=== PATIENT | male | born 1960 | race African-American/Black ===

== ENCOUNTER 2018-08-02 09:50 | Inpatient (IN) ==
[2018-08-02] MEDS ORDERED: Sod Chloride 0.9% Inj 1,000 ML IV.SIG ONE (10:30)
[2018-08-02] MEDS ORDERED: Vancomycin Inj 1,000 MG in Sodium Chlor 0.9% Inj 250 ML IV.SIG ONE (10:30)
[2018-08-02] MEDS ORDERED: Piperacil/Tazo 4.5 GM Premix 4.5 GM/100 ML BAG IV.SIG ONE (10:30)
[2018-08-02] MEDS ORDERED: Sod Chloride 0.9% Inj 1,000 ML IV.SIG SCH ×2 (10:30→11:45)
--- NOTE | 2018-08-02 10:49 | ED ---
HPI General Chief complaint: Weakness Stated complaint: Medical Time Seen by Provider: 08/02/18 10:19 Source: EMS Mode of arrival: EMS Limitations: altered mental status History of Present Illness HPI Narrative: The patient is a 57-year-old -[place] male who presents to the emergency department via EMS for altered mental status. The patient apparently has a history of stage IV lung cancer, is a DNR, and is currently being followed by hospice per EMS. EMS states the patient apparently signed out of [facility] detention 1 week ago AGAINST MEDICAL ADVICE and has been living with friends. The friends state the patient was mentating, however, is now confused. Upon arrival the patient does have DNR paperwork that was signed in February of this year, however, he is not alert and oriented, does not follow commands, he will open his eyes and grunt as well as withdrawal of the pain. No further information is obtainable from the patient. Nursing staff did contact [facility], they state the patient was being followed by [facility] hospice, therefore, they were going to place a call to [facility] hospice. MD Complaint: Reports generalized weakness Onset (ago): unknown Duration: progressively worsening Location: Reports generalized Severity: severe Severity scale (1-10): 10 Relieving factors: none Exacerbating factors: none Related Data Home Medications Medication Instructions Recorded Confirmed gabapentin 100 mg PO BID 08/02/18 08/02/18 hydrocodone-acetaminophen [[place]] 1 tab PO Q4H 08/02/18 08/02/18 insulin glargine [Lantus U-100 40 unit SUBCUT HS 08/02/18 08/02/18 Insulin] lisinopril 5 mg PO DAILY 08/02/18 08/02/18 metformin 500 mg PO BID 08/02/18 08/02/18 pioglitazone 15 mg PO DAILY 08/02/18 08/02/18 sitagliptin [Januvia] 100 mg PO DAILY 08/02/18 08/02/18 Allergies Allergy/AdvReac Type Severity Reaction Status Date / Time No Known Allergies Allergy Uncoded 10/29/16 14:56 Review of Systems ROS: all other systems reviewed are negative [facility] Medical History Medical History Diabetes (Acute) Lung cancer (Acute) Social History Social History Substance History: No History of Abuse Second Hand Smoke Exposure: No Smoking Status: Never smoker How Often Do You Have a Drink Containing Alcohol: Never Recent Travel in [facility] within the Last 8 Weeks: No Recent Out of Country Travel within the Last 8 Weeks: No Immunization History Tetanus Immunization: Unsure Exam Narrative Exam Narrative: GENERAL: 57-year-old -[place] male who is confused, withdraws to pain, opens eyes spontaneously, and groans. SKIN: Focused skin assessment warm/dry. HEAD: Atraumatic. Normocephalic. EYES: No injection or drainage. ENT: No nasal bleeding or discharge. Dry mucous membranes. NECK: Trachea midline. No JVD. CARDIOVASCULAR: Regular, bradycardic with a heart rate in the 50s. RESPIRATORY: No accessory muscle use. Clear to auscultation. Breath sounds equal bilaterally. GASTROINTESTINAL: Abdomen soft, non-tender, nondistended. Back: No obvious deformity over the thoracic or lumbar vertebrae. No obvious large sacral decubitus ulcers. MUSCULOSKELETAL: Open wound on the bottom of the left foot with discoloration of the third, fourth, fifth toe, thickened skin with surrounding erythema and foul smell. NEUROLOGICAL: Opens eyes spontaneously, withdraws to pain, and groans, does not follow commands or answer questions. PSYCHIATRIC: Unable to obtain. Course Initial Documented Vital Signs Pulse Rate 50 L 08/02/18 10:01 Respiratory Rate 21 08/02/18 10:01 Blood Pressure 54/37 L 08/02/18 10:01 Last Documented Vital Signs Temperature 79.3 F L 08/02/18 13:03 Pulse Rate 54 L 08/02/18 13:03 Respiratory Rate 12 08/02/18 11:37 Blood Pressure 79/49 L 08/02/18 13:03 Pulse Oximetry 100 08/02/18 11:37 Critical Care Time Critical Care Time: Yes Total Critical Care Time: 50 Attestation: Aggregate critical care time was 50 minutes. Time to perform other separately billable procedures was not included in the critical care time. My time did not include minutes spent treating any other patients simultaneously or on activities that did not directly contribute to the patient's treatment. The services I provided to this patient were to treat and/or prevent clinically significant deterioration that could result in: Sepsis, septic shock, arrhythmia , DKA, dehydration, acute kidney injury, . I provided critical care services requiring my management, as noted below: Chart data review, documentation time, medication orders and management, vital sign assessments/reviewing monitor data, ordering and reviewing lab tests, ordering and interpreting/reviewing x-rays and diagnostic studies, care of the patient and discussion of the patient with the admitting physicians. Medical Decision Making MDM Narrative Medical decision making narrative: IV was established, labs are drawn and sent, and the patient was placed on cardiac telemetry monitoring and continuous pulse oximetry monitoring. CT of the brain was obtained. X-ray of the chest and left foot were obtained. Blood culture and lactic acid were sent to lab. The patient was administered 2 L of normal saline bolus, Zosyn, and vancomycin for possible sepsis of the left foot. The patient's white count was elevated greater than 45,000, nursing staff was unable to get a rectal temperature. EKG did reveal Quinones waves consistent with hypothermia, was also bradycardic. The patient was placed on a Bear hugger. Nursing staff spoke with hospice, The casework supervisor did come to the emergency department, the patient apparently rescinded his DNR 1 month ago and is currently a full code. The patient's x- ray reveals gas gangrene of the left foot, the patient will need vigorous resuscitation in the IMC followed by podiatry evaluation for possible amputation and/or debridement. The hospice personnel from [facility] were able to contact the sister as well as the son. The patient's son told the hospice service via phone that they were going to rescind the hospice and wanted full treatment. The patient has DKA based on elevated anion gap, acidosis, and elevated blood glucose. Therefore, the patient was placed on an insulin drip. The patient is in DKA with severe sepsis and hypothermia and will be admitted to the intensive medical care unit. A call was placed to the on-call hot walker at 12:51 PM. I discussed the patient with Dr. Grubbs who agrees with admission. Medical Screen Exam Complete: Yes Emergency Medical Condition: Yes Differential Diagnosis Differential Diagnosis: Differential diagnosis includes sepsis, end of life care , hyperglycemia, DKA, dehydration, acute kidney injury, diabetic foot infection , osteomyelitis, end-stage cancer, subdural hemorrhage, intracranial hemorrhage. Lab Data Result diagrams: 08/02/18 10:49 08/02/18 10:49 Lab Results 08/02/18 08/02/18 08/02/18 Range/Units 10:49 10:49 10:49 WBC 46.7 H (4.0-11.0) th/mm3 RBC 3.10 L (4.50-5.90) mil/mm3 Hgb 9.4 L (13.0-17.0) gm/dL Hct 31.4 L (39.0-51.0) % MCV 101.2 H (80.0-100.0) fL MCH 30.4 (27.0-34.0) pg MCHC 30.1 L (32.0-36.0) % RDW 17.2 (11.6-17.2) % Plt Count 145 L (150-450) th/mm3 MPV 10.6 (7.0-11.0) fL Prelim Diff (Auto) Manual diff required WBC Differential Manual diff final Seg Neuts % (Manual) 61 (16-70) % Band Neuts % (Manual) 34 H (0-6) % Lymphocytes % (Manual) 1 L (9-44) % Monocytes % (Manual) 3 (0-8) % Metamyelocytes % (Man) 1 (0-1) % Abs Neuts (Manual) 44.8 H (1.8-7.7) th/mm3 Differential Comment . Toxic Granulation 1+ H (None) Toxic Vacuolation Present H (None) Platelet Estimate Low L (Normal) Platelet Morphology Normal (Normal) PT 15.0 H (9.8-11.6) sec INR 1.5 Ratio Puncture Site Patient Temperature O2 Saturation (90-100) % ABG pH (7.380-7.420) ABG pCO2 (38-42) mmHg ABG pO2 (61-120) mmHg ABG HCO3 (22-26) mmol/L ABG O2 Content (12.0-20.0) Vol % ABG Base Excess (-2-2) mmol/L ABG Methemoglobin (0-2) % Jordy Test Hemoglobin (12.0-16.0) G/DL Carboxyhemoglobin (0-4) % O2 Delivery Device Liter Flow L/M Critical Value Sodium 129 L (136-145) meq/L Potassium 5.5 H (3.5-5.1) meq/L Chloride 93 L (98-107) meq/L Carbon Dioxide 8.7 L (21.0-32.0) meq/L Anion Gap 27 H (5-15) meq/L BUN 105 H (7-18) mg/dL Creatinine 3.13 H (0.60-1.30) mg/dL Estimated GFR 25 L (>89) mL/min POC Glucose (68-110) mg/dl Random Glucose 909 H* (74-106) mg/dL Calcium 8.7 (8.5-10.1) mg/dL Magnesium 3.4 H (1.5-2.5) mg/dL Total Bilirubin 0.5 (0.2-1.0) mg/dL AST 348 H (15-37) U/L ALT 124 H (12-78) U/L Alkaline Phosphatase 199 H (45-117) U/L Total Creatine Kinase 3289 H (39-308) U/L CK-MB (CK-2) 53.4 H (0.5-3.6) ng/mL CK-MB (CK-2) % 1.6 (0.0-4.0) % Troponin I Less than 0.02 L (0.02-0.05) ng/mL B-Natriuretic Peptide (0-100) pg/mL Total Protein 6.5 (6.4-8.2) g/dL Albumin 1.6 L (3.4-5.0) g/dL TSH 2.690 (0.358-3.740) uIU/mL Urine Color (Yellw/Straw) Urine Clarity (Clear) Urine pH (5.0-8.5) Ur Specific Lillian (1.002-1.035) Urine Protein (Neg-Trace) mg/dL Urine Glucose (UA) (Negative) mg/dL Urine Ketones (Negative) mg/dL Urine Occult Blood (Negative) Urine Nitrate (Negative) Urine Bilirubin (Negative) Urine Urobilinogen (Less than 2) mg/dL Ur Leukocyte Esterase (Negative) Urine RBC (0-3) /hpf Urine WBC (0-5) /hpf Urine WBC Clumps (None) Amorphous Sediment (None) /hpf Urine Bacteria (None) /hpf Hyaline Casts (0-3) /lpf Urine Mucus (Occasional) /lpf Micro UA Comment Ur Microscopic Review Urine Culture Comments Blood Type Blood Type Recheck Antibody Screen 08/02/18 08/02/18 08/02/18 Range/Units 10:49 10:55 11:16 WBC (4.0-11.0) th/mm3 RBC (4.50-5.90) mil/mm3 Hgb (13.0-17.0) gm/dL Hct (39.0-51.0) % MCV (80.0-100.0) fL MCH (27.0-34.0) pg MCHC (32.0-36.0) % RDW (11.6-17.2) % Plt Count (150-450) th/mm3 MPV (7.0-11.0) fL Prelim Diff (Auto) WBC Differential Seg Neuts % (Manual) (16-70) % Band Neuts % (Manual) (0-6) % Lymphocytes % (Manual) (9-44) % Monocytes % (Manual) (0-8) % Metamyelocytes % (Man) (0-1) % Abs Neuts (Manual) (1.8-7.7) th/mm3 Differential Comment Toxic Granulation (None) Toxic Vacuolation (None) Platelet Estimate (Normal) Platelet Morphology (Normal) PT (9.8-11.6) sec INR Ratio Puncture Site Patient Temperature O2 Saturation (90-100) % ABG pH (7.380-7.420) ABG pCO2 (38-42) mmHg ABG pO2 (61-120) mmHg ABG HCO3 (22-26) mmol/L ABG O2 Content (12.0-20.0) Vol % ABG Base Excess (-2-2) mmol/L ABG Methemoglobin (0-2) % Jordy Test Hemoglobin (12.0-16.0) G/DL Carboxyhemoglobin (0-4) % O2 Delivery Device Liter Flow L/M Critical Value Sodium (136-145) meq/L Potassium (3.5-5.1) meq/L Chloride (98-107) meq/L Carbon Dioxide (21.0-32.0) meq/L Anion Gap (5-15) meq/L BUN (7-18) mg/dL Creatinine (0.60-1.30) mg/dL Estimated GFR (>89) mL/min POC Glucose (68-110) mg/dl Random Glucose (74-106) mg/dL Calcium (8.5-10.1) mg/dL Magnesium (1.5-2.5) mg/dL Total Bilirubin (0.2-1.0) mg/dL AST (15-37) U/L ALT (12-78) U/L Alkaline Phosphatase (45-117) U/L Total Creatine Kinase (39-308) U/L CK-MB (CK-2) (0.5-3.6) ng/mL CK-MB (CK-2) % (0.0-4.0) % Troponin I (0.02-0.05) ng/mL B-Natriuretic Peptide 42 (0-100) pg/mL Total Protein (6.4-8.2) g/dL Albumin (3.4-5.0) g/dL TSH (0.358-3.740) uIU/mL Urine Color Yellow (Yellw/Straw) Urine Clarity Cloudy H (Clear) Urine pH 5.0 (5.0-8.5) Ur Specific Lillian 1.015 (1.002-1.035) Urine Protein Negative (Neg-Trace) mg/dL Urine Glucose (UA) 500 or greater (Negative) mg/dL Urine Ketones 20 (Negative) mg/dL Urine Occult Blood Moderate H (Negative) Urine Nitrate Negative (Negative) Urine Bilirubin Negative (Negative) Urine Urobilinogen Less than 2 (Less than 2) mg/dL Ur Leukocyte Esterase Large H (Negative) Urine RBC 13 H (0-3) /hpf Urine WBC 114 H (0-5) /hpf Urine WBC Clumps Few H (None) Amorphous Sediment Few H (None) /hpf Urine Bacteria Few H (None) /hpf Hyaline Casts 10 (0-3) /lpf Urine Mucus Few H (Occasional) /lpf Micro UA Comment Cath-culture ind Ur Microscopic Review Not Reportable Urine Culture Comments Cath-cult indicated Blood Type O Positive Blood Type Recheck Required Antibody Screen Negative 08/02/18 08/02/18 Range/Units 12:10 12:34 WBC (4.0-11.0) th/mm3 RBC (4.50-5.90) mil/mm3 Hgb (13.0-17.0) gm/dL Hct (39.0-51.0) % MCV (80.0-100.0) fL MCH (27.0-34.0) pg MCHC (32.0-36.0) % RDW (11.6-17.2) % Plt Count (150-450) th/mm3 MPV (7.0-11.0) fL Prelim Diff (Auto) WBC Differential Seg Neuts % (Manual) (16-70) % Band Neuts % (Manual) (0-6) % Lymphocytes % (Manual) (9-44) % Monocytes % (Manual) (0-8) % Metamyelocytes % (Man) (0-1) % Abs Neuts (Manual) (1.8-7.7) th/mm3 Differential Comment Toxic Granulation (None) Toxic Vacuolation (None) Platelet Estimate (Normal) Platelet Morphology (Normal) PT (9.8-11.6) sec INR Ratio Puncture Site Right radial Patient Temperature 98.6 O2 Saturation 96 (90-100) % ABG pH 7.09 L* (7.380-7.420) ABG pCO2 25 L (38-42) mmHg ABG pO2 191 H (61-120) mmHg ABG HCO3 7 L* (22-26) mmol/L ABG O2 Content 12.0 (12.0-20.0) Vol % ABG Base Excess -20.9 L (-2-2) mmol/L ABG Methemoglobin 1.0 (0-2) % Jordy Test Present Hemoglobin 8.6 L (12.0-16.0) G/DL Carboxyhemoglobin 1.5 (0-4) % O2 Delivery Device Nasal cannula Liter Flow 2.00 L/M Critical Value Yes Sodium (136-145) meq/L Potassium (3.5-5.1) meq/L Chloride (98-107) meq/L Carbon Dioxide (21.0-32.0) meq/L Anion Gap (5-15) meq/L BUN (7-18) mg/dL Creatinine (0.60-1.30) mg/dL Estimated GFR (>89) mL/min POC Glucose Greater than 600 H* (68-110) mg/dl Random Glucose (74-106) mg/dL Calcium (8.5-10.1) mg/dL Magnesium (1.5-2.5) mg/dL Total Bilirubin (0.2-1.0) mg/dL AST (15-37) U/L ALT (12-78) U/L Alkaline Phosphatase (45-117) U/L Total Creatine Kinase (39-308) U/L CK-MB (CK-2) (0.5-3.6) ng/mL CK-MB (CK-2) % (0.0-4.0) % Troponin I (0.02-0.05) ng/mL B-Natriuretic Peptide (0-100) pg/mL Total Protein (6.4-8.2) g/dL Albumin (3.4-5.0) g/dL TSH (0.358-3.740) uIU/mL Urine Color (Yellw/Straw) Urine Clarity (Clear) Urine pH (5.0-8.5) Ur Specific Lillian (1.002-1.035) Urine Protein (Neg-Trace) mg/dL Urine Glucose (UA) (Negative) mg/dL Urine Ketones (Negative) mg/dL Urine Occult Blood (Negative) Urine Nitrate (Negative) Urine Bilirubin (Negative) Urine Urobilinogen (Less than 2) mg/dL Ur Leukocyte Esterase (Negative) Urine RBC (0-3) /hpf Urine WBC (0-5) /hpf Urine WBC Clumps (None) Amorphous Sediment (None) /hpf Urine Bacteria (None) /hpf Hyaline Casts (0-3) /lpf Urine Mucus (Occasional) /lpf Micro UA Comment Ur Microscopic Review Urine Culture Comments Blood Type Blood Type Recheck Antibody Screen Imaging Data Radiologist's impression: Chest X-Ray 08/02/18 10:30 CONCLUSION: Negative examination. 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 Negative CT Head non contrast. . ECG Data EKG Prior to Arrival: No Attestation: I personally reviewed and interpreted this ECG as follows: Interpretation: EKG reveals sinus bradycardia with a heart rate of 50. ST elevation noted in lead II, III, aVF, V4, V5, and V6. EKG reveals Quinones waves. Discharge Plan Discharge Disposition Patient Disposition: 30 Still Patient Discharge Condition Condition: Critical Discharge Details Diagnosis: Sepsis, Hypothermia, Diabetic foot infection, Acute renal failure Physicians Team ED Provider: Jhon Pedraza Primary Care Provider: UNKNOWN, Attending Provider: Fabian Grubbs Status ED Status: Admitted Patient
--- NOTE | 2018-08-02 11:10 | XR ---
EXAM DATE: 08/02/2018 11:07 AM EST AGE/SEX: 57 years / Male INDICATIONS: Ulcers on foot. CLINICAL DATA: This is the patient's initial encounter. Patient reports that signs and symptoms have been present for 1 day and indicates a pain score of Nonresponsive. MEDICAL/SURGICAL HISTORY: Diabetes. Non-responsive. COMPARISON: No prior exams available for comparison. FINDINGS: There is extensive air in the soft tissues of the midfoot and forefoot. The bony elements are grossly intact. Extensive vascular calcification is noted. CONCLUSION: Extensive gas gangrene of the left foot Electronically signed by: Aron Villarreal MD 08/02/2018 11:09 AM EST
[2018-08-02 11:13] LABS: Hematocrit 31.4 % (39.0-51.0); Hemoglobin 9.4 gm/dL (13.0-17.0); Mean Corpuscular Hemoglobin 30.4 pg (27.0-34.0); Mean Corpuscular Volume 101.2 fL (80.0-100.0); Mean Platelet Volume 10.6 fL (7.0-11.0); Platelet Count 145 th/mm3 (150-450); Red Cell Distribution Width 17.2 % (11.6-17.2); White Blood Count 46.7 th/mm3 (4.0-11.0)
[2018-08-02 11:19] LABS: Mean Corpuscular HGB Conc 30.1 % (32.0-36.0)
--- NOTE | 2018-08-02 11:19 | XR ---
EXAM DATE: 08/02/2018 11:04 AM EST AGE/SEX: 57 years / Male INDICATIONS: Short of breath, congestion. CLINICAL DATA: This is the patient's initial encounter. Patient reports that signs and symptoms have been present for 1 day and indicates a pain score of Nonresponsive. MEDICAL/SURGICAL HISTORY: Diabetes. None. COMPARISON: [facility] [place], CHEST SINGLE AP, 07/17/2017. . FINDINGS: A single AP view of the chest demonstrates the lungs to be symmetrically aerated without evidence of mass, infiltrate or effusion. The cardiomediastinal contours are unremarkable. Osseous structures a re intact. CONCLUSION: Negative examination. Electronically signed by: Patrick Veliz MD 08/02/2018 11:17 AM EST
[2018-08-02 11:23] LABS: Amorphous Sediment,Urine Few /hpf; Bacteria,Urine Few /hpf; Bilirubin,Urine Negative (Negative); Clarity,Urine Cloudy (Clear); Color,Urine Yellow (Yellw/Straw); Glucose,Urine (UA) 500 or Greater mg/dL (Negative); Hyaline Casts,Urine 10 /lpf (0-3); Leukocyte Esterase,Urine Large (Negative); Mucus,Urine Few /lpf (Occasional); Nitrite,Urine Negative (Negative); Specific Gravity,Urine 1.015 (1.002-1.035)
[2018-08-02 11:23] LABS: INR 1.5 Ratio
[2018-08-02 11:46] LABS: Alanine Aminotransferase 124 U/L (12-78); Albumin 1.6 g/dL (3.4-5.0); Alkaline Phosphatase 199 U/L (45-117); Anion Gap 27 meq/L (5-15); Aspartate Aminotransferase 348 U/L (15-37); Blood Urea Nitrogen 105 mg/dL (7-18); Calcium 8.7 mg/dL (8.5-10.1); Carbon Dioxide 8.7 meq/L (21.0-32.0); Chloride 93 meq/L (98-107); Creatine Kinase 3289 U/L (39-308); Glomerular Filtration Rate 25 mL/min (>89); Magnesium 3.4 mg/dL (1.5-2.5); Potassium 5.5 meq/L (3.5-5.1); Sodium 129 meq/L (136-145); Total Protein 6.5 g/dL (6.4-8.2)
[2018-08-02 11:52] LABS: Glucose,Random 909 mg/dL (74-106); Lymphocytes 1 % (9-44); Metamyelocytes 1 % (0-1); Monocytes 3 % (0-8)
--- NOTE | 2018-08-02 11:52 | CT ---
EXAM DATE: 08/02/2018 11:48 AM EST AGE/SEX: 57 years / Male INDICATIONS: Altered mental status. CLINICAL DATA: This is the patient's initial encounter. Patient reports that signs and symptoms have been present for 1 day and indicates a pain score of Nonresponsive. MEDICAL/SURGICAL HISTORY: Diabetes. Carcinoma, lung. None. RADIATION DOSE: 36.60 CTDI (mGy) COMPARISON: No prior exams available for comparison. TECHNIQUE: CT of the head without contrast. Using automated exposure control and adjustment of the mA and/or kV according to patient size, radiation dose was kept as low as reasonably achievable to ob tain optimal diagnostic quality images. DICOM format image data is available electronically for revi ew and comparison. FINDINGS: Cerebrum: The ventricles are normal for age. No evidence of midline shift, mass lesion, hemorrhage or acute infarction. No extraaxial fluid collections are seen. Posterior Fossa: The cerebellum and brainstem are intact. The 4th ventricle is midline. The cerebe llopontine angle is unremarkable. Extracranial: The visualized portion of the orbits is intact. Skull: The calvaria is intact. No evidence of skull fracture. CONCLUSION: 1. Negative CT Head non contrast. . Electronically signed by: Dariusz Beckman MD 08/02/2018 11:51 AM EST
[2018-08-02 11:53] LABS: Platelet Morphology Normal (Normal); Toxic Granulation 1+; Toxic Vacuolation Present
[2018-08-02 12:08] LABS: CKMB Percent 1.6 % (0.0-4.0); Creatine Kinase MB 53.4 ng/mL (0.5-3.6)
[2018-08-02 12:20] LABS: ABG Base Excess -20.9 mmol/L (-2-2); ABG PCO2 25 mmHg (38-42); ABG PO2 191 mmHg (61-120)
[2018-08-02] MEDS ORDERED: Potassium Chlor 40 mEq Premix 40 MEQ/100 ML PIGGYBACK IV.SIG PRN ×2 (12:25)
[2018-08-02] MEDS ORDERED: Sodium Phosphate Inj 15 MMOL in Sodium Chlor 0.9% Inj 100 ML IV.SIG PRN (12:25)
[2018-08-02] MEDS ORDERED: Potassium Chlor 20 mEq Premix 20 MEQ/100 ML PIGGYBACK IV.SIG PRN ×6 (12:25)
[2018-08-02] MEDS ORDERED: Dextrose 5%/NaCl 0.9% Inj 1,000 ML IV.CONT SCH (12:30)
[2018-08-02] MEDS: Sod Chloride 0.9% Inj 1,000 ML IV.SIG SCH ×2 (12:42→12:43)
[2018-08-02] MEDS: Insulin Regular (For Infusion) 100 UNIT in Sodium Chlor 0.9% Inj 99 ML IV.CONT PRN (13:02)
[2018-08-02] MEDS: Sod Chloride 0.9% Inj 1,000 ML IV.CONT SCH ×2 (13:02→17:55)
[2018-08-02] MEDS ORDERED: Morphine Sulfate Inj 2 MG/ML Vial IV.PUSH PRN (13:39)
[2018-08-02] MEDS ORDERED: Bisacodyl 10 MG Supp RECTAL PRN (13:39)
[2018-08-02] MEDS ORDERED: Vancomycin Consult Pharmacy OTHER PRN (13:43)
[2018-08-02] MEDS ORDERED: Norepinephrine Inj 16 MG in Sodium Chlor 0.9% Inj 234 ML IV.CONT PRN (13:52)
--- NOTE | 2018-08-02 14:18 | P.HPCC ---
History of Present Illness Service: Critical care medicine Primary Care Physician: UNKNOWN Chief Complaint: Severe sepsis/DKA/altered mental status/hypothermia/left foot gangrene History of Present Illness: This is a 49-year-old male. Date of admission 08/02/2008. Past medical history includes diabetes mellitus, hypertension, peripheral neuropathy and narcotic use. Patient was recently DNR under fluoroscopy hospice. Patient left [facility] 07/10/2018 according to records. Patient was found today by friends altered mental status. Patient was transferred according to [facility] for evaluation treatment. Upon arrival, patient was hypothermic with a temperature of 79 F. Workup included sodium 1.8, potassium 5.5 and creatinine 3.17. Blood sugar was 900. Lipid cell count is 47,000 with 34 bands. Hemoglobin is 9.4 and platelets 143. INR is 1.5. Albumin is 1.63 CPK is 3200. Transaminases are elevated. Patient received 5 L normal saline in the ED of warm saline and started on insulin drip per DKA protocol. Anion gap was 27. Lactic and beta hydroxybutyrate currently pending. CT brain revealed no acute intracranial findings. Foot x-ray revealed gas gangrene left foot. Attempted to consult podiatry at the present time. Patient was started on vancomycin and piperacillin/tazobactam. I added clindamycin A central line was placed due to multiple lab draws/kilogram of hypotension - Diagnosis (1) Leukocytosis (2) Hypermagnesemia (3) Hyponatremia (4) Rhabdomyolysis (5) Macrocytic anemia (6) Thrombocytopenia (7) Hypoalbuminemia (8) Hyperkalemia (9) Elevated transaminase level (10) Sepsis (11) Hypothermia (12) Diabetic foot infection (13) Acute renal failure Inpatient Certification: I certify that the inpatient services were ordered in accordance with Medicare regulations governing the order. This includes certification that hospital inpatient services are reasonable and necessary and in the case of services not specified as inpatient-only under 42 CFR 419.22(n), that they are appropriately provided as inpatient services in accordance to with the 2-midnight benchmark under 43 CFR 412.3(e) Estimated Total Length of Stay (Days): 8 Plans for Post Hospital Care: Not yet determined Review of Systems unobtainable due to mental condition PMFSH - History History Provided By: Patient - Medical History Medical History: Medical History (Last Updated 08/02/18 @ 13:36 by Chula Cosme) Diabetes Hypertension Lung cancer - Surgical History Surgical History: Surgical History (Last Updated 08/02/18 @ 14:21 by Fabian Grubbs MD) No pertinent past surgical history - Family History Family History: Family History (Last Updated 08/02/18 @ 14:21 by Fabian Grubbs MD) Other Family history unremarkable - Social History I have reviewed the patient's Social History: Yes - Tobacco History Second Hand Smoke Exposure: No Smoking Status: Smoker, status unknown - Alcohol History How Often Do You Have a Drink Containing Alcohol: Unable to Obtain - Substance Use History Substance History: Past History - Travel History History of Recent Travel: No Recent Travel in the [place] Within the Last 8 Weeks: No Recent Travel Out of the Country Within the Last 8 Weeks: No - Immunization History Tetanus Immunization: Unsure Medications and Allergies Active Medications: Active Medications Al Hydroxide/Mg Hydroxide (Milk Of Magnkailey Liq) 30 ml PO Q12H PRN PRN Reason: Mild Constipation Albuterol (Albuterol Neb (Jackelin)) 2.5 mg NEB Q2HR NEB PRN PRN Reason: SHORTNESS OF BREATH/WHEEZING Albuterol (Duoneb Neb (Prn)) 1 ampul NEB Q4HR NEB JACKELIN Bisacodyl (Dulcolax Supp) 10 mg RECTAL DAILY PRN PRN Reason: SEVERE CONSITIPATION Chlorhexidine Gluconate (Chlorhexidine 2% Cloth) 3 pack TOPICAL DAILY@0400 JACKELIN Stop: 08/08/18 03:59 Chlorhexidine Gluconate (Chlorhexidine 2% Cloth) 3 pack TOPICAL DAILY@0400 PRN PRN Reason: Extra cloth needed Stop: 08/08/18 03:59 Chlorhexidine Gluconate (Chlorhexidine 2% Cloth) 3 pack TOPICAL DAILY@0400 JACKELIN Stop: 08/08/18 03:59 Chlorhexidine Gluconate (Chlorhexidine 2% Cloth) 3 pack TOPICAL DAILY@0400 PRN PRN Reason: Extra cloth needed Stop: 08/08/18 03:59 Heparin Sodium (Porcine) (Heparin Inj) 5,000 units SQ Q12H JACKELIN Dextrose/Sodium Chloride (D5w/Normal Saline Inj) 1,000 mls @ 200 mls/hr IV.CONT .Q5H [facility] Insulin Human Regular 100 unit (/ Sodium Chloride) 100 mls @ 5 mls/hr IV.CONT TITRATE PRN; Protocol PRN Reason: See protocol Last Admin: 08/02/18 13:02 Dose: 5 units/hr, 5 mls/hr Potassium Chloride (Kcl 20 Meq Premix Inj) 20 meq in 100 mls @ 100 mls/hr IV.SIG Q1H PRN PRN Reason: for K+ 4.5 to 5 Potassium Chloride (Kcl 20 Meq Premix Inj) 20 meq in 100 mls @ 100 mls/hr IV.SIG Q1H PRN PRN Reason: for K+ 3.5 to 4.4 Potassium Chloride (Kcl 20 Meq Premix Inj) 20 meq in 100 mls @ 50 mls/hr IV.SIG Q2H PRN PRN Reason: for K+ 3.5 to 4.4 Potassium Chloride (Kcl 20 Meq Premix Inj) 20 meq in 100 mls @ 50 mls/hr IV.SIG Q2H PRN PRN Reason: for Initial K+ ONLY < 3.5 Potassium Chloride (Kcl 40 Meq Premix Inj) 40 meq in 100 mls @ 100 mls/hr IV.SIG Q1H PRN PRN Reason: for Initial K+ ONLY < 3.5 Potassium Chloride (Kcl 20 Meq Premix Inj) 20 meq in 100 mls @ 50 mls/hr IV.SIG Q2H PRN PRN Reason: for Subsequent K+ < 3.5 Potassium Chloride (Kcl 40 Meq Premix Inj) 40 meq in 100 mls @ 50 mls/hr IV.SIG Q2H PRN PRN Reason: for Subsequent K+ < 3.5 Sodium Chloride (Ns Inj) 1,000 mls @ 1,000 mls/hr IV.SIG .Q1H JACKELIN Stop: 08/02/18 14:29 Last Infusion: 08/02/18 13:21 Dose: Infused Sodium Chloride (Ns Inj) 1,000 mls @ 250 mls/hr IV.CONT .Q4H JACKELIN Last Admin: 08/02/18 13:02 Dose: 250 mls/hr Sodium Phosphate 15 mmol/ (Sodium Chloride) 105 mls @ 25 mls/hr IV.SIG UNSCH PRN PRN Reason: for Phosphate Level < 1.0 Potassium Chloride (Kcl 20 Meq Premix Inj) 20 meq in 100 mls @ 50 mls/hr IV.SIG Q2H PRN PRN Reason: for K+ 4.5 to 5 Piperacillin/Tazobactam/Dextrose (Zosyn 2.25 Gm Premix) 50 mls @ 100 mls/hr IV.SIG Q8H JACKELIN Clindamycin/Sodium Chloride (Cleocin 600 Mg/Ns Premix) 600 mg in 50 mls @ 100 mls/hr IV.SIG Q8H JACKELIN Norepinephrine Bitartrate 16 (mg/ Sodium Chloride) 250 mls @ 1.87 mls/hr IV.CONT TITRATE PRN; Protocol PRN Reason: See Protocol Lactulose (Lactulose Liq) 30 ml PO DAILY PRN PRN Reason: SEVERE CONSITIPATION Morphine Sulfate (Morphine Inj) 2 mg IV.PUSH Q2H PRN PRN Reason: PAIN SCALE 6 TO 10 Ondansetron HCl (Zofran Inj) 4 mg IV.PUSH Q6H PRN PRN Reason: NAUSEA OR VOMITING Pantoprazole Sodium (Protonix Inj) 40 mg IV.PUSH DAILY [facility] Pharmacy Profile Note (Vancomycin Consult Pharmacy) 1 each OTHER UNSCH PRN PRN Reason: Pharmacy to dose Senna/Docusate Sodium (Kenia-Colace) 1 tab PO BID [facility] Sennosides (Senokot) 17.2 mg PO Q12H PRN PRN Reason: Moderate Constipation Sodium Bicarbonate (Sodium Bicarbonate 8.4% Inj) 100 meq IV.PUSH UNSCH PRN PRN Reason: for pH less than 6.9 Sodium Bicarbonate (Sodium Bicarbonate 8.4% Inj) 50 meq IV.PUSH UNSCH PRN PRN Reason: for pH 6.9 to 7.0 Sodium Chloride (Ns Flush) 2 ml IV.FLUSH PRN PRN PRN Reason: FLUSH AFTER USING IV ACCESS Sodium Chloride (Ns Flush) 2 ml IV.FLUSH UNSCH PRN PRN Reason: FLUSH AFTER USING IV ACCESS Sodium Chloride (Ns Flush) 2 ml IV.FLUSH BID [facility] Terbutaline Sulfate (Brethine Inj) 1 mg SQ UNSCH PRN PRN Reason: For Extravasation Allergies Allergy/AdvReac Type Severity Reaction Status Date / Time No Known Allergies Allergy Uncoded 10/29/16 14:56 Home Medications Medication Instructions Recorded Confirmed Type gabapentin 100 mg PO BID 08/02/18 08/02/18 History hydrocodone-acetaminophen [[place]] 1 tab PO Q4H 08/02/18 08/02/18 History insulin glargine [Lantus U-100 40 unit SUBCUT HS 08/02/18 08/02/18 History Insulin] lisinopril 5 mg PO DAILY 08/02/18 08/02/18 History metformin 500 mg PO BID 08/02/18 08/02/18 History pioglitazone 15 mg PO DAILY 08/02/18 08/02/18 History sitagliptin [Januvia] 100 mg PO DAILY 08/02/18 08/02/18 History Results - Labs CBC & Chem 7: 08/02/18 10:49 08/02/18 10:49 Labs: Short CBC 08/02/18 Range/Units 10:49 WBC 46.7 H (4.0-11.0) th/mm3 Hgb 9.4 L (13.0-17.0) gm/dL Hct 31.4 L (39.0-51.0) % Plt Count 145 L (150-450) th/mm3 BMP 08/02/18 10:49 Sodium 129 L Potassium 5.5 H Chloride 93 L Carbon Dioxide 8.7 L BUN 105 H Creatinine 3.13 H Calcium 8.7 Cardiac Enzymes 08/02/18 Range/Units 10:49 Total Creatine Kinase 3289 H (39-308) U/L CK-MB (CK-2) 53.4 H (0.5-3.6) ng/mL Troponin I Less than 0.02 L (0.02-0.05) ng/mL Liver Function 08/02/18 Range/Units 10:49 Total Bilirubin 0.5 (0.2-1.0) mg/dL AST 348 H (15-37) U/L ALT 124 H (12-78) U/L Alkaline Phosphatase 199 H (45-117) U/L Albumin 1.6 L (3.4-5.0) g/dL Urine 08/02/18 Range/Units 10:55 Urine Color Yellow (Yellw/Straw) Urine Clarity Cloudy H (Clear) Urine pH 5.0 (5.0-8.5) Ur Specific [place] 1.015 (1.002-1.035) Urine Protein Negative (Neg-Trace) mg/dL Urine Glucose (UA) 500 or greater (Negative) mg/dL - Imaging Impressions Chest X-Ray 08/02/18 10:30 CONCLUSION: Negative examination. 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 Negative CT Head non contrast. . Exam Vital signs: Vital Signs 08/02/18 10:01 08/02/18 11:31 08/02/18 11:37 Temperature Pulse Rate 50 L 56 L Respiratory Rate 21 12 Blood Pressure 54/37 L 60/41 L 74/48 L Pulse Oximetry 100 08/02/18 12:07 08/02/18 13:03 08/02/18 13:26 Temperature 79.3 F L 84.6 F L Pulse Rate 61 54 L Respiratory Rate Blood Pressure 82/49 L 79/49 L 80/52 L Pulse Oximetry 08/02/18 13:36 08/02/18 14:14 Temperature Pulse Rate Respiratory Rate Blood Pressure 70/47 L 96/51 L Pulse Oximetry Intake & Output 08/01/18 08/02/18 08/02/18 18:59 06:59 18:59 Intake Total 5350 / 5350 Balance 5350 / 5350 Weight 48.081 kg Intake: IV 5350 / 5350 Zosyn 4.5 GM Premix 4.5 gm In 100 / 100 100 ml @ 200 mls/hr IV.SIG ONCE ONE Rx#:[id number] NS Inj 1,000 ML @ 1000 mls/hr 5000 / 5000 IV.SIG .Q1H JACKELIN Rx#:[id number] Vancomycin Inj 1,000 MG In NS 250 / 250 Inj 250 ML @ 250 mls/hr IV.SIG ONCE ONE Rx#:[id number] - Constitutional mild distress - Routine HEENT Exam Head: Present: normocephalic, atraumatic Eye: Present: EOMI, PERRL, normal accommodation ENT: Present: mucous membranes dry - Routine Neck Exam Present: supple, full ROM. Absent: JVD, carotid bruit - Routine Chest/Breast/Axilla Exam Chest wall: Absent: tenderness Breast: Absent: tenderness Axillae: Absent: lymphadenopathy - Routine Respiratory Exam Present: CTA bilaterally. Absent: accessory muscle use - Routine Cardiovascular Exam Present: S1, S2, bradycardia. Absent: murmur - Routine Abdominal Exam Present: soft, normoactive bowel sounds - Routine Extremities Exam Present: joint swelling. Absent: cyanosis, clubbing Comments: Left foot with old eschar plantar aspect. Foot x-ray with gas gangrene - Routine Skin Exam Present: dry, scars, cracked, gangrene (Left foot) - Routine Neurological Exam Present: alert, CN II-XII intact. Absent: oriented X3, sensory deficit, motor deficit Septic Shock Reassessment Septic shock perfusion: reassessment completed Caprini VTE Risk Assessment Caprini VTE Risk Assessment: Moderate/High Risk (score >= 2) Caprini Risk Assessment Model: Point Value = 1 Point Value = 2 Point Value = 3 Point Value = 5 Age 41-60 Minor surgery BMI > 25 kg/m2 Swollen legs Varicose veins or History of unexplained or recurrent spontaneous Oral contraceptives or hormone replacement Sepsis (< 1 month) Serious lung disease, including pneumonia (< 1 month) Abnormal pulmonary function Acute myocardial infarction Congestive heart failure (< 1 month) History of inflammatory bowel disease Medical patient at bed rest Age 61-74 Arthroscopic surgery Major open surgery (> 45 min) Laparoscopic surgery (> 45 min) Malignancy Confined to bed (> 72 hours) Immobilizing plaster cast Central venous access Age >= 75 History of VTE Family history of VTE Factor V Leiden Prothrombin [id number] Lupus anticoagulant Anticardiolipin antibodies Elevated serum homocysteine Heparin-induced thrombocytopenia Other congenital or acquired thrombophilia Stroke (< 1 month) Elective arthroplasty Hip, pelvis, or leg fracture Acute spinal cord injury (< 1 month) Prophylaxis Regimen: Total Risk Factor Score Risk Level Prophylaxis Regimen 0-1 Low Early ambulation 2 Moderate Order ONE of the following: *Sequential Compression Device (SCD) *Heparin 5000 units SQ BID 3-4 Higher Order ONE of the following medications: *Heparin 5000 units SQ TID *Enoxaparin/Lovenox 40 mg SQ daily (WT < 150 kg, CrCl > 30 mL/min) *Enoxaparin/Lovenox 30 mg SQ daily (WT < 150 kg, CrCl > 10-29 mL/min) *Enoxaparin/Lovenox 30 mg SQ BID (WT < 150 kg, CrCl > 30 mL/min) AND/OR *Sequential Compression Device (SCD) 5 or more Highest Order ONE of the following medications: *Heparin 5000 units SQ TID (Preferred with Epidurals) *Enoxaparin/Lovenox 40 mg SQ daily (WT < 150 kg, CrCl > 30 mL/min) *Enoxaparin/Lovenox 30 mg SQ daily (WT < 150 kg, CrCl > 10-29 mL/min) *Enoxaparin/Lovenox 30 mg SQ BID (WT < 150 kg, CrCl > 30 mL/min) AND *Sequential Compression Device (SCD) Assessment and Plan - Problem List (1) Leukocytosis Code(s): D72.829 - Elevated white blood cell count, unspecified Status: Acute (2) Hypermagnesemia Code(s): E83.41 - Hypermagnesemia Status: Acute (3) Hyponatremia Code(s): E87.1 - Hypo-osmolality and hyponatremia Status: Acute (4) Rhabdomyolysis Code(s): M62.82 - Rhabdomyolysis Status: Acute (5) Macrocytic anemia Code(s): D53.9 - Nutritional anemia, unspecified Status: Acute (6) Thrombocytopenia Code(s): D69.6 - Thrombocytopenia, unspecified Status: Acute (7) Hypoalbuminemia Code(s): E88.09 - Other disorders of plasma-protein metabolism, not elsewhere classified Status: Acute (8) Hyperkalemia Code(s): E87.5 - Hyperkalemia Status: Acute (9) Elevated transaminase level Code(s): R74.0 - Nonspecific elevation of levels of transaminase and lactic acid dehydrogenase [LDH] Status: Acute (10) Sepsis Code(s): A41.9 - Sepsis, unspecified organism Status: Acute (11) Hypothermia Code(s): T68.XXXA - Hypothermia, initial encounter Status: Acute (12) Diabetic foot infection Code(s): E11.628 - Type 2 diabetes mellitus with other skin complications; L08.9 - Local infection of the skin and subcutaneous tissue, unspecified Status: Acute (13) Acute renal failure Code(s): N17.9 - Acute kidney failure, unspecified Status: Acute - Assessment and Plan Plan: Neuro/Psych: Acute toxic metabolic encephalopathy Peripheral neuropathy History of EtOH and cocaine abuse CT brain revealed no acute intracranial findings Holding gabapentin 100 mg twice daily/home medication for peripheral neuropathy. CV: Severe sepsis History of essential hypertension Status post 5 L crystalloid in ED. Holding lisinopril 5 mg daily/home medication while hypotensive EKG revealed ST elevation/Quinones waves in leads II, III and aVF. Echocardiogram 06/23 revealed EF of 65%. No regional wall motion normality's. Resp: History of tobaccoism Nasal cannula to maintain saturations greater than equal to 92% Dysfunction while awake GI: Elevated transaminases Rhabdomyolysis Hypoalbuminemia : Straight catheterization as needed Endo: History of diabetes mellitus DKA Received 5 units R insulin bolus currently and drip at 5 mg an hour. Currently on normal saline at 250 cc an hour. Transition to D5 normal saline at 20 cc an hour once blood sugar less than 250 per protocol Check blood glucose every hour Holding home medication of insulin glargine 40 units at night, metformin 5 mg twice daily, pioglitazone 15 mg daily and sitagliptin 100 mg daily TSH was 2.69 Renal: Acute kidney injury Based on creatinine 1.0. Monitor urine output Accurate I's and O's Check urine eosinophils, sodium and creatinine Check renal ultrasound Heme: Leukocytosis with bandemia Macrocytic anemia Thrombocytopenia Elevated INR ID: Placed on vancomycin, piperacillin/tazobactam and clindamycin MSK: Left foot gangrene X-ray foot revealed gas gangrene. FEN: Hyponatremia Hyperkalemia Hyper magnesium Access -Left IJ CVL day 1 placed 08/02 Prophylaxis -GI -pantoprazole -DVT -SCD/heparin subcu 35 minutes critical care time (10) Sepsis Qualifiers: Sepsis type: sepsis due to unspecified organism Qualified Code(s): A41.9 - Sepsis, unspecified organism (11) Hypothermia Qualifiers: Encounter type: initial encounter Qualified Code(s): T68.XXXA - Hypothermia, initial encounter (13) Acute renal failure Qualifiers: Acute renal failure type: unspecified Qualified Code(s): N17.9 - Acute kidney failure, unspecified
--- NOTE | 2018-08-02 14:19 | P.PCN ---
Date of procedure: 08/02/18 Pre-op diagnosis: Severe sepsis/hypotension/DKA Post-op diagnosis: same Procedure: DATE: 08/02/2018 CENTRAL LINE PLACEMENT: Left internal jugular vein. Ultrasound-guided INDICATION: Central venous access CONSENT Informed consent for procedure was obtained from son. DESCRIPTION OF THE PROCEDURE The patient was placed in supine position. The skin was cleansed with Chloraprep. Additional barrier precautions included large sterile drape, sterile gloves, sterile gown, face mask, and hat. 1 % lidocaine was used for local anesthesia. Under direct ultrasound guidance and on initial attempt, the vein was accessed with an introducer needle. The guide wire was advanced and the tract was dilated. Using Seldinger technique a 7 [place] 20 cm antimicrobial coated triple-lumen catheter was advanced to a depth of 20 centimeters. The guide wire was removed. All ports had good return of dark venous blood and flushed easily with saline. The central line was secured with 2.0 silk. A sterile dressing with antibiotic disc was applied. StatLock do not adhere to skin ESTIMATED BLOOD LOSS: Minimal COMPLICATIONS: No apparent complications. STAT chest x-ray pending at time of dictation
--- NOTE | 2018-08-02 14:44 | XR ---
EXAM DATE: 08/02/2018 2:41 PM EST AGE/SEX: 57 years / Male INDICATIONS: Central line placement, sepsis, short of breath CLINICAL DATA: This is the patient's initial encounter. Patient reports that signs and symptoms have been present for 1 day and indicates a pain score of Nonresponsive. MEDICAL/SURGICAL HISTORY: Diabetes. Sepsis. gangrene left foot Non-responsive. COMPARISON: [facility], CHEST 1V SINGLE AP, 08/02/2018. . FINDINGS: Left neck central line is present with tip extending to the SVC. There is no evidence of pneumothorax or other complication of placement. Lungs are symmetrically aerated and grossly clear. Cardiac conto urs are satisfactory. CONCLUSION: Satisfactory Central line positioning. Electronically signed by: Aron Villarreal MD 08/02/2018 2:43 PM EST
[2018-08-02 15:23] LABS: Beta Hydroxybutyric Acid 9.86 mmol/L (0.00-0.39)
--- NOTE | 2018-08-02 15:28 | US ---
EXAM DATE: 08/02/2018 3:14 PM EST AGE/SEX: 57 years / Male INDICATIONS: Increased BUN/Creatinine. CLINICAL DATA: This is the patient's initial encounter. Patient reports that signs and symptoms have been present for 1 day and indicates a pain score of 0/10. MEDICAL/SURGICAL HISTORY: Diabetes. Hypertension. Lung Cancer. Sepsis. Left foot gangrene. No ne. COMPARISON: [facility] [place], CT ABDOMEN & PELVIS W CONTRAST, 07/03/2017. . MEASUREMENTS: Right Kidney:__10.5 x 4.7 x 5.6 cm Left Kidney:__12.4 x 5.8 x 4.7 cm FINDINGS: Right Kidney: Normal echotexture and cortical thickness. No mass or hydronephrosis. Left Kidney: Normal echotexture and cortical thickness. No mass or hydronephrosis. Bladder: Tang catheter is seen in the bladder, however the bladder remains distended. The Tang is p resumably clogged. Other: None. CONCLUSION: Bladder distention despite Tang catheter. Electronically signed by: Aron Villarreal MD 08/02/2018 3:27 PM EST
[2018-08-02] MEDS ORDERED: Heparin - SQ 10,000 UNITS/ML Vial SQ SCH (16:00)
--- NOTE | 2018-08-02 16:11 | ECHRPT ---
EXAM DATE: 08/02/2018 3:45 PM EST AGE/SEX: 57 years / Male INDICATIONS: Diabetic foot infection CLINICAL DATA: This is the patient's initial encounter. Patient reports that signs and symptoms have been present for 1 month and indicates a pain score of 7/10. MEDICAL/SURGICAL HISTORY: . diabetes mellitus, hypertension, lung cancer, narcotic use None. n one COMPARISON: No prior exams available for comparison. TECHNIQUE: Four-cuff ankle and brachial pressures were obtained. Pulse cuff waveform tracings of the ankles were recorded, and ankle-brachial indices were calculated. PRESSURES (mmHg): Brachial (arm) : RIGHT: iv site, LEFT: 98 Ankle : RIGHT: 117, LEFT: 129 FELISHA : RIGHT: 1.19, LEFT: 1.32 TBI : RIGHT: 0.46, LEFT: 0.00 FINDINGS: Pulsed-Cuff Waveform: There are good upstroke and a dicrotic downstroke of the tracings. Other: None. CONCLUSION: Severe small vessel disease, left worse than right Electronically signed by: Aron Villarreal MD 08/02/2018 4:09 PM EST
[2018-08-02 16:32] LABS: Activated Partial Thrombo Time 54.6 sec (23.4-31.7)
--- NOTE | 2018-08-02 17:07 | P.CONPOD ---
History of Present Illness Service: podiatry Consult date: 08/02/18 Reason for Consult: left foot gas gangrene Primary Care Provider: UNKNOWN Chief Complaint: Severe sepsis/DKA/altered mental status/hypothermia/left foot gangrene History of Present Illness: Left foot with unknown history of progression presents from random house he was staying in for left foot infection and found to be minimally responsive and with gas in foot tissues on xray. Review of Systems All other systems reviewed negative except as stated in HPI PMFSH - History History Provided By: Patient - Medical History Medical History: Medical History (Last Updated 08/02/18 @ 13:36 by Chula Cosme) Diabetes Hypertension Lung cancer - Surgical History Surgical History: Surgical History (Last Updated 08/02/18 @ 14:21 by Fabian Grubbs MD) No pertinent past surgical history - Family History Family History: Family History (Last Updated 08/02/18 @ 14:21 by Fabian Grubbs MD) Other Family history unremarkable - Tobacco History Second Hand Smoke Exposure: No Smoking Status: Smoker, status unknown - Alcohol History How Often Do You Have a Drink Containing Alcohol: Unable to Obtain - Substance Use History Substance History: Past History - Travel History History of Recent Travel: No Recent Travel in the [place] Within the Last 8 Weeks: No Recent Travel Out of the Country Within the Last 8 Weeks: No - Immunization History Tetanus Immunization: Unsure Medications and Allergies Active Medications: Active Medications Al Hydroxide/Mg Hydroxide (Milk Of Colleen Oliveros) 30 ml PO Q12H PRN PRN Reason: Mild Constipation Albuterol (Albuterol Neb (Prn)) 2.5 mg NEB Q2HR NEB PRN PRN Reason: SHORTNESS OF BREATH/WHEEZING Albuterol (Duoneb Neb (Jackelin)) 1 ampul NEB Q4HR NEB JACKELIN Bisacodyl (Dulcolax Supp) 10 mg RECTAL DAILY PRN PRN Reason: SEVERE CONSITIPATION Chlorhexidine Gluconate (Chlorhexidine 2% Cloth) 3 pack TOPICAL DAILY@0400 JACKELIN Stop: 08/08/18 03:59 Chlorhexidine Gluconate (Chlorhexidine 2% Cloth) 3 pack TOPICAL DAILY@0400 PRN PRN Reason: Extra cloth needed Stop: 08/08/18 03:59 Heparin Sodium (Porcine) (Heparin Inj) 5,000 units SQ Q12H [facility] Dextrose/Sodium Chloride (D5w/Normal Saline Inj) 1,000 mls @ 200 mls/hr IV.CONT .Q5H [facility] Insulin Human Regular 100 unit (/ Sodium Chloride) 100 mls @ 5 mls/hr IV.CONT TITRATE PRN; Protocol PRN Reason: See protocol Last Admin: 08/02/18 13:02 Dose: 5 units/hr, 5 mls/hr Potassium Chloride (Kcl 20 Meq Premix Inj) 20 meq in 100 mls @ 100 mls/hr IV.SIG Q1H PRN PRN Reason: for K+ 4.5 to 5 Potassium Chloride (Kcl 20 Meq Premix Inj) 20 meq in 100 mls @ 100 mls/hr IV.SIG Q1H PRN PRN Reason: for K+ 3.5 to 4.4 Potassium Chloride (Kcl 20 Meq Premix Inj) 20 meq in 100 mls @ 50 mls/hr IV.SIG Q2H PRN PRN Reason: for K+ 3.5 to 4.4 Potassium Chloride (Kcl 20 Meq Premix Inj) 20 meq in 100 mls @ 50 mls/hr IV.SIG Q2H PRN PRN Reason: for Initial K+ ONLY < 3.5 Potassium Chloride (Kcl 40 Meq Premix Inj) 40 meq in 100 mls @ 100 mls/hr IV.SIG Q1H PRN PRN Reason: for Initial K+ ONLY < 3.5 Potassium Chloride (Kcl 20 Meq Premix Inj) 20 meq in 100 mls @ 50 mls/hr IV.SIG Q2H PRN PRN Reason: for Subsequent K+ < 3.5 Potassium Chloride (Kcl 40 Meq Premix Inj) 40 meq in 100 mls @ 50 mls/hr IV.SIG Q2H PRN PRN Reason: for Subsequent K+ < 3.5 Sodium Chloride (Ns Inj) 1,000 mls @ 250 mls/hr IV.CONT .Q4H [facility] Last Admin: 08/02/18 13:02 Dose: 250 mls/hr Sodium Phosphate 15 mmol/ (Sodium Chloride) 105 mls @ 25 mls/hr IV.SIG UNSCH PRN PRN Reason: for Phosphate Level < 1.0 Potassium Chloride (Kcl 20 Meq Premix Inj) 20 meq in 100 mls @ 50 mls/hr IV.SIG Q2H PRN PRN Reason: for K+ 4.5 to 5 Piperacillin/Tazobactam/Dextrose (Zosyn 2.25 Gm Premix) 50 mls @ 100 mls/hr IV.SIG Q8H JACKELIN Clindamycin/Sodium Chloride (Cleocin 600 Mg/Ns Premix) 600 mg in 50 mls @ 100 mls/hr IV.SIG Q8H JACKELIN Norepinephrine Bitartrate 16 (mg/ Sodium Chloride) 250 mls @ 1.87 mls/hr IV.CONT TITRATE PRN; Protocol PRN Reason: See Protocol Lactulose (Lactulose Liq) 30 ml PO DAILY PRN PRN Reason: SEVERE CONSITIPATION Morphine Sulfate (Morphine Inj) 2 mg IV.PUSH Q2H PRN PRN Reason: PAIN SCALE 6 TO 10 Ondansetron HCl (Zofran Inj) 4 mg IV.PUSH Q6H PRN PRN Reason: NAUSEA OR VOMITING Pantoprazole Sodium (Protonix Inj) 40 mg IV.PUSH DAILY [facility] Pharmacy Profile Note (Vancomycin Consult Pharmacy) 1 each OTHER UNSCH PRN PRN Reason: Pharmacy to dose Senna/Docusate Sodium (Kenia-Colace) 1 tab PO BID [facility] Sennosides (Senokot) 17.2 mg PO Q12H PRN PRN Reason: Moderate Constipation Sodium Bicarbonate (Sodium Bicarbonate 8.4% Inj) 100 meq IV.PUSH UNSCH PRN PRN Reason: for pH less than 6.9 Sodium Bicarbonate (Sodium Bicarbonate 8.4% Inj) 50 meq IV.PUSH UNSCH PRN PRN Reason: for pH 6.9 to 7.0 Sodium Chloride (Ns Flush) 2 ml IV.FLUSH UNSCH PRN PRN Reason: FLUSH AFTER USING IV ACCESS Sodium Chloride (Ns Flush) 2 ml IV.FLUSH BID [facility] Sodium Chloride (Ns Flush) 0 ml IV.FLUSH DAILY [facility] Terbutaline Sulfate (Brethine Inj) 1 mg SQ UNSCH PRN PRN Reason: For Extravasation Allergies Allergy/AdvReac Type Severity Reaction Status Date / Time No Known Allergies Allergy Uncoded 10/29/16 14:56 Home Medications Medication Instructions Recorded Confirmed Type gabapentin 100 mg PO BID 08/02/18 08/02/18 History hydrocodone-acetaminophen [[place]] 1 tab PO Q4H 08/02/18 08/02/18 History insulin glargine [Lantus U-100 40 unit SUBCUT HS 08/02/18 08/02/18 History Insulin] lisinopril 5 mg PO DAILY 08/02/18 08/02/18 History metformin 500 mg PO BID 08/02/18 08/02/18 History pioglitazone 15 mg PO DAILY 08/02/18 08/02/18 History sitagliptin [Januvia] 100 mg PO DAILY 08/02/18 08/02/18 History Physical Exam Vital signs: Vital Signs 08/02/18 10:01 08/02/18 11:31 08/02/18 11:37 Temperature Pulse Rate 50 L 56 L Respiratory Rate 21 12 Blood Pressure 54/37 L 60/41 L 74/48 L Pulse Oximetry 100 08/02/18 12:07 08/02/18 13:03 08/02/18 13:26 Temperature 79.3 F L 84.6 F L Pulse Rate 61 54 L Respiratory Rate Blood Pressure 82/49 L 79/49 L 80/52 L Pulse Oximetry 08/02/18 13:36 08/02/18 14:14 08/02/18 14:53 Temperature 87.3 F L Pulse Rate 68 Respiratory Rate 24 Blood Pressure 70/47 L 96/51 L 92/53 L Pulse Oximetry 100 08/02/18 16:07 Temperature Pulse Rate Respiratory Rate Blood Pressure 90/53 L Pulse Oximetry Intake & Output 08/01/18 08/02/18 08/02/18 18:59 06:59 18:59 Intake Total 5350 / 5350 Balance 5350 / 5350 Weight 48.081 kg Intake: IV 5350 / 5350 Zosyn 4.5 GM Premix 4.5 gm In 100 / 100 100 ml @ 200 mls/hr IV.SIG ONCE ONE Rx#:[id number] NS Inj 1,000 ML @ 1000 mls/hr 5000 / 5000 IV.SIG .Q1H JACKELIN Rx#:[id number] Vancomycin Inj 1,000 MG In NS 250 / 250 Inj 250 ML @ 250 mls/hr IV.SIG ONCE ONE Rx#:[id number] Narrative: left foot with diffuse necrotic tissue and foul odor to entire plantar central/ lateral foot with liquefactive necrosis, extending to dorsal central/lateral foot. Tendon and bone necrotic in base of wound with purulent drainage. left leg with obvious signs of ischemia. Results - Labs CBC & Chem 7: 08/02/18 10:49 08/02/18 15:03 Laboratory Results - last 24 hr 08/02/18 08/02/18 08/02/18 10:49 10:49 10:49 WBC 46.7 H RBC 3.10 L Hgb 9.4 L Hct 31.4 L MCV 101.2 H MCH 30.4 MCHC 30.1 L RDW 17.2 Plt Count 145 L MPV 10.6 Prelim Diff (Auto) Manual diff required WBC Differential Manual diff final Seg Neuts % (Manual) 61 Band Neuts % (Manual) 34 H Lymphocytes % (Manual) 1 L Monocytes % (Manual) 3 Metamyelocytes % (Man) 1 Abs Neuts (Manual) 44.8 H Differential Comment . Toxic Granulation 1+ H Toxic Vacuolation Present H Platelet Estimate Low L Platelet Morphology Normal PT 15.0 H INR 1.5 APTT Fibrinogen Puncture Site Patient Temperature O2 Saturation ABG pH ABG pCO2 ABG pO2 ABG HCO3 ABG O2 Content ABG Base Excess ABG Methemoglobin Jordy Test Hemoglobin Carboxyhemoglobin O2 Delivery Device Liter Flow Critical Value Sodium 129 L Potassium 5.5 H Chloride 93 L Carbon Dioxide 8.7 L Anion Gap 27 H BUN 105 H Creatinine 3.13 H Estimated GFR 25 L POC Glucose Random Glucose 909 H* Lactic Acid Calcium 8.7 Magnesium 3.4 H Total Bilirubin 0.5 AST 348 H ALT 124 H Alkaline Phosphatase 199 H Total Creatine Kinase 3289 H CK-MB (CK-2) 53.4 H CK-MB (CK-2) % 1.6 Troponin I Less than 0.02 L B-Natriuretic Peptide Total Protein 6.5 Albumin 1.6 L Lipase Beta-Hydroxybutyric Acd TSH 2.690 Urine Color Urine Clarity Urine pH Ur Specific [place] Urine Protein Urine Glucose (UA) Urine Ketones Urine Occult Blood Urine Nitrate Urine Bilirubin Urine Urobilinogen Ur Leukocyte Esterase Urine RBC Urine WBC Urine WBC Clumps Amorphous Sediment Urine Bacteria Hyaline Casts Urine Mucus Micro UA Comment Ur Microscopic Review Urine Culture Comments Blood Type Blood Type Recheck Antibody Screen 08/02/18 08/02/18 08/02/18 10:49 10:49 10:55 WBC RBC Hgb Hct MCV MCH MCHC RDW Plt Count MPV Prelim Diff (Auto) WBC Differential Seg Neuts % (Manual) Band Neuts % (Manual) Lymphocytes % (Manual) Monocytes % (Manual) Metamyelocytes % (Man) Abs Neuts (Manual) Differential Comment Toxic Granulation Toxic Vacuolation Platelet Estimate Platelet Morphology PT INR APTT Fibrinogen Puncture Site Patient Temperature O2 Saturation ABG pH ABG pCO2 ABG pO2 ABG HCO3 ABG O2 Content ABG Base Excess ABG Methemoglobin Jordy Test Hemoglobin Carboxyhemoglobin O2 Delivery Device Liter Flow Critical Value Sodium Potassium Chloride Carbon Dioxide Anion Gap BUN Creatinine Estimated GFR POC Glucose Random Glucose Lactic Acid Calcium Magnesium Total Bilirubin AST ALT Alkaline Phosphatase Total Creatine Kinase CK-MB (CK-2) CK-MB (CK-2) % Troponin I B-Natriuretic Peptide 42 Total Protein Albumin Lipase 40913 H Beta-Hydroxybutyric Acd 9.86 H TSH Urine Color Yellow Urine Clarity Cloudy H Urine pH 5.0 Ur Specific [place] 1.015 Urine Protein Negative Urine Glucose (UA) 500 or greater Urine Ketones 20 Urine Occult Blood Moderate H Urine Nitrate Negative Urine Bilirubin Negative Urine Urobilinogen Less than 2 Ur Leukocyte Esterase Large H Urine RBC 13 H Urine WBC 114 H Urine WBC Clumps Few H Amorphous Sediment Few H Urine Bacteria Few H Hyaline Casts 10 Urine Mucus Few H Micro UA Comment Cath-culture ind Ur Microscopic Review Not Reportable Urine Culture Comments Cath-cult indicated Blood Type Blood Type Recheck Antibody Screen 08/02/18 08/02/18 08/02/18 11:16 12:10 12:34 WBC RBC Hgb Hct MCV MCH MCHC RDW Plt Count MPV Prelim Diff (Auto) WBC Differential Seg Neuts % (Manual) Band Neuts % (Manual) Lymphocytes % (Manual) Monocytes % (Manual) Metamyelocytes % (Man) Abs Neuts (Manual) Differential Comment Toxic Granulation Toxic Vacuolation Platelet Estimate Platelet Morphology PT INR APTT Fibrinogen Puncture Site Right radial Patient Temperature 98.6 O2 Saturation 96 ABG pH 7.09 L* ABG pCO2 25 L ABG pO2 191 H ABG HCO3 7 L* ABG O2 Content 12.0 ABG Base Excess -20.9 L ABG Methemoglobin 1.0 Jordy Test Present Hemoglobin 8.6 L Carboxyhemoglobin 1.5 O2 Delivery Device Nasal cannula Liter Flow 2.00 Critical Value Yes Sodium Potassium Chloride Carbon Dioxide Anion Gap BUN Creatinine Estimated GFR POC Glucose Greater than 600 H* Random Glucose Lactic Acid Calcium Magnesium Total Bilirubin AST ALT Alkaline Phosphatase Total Creatine Kinase CK-MB (CK-2) CK-MB (CK-2) % Troponin I B-Natriuretic Peptide Total Protein Albumin Lipase Beta-Hydroxybutyric Acd TSH Urine Color Urine Clarity Urine pH Ur Specific [place] Urine Protein Urine Glucose (UA) Urine Ketones Urine Occult Blood Urine Nitrate Urine Bilirubin Urine Urobilinogen Ur Leukocyte Esterase Urine RBC Urine WBC Urine WBC Clumps Amorphous Sediment Urine Bacteria Hyaline Casts Urine Mucus Micro UA Comment Ur Microscopic Review Urine Culture Comments Blood Type O Positive Blood Type Recheck Required Antibody Screen Negative 08/02/18 08/02/18 08/02/18 14:49 15:03 15:03 WBC RBC Hgb Hct MCV MCH MCHC RDW Plt Count MPV Prelim Diff (Auto) WBC Differential Seg Neuts % (Manual) Band Neuts % (Manual) Lymphocytes % (Manual) Monocytes % (Manual) Metamyelocytes % (Man) Abs Neuts (Manual) Differential Comment Toxic Granulation Toxic Vacuolation Platelet Estimate Platelet Morphology PT INR APTT Fibrinogen Puncture Site Patient Temperature O2 Saturation ABG pH ABG pCO2 ABG pO2 ABG HCO3 ABG O2 Content ABG Base Excess ABG Methemoglobin Jordy Test Hemoglobin Carboxyhemoglobin O2 Delivery Device Liter Flow Critical Value Sodium Potassium Chloride Carbon Dioxide Anion Gap BUN Creatinine Estimated GFR POC Glucose Greater than 600 H* Random Glucose 592 H* D Lactic Acid 4.6 H* Calcium Magnesium Total Bilirubin AST ALT Alkaline Phosphatase Total Creatine Kinase CK-MB (CK-2) CK-MB (CK-2) % Troponin I B-Natriuretic Peptide Total Protein Albumin Lipase Beta-Hydroxybutyric Acd TSH Urine Color Urine Clarity Urine pH Ur Specific [place] Urine Protein Urine Glucose (UA) Urine Ketones Urine Occult Blood Urine Nitrate Urine Bilirubin Urine Urobilinogen Ur Leukocyte Esterase Urine RBC Urine WBC Urine WBC Clumps Amorphous Sediment Urine Bacteria Hyaline Casts Urine Mucus Micro UA Comment Ur Microscopic Review Urine Culture Comments Blood Type Blood Type Recheck Antibody Screen 08/02/18 16:05 WBC RBC Hgb Hct MCV MCH MCHC RDW Plt Count MPV Prelim Diff (Auto) WBC Differential Seg Neuts % (Manual) Band Neuts % (Manual) Lymphocytes % (Manual) Monocytes % (Manual) Metamyelocytes % (Man) Abs Neuts (Manual) Differential Comment Toxic Granulation Toxic Vacuolation Platelet Estimate Platelet Morphology PT INR APTT 54.6 H Fibrinogen 282 Puncture Site Patient Temperature O2 Saturation ABG pH ABG pCO2 ABG pO2 ABG HCO3 ABG O2 Content ABG Base Excess ABG Methemoglobin Jordy Test Hemoglobin Carboxyhemoglobin O2 Delivery Device Liter Flow Critical Value Sodium Potassium Chloride Carbon Dioxide Anion Gap BUN Creatinine Estimated GFR POC Glucose Random Glucose Lactic Acid Calcium Magnesium Total Bilirubin AST ALT Alkaline Phosphatase Total Creatine Kinase CK-MB (CK-2) CK-MB (CK-2) % Troponin I B-Natriuretic Peptide Total Protein Albumin Lipase Beta-Hydroxybutyric Acd TSH Urine Color Urine Clarity Urine pH Ur Specific [place] Urine Protein Urine Glucose (UA) Urine Ketones Urine Occult Blood Urine Nitrate Urine Bilirubin Urine Urobilinogen Ur Leukocyte Esterase Urine RBC Urine WBC Urine WBC Clumps Amorphous Sediment Urine Bacteria Hyaline Casts Urine Mucus Micro UA Comment Ur Microscopic Review Urine Culture Comments Blood Type Blood Type Recheck Antibody Screen - Imaging Impressions Extremity Arterial Study 08/02/18 00:00 CONCLUSION: Severe small vessel disease, left worse than right Chest X-Ray 08/02/18 10:30 CONCLUSION: Negative examination. 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 Negative CT Head non contrast. . Chest X-Ray 08/02/18 14:18 CONCLUSION: Satisfactory Central line positioning. Abdomen/Bladder Ultrasound 08/02/18 14:35 CONCLUSION: Bladder distention despite Tang catheter. Assessment and Plan - Assessment (1) Gas gangrene Code(s): A48.0 - Gas gangrene Status: Acute (2) Sepsis Code(s): A41.9 - Sepsis, unspecified organism Status: Acute - Plan Obtained consent from son for bedside incision and drainage of left foot infection. Discussed with son patient will need more aggressive surgery done later, but this may stabilize him temporarily. Discussed case with Dr Berumen, who strongly recommends guillotine amputation. I also strongly agree with this recommendation and feel there is absolutely nothing I can do for this patient at the level of the foot. Stat Consult placed for Dr Berumen. Podiatry signing off. Thank you for consult. (2) Sepsis Qualifiers: Sepsis type: sepsis due to unspecified organism Qualified Code(s): A41.9 - Sepsis, unspecified organism
--- NOTE | 2018-08-02 17:13 | P.BOP ---
- Preoperative Diagnosis (1) Diabetic foot infection (2) Gas gangrene - Postoperative Diagnosis (1) Diabetic foot infection (2) Gas gangrene Date of procedure: 08/02/18 Procedure: 1) Incision and drainage left foot. Left foot addressed after timeout performed. Incision with #11 blade to necrotic plantar fluctuant area central left foot and removed superficial necrotic tissue and found liquefactive necrotic tissue down to level of bone extending to dorsal and lateral foot with significant necrosis and foul odor. No bleeding tissue encountered at this level. Betadine poured over the area and betadine-soaked gauze dressing applied left foot. Consulted Dr Berumen, who will likely proceed with guillotine amputation in the coming days when patient is stabilized further. Patient to remain NPO until further notice Anesthesia: none Surgeon: Power Horn DPM Trading Analyst: staff Estimated blood loss (mL): 0 Pathology: none sent Disposition: ICU
[2018-08-02] MEDS: Clindamycin 600 mg/NS Premix 600 MG/50 ML PIGGYBACK IV.SIG SCH (17:59)
[2018-08-02 18:04] LABS: Hemoglobin A1c 11.3 % (4.3-6.0)
[2018-08-02 18:28] LABS: ABG Base Excess -15.9 mmol/L (-2-2); ABG PCO2 24 mmHg (38-42); ABG PO2 142 mmHG (61-120)
[2018-08-02 18:34] LABS: Creatinine,Urine Random 21 mg/dL (27-300); Sodium,Urine Random 13 meq/L
[2018-08-02 18:42] LABS: Calcium 6.5 mg/dL (8.5-10.1); Carbon Dioxide 12.1 meq/L (21.0-32.0); Potassium 3.2 meq/L (3.5-5.1)
--- NOTE | 2018-08-02 18:54 | P.CONID ---
History of Present Illness Service: ID Consult date: 08/02/18 Requesting Physician: Fabian Grubbs Reason for Consult: foot gangrene Primary Care Provider: UNKNOWN Chief Complaint: Severe sepsis/DKA/altered mental status/hypothermia/left foot gangrene History of Present Illness: 57 yo male with poor DM and stage IV lung cancer Pt presents yday to the emergency department via EMS for altered mental status. He used to live in [facility] with fdc but 1 week ago he left AGAINST MEDICAL ADVICE and has been living with friends. Per friends from the records he is not alert and oriented, does not follow commands, he will open his eyes and grunt as well as withdrawal of the pain. No further information is obtainable from the patient. I saw pt on 08/02 around 1730 dw RN @ b/s He was very hypothermic (90F), improved to 93 with warming blanklet His WBC was 46K He has lactic acidosis, acute renal failure and albumin of 1.1 In DKA On presentation he was found to have a cold cold foot with a wound draining foul smelling discharge He responded to fluid challege but still reqiored low dose levaphed Power Plant Operator saw the pt and recommended immediate amputation Pt is on vancomycin, zosyn, clindamycin Review of Systems unobtainable due to mental status PMFSH - History History Provided By: Patient - Medical History Medical History: Medical History (Last Reviewed 08/03/18 @ 05:39 by Marietta Felton MD) Diabetes Hypertension Lung cancer - Surgical History Surgical History: Surgical History (Last Reviewed 08/03/18 @ 05:39 by Marietta Felton MD) No pertinent past surgical history - Family History Family History: Family History (Last Reviewed 08/03/18 @ 05:39 by Marietta Felton MD) Other Family history unremarkable - Social History I have reviewed the patient's Social History: Yes - Tobacco History Second Hand Smoke Exposure: No Smoking Status: Unknown if ever smoked - Alcohol History How Often Do You Have a Drink Containing Alcohol: Unable to Obtain - Substance Use History Substance History: Past History - Travel History History of Recent Travel: No Recent Travel in the [place] Within the Last 8 Weeks: No Recent Travel Out of the Country Within the Last 8 Weeks: No - Immunization History Tetanus Immunization: Unsure Medications and Allergies Active Medications: Active Medications Al Hydroxide/Mg Hydroxide (Milk Of Magnesia Liq) 30 ml PO Q12H PRN PRN Reason: Mild Constipation Albuterol (Albuterol Neb (Prn)) 2.5 mg NEB Q2HR NEB PRN PRN Reason: SHORTNESS OF BREATH/WHEEZING Albuterol (Duoneb Neb (Jackelin)) 1 ampul NEB Q4HR [facility] Bisacodyl (Dulcolax Supp) 10 mg RECTAL DAILY PRN PRN Reason: SEVERE CONSITIPATION Chlorhexidine Gluconate (Chlorhexidine 2% Cloth) 3 pack TOPICAL DAILY@0400 [facility] Stop: 08/08/18 03:59 Chlorhexidine Gluconate (Chlorhexidine 2% Cloth) 3 pack TOPICAL DAILY@0400 PRN PRN Reason: Extra cloth needed Stop: 08/08/18 03:59 Heparin Sodium (Porcine) (Heparin Inj) 5,000 units SQ Q12H [facility] Last Admin: 08/02/18 17:55 Dose: Not Given Dextrose/Sodium Chloride (D5w/Normal Saline Inj) 1,000 mls @ 200 mls/hr IV.CONT .Q5H [facility] Insulin Human Regular 100 unit (/ Sodium Chloride) 100 mls @ 5 mls/hr IV.CONT TITRATE PRN; Protocol PRN Reason: See protocol Last Titration: 08/02/18 18:09 Dose: 6.5 units/hr, 6.5 mls/hr Potassium Chloride (Kcl 20 Meq Premix Inj) 20 meq in 100 mls @ 100 mls/hr IV.SIG Q1H PRN PRN Reason: for K+ 4.5 to 5 Potassium Chloride (Kcl 20 Meq Premix Inj) 20 meq in 100 mls @ 100 mls/hr IV.SIG Q1H PRN PRN Reason: for K+ 3.5 to 4.4 Potassium Chloride (Kcl 20 Meq Premix Inj) 20 meq in 100 mls @ 50 mls/hr IV.SIG Q2H PRN PRN Reason: for K+ 3.5 to 4.4 Potassium Chloride (Kcl 20 Meq Premix Inj) 20 meq in 100 mls @ 50 mls/hr IV.SIG Q2H PRN PRN Reason: for Initial K+ ONLY < 3.5 Potassium Chloride (Kcl 40 Meq Premix Inj) 40 meq in 100 mls @ 100 mls/hr IV.SIG Q1H PRN PRN Reason: for Initial K+ ONLY < 3.5 Potassium Chloride (Kcl 20 Meq Premix Inj) 20 meq in 100 mls @ 50 mls/hr IV.SIG Q2H PRN PRN Reason: for Subsequent K+ < 3.5 Potassium Chloride (Kcl 40 Meq Premix Inj) 40 meq in 100 mls @ 50 mls/hr IV.SIG Q2H PRN PRN Reason: for Subsequent K+ < 3.5 Sodium Chloride (Ns Inj) 1,000 mls @ 250 mls/hr IV.CONT .Q4H [facility] Last Admin: 08/02/18 17:55 Dose: 250 mls/hr Sodium Phosphate 15 mmol/ (Sodium Chloride) 105 mls @ 25 mls/hr IV.SIG UNSCH PRN PRN Reason: for Phosphate Level < 1.0 Potassium Chloride (Kcl 20 Meq Premix Inj) 20 meq in 100 mls @ 50 mls/hr IV.SIG Q2H PRN PRN Reason: for K+ 4.5 to 5 Piperacillin/Tazobactam/Dextrose (Zosyn 2.25 Gm Premix) 50 mls @ 100 mls/hr IV.SIG Q8H [facility] Clindamycin/Sodium Chloride (Cleocin 600 Mg/Ns Premix) 600 mg in 50 mls @ 100 mls/hr IV.SIG Q8H [facility] Last Infusion: 08/02/18 18:34 Dose: Infused Norepinephrine Bitartrate 16 (mg/ Sodium Chloride) 250 mls @ 1.87 mls/hr IV.CONT TITRATE PRN; Protocol PRN Reason: See Protocol Last Titration: 08/02/18 18:34 Dose: 3 mcg/min, 2.81 mls/hr Lactulose (Lactulose Liq) 30 ml PO DAILY PRN PRN Reason: SEVERE CONSITIPATION Morphine Sulfate (Morphine Inj) 2 mg IV.PUSH Q2H PRN PRN Reason: PAIN SCALE 6 TO 10 Ondansetron HCl (Zofran Inj) 4 mg IV.PUSH Q6H PRN PRN Reason: NAUSEA OR VOMITING Pantoprazole Sodium (Protonix Inj) 40 mg IV.PUSH DAILY [facility] Pharmacy Profile Note (Vancomycin Consult Pharmacy) 1 each OTHER UNSCH PRN PRN Reason: Pharmacy to dose Senna/Docusate Sodium (Kenia-Colace) 1 tab PO BID [facility] Sennosides (Senokot) 17.2 mg PO Q12H PRN PRN Reason: Moderate Constipation Sodium Bicarbonate (Sodium Bicarbonate 8.4% Inj) 100 meq IV.PUSH UNSCH PRN PRN Reason: for pH less than 6.9 Sodium Bicarbonate (Sodium Bicarbonate 8.4% Inj) 50 meq IV.PUSH UNSCH PRN PRN Reason: for pH 6.9 to 7.0 Sodium Chloride (Ns Flush) 2 ml IV.FLUSH UNSCH PRN PRN Reason: FLUSH AFTER USING IV ACCESS Sodium Chloride (Ns Flush) 2 ml IV.FLUSH BID [facility] Sodium Chloride (Ns Flush) 0 ml IV.FLUSH DAILY [facility] Terbutaline Sulfate (Brethine Inj) 1 mg SQ UNSCH PRN PRN Reason: For Extravasation Allergies Allergy/AdvReac Type Severity Reaction Status Date / Time No Known Allergies Allergy Uncoded 10/29/16 14:56 Home Medications Medication Instructions Recorded Confirmed Type gabapentin 100 mg PO BID 08/02/18 08/02/18 History hydrocodone-acetaminophen [Willmar] 1 tab PO Q4H 08/02/18 08/02/18 History insulin glargine [Lantus U-100 40 unit SUBCUT HS 08/02/18 08/02/18 History Insulin] lisinopril 5 mg PO DAILY 08/02/18 08/02/18 History metformin 500 mg PO BID 08/02/18 08/02/18 History pioglitazone 15 mg PO DAILY 08/02/18 08/02/18 History sitagliptin [Januvia] 100 mg PO DAILY 08/02/18 08/02/18 History Exam Vital signs: Vital Signs 08/02/18 10:01 08/02/18 11:31 08/02/18 11:37 Temperature Pulse Rate 50 L 56 L Respiratory Rate 21 12 Blood Pressure 54/37 L 60/41 L 74/48 L Pulse Oximetry 100 08/02/18 12:07 08/02/18 13:03 08/02/18 13:26 Temperature 79.3 F L 84.6 F L Pulse Rate 61 54 L Respiratory Rate Blood Pressure 82/49 L 79/49 L 80/52 L Pulse Oximetry 08/02/18 13:36 08/02/18 14:14 08/02/18 14:53 Temperature 87.3 F L Pulse Rate 68 Respiratory Rate 24 Blood Pressure 70/47 L 96/51 L 92/53 L Pulse Oximetry 100 08/02/18 16:07 08/02/18 16:55 08/02/18 17:20 Temperature 90.7 F L Pulse Rate Respiratory Rate Blood Pressure 90/53 L 99/58 L Pulse Oximetry 08/02/18 17:24 08/02/18 17:30 08/02/18 17:45 Temperature 90.7 F L 90.5 F L 90.7 F L Pulse Rate 74 74 75 Respiratory Rate 26 H 25 H 27 H Blood Pressure 85/50 L 79/49 L 76/51 L Pulse Oximetry 98 100 100 08/02/18 18:00 08/02/18 18:01 08/02/18 18:15 Temperature 90.9 F L 90.9 F L 91.0 F L Pulse Rate 77 77 76 Respiratory Rate 24 26 H 33 H Blood Pressure 103/56 L 92/53 L Pulse Oximetry 100 100 100 08/02/18 18:30 08/02/18 18:47 Temperature 91.2 F L Pulse Rate 77 80 Respiratory Rate 33 H Blood Pressure 78/51 L 100/57 L Pulse Oximetry 100 Intake & Output 08/01/18 08/02/18 08/02/18 18:59 06:59 18:59 Intake Total 6400 / 6400 Output Total 300 / 300 Balance 6100 / 6100 Weight 61 kg Intake: IV 6400 / 6400 NS Inj 1,000 ML @ 250 mls/hr IV 1000 / 1000 .CONT .Q4H [facility] Rx#:[id number] Cleocin 600 mg/NS Premix 600 mg 50 / 50 In 50 ml @ 100 mls/hr IV.SIG Q8H [facility] Rx#:[id number] Zosyn 4.5 GM Premix 4.5 gm In 100 / 100 100 ml @ 200 mls/hr IV.SIG ONCE ONE Rx#:[id number] NS Inj 1,000 ML @ 1000 mls/hr 5000 / 5000 IV.SIG .Q1H [facility] Rx#:[id number] Vancomycin Inj 1,000 MG In NS 250 / 250 Inj 250 ML @ 250 mls/hr IV.SIG ONCE ONE Rx#:[id number] Output: Urine Amount (Catheter) 300 / 300 Indwelling Temp Sensing 300 / 300 Catheter Other: Weight On Admission 61 kg - Constitutional moderate distress, cachectic, chronically ill appearing, disheveled, obtunded - Routine HEENT Exam Head: Present: normocephalic, atraumatic Eye: Present: EOMI, PERRL. Absent: conjunctival icterus ENT: Present: mucous membranes dry. Absent: dentition normal (poor dentition) - Routine Neck Exam Present: supple. Absent: JVD, lymphadenopathy - Routine Respiratory Exam Present: decreased breath sounds, CTA bilaterally. Absent: rhonchi - Routine Cardiovascular Exam Present: RRR, S1, S2. Absent: murmur, gallop, rubs - Routine Abdominal Exam Present: soft. Absent: tenderness, distended, organomegaly, mass - Routine Extremities Exam Present: cyanosis, extremity cold to touch (L foot ). Absent: clubbing, edema, normal capillary refill Comments: L foot is dusky cold not refilling large wound with no bleeding and foul smellimng drainage - Routine Skin Exam Present: dry, gangrene (L foot ). Absent: rash - Routine Neurological Exam Present: altered mental status - Routine Psychiatric Exam Present: unable to assess Results - Labs CBC & Chem 7: 08/03/18 04:25 08/03/18 04:00 Labs: Laboratory Results - last 24 hr 08/02/18 08/02/18 08/02/18 10:49 10:49 10:49 WBC 46.7 H RBC 3.10 L Hgb 9.4 L Hct 31.4 L MCV 101.2 H MCH 30.4 MCHC 30.1 L RDW 17.2 Plt Count 145 L MPV 10.6 Prelim Diff (Auto) Manual diff required WBC Differential Manual diff final Seg Neuts % (Manual) 61 Band Neuts % (Manual) 34 H Lymphocytes % (Manual) 1 L Monocytes % (Manual) 3 Metamyelocytes % (Man) 1 Abs Neuts (Manual) 44.8 H Differential Comment . Toxic Granulation 1+ H Toxic Vacuolation Present H Platelet Estimate Low L Platelet Morphology Normal PT 15.0 H INR 1.5 APTT Fibrinogen Puncture Site Patient Temperature O2 Saturation ABG pH ABG pCO2 ABG pO2 ABG HCO3 ABG O2 Content ABG Base Excess ABG Methemoglobin Jordy Test Hemoglobin Carboxyhemoglobin O2 Delivery Device Liter Flow Critical Value Sodium 129 L Potassium 5.5 H Chloride 93 L Carbon Dioxide 8.7 L Anion Gap 27 H BUN 105 H Creatinine 3.13 H Estimated GFR 25 L POC Glucose Random Glucose 909 H* Hemoglobin A1c Lactic Acid Calcium 8.7 Magnesium 3.4 H Total Bilirubin 0.5 AST 348 H ALT 124 H Alkaline Phosphatase 199 H Total Creatine Kinase 3289 H CK-MB (CK-2) 53.4 H CK-MB (CK-2) % 1.6 Troponin I Less than 0.02 L B-Natriuretic Peptide Total Protein 6.5 Albumin 1.6 L Lipase Beta-Hydroxybutyric Acd TSH 2.690 Urine Color Urine Clarity Urine pH Ur Specific [place] Urine Protein Urine Glucose (UA) Urine Ketones Urine Occult Blood Urine Nitrate Urine Bilirubin Urine Urobilinogen Ur Leukocyte Esterase Urine RBC Urine WBC Urine WBC Clumps Amorphous Sediment Urine Bacteria Hyaline Casts Urine Mucus Micro UA Comment Ur Microscopic Review Urine Culture Comments Ur Random Creatinine Ur Random Sodium Blood Type Blood Type Recheck Antibody Screen 08/02/18 08/02/18 08/02/18 10:49 10:49 10:49 WBC RBC Hgb Hct MCV MCH MCHC RDW Plt Count MPV Prelim Diff (Auto) WBC Differential Seg Neuts % (Manual) Band Neuts % (Manual) Lymphocytes % (Manual) Monocytes % (Manual) Metamyelocytes % (Man) Abs Neuts (Manual) Differential Comment Toxic Granulation Toxic Vacuolation Platelet Estimate Platelet Morphology PT INR APTT Fibrinogen Puncture Site Patient Temperature O2 Saturation ABG pH ABG pCO2 ABG pO2 ABG HCO3 ABG O2 Content ABG Base Excess ABG Methemoglobin Jordy Test Hemoglobin Carboxyhemoglobin O2 Delivery Device Liter Flow Critical Value Sodium Potassium Chloride Carbon Dioxide Anion Gap BUN Creatinine Estimated GFR POC Glucose Random Glucose Hemoglobin A1c 11.3 H Lactic Acid Calcium Magnesium Total Bilirubin AST ALT Alkaline Phosphatase Total Creatine Kinase CK-MB (CK-2) CK-MB (CK-2) % Troponin I B-Natriuretic Peptide 42 Total Protein Albumin Lipase 60059 H Beta-Hydroxybutyric Acd 9.86 H TSH Urine Color Urine Clarity Urine pH Ur Specific [place] Urine Protein Urine Glucose (UA) Urine Ketones Urine Occult Blood Urine Nitrate Urine Bilirubin Urine Urobilinogen Ur Leukocyte Esterase Urine RBC Urine WBC Urine WBC Clumps Amorphous Sediment Urine Bacteria Hyaline Casts Urine Mucus Micro UA Comment Ur Microscopic Review Urine Culture Comments Ur Random Creatinine Ur Random Sodium Blood Type Blood Type Recheck Antibody Screen 08/02/18 08/02/18 08/02/18 10:55 11:16 12:10 WBC RBC Hgb Hct MCV MCH MCHC RDW Plt Count MPV Prelim Diff (Auto) WBC Differential Seg Neuts % (Manual) Band Neuts % (Manual) Lymphocytes % (Manual) Monocytes % (Manual) Metamyelocytes % (Man) Abs Neuts (Manual) Differential Comment Toxic Granulation Toxic Vacuolation Platelet Estimate Platelet Morphology PT INR APTT Fibrinogen Puncture Site Right radial Patient Temperature 98.6 O2 Saturation 96 ABG pH 7.09 L* ABG pCO2 25 L ABG pO2 191 H ABG HCO3 7 L* ABG O2 Content 12.0 ABG Base Excess -20.9 L ABG Methemoglobin 1.0 Jordy Test Present Hemoglobin 8.6 L Carboxyhemoglobin 1.5 O2 Delivery Device Nasal cannula Liter Flow 2.00 Critical Value Yes Sodium Potassium Chloride Carbon Dioxide Anion Gap BUN Creatinine Estimated GFR POC Glucose Random Glucose Hemoglobin A1c Lactic Acid Calcium Magnesium Total Bilirubin AST ALT Alkaline Phosphatase Total Creatine Kinase CK-MB (CK-2) CK-MB (CK-2) % Troponin I B-Natriuretic Peptide Total Protein Albumin Lipase Beta-Hydroxybutyric Acd TSH Urine Color Yellow Urine Clarity Cloudy H Urine pH 5.0 Ur Specific [place] 1.015 Urine Protein Negative Urine Glucose (UA) 500 or greater Urine Ketones 20 Urine Occult Blood Moderate H Urine Nitrate Negative Urine Bilirubin Negative Urine Urobilinogen Less than 2 Ur Leukocyte Esterase Large H Urine RBC 13 H Urine WBC 114 H Urine WBC Clumps Few H Amorphous Sediment Few H Urine Bacteria Few H Hyaline Casts 10 Urine Mucus Few H Micro UA Comment Cath-culture ind Ur Microscopic Review Not Reportable Urine Culture Comments Cath-cult indicated Ur Random Creatinine Ur Random Sodium Blood Type O Positive Blood Type Recheck Required Antibody Screen Negative 08/02/18 08/02/18 08/02/18 12:34 14:49 15:03 WBC RBC Hgb Hct MCV MCH MCHC RDW Plt Count MPV Prelim Diff (Auto) WBC Differential Seg Neuts % (Manual) Band Neuts % (Manual) Lymphocytes % (Manual) Monocytes % (Manual) Metamyelocytes % (Man) Abs Neuts (Manual) Differential Comment Toxic Granulation Toxic Vacuolation Platelet Estimate Platelet Morphology PT INR APTT Fibrinogen Puncture Site Patient Temperature O2 Saturation ABG pH ABG pCO2 ABG pO2 ABG HCO3 ABG O2 Content ABG Base Excess ABG Methemoglobin Jordy Test Hemoglobin Carboxyhemoglobin O2 Delivery Device Liter Flow Critical Value Sodium Potassium Chloride Carbon Dioxide Anion Gap BUN Creatinine Estimated GFR POC Glucose Greater than 600 H* Greater than 600 H* Random Glucose Hemoglobin A1c Lactic Acid 4.6 H* Calcium Magnesium Total Bilirubin AST ALT Alkaline Phosphatase Total Creatine Kinase CK-MB (CK-2) CK-MB (CK-2) % Troponin I B-Natriuretic Peptide Total Protein Albumin Lipase Beta-Hydroxybutyric Acd TSH Urine Color Urine Clarity Urine pH Ur Specific [place] Urine Protein Urine Glucose (UA) Urine Ketones Urine Occult Blood Urine Nitrate Urine Bilirubin Urine Urobilinogen Ur Leukocyte Esterase Urine RBC Urine WBC Urine WBC Clumps Amorphous Sediment Urine Bacteria Hyaline Casts Urine Mucus Micro UA Comment Ur Microscopic Review Urine Culture Comments Ur Random Creatinine Ur Random Sodium Blood Type Blood Type Recheck Antibody Screen 08/02/18 08/02/18 08/02/18 15:03 16:05 17:18 WBC RBC Hgb Hct MCV MCH MCHC RDW Plt Count MPV Prelim Diff (Auto) WBC Differential Seg Neuts % (Manual) Band Neuts % (Manual) Lymphocytes % (Manual) Monocytes % (Manual) Metamyelocytes % (Man) Abs Neuts (Manual) Differential Comment Toxic Granulation Toxic Vacuolation Platelet Estimate Platelet Morphology PT INR APTT 54.6 H Fibrinogen 282 Puncture Site Patient Temperature O2 Saturation ABG pH ABG pCO2 ABG pO2 ABG HCO3 ABG O2 Content ABG Base Excess ABG Methemoglobin Jordy Test Hemoglobin Carboxyhemoglobin O2 Delivery Device Liter Flow Critical Value Sodium Potassium Chloride Carbon Dioxide Anion Gap BUN Creatinine Estimated GFR POC Glucose 547 H* Random Glucose 592 H* D Hemoglobin A1c Lactic Acid Calcium Magnesium Total Bilirubin AST ALT Alkaline Phosphatase Total Creatine Kinase CK-MB (CK-2) CK-MB (CK-2) % Troponin I B-Natriuretic Peptide Total Protein Albumin Lipase Beta-Hydroxybutyric Acd TSH Urine Color Urine Clarity Urine pH Ur Specific [place] Urine Protein Urine Glucose (UA) Urine Ketones Urine Occult Blood Urine Nitrate Urine Bilirubin Urine Urobilinogen Ur Leukocyte Esterase Urine RBC Urine WBC Urine WBC Clumps Amorphous Sediment Urine Bacteria Hyaline Casts Urine Mucus Micro UA Comment Ur Microscopic Review Urine Culture Comments Ur Random Creatinine Ur Random Sodium Blood Type Blood Type Recheck Antibody Screen 08/02/18 08/02/18 08/02/18 17:44 18:07 18:12 WBC RBC Hgb Hct MCV MCH MCHC RDW Plt Count MPV Prelim Diff (Auto) WBC Differential Seg Neuts % (Manual) Band Neuts % (Manual) Lymphocytes % (Manual) Monocytes % (Manual) Metamyelocytes % (Man) Abs Neuts (Manual) Differential Comment Toxic Granulation Toxic Vacuolation Platelet Estimate Platelet Morphology PT INR APTT Fibrinogen Puncture Site Right radial Patient Temperature 98.6 O2 Saturation 95 ABG pH 7.25 L* ABG pCO2 24 L* ABG pO2 142 H ABG HCO3 10 L* ABG O2 Content 11.0 L ABG Base Excess -15.9 L ABG Methemoglobin 2.4 H Jordy Test Present Hemoglobin 8.1 L Carboxyhemoglobin 0.9 O2 Delivery Device Nasal cannula Liter Flow 1.00 Critical Value Yes Sodium Potassium Chloride Carbon Dioxide Anion Gap BUN Creatinine Estimated GFR POC Glucose 554 H* Random Glucose Hemoglobin A1c Lactic Acid Calcium Magnesium Total Bilirubin AST ALT Alkaline Phosphatase Total Creatine Kinase CK-MB (CK-2) CK-MB (CK-2) % Troponin I B-Natriuretic Peptide Total Protein Albumin Lipase Beta-Hydroxybutyric Acd TSH Urine Color Urine Clarity Urine pH Ur Specific [place] Urine Protein Urine Glucose (UA) Urine Ketones Urine Occult Blood Urine Nitrate Urine Bilirubin Urine Urobilinogen Ur Leukocyte Esterase Urine RBC Urine WBC Urine WBC Clumps Amorphous Sediment Urine Bacteria Hyaline Casts Urine Mucus Micro UA Comment Ur Microscopic Review Urine Culture Comments Ur Random Creatinine 21 L Ur Random Sodium 13 Blood Type Blood Type Recheck Antibody Screen - Imaging Impressions Extremity Arterial Study 08/02/18 00:00 CONCLUSION: Severe small vessel disease, left worse than right Chest X-Ray 08/02/18 10:30 CONCLUSION: Negative examination. 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 Negative CT Head non contrast. . Chest X-Ray 08/02/18 14:18 CONCLUSION: Satisfactory Central line positioning. Abdomen/Bladder Ultrasound 08/02/18 14:35 CONCLUSION: Bladder distention despite Tang catheter. 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
--- NOTE | 2018-08-02 18:56 | P.PNADD ---
Addendum to Inpatient Note Additional information: pt seen, examined around 1800 in rm 522 dw RN kimberly Horn gas gangrene L foot Sepsis Critically ill agree with current abx choice needs emergent amputation
--- NOTE | 2018-08-02 19:01 | P.PNVS ---
Subjective Subjective/Hospital Course: 57-year-old male with gas gangrene of the foot and sepsis The wound has been opened up and drained and at this point patient needs to be adequately resuscitated with fluids electrolytes and consequent hyperglycemia and septic shock addressed in ICU setting Patient will be scheduled for guillotine amputation tomorrow morning when more stable but right now drainage on emergency basis was already done. Will take patient to the operating room tomorrow Objective Vital Signs / I&O: Vital Signs 08/02/18 10:01 08/02/18 11:31 08/02/18 11:37 Temperature Pulse Rate 50 L 56 L Respiratory Rate 21 12 Blood Pressure 54/37 L 60/41 L 74/48 L Pulse Oximetry 100 08/02/18 12:07 08/02/18 13:03 08/02/18 13:26 Temperature 79.3 F L 84.6 F L Pulse Rate 61 54 L Respiratory Rate Blood Pressure 82/49 L 79/49 L 80/52 L Pulse Oximetry 08/02/18 13:36 08/02/18 14:14 08/02/18 14:53 Temperature 87.3 F L Pulse Rate 68 Respiratory Rate 24 Blood Pressure 70/47 L 96/51 L 92/53 L Pulse Oximetry 100 08/02/18 16:07 08/02/18 16:55 08/02/18 17:20 Temperature 90.7 F L Pulse Rate Respiratory Rate Blood Pressure 90/53 L 99/58 L Pulse Oximetry 08/02/18 17:24 08/02/18 17:30 08/02/18 17:45 Temperature 90.7 F L 90.5 F L 90.7 F L Pulse Rate 74 74 75 Respiratory Rate 26 H 25 H 27 H Blood Pressure 85/50 L 79/49 L 76/51 L Pulse Oximetry 98 100 100 08/02/18 18:00 08/02/18 18:01 08/02/18 18:15 Temperature 90.9 F L 90.9 F L 91.0 F L Pulse Rate 77 77 76 Respiratory Rate 24 26 H 33 H Blood Pressure 103/56 L 92/53 L Pulse Oximetry 100 100 100 08/02/18 18:30 08/02/18 18:47 Temperature 91.2 F L Pulse Rate 77 80 Respiratory Rate 33 H Blood Pressure 78/51 L 100/57 L Pulse Oximetry 100 Intake & Output 08/02/18 08/02/18 08/03/18 06:59 18:59 06:59 Intake Total 6400 / 6400 Output Total 300 / 300 Balance 6100 / 6100 Weight 61 kg Intake: IV 6400 / 6400 NS Inj 1,000 ML @ 250 mls/hr IV 1000 / 1000 .CONT .Q4H [facility] Rx#:[id number] Cleocin 600 mg/NS Premix 600 mg 50 / 50 In 50 ml @ 100 mls/hr IV.SIG Q8H [facility] Rx#:[id number] Zosyn 4.5 GM Premix 4.5 gm In 100 / 100 100 ml @ 200 mls/hr IV.SIG ONCE ONE Rx#:[id number] NS Inj 1,000 ML @ 1000 mls/hr 5000 / 5000 IV.SIG .Q1H [facility] Rx#:[id number] Vancomycin Inj 1,000 MG In NS 250 / 250 Inj 250 ML @ 250 mls/hr IV.SIG ONCE ONE Rx#:[id number] Output: Urine Amount (Catheter) 300 / 300 Indwelling Temp Sensing 300 / 300 Catheter Other: Weight On Admission 61 kg Laboratory Results - last 24 hr 08/02/18 08/02/18 08/02/18 10:49 10:49 10:49 WBC 46.7 H RBC 3.10 L Hgb 9.4 L Hct 31.4 L MCV 101.2 H MCH 30.4 MCHC 30.1 L RDW 17.2 Plt Count 145 L MPV 10.6 Prelim Diff (Auto) Manual diff required WBC Differential Manual diff final Seg Neuts % (Manual) 61 Band Neuts % (Manual) 34 H Lymphocytes % (Manual) 1 L Monocytes % (Manual) 3 Metamyelocytes % (Man) 1 Abs Neuts (Manual) 44.8 H Differential Comment . Toxic Granulation 1+ H Toxic Vacuolation Present H Platelet Estimate Low L Platelet Morphology Normal PT 15.0 H INR 1.5 APTT Fibrinogen Puncture Site Patient Temperature O2 Saturation ABG pH ABG pCO2 ABG pO2 ABG HCO3 ABG O2 Content ABG Base Excess ABG Methemoglobin Jordy Test Hemoglobin Carboxyhemoglobin O2 Delivery Device Liter Flow Critical Value Sodium 129 L Potassium 5.5 H Chloride 93 L Carbon Dioxide 8.7 L Anion Gap 27 H BUN 105 H Creatinine 3.13 H Estimated GFR 25 L POC Glucose Random Glucose 909 H* Hemoglobin A1c Lactic Acid Calcium 8.7 Magnesium 3.4 H Total Bilirubin 0.5 AST 348 H ALT 124 H Alkaline Phosphatase 199 H Total Creatine Kinase 3289 H CK-MB (CK-2) 53.4 H CK-MB (CK-2) % 1.6 Troponin I Less than 0.02 L B-Natriuretic Peptide Total Protein 6.5 Albumin 1.6 L Lipase Beta-Hydroxybutyric Acd TSH 2.690 Urine Color Urine Clarity Urine pH Ur Specific [place] Urine Protein Urine Glucose (UA) Urine Ketones Urine Occult Blood Urine Nitrate Urine Bilirubin Urine Urobilinogen Ur Leukocyte Esterase Urine RBC Urine WBC Urine WBC Clumps Amorphous Sediment Urine Bacteria Hyaline Casts Urine Mucus Micro UA Comment Ur Microscopic Review Urine Culture Comments Ur Random Creatinine Ur Random Sodium Blood Type Blood Type Recheck Antibody Screen 08/02/18 08/02/18 08/02/18 10:49 10:49 10:49 WBC RBC Hgb Hct MCV MCH MCHC RDW Plt Count MPV Prelim Diff (Auto) WBC Differential Seg Neuts % (Manual) Band Neuts % (Manual) Lymphocytes % (Manual) Monocytes % (Manual) Metamyelocytes % (Man) Abs Neuts (Manual) Differential Comment Toxic Granulation Toxic Vacuolation Platelet Estimate Platelet Morphology PT INR APTT Fibrinogen Puncture Site Patient Temperature O2 Saturation ABG pH ABG pCO2 ABG pO2 ABG HCO3 ABG O2 Content ABG Base Excess ABG Methemoglobin Jordy Test Hemoglobin Carboxyhemoglobin O2 Delivery Device Liter Flow Critical Value Sodium Potassium Chloride Carbon Dioxide Anion Gap BUN Creatinine Estimated GFR POC Glucose Random Glucose Hemoglobin A1c 11.3 H Lactic Acid Calcium Magnesium Total Bilirubin AST ALT Alkaline Phosphatase Total Creatine Kinase CK-MB (CK-2) CK-MB (CK-2) % Troponin I B-Natriuretic Peptide 42 Total Protein Albumin Lipase 40190 H Beta-Hydroxybutyric Acd 9.86 H TSH Urine Color Urine Clarity Urine pH Ur Specific [place] Urine Protein Urine Glucose (UA) Urine Ketones Urine Occult Blood Urine Nitrate Urine Bilirubin Urine Urobilinogen Ur Leukocyte Esterase Urine RBC Urine WBC Urine WBC Clumps Amorphous Sediment Urine Bacteria Hyaline Casts Urine Mucus Micro UA Comment Ur Microscopic Review Urine Culture Comments Ur Random Creatinine Ur Random Sodium Blood Type Blood Type Recheck Antibody Screen 08/02/18 08/02/18 08/02/18 10:55 11:16 12:10 WBC RBC Hgb Hct MCV MCH MCHC RDW Plt Count MPV Prelim Diff (Auto) WBC Differential Seg Neuts % (Manual) Band Neuts % (Manual) Lymphocytes % (Manual) Monocytes % (Manual) Metamyelocytes % (Man) Abs Neuts (Manual) Differential Comment Toxic Granulation Toxic Vacuolation Platelet Estimate Platelet Morphology PT INR APTT Fibrinogen Puncture Site Right radial Patient Temperature 98.6 O2 Saturation 96 ABG pH 7.09 L* ABG pCO2 25 L ABG pO2 191 H ABG HCO3 7 L* ABG O2 Content 12.0 ABG Base Excess -20.9 L ABG Methemoglobin 1.0 Jordy Test Present Hemoglobin 8.6 L Carboxyhemoglobin 1.5 O2 Delivery Device Nasal cannula Liter Flow 2.00 Critical Value Yes Sodium Potassium Chloride Carbon Dioxide Anion Gap BUN Creatinine Estimated GFR POC Glucose Random Glucose Hemoglobin A1c Lactic Acid Calcium Magnesium Total Bilirubin AST ALT Alkaline Phosphatase Total Creatine Kinase CK-MB (CK-2) CK-MB (CK-2) % Troponin I B-Natriuretic Peptide Total Protein Albumin Lipase Beta-Hydroxybutyric Acd TSH Urine Color Yellow Urine Clarity Cloudy H Urine pH 5.0 Ur Specific [place] 1.015 Urine Protein Negative Urine Glucose (UA) 500 or greater Urine Ketones 20 Urine Occult Blood Moderate H Urine Nitrate Negative Urine Bilirubin Negative Urine Urobilinogen Less than 2 Ur Leukocyte Esterase Large H Urine RBC 13 H Urine WBC 114 H Urine WBC Clumps Few H Amorphous Sediment Few H Urine Bacteria Few H Hyaline Casts 10 Urine Mucus Few H Micro UA Comment Cath-culture ind Ur Microscopic Review Not Reportable Urine Culture Comments Cath-cult indicated Ur Random Creatinine Ur Random Sodium Blood Type O Positive Blood Type Recheck Required Antibody Screen Negative 08/02/18 08/02/18 08/02/18 12:34 14:49 15:03 WBC RBC Hgb Hct MCV MCH MCHC RDW Plt Count MPV Prelim Diff (Auto) WBC Differential Seg Neuts % (Manual) Band Neuts % (Manual) Lymphocytes % (Manual) Monocytes % (Manual) Metamyelocytes % (Man) Abs Neuts (Manual) Differential Comment Toxic Granulation Toxic Vacuolation Platelet Estimate Platelet Morphology PT INR APTT Fibrinogen Puncture Site Patient Temperature O2 Saturation ABG pH ABG pCO2 ABG pO2 ABG HCO3 ABG O2 Content ABG Base Excess ABG Methemoglobin Jordy Test Hemoglobin Carboxyhemoglobin O2 Delivery Device Liter Flow Critical Value Sodium Potassium Chloride Carbon Dioxide Anion Gap BUN Creatinine Estimated GFR POC Glucose Greater than 600 H* Greater than 600 H* Random Glucose Hemoglobin A1c Lactic Acid 4.6 H* Calcium Magnesium Total Bilirubin AST ALT Alkaline Phosphatase Total Creatine Kinase CK-MB (CK-2) CK-MB (CK-2) % Troponin I B-Natriuretic Peptide Total Protein Albumin Lipase Beta-Hydroxybutyric Acd TSH Urine Color Urine Clarity Urine pH Ur Specific [place] Urine Protein Urine Glucose (UA) Urine Ketones Urine Occult Blood Urine Nitrate Urine Bilirubin Urine Urobilinogen Ur Leukocyte Esterase Urine RBC Urine WBC Urine WBC Clumps Amorphous Sediment Urine Bacteria Hyaline Casts Urine Mucus Micro UA Comment Ur Microscopic Review Urine Culture Comments Ur Random Creatinine Ur Random Sodium Blood Type Blood Type Recheck Antibody Screen 08/02/18 08/02/18 08/02/18 15:03 16:05 17:18 WBC RBC Hgb Hct MCV MCH MCHC RDW Plt Count MPV Prelim Diff (Auto) WBC Differential Seg Neuts % (Manual) Band Neuts % (Manual) Lymphocytes % (Manual) Monocytes % (Manual) Metamyelocytes % (Man) Abs Neuts (Manual) Differential Comment Toxic Granulation Toxic Vacuolation Platelet Estimate Platelet Morphology PT INR APTT 54.6 H Fibrinogen 282 Puncture Site Patient Temperature O2 Saturation ABG pH ABG pCO2 ABG pO2 ABG HCO3 ABG O2 Content ABG Base Excess ABG Methemoglobin Jordy Test Hemoglobin Carboxyhemoglobin O2 Delivery Device Liter Flow Critical Value Sodium Potassium Chloride Carbon Dioxide Anion Gap BUN Creatinine Estimated GFR POC Glucose 547 H* Random Glucose 592 H* D Hemoglobin A1c Lactic Acid Calcium Magnesium Total Bilirubin AST ALT Alkaline Phosphatase Total Creatine Kinase CK-MB (CK-2) CK-MB (CK-2) % Troponin I B-Natriuretic Peptide Total Protein Albumin Lipase Beta-Hydroxybutyric Acd TSH Urine Color Urine Clarity Urine pH Ur Specific [place] Urine Protein Urine Glucose (UA) Urine Ketones Urine Occult Blood Urine Nitrate Urine Bilirubin Urine Urobilinogen Ur Leukocyte Esterase Urine RBC Urine WBC Urine WBC Clumps Amorphous Sediment Urine Bacteria Hyaline Casts Urine Mucus Micro UA Comment Ur Microscopic Review Urine Culture Comments Ur Random Creatinine Ur Random Sodium Blood Type Blood Type Recheck Antibody Screen 08/02/18 08/02/18 08/02/18 17:44 18:03 18:07 WBC RBC Hgb Hct MCV MCH MCHC RDW Plt Count MPV Prelim Diff (Auto) WBC Differential Seg Neuts % (Manual) Band Neuts % (Manual) Lymphocytes % (Manual) Monocytes % (Manual) Metamyelocytes % (Man) Abs Neuts (Manual) Differential Comment Toxic Granulation Toxic Vacuolation Platelet Estimate Platelet Morphology PT INR APTT Fibrinogen Puncture Site Patient Temperature O2 Saturation ABG pH ABG pCO2 ABG pO2 ABG HCO3 ABG O2 Content ABG Base Excess ABG Methemoglobin Jordy Test Hemoglobin Carboxyhemoglobin O2 Delivery Device Liter Flow Critical Value Sodium 144 D Potassium 3.2 L D Chloride 115 H D Carbon Dioxide 12.1 L Anion Gap 17 H BUN 91 H Creatinine 2.49 H Estimated GFR 32 L POC Glucose 554 H* Random Glucose 485 H* D Hemoglobin A1c Lactic Acid Calcium 6.5 L* D Magnesium Total Bilirubin AST ALT Alkaline Phosphatase Total Creatine Kinase CK-MB (CK-2) CK-MB (CK-2) % Troponin I B-Natriuretic Peptide Total Protein Albumin Lipase Beta-Hydroxybutyric Acd TSH Urine Color Urine Clarity Urine pH Ur Specific [place] Urine Protein Urine Glucose (UA) Urine Ketones Urine Occult Blood Urine Nitrate Urine Bilirubin Urine Urobilinogen Ur Leukocyte Esterase Urine RBC Urine WBC Urine WBC Clumps Amorphous Sediment Urine Bacteria Hyaline Casts Urine Mucus Micro UA Comment Ur Microscopic Review Urine Culture Comments Ur Random Creatinine 21 L Ur Random Sodium 13 Blood Type Blood Type Recheck Antibody Screen 08/02/18 18:12 WBC RBC Hgb Hct MCV MCH MCHC RDW Plt Count MPV Prelim Diff (Auto) WBC Differential Seg Neuts % (Manual) Band Neuts % (Manual) Lymphocytes % (Manual) Monocytes % (Manual) Metamyelocytes % (Man) Abs Neuts (Manual) Differential Comment Toxic Granulation Toxic Vacuolation Platelet Estimate Platelet Morphology PT INR APTT Fibrinogen Puncture Site Right radial Patient Temperature 98.6 O2 Saturation 95 ABG pH 7.25 L* ABG pCO2 24 L* ABG pO2 142 H ABG HCO3 10 L* ABG O2 Content 11.0 L ABG Base Excess -15.9 L ABG Methemoglobin 2.4 H Jordy Test Present Hemoglobin 8.1 L Carboxyhemoglobin 0.9 O2 Delivery Device Nasal cannula Liter Flow 1.00 Critical Value Yes Sodium Potassium Chloride Carbon Dioxide Anion Gap BUN Creatinine Estimated GFR POC Glucose Random Glucose Hemoglobin A1c Lactic Acid Calcium Magnesium Total Bilirubin AST ALT Alkaline Phosphatase Total Creatine Kinase CK-MB (CK-2) CK-MB (CK-2) % Troponin I B-Natriuretic Peptide Total Protein Albumin Lipase Beta-Hydroxybutyric Acd TSH Urine Color Urine Clarity Urine pH Ur Specific [place] Urine Protein Urine Glucose (UA) Urine Ketones Urine Occult Blood Urine Nitrate Urine Bilirubin Urine Urobilinogen Ur Leukocyte Esterase Urine RBC Urine WBC Urine WBC Clumps Amorphous Sediment Urine Bacteria Hyaline Casts Urine Mucus Micro UA Comment Ur Microscopic Review Urine Culture Comments Ur Random Creatinine Ur Random Sodium Blood Type Blood Type Recheck Antibody Screen Impressions Extremity Arterial Study 08/02/18 00:00 CONCLUSION: Severe small vessel disease, left worse than right Chest X-Ray 08/02/18 10:30 CONCLUSION: Negative examination. 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 Negative CT Head non contrast. . Chest X-Ray 08/02/18 14:18 CONCLUSION: Satisfactory Central line positioning. Abdomen/Bladder Ultrasound 08/02/18 14:35 CONCLUSION: Bladder distention despite Tang catheter.
[2018-08-02 19:07] LABS: Albumin 1.3 g/dL (3.4-5.0); Calcium-Albumin Corrected 8.7 mg/dL (8.5-10.1)
[2018-08-02] MEDS ORDERED: Sodium Chloride 0.45 % Inj 1,000 ML IV.SIG ONE (19:10)
[2018-08-02] MEDS ORDERED: Potassium Chlor 40 mEq Premix 40 MEQ/100 ML PIGGYBACK IV.SIG ONE (20:00)
[2018-08-02] MEDS: Piperacil/Tazo 2.25 GM Premix 50 ML IV.SIG SCH (20:14)
[2018-08-02] MEDS: Sodium Chloride 0.45 % Inj 1,000 ML IV.CONT SCH (20:37)
[2018-08-02] MEDS: Dextrose 5%/NaCl 0.45% Inj 1,000 ML IV.CONT SCH (20:37)
[2018-08-02] MEDS: Senna/Docusate Sodium 8.6/50 MG Tablet PO SCH (20:37)
[2018-08-02 20:49] LABS: Calcium 6.6 mg/dL (8.5-10.1); Carbon Dioxide 10.9 meq/L (21.0-32.0); Magnesium 2.4 mg/dL (1.5-2.5); Phosphorus 3.3 mg/dL (2.5-4.9); Potassium 3.3 meq/L (3.5-5.1); Troponin I 0.03 ng/mL (0.02-0.05)
[2018-08-02 21:09] LABS: Albumin 1.2 g/dL (3.4-5.0); Calcium-Albumin Corrected 8.8 mg/dL (8.5-10.1)
[2018-08-03] MEDS: Dextrose 5%/NaCl 0.45% Inj 1,000 ML IV.CONT SCH (00:11)
[2018-08-03] MEDS ORDERED: Etomidate Inj 40 MG/20 ML Vial IV.PUSH ONE (00:24)
--- NOTE | 2018-08-03 00:38 | P.PCN ---
Date of procedure: 08/03/18 Procedure: PROCEDURE NOTE PROCEDURE: Endotracheal intubation INDICATION: Hypopnea, acute respiratory failure. DETAILS OF PROCEDURE: The patient was placed in optimal position and preoxygenated with 100% FiO2 via [id number]. Oximeter oxygen saturation of 96% was obtained prior to direct laryngoscopy. He was unresponsive and hypotensive and sedation was not required. Direct laryngoscopy was performed with a 3 Urena laryngoscope blade and a grade I Cormack-Lehane view was obtained. On single attempt a size 8.0 endotracheal tube was visualized passing through the cords. Correct placement was confirmed with colorimetric CO2 detector. Breath sounds were equal bilaterally. No sounds auscultated over the stomach. The endotracheal tube was secured with a commercial tube resendiz at a depth of 24 cm at the lips. The patient was connected to the ventilator. The patient tolerated the procedure well without any apparent complication. Oxygen saturations were maintained greater than 96% at all times. Stat chest x-ray was ordered and demonstrates satisfactory endotracheal tube position..
[2018-08-03] MEDS ORDERED: Sod Chloride 0.9% Inj 1,000 ML IV.SIG SCH ×2 (00:41→00:45)
[2018-08-03] MEDS ORDERED: fentaNYL 10 mcg/mL Premix Drip 2,500 MCG/250 ML BAG IV.SIG PRN (00:41)
[2018-08-03] MEDS: Sodium Chloride 0.45 % Inj 1,000 ML IV.CONT SCH ×2 (00:48→10:32)
[2018-08-03 01:01] LABS: Calcium 6.6 mg/dL (8.5-10.1); Carbon Dioxide 11.5 meq/L (21.0-32.0); Magnesium 1.9 mg/dL (1.5-2.5); Phosphorus 0.9 mg/dL (2.5-4.9); Potassium 4.2 meq/L (3.5-5.1)
[2018-08-03 01:22] LABS: Albumin 1.2 g/dL (3.4-5.0); Calcium-Albumin Corrected 8.8 mg/dL (8.5-10.1)
[2018-08-03 01:27] LABS: ABG Base Excess -19.1 mmol/L (-2-2); ABG PCO2 20 mmHg (38-42); ABG PO2 284 mmHG (61-120)
[2018-08-03 01:28] LABS: CKMB Percent 1.5 % (0.0-4.0); Creatine Kinase MB 100.7 ng/mL (0.5-3.6)
--- NOTE | 2018-08-03 01:29 | XR ---
EXAM DATE: 08/03/2018 1:18 AM EST AGE/SEX: 57 years / Male INDICATIONS: Post intubation. CLINICAL DATA: This is the patient's subsequent encounter. Patient reports that signs and symptoms h ave been present for 4 - 6 days and indicates a pain score of 0/10. MEDICAL/SURGICAL HISTORY: . Diabetes. Sepsis. Gangrene left foot. None. COMPARISON: [facility], CHEST 1V SINGLE AP, 08/02/2018. . FINDINGS: Endotracheal tube in good position. NG enters stomach. Left central line in superior vena cava. No fo abida consolidation or significant effusion. No pneumothorax. CONCLUSION: Endotracheal tube, nasogastric tube and left central line in good position. No focal infiltrate or ef fusion. Electronically signed by: Kristian Guido MD 08/03/2018 1:27 AM EST
[2018-08-03 01:46] LABS: Mean Corpuscular HGB Conc 34.4 % (32.0-36.0); Mean Corpuscular Hemoglobin 31.1 pg (27.0-34.0); Mean Corpuscular Volume 90.3 fL (80.0-100.0); Mean Platelet Volume 9.1 fL (7.0-11.0); Platelet Count 142 th/mm3 (150-450); Red Blood Count 2.06 mil/mm3 (4.50-5.90); Red Cell Distribution Width 14.9 % (11.6-17.2); White Blood Count 37.1 th/mm3 (4.0-11.0)
[2018-08-03 01:52] LABS: Hematocrit 18.6 % (39.0-51.0); Hemoglobin 6.4 gm/dL (13.0-17.0)
[2018-08-03 01:56] LABS: Activated Partial Thrombo Time 46.5 sec (23.4-31.7); INR 1.7 Ratio; Prothrombin Time 17.7 sec (9.8-11.6)
[2018-08-03] MEDS ORDERED: Sodium Chlor 0.9% Inj 250 ML IV.SIG SCH ×2 (02:00→04:00)
[2018-08-03] MEDS ORDERED: Potassium Phosphate Inj 30 MMOL in Sodium Chlor 0.9% Inj 250 ML IV.SIG ONE (02:00)
[2018-08-03] MEDS ORDERED: Pantoprazole Inj 80 MG in Sodium Chlor 0.9% Inj 35 ML IV.SIG ONE (02:04)
[2018-08-03] MEDS: Clindamycin 600 mg/NS Premix 600 MG/50 ML PIGGYBACK IV.SIG SCH ×2 (02:57→08:18)
[2018-08-03] MEDS ORDERED: Pantoprazole Inj 80 MG in Sodium Chlor 0.9% Inj 100 ML IV.CONT SCH (03:00)
[2018-08-03] MEDS: Insulin Regular (For Infusion) 100 UNIT in Sodium Chlor 0.9% Inj 99 ML IV.CONT PRN ×2 (03:29→16:52)
[2018-08-03] MEDS ORDERED: Sodium Bicarbonate 8.4% Inj 50 MEQ/50 ML Syringe IV.PUSH ONE (03:30)
[2018-08-03] MEDS ORDERED: Chlorhexidine Gluconate 2% 1 Pack (2 Cloths) TOPICAL PRN ×2 (04:00)
[2018-08-03] MEDS ORDERED: Chlorhexidine Gluconate 2% 1 Pack (2 Cloths) TOPICAL SCH (04:00)
[2018-08-03] MEDS: KCL 20 mEq/D5W/NaCl 0.45% Inj 1,000 ML IV.CONT SCH ×2 (04:05→09:01)
[2018-08-03] MEDS: Pantoprazole Inj 80 MG in Sodium Chlor 0.9% Inj 100 ML IV.CONT SCH ×3 (04:07→23:55)
[2018-08-03 04:30] LABS: Activated Partial Thrombo Time 43.9 sec (23.4-31.7); INR 1.8 Ratio; Prothrombin Time 18.1 sec (9.8-11.6)
[2018-08-03 04:43] LABS: Beta Hydroxybutyric Acid 0.15 mmol/L (0.00-0.39); Calcium 6.2 mg/dL (8.5-10.1); Carbon Dioxide 13.1 meq/L (21.0-32.0); Magnesium 1.9 mg/dL (1.5-2.5); Phosphorus 2.3 mg/dL (2.5-4.9); Potassium 3.9 meq/L (3.5-5.1)
[2018-08-03] MEDS: Oral Hygiene Kit OROPHARYNG SCH ×4 (04:47→23:55)
[2018-08-03] MEDS: Chlorhexidine Gluconate 2% 1 Pack (2 Cloths) TOPICAL SCH (04:47)
[2018-08-03] MEDS: Piperacil/Tazo 2.25 GM Premix 50 ML IV.SIG SCH ×4 (04:49→22:16)
[2018-08-03 04:51] LABS: Albumin 1.1 g/dL (3.4-5.0); Calcium-Albumin Corrected 8.5 mg/dL (8.5-10.1)
[2018-08-03 04:55] LABS: Baso % (Auto) 0.1 % (0.0-2.0); Eos % (Auto) 0.1 % (0.0-4.0); Hematocrit 31.6 % (39.0-51.0); Hemoglobin 10.5 gm/dL (13.0-17.0); Lymph # (Auto) 0.6 th/mm3 (1.0-4.8); Lymph % (Auto) 1.7 % (9.0-44.0); Mean Corpuscular HGB Conc 33.1 % (32.0-36.0); Mean Corpuscular Hemoglobin 30.2 pg (27.0-34.0); Mean Corpuscular Volume 91.2 fL (80.0-100.0); Mean Platelet Volume 8.8 fL (7.0-11.0); Mono # (Auto) 0.3 th/mm3 (0.0-0.9); Mono % (Auto) 0.9 % (0.0-8.0); Neut # (Auto) 34.1 th/mm3 (1.8-7.7); Neut % (Auto) 97.2 % (16.0-70.0); Platelet Count 124 th/mm3 (150-450); Red Blood Count 3.46 mil/mm3 (4.50-5.90); Red Cell Distribution Width 16.4 % (11.6-17.2); White Blood Count 35.1 th/mm3 (4.0-11.0)
[2018-08-03 06:05] LABS: Lymphocytes 1 % (9-44); Metamyelocytes 2 % (0-1); Monocytes 2 % (0-8); Platelet Morphology Normal (Normal); Tallied Nucleated RBC 2 (0-0); Toxic Granulation 1+; Toxic Vacuolation Present
[2018-08-03 06:06] LABS: ABG Base Excess -15.5 mmol/L (-2-2); ABG PCO2 23 mmHg (38-42); ABG PO2 267 mmHG (61-120)
--- NOTE | 2018-08-03 06:34 | ECG ---
Date Performed: 08/02/2018 Time Performed: 11:15:18 PTAGE: 57 years EKG: SINUS BRADYCARDIA ST ELEVATION, CONSIDER ANTEROLATERAL INJURY ACUTE [place] PREVIOUS TRACING : 07/03/2017 13.07 Compared to previous tracing, st abnormalities are n ew DOCTOR: David Rivers Interpretating Date/Time 08/03/2018 06:33:31
[2018-08-03] MEDS: Vasopressin Inj 40 UNIT in Dextrose 5% in Water Inj 98 ML IV.CONT SCH ×4 (07:03→22:16)
[2018-08-03] MEDS: Chlorhexidine 0.12% Oral Kit 15 ML UDC OROPHARYNG SCH ×2 (08:18→21:46)
[2018-08-03] MEDS: Senna/Docusate Sodium 8.6/50 MG Tablet PO SCH ×2 (08:18→21:46)
[2018-08-03] MEDS ORDERED: Pantoprazole Inj 40 MG Vial IV.PUSH SCH (09:00)
[2018-08-03 09:01] LABS: INR 1.5 Ratio; Prothrombin Time 15.5 sec (9.8-11.6)
--- NOTE | 2018-08-03 09:24 | P.PNCC ---
Subjective Subjective Remarks/Hospital Course: This is a 49-year-old male. Date of admission 08/02/2008. Past medical history includes diabetes mellitus, hypertension, peripheral neuropathy and narcotic use. Patient was recently DNR under fluoroscopy hospice. Patient left [facility] 07/10/2018 according to records. Patient was found today by friends altered mental status. Patient was transferred according to [facility] for evaluation treatment. Upon arrival, patient was hypothermic with a temperature of 79 F. Workup included sodium 1.8, potassium 5.5 and creatinine 3.17. Blood sugar was 900. Lipid cell count is 47,000 with 34 bands. Hemoglobin is 9.4 and platelets 143. INR is 1.5. Albumin is 1.63 CPK is 3200. Transaminases are elevated. Patient received 5 L normal saline in the ED of warm saline and started on insulin drip per DKA protocol. Anion gap was 27. Lactic and beta hydroxybutyrate currently pending. CT brain revealed no acute intracranial findings. Foot x-ray revealed gas gangrene left foot. Attempted to consult podiatry at the present time. Patient was started on vancomycin and piperacillin/tazobactam. I added clindamycin A central line was placed due to multiple lab draws/ of hypotension SUBJECTIVE: 08/03 -intubated overnight due to altered mental status. Worsening sepsis. Debrided left foot yesterday. Vascular surgery did evaluate. Currently on norepinephrine and vasopressin drips. Transfused 3 units PRBCs and fresh frozen plasma overnight. Objective Vital Signs / I&O: Vital Signs 08/02/18 10:01 08/02/18 11:31 08/02/18 11:37 Temperature Pulse Rate 50 L 56 L Respiratory Rate 21 12 Blood Pressure 54/37 L 60/41 L 74/48 L Pulse Oximetry 100 08/02/18 12:07 08/02/18 13:03 08/02/18 13:26 Temperature 79.3 F L 84.6 F L Pulse Rate 61 54 L Respiratory Rate Blood Pressure 82/49 L 79/49 L 80/52 L Pulse Oximetry 08/02/18 13:36 08/02/18 14:14 08/02/18 14:53 Temperature 87.3 F L Pulse Rate 68 Respiratory Rate 24 Blood Pressure 70/47 L 96/51 L 92/53 L Pulse Oximetry 100 08/02/18 16:07 08/02/18 16:55 08/02/18 17:20 Temperature 90.7 F L Pulse Rate Respiratory Rate Blood Pressure 90/53 L 99/58 L Pulse Oximetry 08/02/18 17:24 08/02/18 17:30 08/02/18 17:45 Temperature 90.7 F L 90.5 F L 90.7 F L Pulse Rate 74 74 75 Respiratory Rate 26 H 25 H 27 H Blood Pressure 85/50 L 79/49 L 76/51 L Pulse Oximetry 98 100 100 08/02/18 18:00 08/02/18 18:01 08/02/18 18:15 Temperature 90.9 F L 90.9 F L 91.0 F L Pulse Rate 77 77 76 Respiratory Rate 24 26 H 33 H Blood Pressure 103/56 L 92/53 L Pulse Oximetry 100 100 100 08/02/18 18:30 08/02/18 18:33 08/02/18 18:45 Temperature 91.2 F L 91.2 F L 91.6 F L Pulse Rate 77 82 80 Respiratory Rate 33 H 27 H 41 H Blood Pressure 78/51 L 149/69 H 100/57 L Pulse Oximetry 100 100 100 08/02/18 18:47 08/02/18 19:00 08/02/18 19:15 Temperature 91.9 F L 92.5 F L Pulse Rate 80 82 84 Respiratory Rate 35 H 44 H Blood Pressure 100/57 L 100/60 99/53 L Pulse Oximetry 100 100 08/02/18 19:30 08/02/18 19:45 08/02/18 20:00 Temperature 93.0 F L 93.6 F L 94.1 F L Pulse Rate 86 88 91 H Respiratory Rate 40 H 46 H 50 H Blood Pressure 96/52 L 94/50 L 92/50 L Pulse Oximetry 100 100 100 08/02/18 20:15 08/02/18 20:18 08/02/18 20:30 Temperature 94.6 F L 95.2 F L Pulse Rate 93 H 92 H 96 H Respiratory Rate 46 H 20 44 H Blood Pressure 92/53 L 88/53 L Pulse Oximetry 100 100 100 08/02/18 20:45 08/02/18 21:00 08/02/18 21:15 Temperature 95.7 F L 96.1 F L 96.4 F L Pulse Rate 96 H 97 H 97 H Respiratory Rate 44 H 46 H 45 H Blood Pressure 96/52 L 90/55 L 90/52 L Pulse Oximetry 100 100 99 08/02/18 21:30 08/02/18 21:45 08/02/18 22:00 Temperature 96.6 F L 97.0 F L 97.2 F L Pulse Rate 97 H 100 H 100 H Respiratory Rate 44 H 45 H 44 H Blood Pressure 89/51 L 90/53 L 88/49 L Pulse Oximetry 99 99 99 08/02/18 22:15 08/02/18 22:30 08/02/18 22:45 Temperature 97.5 F L 97.9 F 98.1 F Pulse Rate 100 H 100 H 98 H Respiratory Rate 39 H 40 H 39 H Blood Pressure 83/48 L 82/51 L 84/51 L Pulse Oximetry 99 99 98 08/02/18 23:00 08/02/18 23:15 08/02/18 23:30 Temperature 98.4 F 98.6 F 98.6 F Pulse Rate 94 H 92 H 88 Respiratory Rate 36 H 37 H 32 H Blood Pressure 85/50 L 85/49 L 86/52 L Pulse Oximetry 98 98 98 08/02/18 23:47 08/03/18 00:00 08/03/18 00:30 Temperature Pulse Rate 97 H 80 Respiratory Rate 18 22 Blood Pressure 100/57 L Pulse Oximetry 100 08/03/18 01:30 08/03/18 01:45 08/03/18 02:00 Temperature 97.3 F L 97.2 F L 96.8 F L Pulse Rate 93 H 85 85 Respiratory Rate 26 H 27 H 26 H Blood Pressure 96/50 L 95/55 L 100/50 L Pulse Oximetry 100 100 100 08/03/18 02:01 08/03/18 02:15 08/03/18 02:16 Temperature 96.8 F L 96.4 F L 96.4 F L Pulse Rate 86 90 91 H Respiratory Rate 26 H 29 H 26 H Blood Pressure 100/50 L 117/56 L 117/56 L Pulse Oximetry 100 08/03/18 02:20 08/03/18 02:30 08/03/18 02:40 Temperature 96.3 F L 95.9 F L 95.4 F L Pulse Rate 96 H 91 H 91 H Respiratory Rate 29 H 29 H 30 H Blood Pressure 121/56 L 110/58 L 119/57 L Pulse Oximetry 100 100 99 08/03/18 02:50 08/03/18 02:55 08/03/18 03:00 Temperature 95.2 F L 95 F L 95.0 F L Pulse Rate 97 H 96 H 96 H Respiratory Rate 33 H 32 H 28 H Blood Pressure 125/62 119/62 Pulse Oximetry 99 92 L 08/03/18 03:10 08/03/18 03:20 08/03/18 03:30 Temperature 94.8 F L 94.8 F L 94.6 F L Pulse Rate 96 H 94 H 92 H Respiratory Rate 27 H 26 H 25 H Blood Pressure 111/58 L 108/60 91/54 L Pulse Oximetry 90 L 94 L 100 08/03/18 03:38 08/03/18 03:40 08/03/18 03:50 Temperature 94.1 F L 94.6 F L 94.6 F L Pulse Rate 91 H 91 H 93 H Respiratory Rate 27 H 28 H 34 H Blood Pressure 92/56 L 110/62 Pulse Oximetry 100 99 08/03/18 04:00 08/03/18 04:10 08/03/18 04:12 Temperature 94.5 F L 94.3 F L Pulse Rate 95 H 91 H Respiratory Rate 26 H 23 26 H Blood Pressure 123/66 115/67 Pulse Oximetry 98 95 95 08/03/18 04:15 08/03/18 04:20 08/03/18 04:30 Temperature 94.1 F L 94.1 F L Pulse Rate 90 90 91 H Respiratory Rate 26 H 24 25 H Blood Pressure 109/62 113/64 Pulse Oximetry 98 97 08/03/18 04:40 08/03/18 04:50 08/03/18 05:00 Temperature 94.1 F L 94.1 F L 94.1 F L Pulse Rate 90 91 H 92 H Respiratory Rate 28 H 26 H 29 H Blood Pressure 115/69 119/70 123/71 Pulse Oximetry 100 100 100 08/03/18 05:10 08/03/18 05:20 08/03/18 05:30 Temperature 94.1 F L 94.1 F L 94.3 F L Pulse Rate 92 H 90 89 Respiratory Rate 23 25 H 25 H Blood Pressure 143/68 H 109/52 L 106/58 L Pulse Oximetry 100 100 100 11/27/18 05:31 08/03/18 05:40 08/03/18 05:50 Temperature 94.3 F L 94.3 F L 94.3 F L Pulse Rate 88 89 88 Respiratory Rate 25 H 25 H 26 H Blood Pressure 103/56 L 105/58 L Pulse Oximetry 100 100 08/03/18 06:00 08/03/18 07:40 Temperature 94.3 F L Pulse Rate 87 91 H Respiratory Rate 25 H 20 Blood Pressure 114/62 Pulse Oximetry 100 100 Intake & Output 08/02/18 08/03/18 08/03/18 18:59 06:59 18:59 Intake Total 6400 / 6400 6754 / 6754 1150 / 1150 Output Total 300 / 300 230 / 230 50 / 50 Balance 6100 / 6100 6524 / 6524 1100 / 1100 Weight 61 kg 61 kg Intake: IV 6400 / 6400 5335 / 5335 1150 / 1150 D5W/1/2 NS Inj 1,000 ML @ 200 800 / 800 mls/hr IV.CONT .Q5H [facility] Rx#: [id number] NovoLIN R (IV Infusion) 100 100 / 100 UNIT In NS Inj 99 ML @ 5 UNITS/ HR 5 mls/hr IV.CONT TITRATE PRN Rx#:[id number] D5W/1/2NS + KCL 20 mEq Inj 1, 1000 / 1000 000 ML @ 200 mls/hr IV.CONT . Q5H [facility] Rx#:[id number] NS Inj 1,000 ML @ 250 mls/hr IV 1000 / 1000 700 / 700 .CONT .Q4H [facility] Rx#:[id number] 1/2 Normal Saline Inj 1,000 ML 400 / 400 @ 250 mls/hr IV.CONT .Q4H [facility] Rx#:[id number] Cleocin 600 mg/NS Premix 600 mg 50 / 50 50 / 50 50 / 50 In 50 ml @ 100 mls/hr IV.SIG Q8H [facility] Rx#:[id number] Diflucan 200 mg Premix Bag 100 100 / 100 ML @ 100 mls/hr IV.SIG Q24H [facility] Rx#:[id number] Protonix Inj 80 MG In NS Inj 35 35 / 35 ML @ 420 mls/hr IV.SIG BOLUS ONE Rx#:[id number] Zosyn 2.25 GM Premix 50 ML @ 100 / 100 100 mls/hr IV.SIG Q8H [facility] Rx#: [id number] Zosyn 4.5 GM Premix 4.5 gm In 100 / 100 100 ml @ 200 mls/hr IV.SIG ONCE ONE Rx#:[id number] KCl 40 mEq Premix Inj 40 meq In 100 / 100 100 ml @ 25 mls/hr IV.SIG ONCE ONE Rx#:[id number] NS Inj 1,000 ML @ 1000 mls/hr 5000 / 5000 2000 / 2000 IV.SIG BOLUS [facility] [place] Rx#:[id number] NS Inj 250 ML @ 15 mls/hr IV. 50 / 50 SIG ONCE [facility] [place] Rx#:[id number] 1/2 Normal Saline Inj 1,000 ML 1000 / 1000 @ Wide Open IV.SIG BOLUS ONE Rx #:[id number] Vancomycin Inj 1,000 MG In NS 250 / 250 Inj 250 ML @ 250 mls/hr IV.SIG ONCE ONE Rx#:[id number] Intake (Blood Product) Amt 1419 / 1419 Plasma Thawed 5 Day Acda Unit 219 / 219 [id number] Plasma Thawed 5 Day Acda Unit 0 / 0 [id number] Rbc As-3 Leukoreduced Unit 400 / 400 [id number] Rbc As-3 Leukoreduced Unit 400 / 400 [id number] Rbc As-3 Leukoreduced Unit 400 / 400 [id number] Output: Urine Amount (Catheter) 300 / 300 230 / 230 50 / 50 Indwelling Temp Sensing 300 / 300 230 / 230 50 / 50 Catheter Other: Date of Last Bowel Movement 08/03/18 # Bowel Movements 1 Weight On Admission 61 kg Result Diagrams: 08/03/18 04:25 08/03/18 04:00 Imaging: Extremity Arterial Study 08/02/18 00:00 CONCLUSION: Severe small vessel disease, left worse than right Chest X-Ray 08/02/18 10:30 CONCLUSION: Negative examination. 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 Negative CT Head non contrast. . Chest X-Ray 08/02/18 14:18 CONCLUSION: Satisfactory Central line positioning. Abdomen/Bladder Ultrasound 08/02/18 14:35 CONCLUSION: Bladder distention despite Tang catheter. Chest X-Ray 08/03/18 00:37 CONCLUSION: Endotracheal tube, nasogastric tube and left central line in good position. No focal infiltrate or effusion. Objective Remarks: GENERAL: 57-year-old male currently orotracheally intubated SKIN: Cool and dry. Left foot status post debridement with exposed tendon. HEAD: Atraumatic. Normocephalic. EYES: Pupils equal and round about 3 mm bilaterally and reactive. No scleral icterus. No injection or drainage. ENT: No nasal bleeding or discharge. Mucous membranes pink and moist. NECK: Trachea midline. No JVD. CARDIOVASCULAR: Tachycardic, RR. S1, S2 no S 4. RESPIRATORY: No accessory muscle use. Clear to auscultation. Breath sounds equal bilaterally. GASTROINTESTINAL: Abdomen soft, non-tender, nondistended. Bowel sounds are appreciated. MUSCULOSKELETAL: Extremities without clubbing, cyanosis, or edema. Noted gangrene left foot. Dry gangrene to toes. NEUROLOGICAL: Currently sedated on the ventilator. Positive gag and cough. Withdraws to pain bilateral upper extremities. Assessment and Plan - Problem List (1) Leukocytosis Code(s): D72.829 - Elevated white blood cell count, unspecified Status: Acute (2) Hypermagnesemia Code(s): E83.41 - Hypermagnesemia Status: Acute (3) Hyponatremia Code(s): E87.1 - Hypo-osmolality and hyponatremia Status: Acute (4) Rhabdomyolysis Code(s): M62.82 - Rhabdomyolysis Status: Acute (5) Macrocytic anemia Code(s): D53.9 - Nutritional anemia, unspecified Status: Acute (6) Thrombocytopenia Code(s): D69.6 - Thrombocytopenia, unspecified Status: Acute (7) Hypoalbuminemia Code(s): E88.09 - Other disorders of plasma-protein metabolism, not elsewhere classified Status: Acute (8) Hyperkalemia Code(s): E87.5 - Hyperkalemia Status: Acute (9) Elevated transaminase level Code(s): R74.0 - Nonspecific elevation of levels of transaminase and lactic acid dehydrogenase [LDH] Status: Acute (10) Sepsis Code(s): A41.9 - Sepsis, unspecified organism Status: Acute (11) Hypothermia Code(s): T68.XXXA - Hypothermia, initial encounter Status: Acute (12) Diabetic foot infection Code(s): E11.628 - Type 2 diabetes mellitus with other skin complications; L08.9 - Local infection of the skin and subcutaneous tissue, unspecified Status: Acute (13) Acute renal failure Code(s): N17.9 - Acute kidney failure, unspecified Status: Acute - Assessment and Plan Plan: Neuro/Psych: Acute toxic metabolic encephalopathy Peripheral neuropathy History of EtOH and cocaine abuse CT brain revealed no acute intracranial findings Holding gabapentin 100 mg twice daily/home medication for peripheral neuropathy. Written for propofol/fentanyl drips for sedation/analgesia while intubated Goal of RA SS -2 Daily sedation vacation CV: Severe sepsis History of essential hypertension Lactic acidosis Status post 5 L crystalloid in ED. Holding lisinopril 5 mg daily/home medication while hypotensive Currently on norepinephrine drip at 12 mcg/min and vasopressin drip at 0.04 units/min to maintain mean arterial pressure greater than equal [address] elevation/Quinones waves in leads II, III and aVF. Echocardiogram 06/23 revealed EF of 65%. No regional wall motion normality's. Initial troponin negative Serial troponins until cleared Resp: Acute respiratory failure secondary to metabolic derangement History of tobaccoism PRVC 22/550/0 point 04/07/50 Ventilator bundle Albuterol/ipratropium aerosols every 4 hours with albuterol aerosols every 2 hours as needed dyspnea Head of bed at 30 degrees Spontaneous breathing trials and clinically indicated Repeat ABG at 1100 hrs. today. Follow-up chest x-ray in a.m. 08/04 GI: Elevated transaminases Rhabdomyolysis Hypoalbuminemia Currently received 5 L crystalloid in the ED. Recheck CPK in a.m. Significant severe protein malnutrition We will check hepatitis panel. Recheck transaminases in a.m. 08/04 GI consulted for possible GI bleed in light of coagulopathic state. Serial currently on pantoprazole drip at 8 mg an hour. : Tang catheter has been placed for accurate I's and O's in a critical patient Endo: History of diabetes mellitus DKA Received 5 units R insulin bolus currently and drip at 9.5 mg an hour. Currently on D5 one half normal saline with 1 ampoule sodium bicarbonate and 20 mg KCl at 200 cc an hour Check blood glucose every hour Holding home medication of insulin glargine 40 units at night, metformin 5 mg twice daily, pioglitazone 15 mg daily and sitagliptin 100 mg daily TSH was 2.69 Renal: Acute kidney injury Based on creatinine 1.0. Currently greater than 2 Monitor urine output Accurate I's and O's 0/2 urine eosinophils, No hydronephrosis on renal ultrasound hour distended bladder despite Tang catheter Heme: Leukocytosis with bandemia Macrocytic anemia Thrombocytopenia Elevated INR Received 3 PRBCs and 2 FFP overnight Monitor CBC daily. Follow trends. Follow-up on PTT/fibrinogen ID: Placed on vancomycin, piperacillin/tazobactam and clindamycin Infectious disease consultation Blood cultures x2, wound culture all pending MSK: Left foot gangrene X-ray foot revealed gas gangrene. Podiatry bedside debridement appreciated. Vascular surgery saw last night. Plan on getting the amputation when stable FEN: Hypomagnesia BMP, mag and phosphorus every 6 hours. Replace electrolytes as clinically indicated Access -Left IJ CVL day 2 placed 08/02 -Right radial arterial line day #1 Prophylaxis -GI -pantoprazole gtt -DVT -SCD/pharmacological prophylaxis held in light of possible GI bleeding 35 minutes critical care time Code Status: Full code Discussed Condition With: Son at bedside. Care plan discussed and all questions answered. (1) Leukocytosis Qualifiers: Leukocytosis type: bandemia Qualified Code(s): D72.825 - Bandemia (4) Rhabdomyolysis Qualifiers: Rhabdomyolysis type: non-traumatic Qualified Code(s): M62.82 - Rhabdomyolysis (10) Sepsis Qualifiers: Sepsis type: sepsis due to unspecified organism Qualified Code(s): A41.9 - Sepsis, unspecified organism (11) Hypothermia Qualifiers: Encounter type: initial encounter Qualified Code(s): T68.XXXA - Hypothermia, initial encounter (13) Acute renal failure Qualifiers: Acute renal failure type: unspecified Qualified Code(s): N17.9 - Acute kidney failure, unspecified
[2018-08-03] MEDS ORDERED: Sodium Chloride 0.45 % Inj 1,000 ML IV.SIG ONE (09:27)
[2018-08-03] MEDS ORDERED: Phytonadione Inj 10 MG in Sodium Chlor 0.9% Inj 50 ML IV.SIG ONE (09:37)
[2018-08-03 09:58] LABS: Calcium 5.8 mg/dL (8.5-10.1); Carbon Dioxide 11.8 meq/L (21.0-32.0); Magnesium 1.7 mg/dL (1.5-2.5); Phosphorus 3.1 mg/dL (2.5-4.9); Potassium 4.2 meq/L (3.5-5.1)
[2018-08-03] MEDS: Norepinephrine Inj 16 MG in Sodium Chlor 0.9% Inj 234 ML IV.CONT PRN ×2 (10:05→21:47)
[2018-08-03 10:09] LABS: Albumin 1.4 g/dL (3.4-5.0); Calcium-Albumin Corrected 7.9 mg/dL (8.5-10.1)
[2018-08-03] MEDS ORDERED: Magnesium Sulfate Inj 2 GM in Sodium Chlor 0.9% Inj 96 ML IV.SIG ONE (10:17)
[2018-08-03] MEDS ORDERED: Albumin Human 25% Inj 100 ML IV.SIG ONE (10:17)
[2018-08-03] MEDS: SODIUM BICARBONATE IV.CONT SCH ×3 (10:22→21:46)
[2018-08-03] MEDS: POTASSIUM CHLORIDE IV.CONT SCH ×3 (10:22→21:46)
[2018-08-03] MEDS: [UNRECOGNIZED DRUG - OTHER] IV.CONT SCH ×3 (10:22→21:46)
[2018-08-03 10:44] LABS: Troponin I 0.33 ng/mL (0.02-0.05)
[2018-08-03 10:52] LABS: ABG Base Excess -13.5 mmol/L (-2-2); ABG PCO2 25 mmHg (38-42); ABG PO2 226 mmHG (61-120)
--- NOTE | 2018-08-03 13:38 | P.PNID ---
Subjective Remarks: now intubated, on vent on pressors + GI bleeding/ melena - GI consulted no fever Antibiotics: clinda zosyn vanco fluc Allergies/Adverse Reactions: Allergies No Known Allergies Allergy (Uncoded 10/29/16 14:56) Objective Vital Signs 08/02/18 13:26 08/02/18 13:36 08/02/18 14:14 Temperature 84.6 F L Pulse Rate Respiratory Rate Blood Pressure 80/52 L 70/47 L 96/51 L Pulse Oximetry 08/02/18 14:53 08/02/18 16:07 08/02/18 16:55 Temperature 87.3 F L Pulse Rate 68 Respiratory Rate 24 Blood Pressure 92/53 L 90/53 L 99/58 L Pulse Oximetry 100 08/02/18 17:20 08/02/18 17:24 08/02/18 17:30 Temperature 90.7 F L 90.7 F L 90.5 F L Pulse Rate 74 74 Respiratory Rate 26 H 25 H Blood Pressure 85/50 L 79/49 L Pulse Oximetry 98 100 08/02/18 17:45 08/02/18 18:00 08/02/18 18:01 Temperature 90.7 F L 90.9 F L 90.9 F L Pulse Rate 75 77 77 Respiratory Rate 27 H 24 26 H Blood Pressure 76/51 L 103/56 L Pulse Oximetry 100 100 100 08/02/18 18:15 08/02/18 18:30 08/02/18 18:33 Temperature 91.0 F L 91.2 F L 91.2 F L Pulse Rate 76 77 82 Respiratory Rate 33 H 33 H 27 H Blood Pressure 92/53 L 78/51 L 149/69 H Pulse Oximetry 100 100 100 08/02/18 18:45 08/02/18 18:47 08/02/18 19:00 Temperature 91.6 F L 91.9 F L Pulse Rate 80 80 82 Respiratory Rate 41 H 35 H Blood Pressure 100/57 L 100/57 L 100/60 Pulse Oximetry 100 100 08/02/18 19:15 08/02/18 19:30 08/02/18 19:45 Temperature 92.5 F L 93.0 F L 93.6 F L Pulse Rate 84 86 88 Respiratory Rate 44 H 40 H 46 H Blood Pressure 99/53 L 96/52 L 94/50 L Pulse Oximetry 100 100 100 08/02/18 20:00 08/02/18 20:15 08/02/18 20:18 Temperature 94.1 F L 94.6 F L Pulse Rate 91 H 93 H 92 H Respiratory Rate 50 H 46 H 20 Blood Pressure 92/50 L 92/53 L Pulse Oximetry 100 100 100 08/02/18 20:30 08/02/18 20:45 08/02/18 21:00 Temperature 95.2 F L 95.7 F L 96.1 F L Pulse Rate 96 H 96 H 97 H Respiratory Rate 44 H 44 H 46 H Blood Pressure 88/53 L 96/52 L 90/55 L Pulse Oximetry 100 100 100 08/02/18 21:15 08/02/18 21:30 08/02/18 21:45 Temperature 96.4 F L 96.6 F L 97.0 F L Pulse Rate 97 H 97 H 100 H Respiratory Rate 45 H 44 H 45 H Blood Pressure 90/52 L 89/51 L 90/53 L Pulse Oximetry 99 99 99 08/02/18 22:00 08/02/18 22:15 08/02/18 22:30 Temperature 97.2 F L 97.5 F L 97.9 F Pulse Rate 100 H 100 H 100 H Respiratory Rate 44 H 39 H 40 H Blood Pressure 88/49 L 83/48 L 82/51 L Pulse Oximetry 99 99 99 08/02/18 22:45 08/02/18 23:00 08/02/18 23:15 Temperature 98.1 F 98.4 F 98.6 F Pulse Rate 98 H 94 H 92 H Respiratory Rate 39 H 36 H 37 H Blood Pressure 84/51 L 85/50 L 85/49 L Pulse Oximetry 98 98 98 08/02/18 23:30 08/02/18 23:47 08/03/18 00:00 Temperature 98.6 F Pulse Rate 88 97 H 80 Respiratory Rate 32 H 18 Blood Pressure 86/52 L 100/57 L Pulse Oximetry 98 08/03/18 00:30 08/03/18 01:30 08/03/18 01:45 Temperature 97.3 F L 97.2 F L Pulse Rate 93 H 85 Respiratory Rate 22 26 H 27 H Blood Pressure 96/50 L 95/55 L Pulse Oximetry 100 100 100 08/03/18 02:00 08/03/18 02:01 08/03/18 02:15 Temperature 96.8 F L 96.8 F L 96.4 F L Pulse Rate 85 86 90 Respiratory Rate 26 H 26 H 29 H Blood Pressure 100/50 L 100/50 L 117/56 L Pulse Oximetry 100 100 08/03/18 02:16 08/03/18 02:20 08/03/18 02:30 Temperature 96.4 F L 96.3 F L 95.9 F L Pulse Rate 91 H 96 H 91 H Respiratory Rate 26 H 29 H 29 H Blood Pressure 117/56 L 121/56 L 110/58 L Pulse Oximetry 100 100 08/03/18 02:40 08/03/18 02:50 08/03/18 02:55 Temperature 95.4 F L 95.2 F L 95 F L Pulse Rate 91 H 97 H 96 H Respiratory Rate 30 H 33 H 32 H Blood Pressure 119/57 L 125/62 Pulse Oximetry 99 99 08/03/18 03:00 08/03/18 03:10 08/03/18 03:20 Temperature 95.0 F L 94.8 F L 94.8 F L Pulse Rate 96 H 96 H 94 H Respiratory Rate 28 H 27 H 26 H Blood Pressure 119/62 111/58 L 108/60 Pulse Oximetry 92 L 90 L 94 L 08/03/18 03:30 08/03/18 03:38 08/03/18 03:40 Temperature 94.6 F L 94.1 F L 94.6 F L Pulse Rate 92 H 91 H 91 H Respiratory Rate 25 H 27 H 28 H Blood Pressure 91/54 L 92/56 L Pulse Oximetry 100 100 08/03/18 03:50 08/03/18 04:00 08/03/18 04:10 Temperature 94.6 F L 94.5 F L 94.3 F L Pulse Rate 93 H 95 H 91 H Respiratory Rate 34 H 26 H 23 Blood Pressure 110/62 123/66 115/67 Pulse Oximetry 99 98 95 08/03/18 04:12 08/03/18 04:15 08/03/18 04:20 Temperature 94.1 F L Pulse Rate 90 90 Respiratory Rate 26 H 26 H 24 Blood Pressure 109/62 Pulse Oximetry 95 98 08/03/18 04:30 08/03/18 04:40 08/03/18 04:50 Temperature 94.1 F L 94.1 F L 94.1 F L Pulse Rate 91 H 90 91 H Respiratory Rate 25 H 28 H 26 H Blood Pressure 113/64 115/69 119/70 Pulse Oximetry 97 100 100 08/03/18 05:00 08/03/18 05:10 08/03/18 05:20 Temperature 94.1 F L 94.1 F L 94.1 F L Pulse Rate 92 H 92 H 90 Respiratory Rate 29 H 23 25 H Blood Pressure 123/71 143/68 H 109/52 L Pulse Oximetry 100 100 100 08/03/18 05:30 08/03/18 05:31 08/03/18 05:40 Temperature 94.3 F L 94.3 F L 94.3 F L Pulse Rate 89 88 89 Respiratory Rate 25 H 25 H 25 H Blood Pressure 106/58 L 103/56 L Pulse Oximetry 100 100 08/03/18 05:50 08/03/18 06:00 08/03/18 06:30 Temperature 94.3 F L 94.3 F L 94.8 F L Pulse Rate 88 87 88 Respiratory Rate 26 H 25 H 24 Blood Pressure 105/58 L 114/62 118/59 L Pulse Oximetry 100 100 100 08/03/18 06:40 08/03/18 06:50 08/03/18 07:00 Temperature 95.0 F L 95.2 F L 95.5 F L Pulse Rate 90 90 91 H Respiratory Rate 24 23 22 Blood Pressure 117/60 121/62 123/61 Pulse Oximetry 100 100 100 08/03/18 07:10 08/03/18 07:20 08/03/18 07:22 Temperature 95.7 F L 95.9 F L 95.9 F L Pulse Rate 90 90 90 Respiratory Rate 23 23 23 Blood Pressure 129/67 118/60 121/61 Pulse Oximetry 100 100 100 08/03/18 07:30 08/03/18 07:40 08/03/18 07:50 Temperature 96.1 F L 96.4 F L 96.6 F L Pulse Rate 90 91 H 92 H Respiratory Rate 22 20 23 Blood Pressure 122/66 103/56 L 108/57 L Pulse Oximetry 100 100 100 08/03/18 08:00 08/03/18 08:10 08/03/18 08:20 Temperature 96.8 F L 97.0 F L 97.2 F L Pulse Rate 92 H 92 H 93 H Respiratory Rate 23 22 21 Blood Pressure 113/59 L 121/61 134/71 Pulse Oximetry 100 100 100 08/03/18 08:30 08/03/18 08:40 08/03/18 08:50 Temperature 97.2 F L 97.3 F L 97.5 F L Pulse Rate 92 H 93 H 93 H Respiratory Rate 21 19 20 Blood Pressure 121/60 112/58 L 118/63 Pulse Oximetry 100 100 100 08/03/18 08:55 08/03/18 09:00 08/03/18 09:10 Temperature 97.7 F 97.7 F 97.9 F Pulse Rate 95 H 95 H 97 H Respiratory Rate 19 19 21 Blood Pressure 101/55 L 97/55 L 118/57 L Pulse Oximetry 100 100 100 08/03/18 09:20 08/03/18 09:30 08/03/18 09:40 Temperature 98.1 F 98.1 F 98.2 F Pulse Rate 96 H 95 H 96 H Respiratory Rate 21 20 16 Blood Pressure 118/61 117/60 154/76 H Pulse Oximetry 100 100 95 08/03/18 09:50 08/03/18 10:00 08/03/18 10:10 Temperature 98.4 F 98.6 F 98.6 F Pulse Rate 97 H 97 H 98 H Respiratory Rate 20 21 20 Blood Pressure 104/57 L 102/56 L 108/56 L Pulse Oximetry 08/03/18 10:20 08/03/18 10:30 08/03/18 10:40 Temperature 98.6 F 98.6 F 98.6 F Pulse Rate 97 H 96 H 94 H Respiratory Rate 20 20 20 Blood Pressure 111/57 L 116/61 116/60 Pulse Oximetry 100 100 08/03/18 10:50 08/03/18 11:00 08/03/18 11:10 Temperature 98.6 F 98.6 F 98.4 F Pulse Rate 94 H 95 H 95 H Respiratory Rate 27 H 20 20 Blood Pressure 119/63 100/57 L 103/59 L Pulse Oximetry 100 100 100 08/03/18 11:20 08/03/18 11:30 08/03/18 11:40 Temperature 98.4 F 98.2 F 98.1 F Pulse Rate 95 H 94 H 93 H Respiratory Rate 20 21 20 Blood Pressure 107/55 L 110/58 L 114/61 Pulse Oximetry 100 100 100 08/03/18 11:50 08/03/18 11:59 08/03/18 12:00 Temperature 98.1 F 97.9 F Pulse Rate 93 H 92 H 92 H Respiratory Rate 21 20 21 Blood Pressure 113/61 119/63 Pulse Oximetry 100 100 100 Intake & Output 08/02/18 08/03/18 08/03/18 18:59 06:59 18:59 Intake Total 6400 / 6400 6754 / 6754 3011 / 3011 Output Total 300 / 300 230 / 230 80 / 80 Balance 6100 / 6100 6524 / 6524 2931 / 2931 Weight 61 kg 61 kg Intake: IV 6400 / 6400 5335 / 5335 3011 / 3011 D5W/1/2 NS Inj 1,000 ML @ 200 800 / 800 mls/hr IV.CONT .Q5H [facility] Rx#: [id number] NovoLIN R (IV Infusion) 100 100 / 100 UNIT In NS Inj 99 ML @ 5 UNITS/ HR 5 mls/hr IV.CONT TITRATE PRN Rx#:[id number] D5W/1/2NS + KCL 20 mEq Inj 1, 1400 / 1400 000 ML @ 200 mls/hr IV.CONT . Q5H [facility] Rx#:[id number] NS Inj 1,000 ML @ 250 mls/hr IV 1000 / 1000 700 / 700 .CONT .Q4H [facility] Rx#:[id number] 1/2 Normal Saline Inj 1,000 ML 400 / 400 @ 250 mls/hr IV.CONT .Q4H [facility] Rx#:[id number] Flexbumin 25% Inj 100 ML @ 60 100 / 100 mls/hr IV.SIG ONCE ONE Rx#: [id number] Cleocin 600 mg/NS Premix 600 mg 50 / 50 50 / 50 50 / 50 In 50 ml @ 100 mls/hr IV.SIG Q8H [facility] Rx#:[id number] Diflucan 200 mg Premix Bag 100 100 / 100 ML @ 100 mls/hr IV.SIG Q24H [facility] Rx#:[id number] Protonix Inj 80 MG In NS Inj 35 35 / 35 ML @ 420 mls/hr IV.SIG BOLUS ONE Rx#:[id number] Vitamin K Inj 10 MG In NS Inj 51 / 51 50 ML @ 102 mls/hr IV.SIG ONCE ONE Rx#:[id number] Zosyn 2.25 GM Premix 50 ML @ 100 / 100 50 / 50 100 mls/hr IV.SIG Q6H [facility], [facility]1983 Rx#: [id number] Zosyn 4.5 GM Premix 4.5 gm In 100 / 100 100 ml @ 200 mls/hr IV.SIG ONCE ONE Rx#:[id number] KCl 40 mEq Premix Inj 40 meq In 100 / 100 100 ml @ 25 mls/hr IV.SIG ONCE ONE Rx#:[id number] Potassium Phosphate Inj 30 MMOL 260 / 260 In NS Inj 250 ML @ 43.333 mls/ hr IV.SIG ONCE ONE Rx#:[id number] NS Inj 1,000 ML @ 1000 mls/hr 5000 / 5000 2000 / 2000 IV.SIG BOLUS [facility], [facility]–1983 Rx#:[id number] NS Inj 250 ML @ 15 mls/hr IV. 50 / 50 SIG ONCE [facility], [facility]–1983 Rx#:[id number] 1/2 Normal Saline Inj 1,000 ML 1000 / 1000 1000 / 1000 @ Wide Open IV.SIG BOLUS ONE Rx #:[id number] Vancomycin Inj 1,000 MG In NS 250 / 250 Inj 250 ML @ 250 mls/hr IV.SIG ONCE ONE Rx#:[id number] Intake (Blood Product) Amt 1419 / 1419 0 / 0 Plasma Thawed 5 Day Acda Unit 219 / 219 [id number] Plasma Thawed 5 Day Acda Unit 0 / 0 0 / 0 [id number] Rbc As-3 Leukoreduced Unit 400 / 400 [id number] Rbc As-3 Leukoreduced Unit 400 / 400 [id number] Rbc As-3 Leukoreduced Unit 400 / 400 [id number] Output: Urine Amount (Catheter) 300 / 300 230 / 230 80 / 80 Indwelling Temp Sensing 300 / 300 230 / 230 80 / 80 Catheter Other: Date of Last Bowel Movement 08/03/18 08/03/18 # Bowel Movements 1 1 Weight On Admission 61 kg 08/03/18 09:04 Sputum - Endotracheal Gram Stain - Pending 08/03/18 09:04 Sputum - Endotracheal Sputum Culture - Pending 08/02/18 10:49 Blood - Peripheral Aerobic Blood Culture - Preliminary No growth in 1 day 08/02/18 10:49 Blood - Peripheral Anaerobic Blood Culture - Preliminary No growth in 1 day 08/02/18 10:49 Blood - Peripheral Aerobic Blood Culture - Preliminary No growth in 1 day 08/02/18 10:49 Blood - Peripheral Anaerobic Blood Culture - Preliminary No growth in 1 day 08/03/18 09:49 Stool Stool Occult Blood (FOREIGN) - Pending 08/02/18 10:55 Catheterized Urine Urine Culture - Pending Lab - Hematology Results 08/02/18 08/03/18 08/03/18 10:49 01:30 04:25 WBC 46.7 H 37.1 H 35.1 H RBC 3.10 L 2.06 L 3.46 L Hgb 9.4 L 6.4 L* D 10.5 L D Hct 31.4 L 18.6 L* 31.6 L MCV 101.2 H 90.3 D 91.2 MCH 30.4 31.1 30.2 MCHC 30.1 L 34.4 33.1 RDW 17.2 14.9 16.4 Plt Count 145 L 142 L 124 L MPV 10.6 9.1 8.8 Prelim Diff (Auto) Manual diff required Slide review pending Neut % (Auto) 97.2 H Lymph % (Auto) 1.7 L [place] % (Auto) 0.9 Eos % (Auto) 0.1 Baso % (Auto) 0.1 Neut # (Auto) 34.1 H Lymph # (Auto) 0.6 L [place] # (Auto) 0.3 Eos # (Auto) 0.0 Baso # (Auto) 0.0 WBC Differential Manual diff final Manual diff final Seg Neuts % (Manual) 61 32 Band Neuts % (Manual) 34 H 63 H Lymphocytes % (Manual) 1 L 1 L Monocytes % (Manual) 3 2 Metamyelocytes % (Man) 1 2 H Abs Neuts (Manual) 44.8 H 34.0 H Nucleated RBCs/100 WBC 2 H Differential Comment . . Toxic Granulation 1+ H 1+ H Toxic Vacuolation Present H Present H Platelet Estimate Low L Low L Platelet Morphology Normal Normal 08/03/18 09:18 WBC RBC Hgb 9.9 L Hct MCV MCH MCHC RDW Plt Count MPV Prelim Diff (Auto) Neut % (Auto) Lymph % (Auto) [place] % (Auto) Eos % (Auto) Baso % (Auto) Neut # (Auto) Lymph # (Auto) [place] # (Auto) Eos # (Auto) Baso # (Auto) WBC Differential Seg Neuts % (Manual) Band Neuts % (Manual) Lymphocytes % (Manual) Monocytes % (Manual) Metamyelocytes % (Man) Abs Neuts (Manual) Nucleated RBCs/100 WBC Differential Comment Toxic Granulation Toxic Vacuolation Platelet Estimate Platelet Morphology Lab - Chemistry Results 08/02/18 08/02/18 08/02/18 10:49 10:49 10:49 Sodium 129 L Potassium 5.5 H Chloride 93 L Carbon Dioxide 8.7 L Anion Gap 27 H BUN 105 H Creatinine 3.13 H Estimated GFR 25 L POC Glucose Random Glucose 909 H* Hemoglobin A1c 11.3 H Lactic Acid Calcium 8.7 Calcium Adj for Albumin Phosphorus Magnesium 3.4 H Total Bilirubin 0.5 AST 348 H ALT 124 H Alkaline Phosphatase 199 H Ammonia Total Creatine Kinase 3289 H CK-MB (CK-2) 53.4 H CK-MB (CK-2) % 1.6 Troponin I Less than 0.02 L B-Natriuretic Peptide 42 Total Protein 6.5 Albumin 1.6 L Lipase Beta-Hydroxybutyric Acd TSH 2.690 08/02/18 08/02/18 08/02/18 10:49 12:34 14:49 Sodium Potassium Chloride Carbon Dioxide Anion Gap BUN Creatinine Estimated GFR POC Glucose Greater than 600 H* Greater than 600 H* Random Glucose Hemoglobin A1c Lactic Acid Calcium Calcium Adj for Albumin Phosphorus Magnesium Total Bilirubin AST ALT Alkaline Phosphatase Ammonia Total Creatine Kinase CK-MB (CK-2) CK-MB (CK-2) % Troponin I B-Natriuretic Peptide Total Protein Albumin Lipase 84018 H Beta-Hydroxybutyric Acd 9.86 H TSH 08/02/18 08/02/18 08/02/18 15:03 15:03 15:03 Sodium Cancelled 143 D Potassium Cancelled 3.3 L D Chloride Cancelled 113 H D Carbon Dioxide Cancelled 10.9 L Anion Gap Cancelled 19 H BUN Cancelled 91 H Creatinine Cancelled 2.49 H Estimated GFR Cancelled 32 L POC Glucose Random Glucose Cancelled 592 H* D Hemoglobin A1c Lactic Acid 4.6 H* Calcium Cancelled 6.6 L* D Calcium Adj for Albumin 8.8 Phosphorus Cancelled 3.3 Magnesium Cancelled 2.4 D Total Bilirubin AST ALT Alkaline Phosphatase Ammonia Total Creatine Kinase CK-MB (CK-2) CK-MB (CK-2) % Troponin I Cancelled 0.03 B-Natriuretic Peptide Total Protein Albumin 1.2 L Lipase Beta-Hydroxybutyric Acd [facility] 08/02/18 08/02/18 08/02/18 17:18 18:03 18:07 Sodium 144 Potassium 3.2 L Chloride 115 H Carbon Dioxide 12.1 L Anion Gap 17 H BUN 91 H Creatinine 2.49 H Estimated GFR 32 L POC Glucose 547 H* 554 H* Random Glucose 485 H* D Hemoglobin A1c Lactic Acid Calcium 6.5 L* Calcium Adj for Albumin 8.7 Phosphorus Magnesium Total Bilirubin AST ALT Alkaline Phosphatase Ammonia Total Creatine Kinase CK-MB (CK-2) CK-MB (CK-2) % Troponin I B-Natriuretic Peptide Total Protein Albumin 1.3 L Lipase Beta-Hydroxybutyric Acd [facility] 08/02/18 08/02/18 08/02/18 18:58 20:04 20:58 Sodium Potassium Chloride Carbon Dioxide Anion Gap BUN Creatinine Estimated GFR POC Glucose 512 H* 459 H* 392 H Random Glucose Hemoglobin A1c Lactic Acid Calcium Calcium Adj for Albumin Phosphorus Magnesium Total Bilirubin AST ALT Alkaline Phosphatase Ammonia Total Creatine Kinase CK-MB (CK-2) CK-MB (CK-2) % Troponin I B-Natriuretic Peptide Total Protein Albumin Lipase Beta-Hydroxybutyric Acd [facility] 08/02/18 08/02/18 08/02/18 21:00 22:00 22:59 Sodium Potassium Chloride Carbon Dioxide Anion Gap BUN Creatinine Estimated GFR POC Glucose 337 H 316 H Random Glucose Hemoglobin A1c Lactic Acid 6.0 H* Calcium Calcium Adj for Albumin Phosphorus Magnesium Total Bilirubin AST ALT Alkaline Phosphatase Ammonia Total Creatine Kinase CK-MB (CK-2) CK-MB (CK-2) % Troponin I B-Natriuretic Peptide Total Protein Albumin Lipase Beta-Hydroxybutyric Acd [facility] 08/03/18 08/03/18 08/03/18 00:00 00:00 00:08 Sodium 143 Potassium 4.2 D Chloride 119 H Carbon Dioxide 11.5 L Anion Gap 13 BUN 97 H Creatinine 2.53 H Estimated GFR 32 L POC Glucose 245 H Random Glucose 232 H D Hemoglobin A1c Lactic Acid Calcium 6.6 L* Calcium Adj for Albumin 8.8 Phosphorus 0.9 L D Magnesium 1.9 Total Bilirubin AST ALT Alkaline Phosphatase Ammonia 40 H Total Creatine Kinase 6895 H CK-MB (CK-2) 100.7 H CK-MB (CK-2) % 1.5 Troponin I B-Natriuretic Peptide Total Protein Albumin 1.2 L Lipase Beta-Hydroxybutyric Acd [facility] 08/03/18 08/03/18 08/03/18 01:14 01:43 01:56 Sodium Potassium Chloride Carbon Dioxide Anion Gap BUN Creatinine Estimated GFR POC Glucose 275 H 258 H Random Glucose Hemoglobin A1c Lactic Acid 6.1 H* Calcium Calcium Adj for Albumin Phosphorus Magnesium Total Bilirubin AST ALT Alkaline Phosphatase Ammonia Total Creatine Kinase CK-MB (CK-2) CK-MB (CK-2) % Troponin I B-Natriuretic Peptide Total Protein Albumin Lipase Beta-Hydroxybutyric Acd [facility] 08/03/18 08/03/18 08/03/18 03:04 04:00 04:02 Sodium 147 H Potassium 3.9 Chloride 119 H Carbon Dioxide 13.1 L Anion Gap 15 BUN 91 H Creatinine 2.41 H Estimated GFR 34 L POC Glucose 246 H Random Glucose 215 H Hemoglobin A1c Lactic Acid 6.6 H* Calcium 6.2 L* Calcium Adj for Albumin 8.5 Phosphorus 2.3 L D Magnesium 1.9 Total Bilirubin AST ALT Alkaline Phosphatase Ammonia Total Creatine Kinase CK-MB (CK-2) CK-MB (CK-2) % Troponin I B-Natriuretic Peptide Total Protein Albumin 1.1 L Lipase Beta-Hydroxybutyric Acd 0.[address] [facility] 08/03/18 08/03/18 08/03/18 04:10 05:11 06:05 Sodium Potassium Chloride Carbon Dioxide Anion Gap BUN Creatinine Estimated GFR POC Glucose 206 H 187 H 168 H Random Glucose Hemoglobin A1c Lactic Acid Calcium Calcium Adj for Albumin Phosphorus Magnesium Total Bilirubin AST ALT Alkaline Phosphatase Ammonia Total Creatine Kinase CK-MB (CK-2) CK-MB (CK-2) % Troponin I B-Natriuretic Peptide Total Protein Albumin Lipase Beta-Hydroxybutyric Acd [facility] 08/03/18 08/03/18 08/03/18 07:02 08:22 08:30 Sodium 144 Potassium 4.2 Chloride 119 H Carbon Dioxide 11.8 L Anion Gap 13 BUN 85 H Creatinine 2.49 H Estimated GFR 32 L POC Glucose 159 H 182 H Random Glucose 166 H Hemoglobin A1c Lactic Acid Calcium 5.8 L* Calcium Adj for Albumin 7.9 L Phosphorus 3.1 Magnesium 1.7 Total Bilirubin AST ALT Alkaline Phosphatase Ammonia Total Creatine Kinase CK-MB (CK-2) CK-MB (CK-2) % Troponin I B-Natriuretic Peptide Total Protein Albumin 1.4 L Lipase Beta-Hydroxybutyric Acd TSH 08/03/18 08/03/18 08/03/18 08:30 08:30 09:11 Sodium Potassium Chloride Carbon Dioxide Anion Gap BUN Creatinine Estimated GFR POC Glucose 175 H Random Glucose Hemoglobin A1c Lactic Acid 4.9 H* Calcium Calcium Adj for Albumin Phosphorus Magnesium Total Bilirubin AST ALT Alkaline Phosphatase Ammonia Total Creatine Kinase CK-MB (CK-2) CK-MB (CK-2) % Troponin I 0.33 H B-Natriuretic Peptide Total Protein Albumin Lipase 7136 H Beta-Hydroxybutyric Acd TSH 08/03/18 08/03/18 08/03/18 10:04 10:58 12:01 Sodium Potassium Chloride Carbon Dioxide Anion Gap BUN Creatinine Estimated GFR POC Glucose 168 H 154 H 140 H Random Glucose Hemoglobin A1c Lactic Acid Calcium Calcium Adj for Albumin Phosphorus Magnesium Total Bilirubin AST ALT Alkaline Phosphatase Ammonia Total Creatine Kinase CK-MB (CK-2) CK-MB (CK-2) % Troponin I B-Natriuretic Peptide Total Protein Albumin Lipase Beta-Hydroxybutyric Acd [facility] 08/03/18 08/03/18 12:24 12:59 Sodium Potassium Chloride Carbon Dioxide Anion Gap BUN Creatinine Estimated GFR POC Glucose 137 H 156 H Random Glucose Hemoglobin A1c Lactic Acid Calcium Calcium Adj for Albumin Phosphorus Magnesium Total Bilirubin AST ALT Alkaline Phosphatase Ammonia Total Creatine Kinase CK-MB (CK-2) CK-MB (CK-2) % Troponin I B-Natriuretic Peptide Total Protein Albumin Lipase Beta-Hydroxybutyric Acd 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 Negative CT Head non contrast. . Abdomen/Bladder Ultrasound 08/02/18 14:35 CONCLUSION: Bladder distention despite Tang catheter. Chest X-Ray 08/03/18 00:37 CONCLUSION: Endotracheal tube, nasogastric tube and left central line in good position. No focal infiltrate or effusion. Physical Exam: GENERAL: sedated intubated on vent SKIN: Warm and dry. HEAD: Atraumatic. Normocephalic. EYES: Pupils equal and round. No scleral icterus. No injection or drainage. ENT: No nasal bleeding or discharge. Mucous membranes pink and moist. NECK: Trachea midline. No JVD. CARDIOVASCULAR: Regular rate and rhythm. RESPIRATORY: No accessory muscle use. Clear to auscultation. Breath sounds equal bilaterally. GASTROINTESTINAL: Abdomen soft, non-tender, nondistended. Hepatic and splenic margins not palpable. MUSCULOSKELETAL: Extremities without clubbing, cyanosis, or edema. 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
[2018-08-03 14:22] LABS: Beta Hydroxybutyric Acid 0.09 mmol/L (0.00-0.39); Calcium 5.8 mg/dL (8.5-10.1); Carbon Dioxide 13.6 meq/L (21.0-32.0)
[2018-08-03 14:29] LABS: Albumin 1.7 g/dL (3.4-5.0); Calcium-Albumin Corrected 7.6 mg/dL (8.5-10.1)
--- NOTE | 2018-08-03 15:28 | P.CONGI ---
History of Present Illness Consult date: 08/03/18 Consult reason: GI bleed with melena Chief complaint: Septic shock,hypothermia,gangrene left foot, DKA, History of Present Illness: This patient is a 57-year-old male who presented to the emergency department at [facility] with reported altered mental status. Patient has a medical history significant for stage IV lung cancer, diabetes mellitus, hypertension, peripheral neuropathy and narcotic use. Upon arrival to emergency room, patient was noted to be hypothermic, hypokalemic, hyperglycemic with blood sugar 900. As per critical care documentation. CT brain revealed no acute intracranial findings, foot x-ray left foot revealed gas gangrene. Patient admitted with altered mental status sepsis, DKA. Upon consultation. Patient is intubated and mechanically ventilated. Vasopressin, fentanyl, pantoprazole, but norepinephrine and vitamin K infusing. As per bedside RN there is no active bleeding at this time. Our service has been consulted for reported melena stools. It is unknown if patient has ever had endoscopic procedures in the past. Presently, bedside RN reports patient having moderate amounts of loose dark brown stool. <Shannon Martin - Last Filed: 08/03/18 15:10> Review of Systems unobtainable due to endotracheal tube, unobtainable due to mental condition, unobtainable due to mental status <Shannon Martin - Last Filed: 08/03/18 15:10> PMFSH - History History Provided By: Patient - Medical History Medical History: Medical History (Last Reviewed 08/03/18 @ 08:35 by Bobby Griffith) Diabetes Hypertension Lung cancer - Surgical History Surgical History: Surgical History (Last Reviewed 08/03/18 @ 08:35 by Bobby Griffith) No pertinent past surgical history - Family History Family History: Family History (Last Reviewed 08/03/18 @ 05:39 by Marietta Felton MD) Other Family history unremarkable - Tobacco History Second Hand Smoke Exposure: No Smoking Status: Unknown if ever smoked - Alcohol History How Often Do You Have a Drink Containing Alcohol: Unable to Obtain - Substance Use History Substance History: Past History - Travel History History of Recent Travel: No Recent Travel in the [place] Within the Last 8 Weeks: No Recent Travel Out of the Country Within the Last 8 Weeks: No - Immunization History Tetanus Immunization: Unsure <Shannon Martin - Last Filed: 08/03/18 15:10> - Medical History Medical History: Medical History (Last Reviewed 08/03/18 @ 08:35 by Bobby Griffith) Diabetes Hypertension Lung cancer - Surgical History Surgical History: Surgical History (Last Reviewed 08/03/18 @ 08:35 by Bobby Griffith) No pertinent past surgical history - Family History Family History: Family History (Last Reviewed 08/03/18 @ 05:39 by Marietta Felton MD) Other Family history unremarkable <Srikanth Carpenter - Last Filed: 08/04/18 13:13> Medications and Allergies Active Medications: Active Medications Al Hydroxide/Mg Hydroxide (Milk Of Magnkailey Liq) 30 ml PO Q12H PRN PRN Reason: Mild Constipation Albuterol (Albuterol Neb (Prn)) 2.5 mg NEB Q2HR NEB PRN PRN Reason: SHORTNESS OF BREATH/WHEEZING Albuterol (Duoneb Neb (Jackelin)) 1 ampul NEB Q4HR NEB JACKELIN Last Admin: 08/03/18 11:58 Dose: 1 ampul Chlorhexidine Gluconate (Chlorhexidine 2% Cloth) 3 pack TOPICAL DAILY@0400 [facility], [facility]1983 Stop: 08/08/18 03:59 Last Admin: 08/03/18 04:47 Dose: 3 pack Chlorhexidine Gluconate (Chlorhexidine 2% Cloth) 3 pack TOPICAL DAILY@0400 PRN PRN Reason: Extra cloth needed Stop: 08/08/18 03:59 Chlorhexidine Gluconate (Peridex 0.12% Oral Kit) 15 ml OROPHARYNG BID@0800, 2000 [facility], [facility]1983 Last Admin: 08/03/18 08:18 Dose: 15 ml Insulin Human Regular 100 unit (/ Sodium Chloride) 100 mls @ 5 mls/hr IV.CONT TITRATE PRN; Protocol PRN Reason: See protocol Last Titration: 08/03/18 13:15 Dose: 4.5 units/hr, 4.5 mls/hr Potassium Chloride (Kcl 20 Meq Premix Inj) 20 meq in 100 mls @ 100 mls/hr IV.SIG Q1H PRN PRN Reason: for K+ 4.5 to 5 Potassium Chloride (Kcl 20 Meq Premix Inj) 20 meq in 100 mls @ 100 mls/hr IV.SIG Q1H PRN PRN Reason: for K+ 3.5 to 4.4 Potassium Chloride (Kcl 20 Meq Premix Inj) 20 meq in 100 mls @ 50 mls/hr IV.SIG Q2H PRN PRN Reason: for K+ 3.5 to 4.4 Potassium Chloride (Kcl 20 Meq Premix Inj) 20 meq in 100 mls @ 50 mls/hr IV.SIG Q2H PRN PRN Reason: for Initial K+ ONLY < 3.5 Potassium Chloride (Kcl 40 Meq Premix Inj) 40 meq in 100 mls @ 100 mls/hr IV.SIG Q1H PRN PRN Reason: for Initial K+ ONLY < 3.5 Potassium Chloride (Kcl 20 Meq Premix Inj) 20 meq in 100 mls @ 50 mls/hr IV.SIG Q2H PRN PRN Reason: for Subsequent K+ < 3.5 Potassium Chloride (Kcl 40 Meq Premix Inj) 40 meq in 100 mls @ 50 mls/hr IV.SIG Q2H PRN PRN Reason: for Subsequent K+ < 3.5 Sodium Phosphate 15 mmol/ (Sodium Chloride) 105 mls @ 25 mls/hr IV.SIG UNSCH PRN PRN Reason: for Phosphate Level < 1.0 Potassium Chloride (Kcl 20 Meq Premix Inj) 20 meq in 100 mls @ 50 mls/hr IV.SIG Q2H PRN PRN Reason: for K+ 4.5 to 5 Fentanyl (Fentanyl 10 Mcg/Ml Premix Drip) 2,500 mcg in 250 mls @ 5 mls/hr IV.SIG TITRATE PRN; Protocol PRN Reason: Per Protocol Last Admin: 08/03/18 04:47 Dose: 50 mcg/hr, 5 mls/hr Sodium Chloride (Ns Inj) 250 mls @ 15 mls/hr IV.SIG ONCE JACKELIN Stop: 08/03/18 18:39 Last Infusion: 08/03/18 03:29 Dose: 0 mls/hr Pantoprazole Sodium 80 mg/ (Sodium Chloride) 100 mls @ 10 mls/hr IV.CONT Q10H JACKELIN Last Admin: 08/03/18 14:27 Dose: 10 mls/hr Sodium Chloride (Ns Inj) 250 mls @ 15 mls/hr IV.SIG ONCE JACKELIN Stop: 08/03/18 20:39 Last Admin: 08/03/18 04:47 Dose: 15 mls/hr Fluconazole (Diflucan 200 Mg Premix Bag) 100 mls @ 100 mls/hr IV.SIG Q24H JACKELIN Last Infusion: 08/03/18 07:41 Dose: Infused Vasopressin 40 unit/ Dextrose 100 mls @ 6 mls/hr IV.CONT CONT JACKELIN; Protocol Last Admin: 08/03/18 07:03 Dose: 0.04 units/min, 6 mls/hr Norepinephrine Bitartrate 16 (mg/ Sodium Chloride) 250 mls @ 1.87 mls/hr IV.CONT TITRATE PRN; Protocol PRN Reason: See Protocol Last Titration: 08/03/18 12:10 Dose: 8 mcg/min, 7.5 mls/hr Piperacillin/Tazobactam/Dextrose (Zosyn 2.25 Gm Premix) 50 mls @ 100 mls/hr IV.SIG Q6H JACKELIN Last Infusion: 08/03/18 10:59 Dose: Infused Sodium Bicarbonate 50 meq/Potassium Chloride 20 meq/Dextrose/Sodium Chloride 1, 000 mls @ 200 mls/hr IV.CONT .Q5H JACKELIN Last Admin: 08/03/18 10:22 Dose: 200 mls/hr Clindamycin Phosphate 600 mg/ (Sodium Chloride) 104 mls @ 208 mls/hr IV.SIG Q8H JACKELIN Calcium Chloride 1 gm/ (Dextrose) 110 mls @ 110 mls/hr IV.SIG ONCE ONE Stop: 08/03/18 16:29 Lactulose (Lactulose Liq) 30 ml PO DAILY PRN PRN Reason: SEVERE CONSITIPATION Midazolam HCl (Versed Inj) 2 mg IV.PUSH Q15M PRN PRN Reason: sedation Last Admin: 08/03/18 03:18 Dose: 2 mg Miscellaneous Medication () 1 each OROPHARYNG 0000,0400,1200,1600 [facility], [facility] Last Admin: 08/03/18 14:27 Dose: 1 each Morphine Sulfate (Morphine Inj) 2 mg IV.PUSH Q2H PRN PRN Reason: PAIN SCALE 6 TO 10 Last Admin: 08/02/18 20:55 Dose: 2 mg Ondansetron HCl (Zofran Inj) 4 mg IV.PUSH Q6H PRN PRN Reason: NAUSEA OR VOMITING Pharmacy Profile Note (Vancomycin Consult Pharmacy) 1 each OTHER UNSCH PRN PRN Reason: Pharmacy to dose Senna/Docusate Sodium (Kenia-Colace) 1 tab PO BID [facility], [facility] Last Admin: 08/03/18 08:18 Dose: Not Given Sodium Bicarbonate (Sodium Bicarbonate 8.4% Inj) 100 meq IV.PUSH UNSCH PRN PRN Reason: for pH less than 6.9 Sodium Bicarbonate (Sodium Bicarbonate 8.4% Inj) 50 meq IV.PUSH UNSCH PRN PRN Reason: for pH 6.9 to 7.0 Sodium Chloride (Ns Flush) 2 ml IV.FLUSH UNSCH PRN PRN Reason: FLUSH AFTER USING IV ACCESS Sodium Chloride (Ns Flush) 2 ml IV.FLUSH BID [facility], [facility] Last Admin: 08/03/18 08:18 Dose: 2 ml Sodium Chloride (Ns Flush) 0 ml IV.FLUSH DAILY [facility], [facility] Last Admin: 08/03/18 08:18 Dose: 6 ml Terbutaline Sulfate (Brethine Inj) 1 mg SQ UNSCH PRN PRN Reason: For Extravasation <Shannon Martin - Last Filed: 08/03/18 15:10> Active Medications: Active Medications Al Hydroxide/Mg Hydroxide (Milk Of Magnkailey Liq) 30 ml PO Q12H PRN PRN Reason: Mild Constipation Albuterol (Albuterol Neb (Prn)) 2.5 mg NEB Q2HR NEB PRN PRN Reason: SHORTNESS OF BREATH/WHEEZING Albuterol (Duoneb Neb ([facility])) 1 ampul NEB Q4HR NEB [facility], [facility] Last Admin: 08/04/18 11:29 Dose: 1 ampul Alteplase, Recombinant (Cathflo Activase Inj) 2 mg I-CATHETER ONCE ONE Stop: 08/04/18 13:16 Chlorhexidine Gluconate (Chlorhexidine 2% Cloth) 3 pack TOPICAL DAILY@0400 [facility], [facility]1983 Stop: 08/08/18 03:59 Last Admin: 08/04/18 03:18 Dose: 3 pack Chlorhexidine Gluconate (Chlorhexidine 2% Cloth) 3 pack TOPICAL DAILY@0400 PRN PRN Reason: Extra cloth needed Stop: 08/08/18 03:59 Chlorhexidine Gluconate (Peridex 0.12% Oral Kit) 15 ml OROPHARYNG BID@0800, 2000 [facility], [facility]1983 Last Admin: 08/04/18 10:04 Dose: 15 ml Dextrose (D50w Vial) 50 ml IV.PUSH UNSCH PRN PRN Reason: PER HYPOGLYCEMIA PROTOCOL Glucagon (Glucagon Inj) 1 mg OTHER PRN PRN PRN Reason: for Hypoglycemia Protocol Potassium Chloride (Kcl 20 Meq Premix Inj) 20 meq in 100 mls @ 100 mls/hr IV.SIG Q1H PRN PRN Reason: for K+ 4.5 to 5 Potassium Chloride (Kcl 20 Meq Premix Inj) 20 meq in 100 mls @ 100 mls/hr IV.SIG Q1H PRN PRN Reason: for K+ 3.5 to 4.4 Potassium Chloride (Kcl 20 Meq Premix Inj) 20 meq in 100 mls @ 50 mls/hr IV.SIG Q2H PRN PRN Reason: for K+ 3.5 to 4.4 Potassium Chloride (Kcl 20 Meq Premix Inj) 20 meq in 100 mls @ 50 mls/hr IV.SIG Q2H PRN PRN Reason: for Initial K+ ONLY < 3.5 Potassium Chloride (Kcl 40 Meq Premix Inj) 40 meq in 100 mls @ 100 mls/hr IV.SIG Q1H PRN PRN Reason: for Initial K+ ONLY < 3.5 Potassium Chloride (Kcl 20 Meq Premix Inj) 20 meq in 100 mls @ 50 mls/hr IV.SIG Q2H PRN PRN Reason: for Subsequent K+ < 3.5 Potassium Chloride (Kcl 40 Meq Premix Inj) 40 meq in 100 mls @ 50 mls/hr IV.SIG Q2H PRN PRN Reason: for Subsequent K+ < 3.5 Sodium Phosphate 15 mmol/ (Sodium Chloride) 105 mls @ 25 mls/hr IV.SIG UNSCH PRN PRN Reason: for Phosphate Level < 1.0 Potassium Chloride (Kcl 20 Meq Premix Inj) 20 meq in 100 mls @ 50 mls/hr IV.SIG Q2H PRN PRN Reason: for K+ 4.5 to 5 Fentanyl (Fentanyl 10 Mcg/Ml Premix Drip) 2,500 mcg in 250 mls @ 5 mls/hr IV.SIG TITRATE PRN; Protocol PRN Reason: Per Protocol Last Titration: 08/04/18 11:36 Dose: Infused Pantoprazole Sodium 80 mg/ (Sodium Chloride) 100 mls @ 10 mls/hr IV.CONT Q10H JACKELIN Last Admin: 08/04/18 10:04 Dose: 10 mls/hr Fluconazole (Diflucan 200 Mg Premix Bag) 100 mls @ 100 mls/hr IV.SIG Q24H JACKELIN Last Infusion: 08/04/18 05:45 Dose: Infused Vasopressin 40 unit/ Dextrose 100 mls @ 6 mls/hr IV.CONT CONT JACKELIN; Protocol Last Infusion: 08/04/18 12:46 Dose: 0.04 units/min, 6 mls/hr Norepinephrine Bitartrate 16 (mg/ Sodium Chloride) 250 mls @ 1.87 mls/hr IV.CONT TITRATE PRN; Protocol PRN Reason: See Protocol Last Admin: 08/04/18 10:01 Dose: 25 mcg/min, 23.43 mls/hr Piperacillin/Tazobactam/Dextrose (Zosyn 2.25 Gm Premix) 50 mls @ 100 mls/hr IV.SIG Q6H JACKELIN Last Infusion: 08/04/18 11:50 Dose: Infused Clindamycin Phosphate 600 mg/ (Sodium Chloride) 104 mls @ 208 mls/hr IV.SIG Q8H JACKELIN Last Infusion: 08/04/18 10:35 Dose: Infused Sodium Chloride (Sodium Chloride 3% Inj) 500 mls @ 20 mls/hr IV.SIG NOW PRN PRN Reason: ICP Management Stop: 08/09/18 10:45 Sodium Glycerophosphate 30 (mmol/ Sodium Chloride) 280 mls @ 46.667 mls/hr IV.SIG ONCE ONE Stop: 08/04/18 17:29 Last Admin: 08/04/18 11:24 Dose: 46.67 mls/hr Vancomycin HCl 1,250 mg/ (Sodium Chloride) 262.5 mls @ 262.5 mls/hr IV.SIG ONCE ONE Stop: 08/04/18 15:59 Insulin Aspart (Novolog Insulin Correctional Sugar Inj) 0 unit SQ Q4HR JACKELIN; Protocol Last Admin: 08/04/18 12:45 Dose: 5 unit Lactulose (Lactulose Liq) 30 ml PO DAILY PRN PRN Reason: SEVERE CONSITIPATION Mannitol (Mannitol Inj) 12.5 gm IV.PUSH ONCE ONE Stop: 08/04/18 13:02 Midazolam HCl (Versed Inj) 2 mg IV.PUSH Q15M PRN PRN Reason: sedation Last Admin: 08/03/18 03:18 Dose: 2 mg Miscellaneous Medication () 1 each OROPHARYNG 0000,0400,1200,1600 [facility], [facility] Last Admin: 08/04/18 12:45 Dose: 1 each Morphine Sulfate (Morphine Inj) 2 mg IV.PUSH Q2H PRN PRN Reason: PAIN SCALE 6 TO 10 Last Admin: 08/02/18 20:55 Dose: 2 mg Ondansetron HCl (Zofran Inj) 4 mg IV.PUSH Q6H PRN PRN Reason: NAUSEA OR VOMITING Pharmacy Profile Note (Vancomycin Consult Pharmacy) 1 each OTHER UNSCH PRN PRN Reason: Pharmacy to dose Senna/Docusate Sodium (Kenia-Colace) 1 tab PO BID [facility], [facility] Last Admin: 08/04/18 10:04 Dose: Not Given Sodium Bicarbonate (Sodium Bicarbonate 8.4% Inj) 100 meq IV.PUSH UNSCH PRN PRN Reason: for pH less than 6.9 Sodium Bicarbonate (Sodium Bicarbonate 8.4% Inj) 50 meq IV.PUSH UNSCH PRN PRN Reason: for pH 6.9 to 7.0 Sodium Chloride (Ns Flush) 2 ml IV.FLUSH UNSCH PRN PRN Reason: FLUSH AFTER USING IV ACCESS Sodium Chloride (Ns Flush) 2 ml IV.FLUSH BID [facility], [facility] Last Admin: 08/04/18 10:05 Dose: Not Given Sodium Chloride (Ns Flush) 0 ml IV.FLUSH DAILY [facility], [facility] Last Admin: 08/04/18 10:05 Dose: Not Given Terbutaline Sulfate (Brethine Inj) 1 mg SQ UNSCH PRN PRN Reason: For Extravasation <Srikanth Carpenter A - Last Filed: 08/04/18 13:13> Allergies Allergy/AdvReac Type Severity Reaction Status Date / Time No Known Allergies Allergy Uncoded 10/29/16 14:56 Home Medications Medication Instructions Recorded Confirmed Type gabapentin 100 mg PO BID 08/02/18 08/02/18 History hydrocodone-acetaminophen [[place]] 1 tab PO Q4H 08/02/18 08/02/18 History insulin glargine [Lantus U-100 40 unit SUBCUT HS 08/02/18 08/02/18 History Insulin] lisinopril 5 mg PO DAILY 08/02/18 08/02/18 History metformin 500 mg PO BID 08/02/18 08/02/18 History pioglitazone 15 mg PO DAILY 08/02/18 08/02/18 History sitagliptin [Januvia] 100 mg PO DAILY 08/02/18 08/02/18 History Exam Vital signs: Vital Signs 08/02/18 16:07 08/02/18 16:55 08/02/18 17:20 Temperature 90.7 F L Pulse Rate Respiratory Rate Blood Pressure 90/53 L 99/58 L Pulse Oximetry 08/02/18 17:24 08/02/18 17:30 08/02/18 17:45 Temperature 90.7 F L 90.5 F L 90.7 F L Pulse Rate 74 74 75 Respiratory Rate 26 H 25 H 27 H Blood Pressure 85/50 L 79/49 L 76/51 L Pulse Oximetry 98 100 100 08/02/18 18:00 08/02/18 18:01 08/02/18 18:15 Temperature 90.9 F L 90.9 F L 91.0 F L Pulse Rate 77 77 76 Respiratory Rate 24 26 H 33 H Blood Pressure 103/56 L 92/53 L Pulse Oximetry 100 100 100 08/02/18 18:30 08/02/18 18:33 08/02/18 18:45 Temperature 91.2 F L 91.2 F L 91.6 F L Pulse Rate 77 82 80 Respiratory Rate 33 H 27 H 41 H Blood Pressure 78/51 L 149/69 H 100/57 L Pulse Oximetry 100 100 100 08/02/18 18:47 08/02/18 19:00 08/02/18 19:15 Temperature 91.9 F L 92.5 F L Pulse Rate 80 82 84 Respiratory Rate 35 H 44 H Blood Pressure 100/57 L 100/60 99/53 L Pulse Oximetry 100 100 08/02/18 19:30 08/02/18 19:45 08/02/18 20:00 Temperature 93.0 F L 93.6 F L 94.1 F L Pulse Rate 86 88 91 H Respiratory Rate 40 H 46 H 50 H Blood Pressure 96/52 L 94/50 L 92/50 L Pulse Oximetry 100 100 100 08/02/18 20:15 08/02/18 20:18 08/02/18 20:30 Temperature 94.6 F L 95.2 F L Pulse Rate 93 H 92 H 96 H Respiratory Rate 46 H 20 44 H Blood Pressure 92/53 L 88/53 L Pulse Oximetry 100 100 100 08/02/18 20:45 08/02/18 21:00 08/02/18 21:15 Temperature 95.7 F L 96.1 F L 96.4 F L Pulse Rate 96 H 97 H 97 H Respiratory Rate 44 H 46 H 45 H Blood Pressure 96/52 L 90/55 L 90/52 L Pulse Oximetry 100 100 99 08/02/18 21:30 08/02/18 21:45 08/02/18 22:00 Temperature 96.6 F L 97.0 F L 97.2 F L Pulse Rate 97 H 100 H 100 H Respiratory Rate 44 H 45 H 44 H Blood Pressure 89/51 L 90/53 L 88/49 L Pulse Oximetry 99 99 99 08/02/18 22:15 08/02/18 22:30 08/02/18 22:45 Temperature 97.5 F L 97.9 F 98.1 F Pulse Rate 100 H 100 H 98 H Respiratory Rate 39 H 40 H 39 H Blood Pressure 83/48 L 82/51 L 84/51 L Pulse Oximetry 99 99 98 08/02/18 23:00 08/02/18 23:15 08/02/18 23:30 Temperature 98.4 F 98.6 F 98.6 F Pulse Rate 94 H 92 H 88 Respiratory Rate 36 H 37 H 32 H Blood Pressure 85/50 L 85/49 L 86/52 L Pulse Oximetry 98 98 98 08/02/18 23:47 08/03/18 00:00 08/03/18 00:30 Temperature Pulse Rate 97 H 80 Respiratory Rate 18 22 Blood Pressure 100/57 L Pulse Oximetry 100 08/03/18 01:30 08/03/18 01:45 08/03/18 02:00 Temperature 97.3 F L 97.2 F L 96.8 F L Pulse Rate 93 H 85 85 Respiratory Rate 26 H 27 H 26 H Blood Pressure 96/50 L 95/55 L 100/50 L Pulse Oximetry 100 100 100 08/03/18 02:01 08/03/18 02:15 08/03/18 02:16 Temperature 96.8 F L 96.4 F L 96.4 F L Pulse Rate 86 90 91 H Respiratory Rate 26 H 29 H 26 H Blood Pressure 100/50 L 117/56 L 117/56 L Pulse Oximetry 100 08/03/18 02:20 08/03/18 02:30 08/03/18 02:40 Temperature 96.3 F L 95.9 F L 95.4 F L Pulse Rate 96 H 91 H 91 H Respiratory Rate 29 H 29 H 30 H Blood Pressure 121/56 L 110/58 L 119/57 L Pulse Oximetry 100 100 99 08/03/18 02:50 08/03/18 02:55 08/03/18 03:00 Temperature 95.2 F L 95 F L 95.0 F L Pulse Rate 97 H 96 H 96 H Respiratory Rate 33 H 32 H 28 H Blood Pressure 125/62 119/62 Pulse Oximetry 99 92 L 08/03/18 03:10 08/03/18 03:20 08/03/18 03:30 Temperature 94.8 F L 94.8 F L 94.6 F L Pulse Rate 96 H 94 H 92 H Respiratory Rate 27 H 26 H 25 H Blood Pressure 111/58 L 108/60 91/54 L Pulse Oximetry 90 L 94 L 100 08/03/18 03:38 08/03/18 03:40 08/03/18 03:50 Temperature 94.1 F L 94.6 F L 94.6 F L Pulse Rate 91 H 91 H 93 H Respiratory Rate 27 H 28 H 34 H Blood Pressure 92/56 L 110/62 Pulse Oximetry 100 99 08/03/18 04:00 08/03/18 04:10 08/03/18 04:12 Temperature 94.5 F L 94.3 F L Pulse Rate 95 H 91 H Respiratory Rate 26 H 23 26 H Blood Pressure 123/66 115/67 Pulse Oximetry 98 95 95 08/03/18 04:15 08/03/18 04:20 08/03/18 04:30 Temperature 94.1 F L 94.1 F L Pulse Rate 90 90 91 H Respiratory Rate 26 H 24 25 H Blood Pressure 109/62 113/64 Pulse Oximetry 98 97 08/03/18 04:40 08/03/18 04:50 08/03/18 05:00 Temperature 94.1 F L 94.1 F L 94.1 F L Pulse Rate 90 91 H 92 H Respiratory Rate 28 H 26 H 29 H Blood Pressure 115/69 119/70 123/71 Pulse Oximetry 100 100 100 08/03/18 05:10 08/03/18 05:20 08/03/18 05:30 Temperature 94.1 F L 94.1 F L 94.3 F L Pulse Rate 92 H 90 89 Respiratory Rate 23 25 H 25 H Blood Pressure 143/68 H 109/52 L 106/58 L Pulse Oximetry 100 100 100 08/03/18 05:31 08/03/18 05:40 08/03/18 05:50 Temperature 94.3 F L 94.3 F L 94.3 F L Pulse Rate 88 89 88 Respiratory Rate 25 H 25 H 26 H Blood Pressure 103/56 L 105/58 L Pulse Oximetry 100 100 08/03/18 06:00 08/03/18 06:30 08/03/18 06:40 Temperature 94.3 F L 94.8 F L 95.0 F L Pulse Rate 87 88 90 Respiratory Rate 25 H 24 24 Blood Pressure 114/62 118/59 L 117/60 Pulse Oximetry 100 100 100 08/03/18 06:50 08/03/18 07:00 08/03/18 07:10 Temperature 95.2 F L 95.5 F L 95.7 F L Pulse Rate 90 91 H 90 Respiratory Rate 23 22 23 Blood Pressure 121/62 123/61 129/67 Pulse Oximetry 100 100 100 08/03/18 07:20 08/03/18 07:22 08/03/18 07:30 Temperature 95.9 F L 95.9 F L 96.1 F L Pulse Rate 90 90 90 Respiratory Rate 23 23 22 Blood Pressure 118/60 121/61 122/66 Pulse Oximetry 100 100 100 08/03/18 07:40 08/03/18 07:50 08/03/18 08:00 Temperature 96.4 F L 96.6 F L 96.8 F L Pulse Rate 91 H 92 H 92 H Respiratory Rate 20 23 23 Blood Pressure 103/56 L 108/57 L 113/59 L Pulse Oximetry 100 100 98 08/03/18 08:10 08/03/18 08:20 08/03/18 08:30 Temperature 97.0 F L 97.2 F L 97.2 F L Pulse Rate 92 H 93 H 92 H Respiratory Rate 22 21 21 Blood Pressure 121/61 134/71 121/60 Pulse Oximetry 100 100 100 08/03/18 08:40 08/03/18 08:50 08/03/18 08:55 Temperature 97.3 F L 97.5 F L 97.7 F Pulse Rate 93 H 93 H 95 H Respiratory Rate 19 20 19 Blood Pressure 112/58 L 118/63 101/55 L Pulse Oximetry 100 100 100 08/03/18 09:00 08/03/18 09:10 08/03/18 09:20 Temperature 97.7 F 97.9 F 98.1 F Pulse Rate 95 H 97 H 96 H Respiratory Rate 19 21 21 Blood Pressure 97/55 L 118/57 L 118/61 Pulse Oximetry 100 100 100 08/03/18 09:30 08/03/18 09:40 08/03/18 09:50 Temperature 98.1 F 98.2 F 98.4 F Pulse Rate 95 H 96 H 97 H Respiratory Rate 20 16 20 Blood Pressure 117/60 154/76 H 104/57 L Pulse Oximetry 100 95 08/03/18 10:00 08/03/18 10:10 08/03/18 10:20 Temperature 98.6 F 98.6 F 98.6 F Pulse Rate 97 H 98 H 97 H Respiratory Rate 21 20 20 Blood Pressure 102/56 L 108/56 L 111/57 L Pulse Oximetry 08/03/18 10:30 08/03/18 10:40 08/03/18 10:50 Temperature 98.6 F 98.6 F 98.6 F Pulse Rate 96 H 94 H 94 H Respiratory Rate 20 20 27 H Blood Pressure 116/61 116/60 119/63 Pulse Oximetry 100 100 100 08/03/18 11:00 08/03/18 11:10 08/03/18 11:20 Temperature 98.6 F 98.4 F 98.4 F Pulse Rate 95 H 95 H 95 H Respiratory Rate 20 20 20 Blood Pressure 100/57 L 103/59 L 107/55 L Pulse Oximetry 100 100 100 08/03/18 11:30 08/03/18 11:40 08/03/18 11:50 Temperature 98.2 F 98.1 F 98.1 F Pulse Rate 94 H 93 H 93 H Respiratory Rate 21 20 21 Blood Pressure 110/58 L 114/61 113/61 Pulse Oximetry 100 100 100 08/03/18 11:59 08/03/18 12:00 08/03/18 12:10 Temperature 97.9 F 97.9 F Pulse Rate 92 H 92 H 91 H Respiratory Rate 20 21 21 Blood Pressure 119/63 106/59 L Pulse Oximetry 100 100 100 08/03/18 12:20 11/27/18 12:30 08/03/18 12:40 Temperature 97.7 F 97.7 F 97.5 F L Pulse Rate 91 H 92 H 91 H Respiratory Rate 20 21 20 Blood Pressure 118/66 112/64 107/63 Pulse Oximetry 100 100 100 08/03/18 12:50 08/03/18 13:00 08/03/18 14:00 Temperature 97.3 F L 97.2 F L 96.4 F L Pulse Rate 90 89 85 Respiratory Rate 20 20 20 Blood Pressure 112/63 112/64 Pulse Oximetry 100 100 98 Intake & Output 08/02/18 08/03/18 08/03/18 18:59 06:59 18:59 Intake Total 6400 / 6400 6754 / 6754 3111 / 3111 Output Total 300 / 300 230 / 230 95 / 95 Balance 6100 / 6100 6524 / 6524 3016 / 3016 Weight 61 kg 61 kg Intake: IV 6400 / 6400 5335 / 5335 3111 / 3111 D5W/1/2 NS Inj 1,000 ML @ 200 800 / 800 mls/hr IV.CONT .Q5H JACKELIN Rx#: [id number] NovoLIN R (IV Infusion) 100 100 / 100 UNIT In NS Inj 99 ML @ 5 UNITS/ HR 5 mls/hr IV.CONT TITRATE PRN Rx#:[id number] D5W/1/2NS + KCL 20 mEq Inj 1, 1400 / 1400 000 ML @ 200 mls/hr IV.CONT . Q5H JACKELIN Rx#:[id number] Protonix Inj 80 MG In NS Inj 100 / 100 100 ML @ 10 mls/hr IV.CONT Q10H JACKELIN Rx#:[id number] NS Inj 1,000 ML @ 250 mls/hr IV 1000 / 1000 700 / 700 .CONT .Q4H JACKELIN Rx#:[id number] 1/2 Normal Saline Inj 1,000 ML 400 / 400 @ 250 mls/hr IV.CONT .Q4H JACKELIN Rx#:[id number] Flexbumin 25% Inj 100 ML @ 60 100 / 100 mls/hr IV.SIG ONCE ONE Rx#: [id number] Cleocin 600 mg/NS Premix 600 mg 50 / 50 50 / 50 50 / 50 In 50 ml @ 100 mls/hr IV.SIG Q8H JACKELIN Rx#:[id number] Diflucan 200 mg Premix Bag 100 100 / 100 ML @ 100 mls/hr IV.SIG Q24H [facility], [facility]–1983 Rx#:[id number] Protonix Inj 80 MG In NS Inj 35 35 / 35 ML @ 420 mls/hr IV.SIG BOLUS ONE Rx#:[id number] Vitamin K Inj 10 MG In NS Inj 51 / 51 50 ML @ 102 mls/hr IV.SIG ONCE ONE Rx#:[id number] Zosyn 2.25 GM Premix 50 ML @ 100 / 100 50 / 50 100 mls/hr IV.SIG Q6H [facility], [facility]–1983 Rx#: [id number] Zosyn 4.5 GM Premix 4.5 gm In 100 / 100 100 ml @ 200 mls/hr IV.SIG ONCE ONE Rx#:[id number] KCl 40 mEq Premix Inj 40 meq In 100 / 100 100 ml @ 25 mls/hr IV.SIG ONCE ONE Rx#:[id number] Potassium Phosphate Inj 30 MMOL 260 / 260 In NS Inj 250 ML @ 43.333 mls/ hr IV.SIG ONCE ONE Rx#:[id number] NS Inj 1,000 ML @ 1000 mls/hr 5000 / 5000 2000 / 2000 IV.SIG BOLUS [facility], [facility]–1983 Rx#:[id number] NS Inj 250 ML @ 15 mls/hr IV. 50 / 50 SIG ONCE [facility], [facility]–1983 Rx#:[id number] 1/2 Normal Saline Inj 1,000 ML 1000 / 1000 1000 / 1000 @ Wide Open IV.SIG BOLUS ONE Rx #:[id number] Vancomycin Inj 1,000 MG In NS 250 / 250 Inj 250 ML @ 250 mls/hr IV.SIG ONCE ONE Rx#:[id number] Intake (Blood Product) Amt 1419 / 1419 0 / 0 Plasma Thawed 5 Day Acda Unit 219 / 219 [id number] Plasma Thawed 5 Day Acda Unit 0 / 0 0 / 0 [id number] Rbc As-3 Leukoreduced Unit 400 / 400 [id number] Rbc As-3 Leukoreduced Unit 400 / 400 [id number] Rbc As-3 Leukoreduced Unit 400 / 400 [id number] Output: Urine Amount (Catheter) 300 / 300 230 / 230 95 / 95 Indwelling Temp Sensing 300 / 300 230 / 230 95 / 95 Catheter Other: Date of Last Bowel Movement 08/03/18 08/03/18 # Bowel Movements 1 1 Weight On Admission 61 kg - Constitutional chronically ill appearing Comments: Critically ill Intubated and mechanically ventilated - Routine HEENT Exam Head: Present: normocephalic - Routine Respiratory Exam Present: patient mechanically ventilated - Routine Cardiovascular Exam Present: RRR - Routine Abdominal Exam Present: normoactive bowel sounds. 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 Patient scheduled for amputation today - Routine Skin Exam Present: dry <Martin,Shannon - Last Filed: 08/03/18 15:10> Vital signs: Vital Signs 08/03/18 14:00 08/03/18 15:00 08/03/18 15:30 Temperature 96.4 F L 96.4 F L Pulse Rate 85 85 85 Respiratory Rate 20 20 20 Blood Pressure Pulse Oximetry 98 100 100 08/03/18 16:00 08/03/18 16:03 08/03/18 16:23 Temperature 96.1 F L 96.1 F L 95.9 F L Pulse Rate 79 79 93 H Respiratory Rate 20 20 20 Blood Pressure 98/60 L 105/67 178/89 H Pulse Oximetry 97 96 96 08/03/18 16:30 08/03/18 17:00 08/03/18 17:30 Temperature 95.9 F L 96.1 F L 96.3 F L Pulse Rate 78 80 80 Respiratory Rate 20 20 20 Blood Pressure 98/60 L 110/67 102/65 Pulse Oximetry 97 96 94 L 08/03/18 18:00 08/03/18 18:30 08/03/18 19:05 Temperature 96.4 F L 96.8 F L Pulse Rate 83 83 Respiratory Rate 20 20 Blood Pressure 96/64 L 98/62 L Pulse Oximetry 95 94 L 98 08/03/18 19:40 08/03/18 20:29 08/03/18 20:32 Temperature 96.6 F L Pulse Rate 87 87 Respiratory Rate 20 20 Blood Pressure 120/73 Pulse Oximetry 100 100 100 08/03/18 20:44 08/03/18 21:00 08/03/18 21:30 Temperature 96.3 F L 96.1 F L Pulse Rate 86 85 85 Respiratory Rate 20 20 20 Blood Pressure 123/77 123/75 Pulse Oximetry 100 100 08/03/18 22:00 08/03/18 22:30 08/03/18 22:40 Temperature 95.7 F L 95.5 F L Pulse Rate 83 81 Respiratory Rate 20 20 20 Blood Pressure 114/72 114/79 Pulse Oximetry 100 100 100 08/03/18 23:00 08/03/18 23:30 08/04/18 00:00 Temperature 95.4 F L 95.4 F L 95.4 F L Pulse Rate 80 80 79 Respiratory Rate 20 20 20 Blood Pressure 97/64 L 87/60 L 90/61 L Pulse Oximetry 100 100 100 08/04/18 00:02 08/04/18 00:30 08/04/18 01:00 Temperature 95.5 F L 95.9 F L Pulse Rate 79 80 80 Respiratory Rate 20 20 20 Blood Pressure 90/62 L 93/64 L Pulse Oximetry 100 100 08/04/18 01:30 08/04/18 01:35 08/04/18 02:00 Temperature 96.1 F L 96.3 F L Pulse Rate 81 81 Respiratory Rate 20 20 20 Blood Pressure 89/61 L 86/60 L Pulse Oximetry 100 100 100 08/04/18 02:30 08/04/18 03:00 08/04/18 03:30 Temperature 96.1 F L 95.9 F L 95.5 F L Pulse Rate 80 80 82 Respiratory Rate 20 20 20 Blood Pressure 88/60 L 85/62 L 82/56 L Pulse Oximetry 100 100 100 08/04/18 03:34 08/04/18 03:50 08/04/18 04:00 Temperature 95.5 F L 95.2 F L Pulse Rate 84 85 84 Respiratory Rate 20 20 20 Blood Pressure 84/55 L 124/79 Pulse Oximetry 100 100 08/04/18 04:30 08/04/18 04:45 08/04/18 05:00 Temperature 94.6 F L 94.3 F L Pulse Rate 84 81 Respiratory Rate 20 20 20 Blood Pressure 113/70 118/75 Pulse Oximetry 100 99 100 08/04/18 05:30 08/04/18 06:00 08/04/18 06:01 Temperature 93.9 F L 93.6 F L 93.6 F L Pulse Rate 80 78 78 Respiratory Rate 20 20 20 Blood Pressure 123/77 106/72 Pulse Oximetry 100 100 100 08/04/18 07:00 08/04/18 08:00 08/04/18 08:22 Temperature 93.0 F L 93.4 F L Pulse Rate 77 82 82 Respiratory Rate 20 20 20 Blood Pressure Pulse Oximetry 100 100 100 08/04/18 09:41 08/04/18 10:00 08/04/18 11:00 Temperature 94 F L 94.1 F L Pulse Rate 91 H 92 H Respiratory Rate 20 20 Blood Pressure Pulse Oximetry 98 100 99 08/04/18 11:30 08/04/18 12:00 Temperature 94.6 F L Pulse Rate 90 90 Respiratory Rate 20 20 Blood Pressure Pulse Oximetry 100 100 Intake & Output 08/03/18 08/04/18 08/04/18 18:59 06:59 18:59 Intake Total 6575 / 6575 4204 / 4204 1725 / 1725 Output Total 160 / 160 525 / 525 342 / 342 Balance 6415 / 6415 3679 / 3679 1383 / 1383 Weight 82 kg Intake: IV 6575 / 6575 3754 / 3754 1725 / 1725 NovoLIN R (IV Infusion) 100 100 / 100 21 / 21 UNIT In NS Inj 99 ML @ 5 UNITS/ HR 5 mls/hr IV.CONT TITRATE PRN Rx#:[id number] D5W/1/2NS + KCL 20 mEq Inj 1, 1400 / 1400 000 ML @ 200 mls/hr IV.CONT . Q5H JACKELIN Rx#:[id number] Levophed Inj 16 MG In NS Inj 250 / 250 250 / 250 234 ML @ 2 MCG/MIN 1.87 mls/hr IV.CONT TITRATE PRN Rx#: [id number] Protonix Inj 80 MG In NS Inj 100 / 100 100 / 100 100 / 100 100 ML @ 10 mls/hr IV.CONT Q10H JACKELIN Rx#:[id number] Sodium Bicarbonate 8.4% Inj 50 1000 / 1000 3000 / 3000 1000 / 1000 MEQ KCl Inj 20 MEQ In D5W/1/2 NS Inj 940 ML @ 200 mls/hr IV. CONT .Q5H JACKELIN Rx#:[id number] 1/2 Normal Saline Inj 1,000 ML 1000 / 1000 @ 999 mls/hr IV.CONT BOLUS ONE Rx#:[id number] Pitressin Inj 40 UNIT In D5W 100 / 100 100 / 100 Inj 98 ML @ 0.04 UNITS/MIN 6 mls/hr IV.CONT CONT FORMERLY [facility], [facility]–1983 Rx#: [id number] Flexbumin 25% Inj 100 ML @ 60 100 / 100 mls/hr IV.SIG ONCE ONE Rx#: [id number] Calcium Chloride Inj 1 GM In 110 / 110 D5W Inj 100 ML @ 110 mls/hr IV. SIG ONCE ONE Rx#:[id number] Cleocin 600 mg/NS Premix 600 mg 50 / 50 In 50 ml @ 100 mls/hr IV.SIG Q8H FORMERLY [facility], 1928–1983 Rx#:[id number] Cleocin Inj 600 MG In NS Inj 104 / 104 104 / 104 104 / 104 100 ML @ 208 mls/hr IV.SIG Q8H FORMERLY [facility], [facility]–1983 Rx#:[id number] Diflucan 200 mg Premix Bag 100 100 / 100 100 / 100 ML @ 100 mls/hr IV.SIG Q24H FORMERLY [facility], 1928–1983 Rx#:[id number] LR 1000 mL Inj 1,000 ML @ Wide 1000 / 1000 Open IV.SIG BOLUS ONE Rx#: [id number] Magnesium Sulfate Inj 2 GM In 100 / 100 NS Inj 96 ML @ 50 mls/hr IV.SIG ONCE ONE Rx#:[id number] Vitamin K Inj 10 MG In NS Inj 51 / 51 50 ML @ 102 mls/hr IV.SIG ONCE ONE Rx#:[id number] Zosyn 2.25 GM Premix 50 ML @ 100 / 100 100 / 100 50 / 50 100 mls/hr IV.SIG Q6H FORMERLY [facility], 1928–1983 Rx#: [id number] Potassium Phosphate Inj 30 MMOL 260 / 260 In NS Inj 250 ML @ 43.333 mls/ hr IV.SIG ONCE ONE Rx#:[id number] 1/2 Normal Saline Inj 1,000 ML 1000 / 1000 @ Wide Open IV.SIG BOLUS ONE Rx #:[id number] fentaNYL 10 mcg/mL Premix Drip 100 / 100 2,500 mcg In 250 ml @ 50 MCG/HR 5 mls/hr IV.SIG TITRATE PRN Rx #:[id number] Anesthesia Amount 450 / 450 Intake (Blood Product) Amt 0 / 0 Plasma Thawed 5 Day Acda Unit 0 / 0 [id number] Output: Estimated Blood Loss 50 / 50 Urine Amount (Catheter) 160 / 160 325 / 325 342 / 342 Indwelling Temp Sensing 160 / 160 325 / 325 342 / 342 Catheter Wound Vac Amount 150 / 150 Left Foot 150 / 150 Other: Mode Setting Left Foot Continuous Date of Last Bowel Movement 08/03/18 08/03/18 08/03/18 # Bowel Movements 2 <Srikanth Carpenter A - Last Filed: 08/04/18 13:13> Results - Labs CBC & Chem 7: 08/03/18 09:18 08/03/18 13:50 Labs: Laboratory Results - last 24 hr 08/02/18 08/02/18 08/02/18 10:49 10:49 10:55 WBC RBC Hgb Hct MCV MCH MCHC RDW Plt Count MPV Prelim Diff (Auto) Neut % (Auto) Lymph % (Auto) Mcclain % (Auto) Eos % (Auto) Baso % (Auto) Neut # (Auto) Lymph # (Auto) Mcclain # (Auto) Eos # (Auto) Baso # (Auto) WBC Differential Seg Neuts % (Manual) Band Neuts % (Manual) Lymphocytes % (Manual) Monocytes % (Manual) Metamyelocytes % (Man) Abs Neuts (Manual) Nucleated RBCs/100 WBC Differential Comment Toxic Granulation Toxic Vacuolation Platelet Estimate Platelet Morphology PT INR APTT Fibrinogen Puncture Site Patient Temperature O2 Saturation ABG pH ABG pCO2 ABG pO2 ABG HCO3 ABG O2 Content ABG Base Excess ABG Methemoglobin Jordy Test Hemoglobin Carboxyhemoglobin O2 Delivery Device Liter Flow Vent Setting Inspired O2 Critical Value Sodium Potassium Chloride Carbon Dioxide Anion Gap BUN Creatinine Estimated GFR POC Glucose Random Glucose Hemoglobin A1c 11.3 H Lactic Acid Calcium Calcium Adj for Albumin Phosphorus Magnesium Ammonia Total Creatine Kinase CK-MB (CK-2) CK-MB (CK-2) % Troponin I Albumin Lipase 61782 H Beta-Hydroxybutyric Acd 9.86 H Urine Color Yellow Urine Clarity Cloudy H Urine pH 5.0 Ur Specific [place] 1.015 Urine Protein Negative Urine Glucose (UA) 500 or greater Urine Ketones 20 Urine Occult Blood Moderate H Urine Nitrate Negative Urine Bilirubin Negative Urine Urobilinogen Less than 2 Ur Leukocyte Esterase Large H Urine RBC 13 H Urine WBC 114 H Urine WBC Clumps Few H Amorphous Sediment Few H Urine Bacteria Few H Hyaline Casts 10 Urine Mucus Few H Micro UA Comment Cath-culture ind Urine Culture Comments Cath-cult indicated Urine Eosinophils Ur Random Creatinine Ur Random Sodium Nasal Screen MRSA (PCR) Stl C.difficile DNA Amp St C. diff Tox Epid 027 MTS Gel Crossmatch Blood Bank Comment 08/02/18 08/02/18 08/02/18 15:03 15:03 15:03 WBC RBC Hgb Hct MCV MCH MCHC RDW Plt Count MPV Prelim Diff (Auto) Neut % (Auto) Lymph % (Auto) Mcclain % (Auto) Eos % (Auto) Baso % (Auto) Neut # (Auto) Lymph # (Auto) Mcclain # (Auto) Eos # (Auto) Baso # (Auto) WBC Differential Seg Neuts % (Manual) Band Neuts % (Manual) Lymphocytes % (Manual) Monocytes % (Manual) Metamyelocytes % (Man) Abs Neuts (Manual) Nucleated RBCs/100 WBC Differential Comment Toxic Granulation Toxic Vacuolation Platelet Estimate Platelet Morphology PT INR APTT Fibrinogen Puncture Site Patient Temperature O2 Saturation ABG pH ABG pCO2 ABG pO2 ABG HCO3 ABG O2 Content ABG Base Excess ABG Methemoglobin Jordy Test Hemoglobin Carboxyhemoglobin O2 Delivery Device Liter Flow Vent Setting Inspired O2 Critical Value Sodium Cancelled 143 D Potassium Cancelled 3.3 L D Chloride Cancelled 113 H D Carbon Dioxide Cancelled 10.9 L Anion Gap Cancelled 19 H BUN Cancelled 91 H Creatinine Cancelled 2.49 H Estimated GFR Cancelled 32 L POC Glucose Random Glucose Cancelled 592 H* D Hemoglobin A1c Lactic Acid 4.6 H* Calcium Cancelled 6.6 L* D Calcium Adj for Albumin 8.8 Phosphorus Cancelled 3.3 Magnesium Cancelled 2.4 D Ammonia Total Creatine Kinase CK-MB (CK-2) CK-MB (CK-2) % Troponin I Cancelled 0.03 Albumin 1.2 L Lipase Beta-Hydroxybutyric Acd Urine Color Urine Clarity Urine pH Ur Specific [place] Urine Protein Urine Glucose (UA) Urine Ketones Urine Occult Blood Urine Nitrate Urine Bilirubin Urine Urobilinogen Ur Leukocyte Esterase Urine RBC Urine WBC Urine WBC Clumps Amorphous Sediment Urine Bacteria Hyaline Casts Urine Mucus Micro UA Comment Urine Culture Comments Urine Eosinophils Ur Random Creatinine Ur Random Sodium Nasal Screen MRSA (PCR) Stl C.difficile DNA Amp St C. diff Tox Epid 027 [facility] Gel Crossmatch Blood Bank Comment 08/02/18 08/02/18 08/02/18 16:05 17:18 17:44 WBC RBC Hgb Hct MCV MCH MCHC RDW Plt Count MPV Prelim Diff (Auto) Neut % (Auto) Lymph % (Auto) Mcclain % (Auto) Eos % (Auto) Baso % (Auto) Neut # (Auto) Lymph # (Auto) Mcclain # (Auto) Eos # (Auto) Baso # (Auto) WBC Differential Seg Neuts % (Manual) Band Neuts % (Manual) Lymphocytes % (Manual) Monocytes % (Manual) Metamyelocytes % (Man) Abs Neuts (Manual) Nucleated RBCs/100 WBC Differential Comment Toxic Granulation Toxic Vacuolation Platelet Estimate Platelet Morphology PT INR APTT 54.6 H Fibrinogen 282 Puncture Site Patient Temperature O2 Saturation ABG pH ABG pCO2 ABG pO2 ABG HCO3 ABG O2 Content ABG Base Excess ABG Methemoglobin Jordy Test Hemoglobin Carboxyhemoglobin O2 Delivery Device Liter Flow Vent Setting Inspired O2 Critical Value Sodium Potassium Chloride Carbon Dioxide Anion Gap BUN Creatinine Estimated GFR POC Glucose 547 H* Random Glucose Hemoglobin A1c Lactic Acid Calcium Calcium Adj for Albumin Phosphorus Magnesium Ammonia Total Creatine Kinase CK-MB (CK-2) CK-MB (CK-2) % Troponin I Albumin Lipase Beta-Hydroxybutyric Acd Urine Color Urine Clarity Urine pH Ur Specific [place] Urine Protein Urine Glucose (UA) Urine Ketones Urine Occult Blood Urine Nitrate Urine Bilirubin Urine Urobilinogen Ur Leukocyte Esterase Urine RBC Urine WBC Urine WBC Clumps Amorphous Sediment Urine Bacteria Hyaline Casts Urine Mucus Micro UA Comment Urine Culture Comments Urine Eosinophils Ur Random Creatinine 21 L Ur Random Sodium 13 Nasal Screen MRSA (PCR) Stl C.difficile DNA Amp St C. diff Tox Epid 027 MTS Gel Crossmatch Blood Bank Comment 08/02/18 08/02/18 08/02/18 17:44 18:03 18:07 WBC RBC Hgb Hct MCV MCH MCHC RDW Plt Count MPV Prelim Diff (Auto) Neut % (Auto) Lymph % (Auto) Mcclain % (Auto) Eos % (Auto) Baso % (Auto) Neut # (Auto) Lymph # (Auto) Mcclain # (Auto) Eos # (Auto) Baso # (Auto) WBC Differential Seg Neuts % (Manual) Band Neuts % (Manual) Lymphocytes % (Manual) Monocytes % (Manual) Metamyelocytes % (Man) Abs Neuts (Manual) Nucleated RBCs/100 WBC Differential Comment Toxic Granulation Toxic Vacuolation Platelet Estimate Platelet Morphology PT INR APTT Fibrinogen Puncture Site Patient Temperature O2 Saturation ABG pH ABG pCO2 ABG pO2 ABG HCO3 ABG O2 Content ABG Base Excess ABG Methemoglobin Jordy Test Hemoglobin Carboxyhemoglobin O2 Delivery Device Liter Flow Vent Setting Inspired O2 Critical Value Sodium 144 Potassium 3.2 L Chloride 115 H Carbon Dioxide 12.1 L Anion Gap 17 H BUN 91 H Creatinine 2.49 H Estimated GFR 32 L POC Glucose 554 H* Random Glucose 485 H* D Hemoglobin A1c Lactic Acid Calcium 6.5 L* Calcium Adj for Albumin 8.7 Phosphorus Magnesium Ammonia Total Creatine Kinase CK-MB (CK-2) CK-MB (CK-2) % Troponin I Albumin 1.3 L Lipase Beta-Hydroxybutyric Acd Urine Color Urine Clarity Urine pH Ur Specific [place] Urine Protein Urine Glucose (UA) Urine Ketones Urine Occult Blood Urine Nitrate Urine Bilirubin Urine Urobilinogen Ur Leukocyte Esterase Urine RBC Urine WBC Urine WBC Clumps Amorphous Sediment Urine Bacteria Hyaline Casts Urine Mucus Micro UA Comment Urine Culture Comments Urine Eosinophils 0-2 H Ur Random Creatinine Ur Random Sodium Nasal Screen MRSA (PCR) Stl C.difficile DNA Amp St C. diff Tox Epid 027 MTS Gel Crossmatch Blood Bank Comment 08/02/18 08/02/18 08/02/18 18:12 18:58 20:04 WBC RBC Hgb Hct MCV MCH MCHC RDW Plt Count MPV Prelim Diff (Auto) Neut % (Auto) Lymph % (Auto) Mcclain % (Auto) Eos % (Auto) Baso % (Auto) Neut # (Auto) Lymph # (Auto) Mcclain # (Auto) Eos # (Auto) Baso # (Auto) WBC Differential Seg Neuts % (Manual) Band Neuts % (Manual) Lymphocytes % (Manual) Monocytes % (Manual) Metamyelocytes % (Man) Abs Neuts (Manual) Nucleated RBCs/100 WBC Differential Comment Toxic Granulation Toxic Vacuolation Platelet Estimate Platelet Morphology PT INR APTT Fibrinogen Puncture Site Right radial Patient Temperature 98.6 O2 Saturation 95 ABG pH 7.25 L* ABG pCO2 24 L* ABG pO2 142 H ABG HCO3 10 L* ABG O2 Content 11.0 L ABG Base Excess -15.9 L ABG Methemoglobin 2.4 H Jordy Test Present Hemoglobin 8.1 L Carboxyhemoglobin 0.9 O2 Delivery Device Nasal cannula Liter Flow 1.00 Vent Setting Inspired O2 Critical Value Yes Sodium Potassium Chloride Carbon Dioxide Anion Gap BUN Creatinine Estimated GFR POC Glucose 512 H* 459 H* Random Glucose Hemoglobin A1c Lactic Acid Calcium Calcium Adj for Albumin Phosphorus Magnesium Ammonia Total Creatine Kinase CK-MB (CK-2) CK-MB (CK-2) % Troponin I Albumin Lipase Beta-Hydroxybutyric Acd Urine Color Urine Clarity Urine pH Ur Specific [place] Urine Protein Urine Glucose (UA) Urine Ketones Urine Occult Blood Urine Nitrate Urine Bilirubin Urine Urobilinogen Ur Leukocyte Esterase Urine RBC Urine WBC Urine WBC Clumps Amorphous Sediment Urine Bacteria Hyaline Casts Urine Mucus Micro UA Comment Urine Culture Comments Urine Eosinophils Ur Random Creatinine Ur Random Sodium Nasal Screen MRSA (PCR) Stl C.difficile DNA Amp St C. diff Tox Epid 027 [employer] Gel Crossmatch Blood Bank Comment 08/02/18 08/02/18 08/02/18 20:58 21:00 22:00 WBC RBC Hgb Hct MCV MCH MCHC RDW Plt Count MPV Prelim Diff (Auto) Neut % (Auto) Lymph % (Auto) Mcclain % (Auto) Eos % (Auto) Baso % (Auto) Neut # (Auto) Lymph # (Auto) Mcclain # (Auto) Eos # (Auto) Baso # (Auto) WBC Differential Seg Neuts % (Manual) Band Neuts % (Manual) Lymphocytes % (Manual) Monocytes % (Manual) Metamyelocytes % (Man) Abs Neuts (Manual) Nucleated RBCs/100 WBC Differential Comment Toxic Granulation Toxic Vacuolation Platelet Estimate Platelet Morphology PT INR APTT Fibrinogen Puncture Site Patient Temperature O2 Saturation ABG pH ABG pCO2 ABG pO2 ABG HCO3 ABG O2 Content ABG Base Excess ABG Methemoglobin Jordy Test Hemoglobin Carboxyhemoglobin O2 Delivery Device Liter Flow Vent Setting Inspired O2 Critical Value Sodium Potassium Chloride Carbon Dioxide Anion Gap BUN Creatinine Estimated GFR POC Glucose 392 H 337 H Random Glucose Hemoglobin A1c Lactic Acid 6.0 H* Calcium Calcium Adj for Albumin Phosphorus Magnesium Ammonia Total Creatine Kinase CK-MB (CK-2) CK-MB (CK-2) % Troponin I Albumin Lipase Beta-Hydroxybutyric Acd Urine Color Urine Clarity Urine pH Ur Specific [place] Urine Protein Urine Glucose (UA) Urine Ketones Urine Occult Blood Urine Nitrate Urine Bilirubin Urine Urobilinogen Ur Leukocyte Esterase Urine RBC Urine WBC Urine WBC Clumps Amorphous Sediment Urine Bacteria Hyaline Casts Urine Mucus Micro UA Comment Urine Culture Comments Urine Eosinophils Ur Random Creatinine Ur Random Sodium Nasal Screen MRSA (PCR) Stl C.difficile DNA Amp St C. diff Tox Epid 027 [employer] Gel Crossmatch Blood Bank Comment 08/02/18 08/02/18 08/03/18 22:50 22:59 00:00 WBC RBC Hgb Hct MCV MCH MCHC RDW Plt Count MPV Prelim Diff (Auto) Neut % (Auto) Lymph % (Auto) Mcclain % (Auto) Eos % (Auto) Baso % (Auto) Neut # (Auto) Lymph # (Auto) Mcclain # (Auto) Eos # (Auto) Baso # (Auto) WBC Differential Seg Neuts % (Manual) Band Neuts % (Manual) Lymphocytes % (Manual) Monocytes % (Manual) Metamyelocytes % (Man) Abs Neuts (Manual) Nucleated RBCs/100 WBC Differential Comment Toxic Granulation Toxic Vacuolation Platelet Estimate Platelet Morphology PT INR APTT Fibrinogen Puncture Site Patient Temperature O2 Saturation ABG pH ABG pCO2 ABG pO2 ABG HCO3 ABG O2 Content ABG Base Excess ABG Methemoglobin Jordy Test Hemoglobin Carboxyhemoglobin O2 Delivery Device Liter Flow Vent Setting Inspired O2 Critical Value Sodium 143 Potassium 4.2 D Chloride 119 H Carbon Dioxide 11.5 L Anion Gap 13 BUN 97 H Creatinine 2.53 H Estimated GFR 32 L POC Glucose 316 H Random Glucose 232 H D Hemoglobin A1c Lactic Acid Calcium 6.6 L* Calcium Adj for Albumin 8.8 Phosphorus 0.9 L D Magnesium 1.9 Ammonia Total Creatine Kinase 6895 H CK-MB (CK-2) 100.7 H CK-MB (CK-2) % 1.5 Troponin I Albumin 1.2 L Lipase Beta-Hydroxybutyric Acd Urine Color Urine Clarity Urine pH Ur Specific [place] Urine Protein Urine Glucose (UA) Urine Ketones Urine Occult Blood Urine Nitrate Urine Bilirubin Urine Urobilinogen Ur Leukocyte Esterase Urine RBC Urine WBC Urine WBC Clumps Amorphous Sediment Urine Bacteria Hyaline Casts Urine Mucus Micro UA Comment Urine Culture Comments Urine Eosinophils Ur Random Creatinine Ur Random Sodium Nasal Screen MRSA (PCR) Not detected Stl C.difficile DNA Amp St C. diff Tox Epid 027 MTS Gel Crossmatch Blood Bank Comment 08/03/18 08/03/18 08/03/18 00:00 00:08 01:13 WBC RBC Hgb Hct MCV MCH MCHC RDW Plt Count MPV Prelim Diff (Auto) Neut % (Auto) Lymph % (Auto) Mcclain % (Auto) Eos % (Auto) Baso % (Auto) Neut # (Auto) Lymph # (Auto) Mcclain # (Auto) Eos # (Auto) Baso # (Auto) WBC Differential Seg Neuts % (Manual) Band Neuts % (Manual) Lymphocytes % (Manual) Monocytes % (Manual) Metamyelocytes % (Man) Abs Neuts (Manual) Nucleated RBCs/100 WBC Differential Comment Toxic Granulation Toxic Vacuolation Platelet Estimate Platelet Morphology PT INR APTT Fibrinogen Puncture Site Art line Patient Temperature 98.6 O2 Saturation 94 ABG pH 7.21 L* ABG pCO2 20 L* ABG pO2 284 H ABG HCO3 8 L* ABG O2 Content 4.8 L ABG Base Excess -19.1 L ABG Methemoglobin 3.6 H* Jordy Test Present Hemoglobin 3.0 L* Carboxyhemoglobin 0.9 O2 Delivery Device Ventilator Liter Flow Vent Setting Ac22/550/+5/60% Inspired O2 60 Critical Value Yes Sodium Potassium Chloride Carbon Dioxide Anion Gap BUN Creatinine Estimated GFR POC Glucose 245 H Random Glucose Hemoglobin A1c Lactic Acid Calcium Calcium Adj for Albumin Phosphorus Magnesium Ammonia 40 H Total Creatine Kinase CK-MB (CK-2) CK-MB (CK-2) % Troponin I Albumin Lipase Beta-Hydroxybutyric Acd Urine Color Urine Clarity Urine pH Ur Specific [place] Urine Protein Urine Glucose (UA) Urine Ketones Urine Occult Blood Urine Nitrate Urine Bilirubin Urine Urobilinogen Ur Leukocyte Esterase Urine RBC Urine WBC Urine WBC Clumps Amorphous Sediment Urine Bacteria Hyaline Casts Urine Mucus Micro UA Comment Urine Culture Comments Urine Eosinophils Ur Random Creatinine Ur Random Sodium Nasal Screen MRSA (PCR) Stl C.difficile DNA Amp St C. diff Tox Epid 027 MTS Gel Crossmatch Blood Bank Comment 08/03/18 08/03/18 08/03/18 01:14 01:29 01:30 WBC 37.1 H RBC 2.06 L Hgb 6.4 L* D Hct 18.6 L* MCV 90.3 D MCH 31.1 MCHC 34.4 RDW 14.9 Plt Count 142 L MPV 9.1 Prelim Diff (Auto) Neut % (Auto) Lymph % (Auto) Mcclain % (Auto) Eos % (Auto) Baso % (Auto) Neut # (Auto) Lymph # (Auto) Mcclain # (Auto) Eos # (Auto) Baso # (Auto) WBC Differential Seg Neuts % (Manual) Band Neuts % (Manual) Lymphocytes % (Manual) Monocytes % (Manual) Metamyelocytes % (Man) Abs Neuts (Manual) Nucleated RBCs/100 WBC Differential Comment Toxic Granulation Toxic Vacuolation Platelet Estimate Platelet Morphology PT INR APTT Fibrinogen Puncture Site Patient Temperature O2 Saturation ABG pH ABG pCO2 ABG pO2 ABG HCO3 ABG O2 Content ABG Base Excess ABG Methemoglobin Jordy Test Hemoglobin Carboxyhemoglobin O2 Delivery Device Liter Flow Vent Setting Inspired O2 Critical Value Sodium Potassium Chloride Carbon Dioxide Anion Gap BUN Creatinine Estimated GFR POC Glucose 275 H Random Glucose Hemoglobin A1c Lactic Acid Calcium Calcium Adj for Albumin Phosphorus Magnesium Ammonia Total Creatine Kinase CK-MB (CK-2) CK-MB (CK-2) % Troponin I Albumin Lipase Beta-Hydroxybutyric Acd Urine Color Urine Clarity Urine pH Ur Specific [place] Urine Protein Urine Glucose (UA) Urine Ketones Urine Occult Blood Urine Nitrate Urine Bilirubin Urine Urobilinogen Ur Leukocyte Esterase Urine RBC Urine WBC Urine WBC Clumps Amorphous Sediment Urine Bacteria Hyaline Casts Urine Mucus Micro UA Comment Urine Culture Comments Urine Eosinophils Ur Random Creatinine Ur Random Sodium Nasal Screen MRSA (PCR) Stl C.difficile DNA Amp St C. diff Tox Epid 027 MTS Gel Crossmatch See Detail Blood Bank Comment 08/03/18 08/03/18 08/03/18 01:30 01:43 01:48 WBC RBC Hgb Hct MCV MCH MCHC RDW Plt Count MPV Prelim Diff (Auto) Neut % (Auto) Lymph % (Auto) [place]cl[place] % (Auto) Eos % (Auto) Baso % (Auto) Neut # (Auto) Lymph # (Auto) Mcclain # (Auto) Eos # (Auto) Baso # (Auto) WBC Differential Seg Neuts % (Manual) Band Neuts % (Manual) Lymphocytes % (Manual) Monocytes % (Manual) Metamyelocytes % (Man) Abs Neuts (Manual) Nucleated RBCs/100 WBC Differential Comment Toxic Granulation Toxic Vacuolation Platelet Estimate Platelet Morphology PT 17.7 H INR 1.7 APTT 46.5 H Fibrinogen 216 L Puncture Site Patient Temperature O2 Saturation ABG pH ABG pCO2 ABG pO2 ABG HCO3 ABG O2 Content ABG Base Excess ABG Methemoglobin Jordy Test Hemoglobin Carboxyhemoglobin O2 Delivery Device Liter Flow Vent Setting Inspired O2 Critical Value Sodium Potassium Chloride Carbon Dioxide Anion Gap BUN Creatinine Estimated GFR POC Glucose Random Glucose Hemoglobin A1c Lactic Acid 6.1 H* Calcium Calcium Adj for Albumin Phosphorus Magnesium Ammonia Total Creatine Kinase CK-MB (CK-2) CK-MB (CK-2) % Troponin I Albumin Lipase Beta-Hydroxybutyric Acd Urine Color Urine Clarity Urine pH Ur Specific [place] Urine Protein Urine Glucose (UA) Urine Ketones Urine Occult Blood Urine Nitrate Urine Bilirubin Urine Urobilinogen Ur Leukocyte Esterase Urine RBC Urine WBC Urine WBC Clumps Amorphous Sediment Urine Bacteria Hyaline Casts Urine Mucus Micro UA Comment Urine Culture Comments Urine Eosinophils Ur Random Creatinine Ur Random Sodium Nasal Screen MRSA (PCR) Stl C.difficile DNA Amp St C. diff Tox Epid 027 MTS Gel Crossmatch See Detail Blood Bank Comment 08/03/18 08/03/18 08/03/18 01:56 02:10 03:04 WBC RBC Hgb Hct MCV MCH MCHC RDW Plt Count MPV Prelim Diff (Auto) Neut % (Auto) Lymph % (Auto) [place]cl[place] % (Auto) Eos % (Auto) Baso % (Auto) Neut # (Auto) Lymph # (Auto) Mcclain # (Auto) Eos # (Auto) Baso # (Auto) WBC Differential Seg Neuts % (Manual) Band Neuts % (Manual) Lymphocytes % (Manual) Monocytes % (Manual) Metamyelocytes % (Man) Abs Neuts (Manual) Nucleated RBCs/100 WBC Differential Comment Toxic Granulation Toxic Vacuolation Platelet Estimate Platelet Morphology PT INR APTT Fibrinogen Puncture Site Patient Temperature O2 Saturation ABG pH ABG pCO2 ABG pO2 ABG HCO3 ABG O2 Content ABG Base Excess ABG Methemoglobin Jordy Test Hemoglobin Carboxyhemoglobin O2 Delivery Device Liter Flow Vent Setting Inspired O2 Critical Value Sodium Potassium Chloride Carbon Dioxide Anion Gap BUN Creatinine Estimated GFR POC Glucose 258 H 246 H Random Glucose Hemoglobin A1c Lactic Acid Calcium Calcium Adj for Albumin Phosphorus Magnesium Ammonia Total Creatine Kinase CK-MB (CK-2) CK-MB (CK-2) % Troponin I Albumin Lipase Beta-Hydroxybutyric Acd Urine Color Urine Clarity Urine pH Ur Specific [place] Urine Protein Urine Glucose (UA) Urine Ketones Urine Occult Blood Urine Nitrate Urine Bilirubin Urine Urobilinogen Ur Leukocyte Esterase Urine RBC Urine WBC Urine WBC Clumps Amorphous Sediment Urine Bacteria Hyaline Casts Urine Mucus Micro UA Comment Urine Culture Comments Urine Eosinophils Ur Random Creatinine Ur Random Sodium Nasal Screen MRSA (PCR) Stl C.difficile DNA Amp St C. diff Tox Epid 027 MTS Gel Crossmatch See Detail Blood Bank Comment 08/03/18 08/03/18 08/03/18 03:39 04:00 04:00 WBC RBC Hgb Hct MCV MCH MCHC RDW Plt Count MPV Prelim Diff (Auto) Neut % (Auto) Lymph % (Auto) Mcclain % (Auto) Eos % (Auto) Baso % (Auto) Neut # (Auto) Lymph # (Auto) Mcclain # (Auto) Eos # (Auto) Baso # (Auto) WBC Differential Seg Neuts % (Manual) Band Neuts % (Manual) Lymphocytes % (Manual) Monocytes % (Manual) Metamyelocytes % (Man) Abs Neuts (Manual) Nucleated RBCs/100 WBC Differential Comment Toxic Granulation Toxic Vacuolation Platelet Estimate Platelet Morphology PT 18.1 H INR 1.8 APTT 43.9 H Fibrinogen Puncture Site Patient Temperature O2 Saturation ABG pH ABG pCO2 ABG pO2 ABG HCO3 ABG O2 Content ABG Base Excess ABG Methemoglobin Jordy Test Hemoglobin Carboxyhemoglobin O2 Delivery Device Liter Flow Vent Setting Inspired O2 Critical Value Sodium 147 H Potassium 3.9 Chloride 119 H Carbon Dioxide 13.1 L Anion Gap 15 BUN 91 H Creatinine 2.41 H Estimated GFR 34 L POC Glucose Random Glucose 215 H Hemoglobin A1c Lactic Acid Calcium 6.2 L* Calcium Adj for Albumin 8.5 Phosphorus 2.3 L D Magnesium 1.9 Ammonia Total Creatine Kinase CK-MB (CK-2) CK-MB (CK-2) % Troponin I Albumin 1.1 L Lipase Beta-Hydroxybutyric Acd 0.15 D Urine Color Urine Clarity Urine pH Ur Specific [place] Urine Protein Urine Glucose (UA) Urine Ketones Urine Occult Blood Urine Nitrate Urine Bilirubin Urine Urobilinogen Ur Leukocyte Esterase Urine RBC Urine WBC Urine WBC Clumps Amorphous Sediment Urine Bacteria Hyaline Casts Urine Mucus Micro UA Comment Urine Culture Comments Urine Eosinophils Ur Random Creatinine Ur Random Sodium Nasal Screen MRSA (PCR) Stl C.difficile DNA Amp St C. diff Tox Epid 027 MTS Gel Crossmatch Blood Bank Comment 08/03/18 08/03/18 08/03/18 04:02 04:10 04:25 WBC 35.1 H RBC 3.46 L Hgb 10.5 L D Hct 31.6 L MCV 91.2 MCH 30.2 MCHC 33.1 RDW 16.4 Plt Count 124 L MPV 8.8 Prelim Diff (Auto) Slide review pending Neut % (Auto) 97.2 H Lymph % (Auto) 1.7 L Mcclain % (Auto) 0.9 Eos % (Auto) 0.1 Baso % (Auto) 0.1 Neut # (Auto) 34.1 H Lymph # (Auto) 0.6 L Mcclain # (Auto) 0.3 Eos # (Auto) 0.0 Baso # (Auto) 0.0 WBC Differential Manual diff final Seg Neuts % (Manual) 32 Band Neuts % (Manual) 63 H Lymphocytes % (Manual) 1 L Monocytes % (Manual) 2 Metamyelocytes % (Man) 2 H Abs Neuts (Manual) 34.0 H Nucleated RBCs/100 WBC 2 H Differential Comment . Toxic Granulation 1+ H Toxic Vacuolation Present H Platelet Estimate Low L Platelet Morphology Normal PT INR APTT Fibrinogen Puncture Site Patient Temperature O2 Saturation ABG pH ABG pCO2 ABG pO2 ABG HCO3 ABG O2 Content ABG Base Excess ABG Methemoglobin Jordy Test Hemoglobin Carboxyhemoglobin O2 Delivery Device Liter Flow Vent Setting Inspired O2 Critical Value Sodium Potassium Chloride Carbon Dioxide Anion Gap BUN Creatinine Estimated GFR POC Glucose 206 H Random Glucose Hemoglobin A1c Lactic Acid 6.6 H* Calcium Calcium Adj for Albumin Phosphorus Magnesium Ammonia Total Creatine Kinase CK-MB (CK-2) CK-MB (CK-2) % Troponin I Albumin Lipase Beta-Hydroxybutyric Acd Urine Color Urine Clarity Urine pH Ur Specific [place] Urine Protein Urine Glucose (UA) Urine Ketones Urine Occult Blood Urine Nitrate Urine Bilirubin Urine Urobilinogen Ur Leukocyte Esterase Urine RBC Urine WBC Urine WBC Clumps Amorphous Sediment Urine Bacteria Hyaline Casts Urine Mucus Micro UA Comment Urine Culture Comments Urine Eosinophils Ur Random Creatinine Ur Random Sodium Nasal Screen MRSA (PCR) Stl C.difficile DNA Amp St C. diff Tox Epid 027 MTS Gel Crossmatch Blood Bank Comment 08/03/18 08/03/18 08/03/18 05:11 05:44 06:05 WBC RBC Hgb Hct MCV MCH MCHC RDW Plt Count MPV Prelim Diff (Auto) Neut % (Auto) Lymph % (Auto) Mcclain % (Auto) Eos % (Auto) Baso % (Auto) Neut # (Auto) Lymph # (Auto) Mcclain # (Auto) Eos # (Auto) Baso # (Auto) WBC Differential Seg Neuts % (Manual) Band Neuts % (Manual) Lymphocytes % (Manual) Monocytes % (Manual) Metamyelocytes % (Man) Abs Neuts (Manual) Nucleated RBCs/100 WBC Differential Comment Toxic Granulation Toxic Vacuolation Platelet Estimate Platelet Morphology PT INR APTT Fibrinogen Puncture Site Art line Patient Temperature 98.6 O2 Saturation 97 ABG pH 7.27 L* ABG pCO2 23 L* ABG pO2 267 H ABG HCO3 10 L* ABG O2 Content 14.1 ABG Base Excess -15.5 L ABG Methemoglobin 2.1 H Jordy Test Present Hemoglobin 10.0 L Carboxyhemoglobin 0.6 O2 Delivery Device Ventilator Liter Flow Vent Setting Ac22/550/+5/60% Inspired O2 60 Critical Value Yes Sodium Potassium Chloride Carbon Dioxide Anion Gap BUN Creatinine Estimated GFR POC Glucose 187 H 168 H Random Glucose Hemoglobin A1c Lactic Acid Calcium Calcium Adj for Albumin Phosphorus Magnesium Ammonia Total Creatine Kinase CK-MB (CK-2) CK-MB (CK-2) % Troponin I Albumin Lipase Beta-Hydroxybutyric Acd Urine Color Urine Clarity Urine pH Ur Specific [place] Urine Protein Urine Glucose (UA) Urine Ketones Urine Occult Blood Urine Nitrate Urine Bilirubin Urine Urobilinogen Ur Leukocyte Esterase Urine RBC Urine WBC Urine WBC Clumps Amorphous Sediment Urine Bacteria Hyaline Casts Urine Mucus Micro UA Comment Urine Culture Comments Urine Eosinophils Ur Random Creatinine Ur Random Sodium Nasal Screen MRSA (PCR) Stl C.difficile DNA Amp St C. diff Tox Epid 027 MTS Gel Crossmatch Blood Bank Comment 08/03/18 08/03/18 08/03/18 07:02 08:22 08:30 WBC RBC Hgb Hct MCV MCH MCHC RDW Plt Count MPV Prelim Diff (Auto) Neut % (Auto) Lymph % (Auto) Mcclain % (Auto) Eos % (Auto) Baso % (Auto) Neut # (Auto) Lymph # (Auto) Mcclain # (Auto) Eos # (Auto) Baso # (Auto) WBC Differential Seg Neuts % (Manual) Band Neuts % (Manual) Lymphocytes % (Manual) Monocytes % (Manual) Metamyelocytes % (Man) Abs Neuts (Manual) Nucleated RBCs/100 WBC Differential Comment Toxic Granulation Toxic Vacuolation Platelet Estimate Platelet Morphology PT INR APTT Fibrinogen Puncture Site Patient Temperature O2 Saturation ABG pH ABG pCO2 ABG pO2 ABG HCO3 ABG O2 Content ABG Base Excess ABG Methemoglobin Jordy Test Hemoglobin Carboxyhemoglobin O2 Delivery Device Liter Flow Vent Setting Inspired O2 Critical Value Sodium 144 Potassium 4.2 Chloride 119 H Carbon Dioxide 11.8 L Anion Gap 13 BUN 85 H Creatinine 2.49 H Estimated GFR 32 L POC Glucose 159 H 182 H Random Glucose 166 H Hemoglobin A1c Lactic Acid Calcium 5.8 L* Calcium Adj for Albumin 7.9 L Phosphorus 3.1 Magnesium 1.7 Ammonia Total Creatine Kinase CK-MB (CK-2) CK-MB (CK-2) % Troponin I Albumin 1.4 L Lipase Beta-Hydroxybutyric Acd Urine Color Urine Clarity Urine pH Ur Specific [place] Urine Protein Urine Glucose (UA) Urine Ketones Urine Occult Blood Urine Nitrate Urine Bilirubin Urine Urobilinogen Ur Leukocyte Esterase Urine RBC Urine WBC Urine WBC Clumps Amorphous Sediment Urine Bacteria Hyaline Casts Urine Mucus Micro UA Comment Urine Culture Comments Urine Eosinophils Ur Random Creatinine Ur Random Sodium Nasal Screen MRSA (PCR) Stl C.difficile DNA Amp St C. diff Tox Epid 027 GigsJam Gel Crossmatch Blood Bank Comment 08/03/18 08/03/18 08/03/18 08:30 08:30 08:30 WBC RBC Hgb Hct MCV MCH MCHC RDW Plt Count MPV Prelim Diff (Auto) Neut % (Auto) Lymph % (Auto) Mcclain % (Auto) Eos % (Auto) Baso % (Auto) Neut # (Auto) Lymph # (Auto) Mcclain # (Auto) Eos # (Auto) Baso # (Auto) WBC Differential Seg Neuts % (Manual) Band Neuts % (Manual) Lymphocytes % (Manual) Monocytes % (Manual) Metamyelocytes % (Man) Abs Neuts (Manual) Nucleated RBCs/100 WBC Differential Comment Toxic Granulation Toxic Vacuolation Platelet Estimate Platelet Morphology PT Cancelled INR Cancelled APTT Cancelled Fibrinogen Puncture Site Patient Temperature O2 Saturation ABG pH ABG pCO2 ABG pO2 ABG HCO3 ABG O2 Content ABG Base Excess ABG Methemoglobin Jordy Test Hemoglobin Carboxyhemoglobin O2 Delivery Device Liter Flow Vent Setting Inspired O2 Critical Value Sodium Potassium Chloride Carbon Dioxide Anion Gap BUN Creatinine Estimated GFR POC Glucose Random Glucose Hemoglobin A1c Lactic Acid 4.9 H* Calcium Calcium Adj for Albumin Phosphorus Magnesium Ammonia Total Creatine Kinase CK-MB (CK-2) CK-MB (CK-2) % Troponin I Albumin Lipase Beta-Hydroxybutyric Acd Urine Color Urine Clarity Urine pH Ur Specific [place] Urine Protein Urine Glucose (UA) Urine Ketones Urine Occult Blood Urine Nitrate Urine Bilirubin Urine Urobilinogen Ur Leukocyte Esterase Urine RBC Urine WBC Urine WBC Clumps Amorphous Sediment Urine Bacteria Hyaline Casts Urine Mucus Micro UA Comment Urine Culture Comments Urine Eosinophils Ur Random Creatinine Ur Random Sodium Nasal Screen MRSA (PCR) Stl C.difficile DNA Amp St C. diff Tox Epid 027 GigsJam Gel Crossmatch Blood Bank Comment 08/03/18 08/03/18 08/03/18 08:30 08:30 09:11 WBC RBC Hgb Hct MCV MCH MCHC RDW Plt Count MPV Prelim Diff (Auto) Neut % (Auto) Lymph % (Auto) Mcclain % (Auto) Eos % (Auto) Baso % (Auto) Neut # (Auto) Lymph # (Auto) Mcclain # (Auto) Eos # (Auto) Baso # (Auto) WBC Differential Seg Neuts % (Manual) Band Neuts % (Manual) Lymphocytes % (Manual) Monocytes % (Manual) Metamyelocytes % (Man) Abs Neuts (Manual) Nucleated RBCs/100 WBC Differential Comment Toxic Granulation Toxic Vacuolation Platelet Estimate Platelet Morphology PT 15.5 H INR 1.5 APTT 38.0 H Fibrinogen 203 L Puncture Site Patient Temperature O2 Saturation ABG pH ABG pCO2 ABG pO2 ABG HCO3 ABG O2 Content ABG Base Excess ABG Methemoglobin Jordy Test Hemoglobin Carboxyhemoglobin O2 Delivery Device Liter Flow Vent Setting Inspired O2 Critical Value Sodium Potassium Chloride Carbon Dioxide Anion Gap BUN Creatinine Estimated GFR POC Glucose 175 H Random Glucose Hemoglobin A1c Lactic Acid Calcium Calcium Adj for Albumin Phosphorus Magnesium Ammonia Total Creatine Kinase CK-MB (CK-2) CK-MB (CK-2) % Troponin I 0.33 H Albumin Lipase 7136 H Beta-Hydroxybutyric Acd Urine Color Urine Clarity Urine pH Ur Specific [place] Urine Protein Urine Glucose (UA) Urine Ketones Urine Occult Blood Urine Nitrate Urine Bilirubin Urine Urobilinogen Ur Leukocyte Esterase Urine RBC Urine WBC Urine WBC Clumps Amorphous Sediment Urine Bacteria Hyaline Casts Urine Mucus Micro UA Comment Urine Culture Comments Urine Eosinophils Ur Random Creatinine Ur Random Sodium Nasal Screen MRSA (PCR) Stl C.difficile DNA Amp St C. diff Tox Epid 027 MTS Gel Crossmatch Blood Bank Comment 08/03/18 08/03/18 08/03/18 09:18 09:49 10:04 WBC RBC Hgb 9.9 L Hct MCV MCH MCHC RDW Plt Count MPV Prelim Diff (Auto) Neut % (Auto) Lymph % (Auto) Mcclain % (Auto) Eos % (Auto) Baso % (Auto) Neut # (Auto) Lymph # (Auto) Mcclain # (Auto) Eos # (Auto) Baso # (Auto) WBC Differential Seg Neuts % (Manual) Band Neuts % (Manual) Lymphocytes % (Manual) Monocytes % (Manual) Metamyelocytes % (Man) Abs Neuts (Manual) Nucleated RBCs/100 WBC Differential Comment Toxic Granulation Toxic Vacuolation Platelet Estimate Platelet Morphology PT INR APTT Fibrinogen Puncture Site Patient Temperature O2 Saturation ABG pH ABG pCO2 ABG pO2 ABG HCO3 ABG O2 Content ABG Base Excess ABG Methemoglobin Jordy Test Hemoglobin Carboxyhemoglobin O2 Delivery Device Liter Flow Vent Setting Inspired O2 Critical Value Sodium Potassium Chloride Carbon Dioxide Anion Gap BUN Creatinine Estimated GFR POC Glucose 168 H Random Glucose Hemoglobin A1c Lactic Acid Calcium Calcium Adj for Albumin Phosphorus Magnesium Ammonia Total Creatine Kinase CK-MB (CK-2) CK-MB (CK-2) % Troponin I Albumin Lipase Beta-Hydroxybutyric Acd Urine Color Urine Clarity Urine pH Ur Specific [place] Urine Protein Urine Glucose (UA) Urine Ketones Urine Occult Blood Urine Nitrate Urine Bilirubin Urine Urobilinogen Ur Leukocyte Esterase Urine RBC Urine WBC Urine WBC Clumps Amorphous Sediment Urine Bacteria Hyaline Casts Urine Mucus Micro UA Comment Urine Culture Comments Urine Eosinophils Ur Random Creatinine Ur Random Sodium Nasal Screen MRSA (PCR) Stl C.difficile DNA Amp Negative St C. diff Tox Epid 027 Negative MTS Gel Crossmatch Blood Bank Comment 08/03/18 08/03/18 08/03/18 10:44 10:58 12:01 WBC RBC Hgb Hct MCV MCH MCHC RDW Plt Count MPV Prelim Diff (Auto) Neut % (Auto) Lymph % (Auto) Mcclain % (Auto) Eos % (Auto) Baso % (Auto) Neut # (Auto) Lymph # (Auto) Mcclain # (Auto) Eos # (Auto) Baso # (Auto) WBC Differential Seg Neuts % (Manual) Band Neuts % (Manual) Lymphocytes % (Manual) Monocytes % (Manual) Metamyelocytes % (Man) Abs Neuts (Manual) Nucleated RBCs/100 WBC Differential Comment Toxic Granulation Toxic Vacuolation Platelet Estimate Platelet Morphology PT INR APTT Fibrinogen Puncture Site Art line Patient Temperature 98.6 O2 Saturation 96 ABG pH 7.30 L ABG pCO2 25 L ABG pO2 226 H ABG HCO3 12 L* ABG O2 Content 13.2 ABG Base Excess -13.5 L ABG Methemoglobin 2.1 H Jordy Test Present Hemoglobin 9.4 L Carboxyhemoglobin 0.6 O2 Delivery Device Ventilator Liter Flow Vent Setting Prvc/ac Inspired O2 40 Critical Value Yes Sodium Potassium Chloride Carbon Dioxide Anion Gap BUN Creatinine Estimated GFR POC Glucose 154 H 140 H Random Glucose Hemoglobin A1c Lactic Acid Calcium Calcium Adj for Albumin Phosphorus Magnesium Ammonia Total Creatine Kinase CK-MB (CK-2) CK-MB (CK-2) % Troponin I Albumin Lipase Beta-Hydroxybutyric Acd Urine Color Urine Clarity Urine pH Ur Specific [place] Urine Protein Urine Glucose (UA) Urine Ketones Urine Occult Blood Urine Nitrate Urine Bilirubin Urine Urobilinogen Ur Leukocyte Esterase Urine RBC Urine WBC Urine WBC Clumps Amorphous Sediment Urine Bacteria Hyaline Casts Urine Mucus Micro UA Comment Urine Culture Comments Urine Eosinophils Ur Random Creatinine Ur Random Sodium Nasal Screen MRSA (PCR) Stl C.difficile DNA Amp St C. diff Tox Epid 027 GigsJam Gel [employer] Blood Bank Comment 08/03/18 08/03/18 08/03/18 12:24 12:59 13:50 WBC RBC Hgb Hct MCV MCH MCHC RDW Plt Count MPV Prelim Diff (Auto) Neut % (Auto) Lymph % (Auto) Mcclain % (Auto) Eos % (Auto) Baso % (Auto) Neut # (Auto) Lymph # (Auto) Mcclain # (Auto) Eos # (Auto) Baso # (Auto) WBC Differential Seg Neuts % (Manual) Band Neuts % (Manual) Lymphocytes % (Manual) Monocytes % (Manual) Metamyelocytes % (Man) Abs Neuts (Manual) Nucleated RBCs/100 WBC Differential Comment Toxic Granulation Toxic Vacuolation Platelet Estimate Platelet Morphology PT INR APTT Fibrinogen Puncture Site Patient Temperature O2 Saturation ABG pH ABG pCO2 ABG pO2 ABG HCO3 ABG O2 Content ABG Base Excess ABG Methemoglobin Jordy Test Hemoglobin Carboxyhemoglobin O2 Delivery Device Liter Flow Vent Setting Inspired O2 Critical Value Sodium 143 Potassium 4.0 Chloride 118 H Carbon Dioxide 13.6 L Anion Gap 11 BUN 86 H Creatinine 2.37 H Estimated GFR 34 L POC Glucose 137 H 156 H Random Glucose 151 H Hemoglobin A1c Lactic Acid Calcium 5.8 L* Calcium Adj for Albumin 7.6 L Phosphorus Magnesium Ammonia Total Creatine Kinase CK-MB (CK-2) CK-MB (CK-2) % Troponin I Albumin 1.7 L Lipase Beta-Hydroxybutyric Acd 0.09 Urine Color Urine Clarity Urine pH Ur Specific [place] Urine Protein Urine Glucose (UA) Urine Ketones Urine Occult Blood Urine Nitrate Urine Bilirubin Urine Urobilinogen Ur Leukocyte Esterase Urine RBC Urine WBC Urine WBC Clumps Amorphous Sediment Urine Bacteria Hyaline Casts Urine Mucus Micro UA Comment Urine Culture Comments Urine Eosinophils Ur Random Creatinine Ur Random Sodium Nasal Screen MRSA (PCR) Stl C.difficile DNA Amp St C. diff Tox Epid 027 GigsJam Gel [employer] Blood Bank Comment 08/03/18 08/03/18 13:54 14:47 WBC RBC Hgb Hct MCV MCH MCHC RDW Plt Count MPV Prelim Diff (Auto) Neut % (Auto) Lymph % (Auto) Mcclain % (Auto) Eos % (Auto) Baso % (Auto) Neut # (Auto) Lymph # (Auto) Mcclain # (Auto) Eos # (Auto) Baso # (Auto) WBC Differential Seg Neuts % (Manual) Band Neuts % (Manual) Lymphocytes % (Manual) Monocytes % (Manual) Metamyelocytes % (Man) Abs Neuts (Manual) Nucleated RBCs/100 WBC Differential Comment Toxic Granulation Toxic Vacuolation Platelet Estimate Platelet Morphology PT INR APTT Fibrinogen Puncture Site Patient Temperature O2 Saturation ABG pH ABG pCO2 ABG pO2 ABG HCO3 ABG O2 Content ABG Base Excess ABG Methemoglobin Jordy Test Hemoglobin Carboxyhemoglobin O2 Delivery Device Liter Flow Vent Setting Inspired O2 Critical Value Sodium Potassium Chloride Carbon Dioxide Anion Gap BUN Creatinine Estimated GFR POC Glucose 177 H 158 H Random Glucose Hemoglobin A1c Lactic Acid Calcium Calcium Adj for Albumin Phosphorus Magnesium Ammonia Total Creatine Kinase CK-MB (CK-2) CK-MB (CK-2) % Troponin I Albumin Lipase Beta-Hydroxybutyric Acd Urine Color Urine Clarity Urine pH Ur Specific [place] Urine Protein Urine Glucose (UA) Urine Ketones Urine Occult Blood Urine Nitrate Urine Bilirubin Urine Urobilinogen Ur Leukocyte Esterase Urine RBC Urine WBC Urine WBC Clumps Amorphous Sediment Urine Bacteria Hyaline Casts Urine Mucus Micro UA Comment Urine Culture Comments Urine Eosinophils Ur Random Creatinine Ur Random Sodium Nasal Screen MRSA (PCR) Stl C.difficile DNA Amp St C. diff Tox Epid 027 MTS Gel Crossmatch Blood Bank Comment - Imaging Impressions Extremity Arterial Study 08/02/18 00:00 CONCLUSION: Severe small vessel disease, left worse than right Abdomen/Bladder Ultrasound 08/02/18 14:35 CONCLUSION: Bladder distention despite Tang catheter. Chest X-Ray 08/03/18 00:37 CONCLUSION: Endotracheal tube, nasogastric tube and left central line in good position. No focal infiltrate or effusion. <Shannon Martin - Last Filed: 08/03/18 15:10> - Labs CBC & Chem 7: 08/04/18 07:43 08/04/18 11:42 Labs: Laboratory Results - last 24 hr 08/02/18 08/03/18 08/03/18 10:55 12:59 13:50 WBC RBC Hgb Hct MCV MCH MCHC RDW Plt Count MPV Prelim Diff (Auto) Neut % (Auto) Lymph % (Auto) Mcclain % (Auto) Eos % (Auto) Baso % (Auto) Neut # (Auto) Lymph # (Auto) Mcclain # (Auto) Eos # (Auto) Baso # (Auto) WBC Differential Seg Neuts % (Manual) Band Neuts % (Manual) Lymphocytes % (Manual) Monocytes % (Manual) Metamyelocytes % (Man) Abs Neuts (Manual) Nucleated RBCs/100 WBC Differential Comment Toxic Granulation Toxic Vacuolation Platelet Estimate Platelet Morphology Indigo Cells Acanthocytes (Spur) Keratocytes PT INR APTT Fibrinogen Puncture Site Patient Temperature O2 Saturation ABG pH ABG pCO2 ABG pO2 ABG HCO3 ABG O2 Content ABG Base Excess ABG Methemoglobin Jordy Test Hemoglobin Carboxyhemoglobin O2 Delivery Device Vent Setting Inspired O2 Critical Value Sodium 143 Potassium 4.0 Chloride 118 H Carbon Dioxide 13.6 L Anion Gap 11 BUN 86 H Creatinine 2.37 H Estimated GFR 34 L POC Glucose 156 H Random Glucose 151 H Osmolality Lactic Acid Calcium 5.8 L* Calcium Adj for Albumin 7.6 L Phosphorus Magnesium Total Bilirubin AST ALT Alkaline Phosphatase Ammonia Total Creatine Kinase CK-MB (CK-2) CK-MB (CK-2) % Troponin I Total Protein Albumin 1.7 L Lipase Beta-Hydroxybutyric Acd 0.09 Urine Color Yellow Urine Clarity Cloudy H Urine pH 5.0 Ur Specific [place] 1.015 Urine Protein Negative Urine Glucose (UA) 500 or greater Urine Ketones 20 Urine Occult Blood Moderate H Urine Nitrate Negative Urine Bilirubin Negative Urine Urobilinogen Less than 2 Ur Leukocyte Esterase Large H Urine RBC 13 H Urine WBC 114 H Urine WBC Clumps Few H Amorphous Sediment Few H Urine Bacteria Few H Hyaline Casts 10 Urine Mucus Few H Micro UA Comment Cath-culture ind Urine Culture Comments Cath-cult indicated Random Vancomycin 08/03/18 08/03/18 08/03/18 13:54 14:47 15:42 WBC RBC Hgb Hct MCV MCH MCHC RDW Plt Count MPV Prelim Diff (Auto) Neut % (Auto) Lymph % (Auto) Mcclain % (Auto) Eos % (Auto) Baso % (Auto) Neut # (Auto) Lymph # (Auto) Mcclain # (Auto) Eos # (Auto) Baso # (Auto) WBC Differential Seg Neuts % (Manual) Band Neuts % (Manual) Lymphocytes % (Manual) Monocytes % (Manual) Metamyelocytes % (Man) Abs Neuts (Manual) Nucleated RBCs/100 WBC Differential Comment Toxic Granulation Toxic Vacuolation Platelet Estimate Platelet Morphology Indigo Cells Acanthocytes (Spur) Keratocytes PT INR APTT Fibrinogen Puncture Site Patient Temperature O2 Saturation ABG pH ABG pCO2 ABG pO2 ABG HCO3 ABG O2 Content ABG Base Excess ABG Methemoglobin Jordy Test Hemoglobin Carboxyhemoglobin O2 Delivery Device Vent Setting Inspired O2 Critical Value Sodium Potassium Chloride Carbon Dioxide Anion Gap BUN Creatinine Estimated GFR POC Glucose 177 H 158 H 171 H Random Glucose Osmolality Lactic Acid Calcium Calcium Adj for Albumin Phosphorus Magnesium Total Bilirubin AST ALT Alkaline Phosphatase Ammonia Total Creatine Kinase CK-MB (CK-2) CK-MB (CK-2) % Troponin I Total Protein Albumin Lipase Beta-Hydroxybutyric Acd Urine Color Urine Clarity Urine pH Ur Specific [place] Urine Protein Urine Glucose (UA) Urine Ketones Urine Occult Blood Urine Nitrate Urine Bilirubin Urine Urobilinogen Ur Leukocyte Esterase Urine RBC Urine WBC Urine WBC Clumps Amorphous Sediment Urine Bacteria Hyaline Casts Urine Mucus Micro UA Comment Urine Culture Comments Random Vancomycin 08/03/18 08/03/18 08/03/18 16:49 17:15 17:15 WBC RBC Hgb 9.1 L Hct MCV MCH MCHC RDW Plt Count MPV Prelim Diff (Auto) Neut % (Auto) Lymph % (Auto) Mcclain % (Auto) Eos % (Auto) Baso % (Auto) Neut # (Auto) Lymph # (Auto) Mcclain # (Auto) Eos # (Auto) Baso # (Auto) WBC Differential Seg Neuts % (Manual) Band Neuts % (Manual) Lymphocytes % (Manual) Monocytes % (Manual) Metamyelocytes % (Man) Abs Neuts (Manual) Nucleated RBCs/100 WBC Differential Comment Toxic Granulation Toxic Vacuolation Platelet Estimate Platelet Morphology Indigo Cells Acanthocytes (Spur) Keratocytes PT INR APTT Fibrinogen Puncture Site Patient Temperature O2 Saturation ABG pH ABG pCO2 ABG pO2 ABG HCO3 ABG O2 Content ABG Base Excess ABG Methemoglobin Jordy Test Hemoglobin Carboxyhemoglobin O2 Delivery Device Vent Setting Inspired O2 Critical Value Sodium Potassium Chloride Carbon Dioxide Anion Gap BUN Creatinine Estimated GFR POC Glucose 172 H Random Glucose Osmolality Lactic Acid 3.6 H Calcium Calcium Adj for Albumin Phosphorus Magnesium Total Bilirubin AST ALT Alkaline Phosphatase Ammonia Total Creatine Kinase CK-MB (CK-2) CK-MB (CK-2) % Troponin I Total Protein Albumin Lipase Beta-Hydroxybutyric Acd Urine Color Urine Clarity Urine pH Ur Specific [place] Urine Protein Urine Glucose (UA) Urine Ketones Urine Occult Blood Urine Nitrate Urine Bilirubin Urine Urobilinogen Ur Leukocyte Esterase Urine RBC Urine WBC Urine WBC Clumps Amorphous Sediment Urine Bacteria Hyaline Casts Urine Mucus Micro UA Comment Urine Culture Comments Random Vancomycin 08/03/18 08/03/18 08/03/18 17:15 17:33 18:05 WBC RBC Hgb Hct MCV MCH MCHC RDW Plt Count MPV Prelim Diff (Auto) Neut % (Auto) Lymph % (Auto) Mcclain % (Auto) Eos % (Auto) Baso % (Auto) Neut # (Auto) Lymph # (Auto) Mcclain # (Auto) Eos # (Auto) Baso # (Auto) WBC Differential Seg Neuts % (Manual) Band Neuts % (Manual) Lymphocytes % (Manual) Monocytes % (Manual) Metamyelocytes % (Man) Abs Neuts (Manual) Nucleated RBCs/100 WBC Differential Comment Toxic Granulation Toxic Vacuolation Platelet Estimate Platelet Morphology Belva Cells Acanthocytes (Spur) Keratocytes PT INR APTT Fibrinogen Puncture Site Art line Patient Temperature 98.6 O2 Saturation 96 ABG pH 7.32 L ABG pCO2 25 L ABG pO2 209 H ABG HCO3 12 L* ABG O2 Content 12.9 ABG Base Excess -12.6 L ABG Methemoglobin 2.1 H Jordy Test Present Hemoglobin 9.2 L Carboxyhemoglobin 0.6 O2 Delivery Device Ventilator Vent Setting Prvc/ac Inspired O2 40 Critical Value No Sodium Potassium Chloride Carbon Dioxide Anion Gap BUN Creatinine Estimated GFR POC Glucose 184 H Random Glucose Osmolality Lactic Acid Calcium Calcium Adj for Albumin Phosphorus Magnesium 1.9 Total Bilirubin AST ALT Alkaline Phosphatase Ammonia Total Creatine Kinase CK-MB (CK-2) CK-MB (CK-2) % Troponin I Total Protein Albumin Lipase Beta-Hydroxybutyric Acd Urine Color Urine Clarity Urine pH Ur Specific [place] Urine Protein Urine Glucose (UA) Urine Ketones Urine Occult Blood Urine Nitrate Urine Bilirubin Urine Urobilinogen Ur Leukocyte Esterase Urine RBC Urine WBC Urine WBC Clumps Amorphous Sediment Urine Bacteria Hyaline Casts Urine Mucus Micro UA Comment Urine Culture Comments Random Vancomycin 08/03/18 08/03/18 08/03/18 18:49 21:00 21:20 WBC RBC Hgb Hct MCV MCH MCHC RDW Plt Count MPV Prelim Diff (Auto) Neut % (Auto) Lymph % (Auto) [place]cl[place] % (Auto) Eos % (Auto) Baso % (Auto) Neut # (Auto) Lymph # (Auto) Mcclain # (Auto) Eos # (Auto) Baso # (Auto) WBC Differential Seg Neuts % (Manual) Band Neuts % (Manual) Lymphocytes % (Manual) Monocytes % (Manual) Metamyelocytes % (Man) Abs Neuts (Manual) Nucleated RBCs/100 WBC Differential Comment Toxic Granulation Toxic Vacuolation Platelet Estimate Platelet Morphology Indigo Cells Acanthocytes (Spur) Keratocytes PT INR APTT Fibrinogen Puncture Site Patient Temperature O2 Saturation ABG pH ABG pCO2 ABG pO2 ABG HCO3 ABG O2 Content ABG Base Excess ABG Methemoglobin Jordy Test Hemoglobin Carboxyhemoglobin O2 Delivery Device Vent Setting Inspired O2 Critical Value Sodium Potassium Chloride Carbon Dioxide Anion Gap BUN Creatinine Estimated GFR POC Glucose 132 H 188 H Random Glucose Osmolality Lactic Acid 2.3 H Calcium Calcium Adj for Albumin Phosphorus Magnesium Total Bilirubin AST ALT Alkaline Phosphatase Ammonia Total Creatine Kinase CK-MB (CK-2) CK-MB (CK-2) % Troponin I Total Protein Albumin Lipase Beta-Hydroxybutyric Acd Urine Color Urine Clarity Urine pH Ur Specific [place] Urine Protein Urine Glucose (UA) Urine Ketones Urine Occult Blood Urine Nitrate Urine Bilirubin Urine Urobilinogen Ur Leukocyte Esterase Urine RBC Urine WBC Urine WBC Clumps Amorphous Sediment Urine Bacteria Hyaline Casts Urine Mucus Micro UA Comment Urine Culture Comments Random Vancomycin 08/03/18 08/03/18 08/03/18 22:08 22:59 23:40 WBC 32.2 H RBC 3.12 L Hgb 9.4 L Hct 27.4 L MCV 87.9 MCH 30.1 MCHC 34.2 RDW 16.7 Plt Count 69 L D MPV 8.0 Prelim Diff (Auto) Slide review pending Neut % (Auto) 96.6 H Lymph % (Auto) 2.3 L Mcclain % (Auto) 1.0 Eos % (Auto) 0.0 Baso % (Auto) 0.1 Neut # (Auto) 31.1 H Lymph # (Auto) 0.7 L Mcclain # (Auto) 0.3 Eos # (Auto) 0.0 Baso # (Auto) 0.0 WBC Differential Manual diff final Seg Neuts % (Manual) 69 Band Neuts % (Manual) 26 H Lymphocytes % (Manual) Monocytes % (Manual) 2 Metamyelocytes % (Man) 3 H Abs Neuts (Manual) 31.6 H Nucleated RBCs/100 WBC 2 H Differential Comment . Toxic Granulation Toxic Vacuolation Present H Platelet Estimate Low L Platelet Morphology Normal Belva Cells 1+ H Acanthocytes (Spur) Occ H Keratocytes Occ H PT INR APTT Fibrinogen Puncture Site Patient Temperature O2 Saturation ABG pH ABG pCO2 ABG pO2 ABG HCO3 ABG O2 Content ABG Base Excess ABG Methemoglobin Jordy Test Hemoglobin Carboxyhemoglobin O2 Delivery Device Vent Setting Inspired O2 Critical Value Sodium Potassium Chloride Carbon Dioxide Anion Gap BUN Creatinine Estimated GFR POC Glucose 228 H 212 H Random Glucose Osmolality Lactic Acid Calcium Calcium Adj for Albumin Phosphorus Magnesium Total Bilirubin AST ALT Alkaline Phosphatase Ammonia Total Creatine Kinase CK-MB (CK-2) CK-MB (CK-2) % Troponin I Total Protein Albumin Lipase Beta-Hydroxybutyric Acd Urine Color Urine Clarity Urine pH Ur Specific [place] Urine Protein Urine Glucose (UA) Urine Ketones Urine Occult Blood Urine Nitrate Urine Bilirubin Urine Urobilinogen Ur Leukocyte Esterase Urine RBC Urine WBC Urine WBC Clumps Amorphous Sediment Urine Bacteria Hyaline Casts Urine Mucus Micro UA Comment Urine Culture Comments Random Vancomycin 08/03/18 08/03/18 08/03/18 23:40 23:40 23:40 WBC RBC Hgb Hct MCV MCH MCHC RDW Plt Count MPV Prelim Diff (Auto) Neut % (Auto) Lymph % (Auto) Mcclain % (Auto) Eos % (Auto) Baso % (Auto) Neut # (Auto) Lymph # (Auto) Mcclain # (Auto) Eos # (Auto) Baso # (Auto) WBC Differential Seg Neuts % (Manual) Band Neuts % (Manual) Lymphocytes % (Manual) Monocytes % (Manual) Metamyelocytes % (Man) Abs Neuts (Manual) Nucleated RBCs/100 WBC Differential Comment Toxic Granulation Toxic Vacuolation Platelet Estimate Platelet Morphology Indigo Cells Acanthocytes (Spur) Keratocytes PT 15.6 H INR 1.5 APTT 48.0 H D Fibrinogen 198 L Puncture Site Patient Temperature O2 Saturation ABG pH ABG pCO2 ABG pO2 ABG HCO3 ABG O2 Content ABG Base Excess ABG Methemoglobin Jordy Test Hemoglobin Carboxyhemoglobin O2 Delivery Device Vent Setting Inspired O2 Critical Value Sodium 141 Potassium 4.2 Chloride 116 H Carbon Dioxide 15.8 L Anion Gap 9 BUN 78 H Creatinine 2.55 H Estimated GFR 32 L POC Glucose Random Glucose 190 H Osmolality Lactic Acid 3.5 H Calcium 5.7 L* Calcium Adj for Albumin 7.0 L* Phosphorus 1.8 L D Magnesium 1.8 Total Bilirubin 0.4 AST 3969 H ALT 1337 H Alkaline Phosphatase 124 H Ammonia Total Creatine Kinase 4926 H CK-MB (CK-2) 50.3 H CK-MB (CK-2) % 1.0 Troponin I Total Protein 4.3 L D Albumin 1.4 L Lipase Beta-Hydroxybutyric Acd Urine Color Urine Clarity Urine pH Ur Specific [place] Urine Protein Urine Glucose (UA) Urine Ketones Urine Occult Blood Urine Nitrate Urine Bilirubin Urine Urobilinogen Ur Leukocyte Esterase Urine RBC Urine WBC Urine WBC Clumps Amorphous Sediment Urine Bacteria Hyaline Casts Urine Mucus Micro UA Comment Urine Culture Comments Random Vancomycin 8.6 08/03/18 08/04/18 08/04/18 23:40 00:04 01:03 WBC RBC Hgb Hct MCV MCH MCHC RDW Plt Count MPV Prelim Diff (Auto) Neut % (Auto) Lymph % (Auto) Mcclain % (Auto) Eos % (Auto) Baso % (Auto) Neut # (Auto) Lymph # (Auto) [place]cl[place] # (Auto) Eos # (Auto) Baso # (Auto) WBC Differential Seg Neuts % (Manual) Band Neuts % (Manual) Lymphocytes % (Manual) Monocytes % (Manual) Metamyelocytes % (Man) Abs Neuts (Manual) Nucleated RBCs/100 WBC Differential Comment Toxic Granulation Toxic Vacuolation Platelet Estimate Platelet Morphology Belva Cells Acanthocytes (Spur) Keratocytes PT INR APTT Fibrinogen Puncture Site Patient Temperature O2 Saturation ABG pH ABG pCO2 ABG pO2 ABG HCO3 ABG O2 Content ABG Base Excess ABG Methemoglobin Jordy Test Hemoglobin Carboxyhemoglobin O2 Delivery Device Vent Setting Inspired O2 Critical Value Sodium Potassium Chloride Carbon Dioxide Anion Gap BUN Creatinine Estimated GFR POC Glucose 188 H 205 H Random Glucose Osmolality Lactic Acid Calcium Calcium Adj for Albumin Phosphorus Magnesium Total Bilirubin AST ALT Alkaline Phosphatase Ammonia 36 H Total Creatine Kinase CK-MB (CK-2) CK-MB (CK-2) % Troponin I Total Protein Albumin Lipase Beta-Hydroxybutyric Acd Urine Color Urine Clarity Urine pH Ur Specific [place] Urine Protein Urine Glucose (UA) Urine Ketones Urine Occult Blood Urine Nitrate Urine Bilirubin Urine Urobilinogen Ur Leukocyte Esterase Urine RBC Urine WBC Urine WBC Clumps Amorphous Sediment Urine Bacteria Hyaline Casts Urine Mucus Micro UA Comment Urine Culture Comments Random Vancomycin 08/04/18 08/04/18 08/04/18 01:58 02:58 03:00 WBC RBC Hgb Hct MCV MCH MCHC RDW Plt Count MPV Prelim Diff (Auto) Neut % (Auto) Lymph % (Auto) [place]cl[place] % (Auto) Eos % (Auto) Baso % (Auto) Neut # (Auto) Lymph # (Auto) [place]cl[place] # (Auto) Eos # (Auto) Baso # (Auto) WBC Differential Seg Neuts % (Manual) Band Neuts % (Manual) Lymphocytes % (Manual) Monocytes % (Manual) Metamyelocytes % (Man) Abs Neuts (Manual) Nucleated RBCs/100 WBC Differential Comment Toxic Granulation Toxic Vacuolation Platelet Estimate Platelet Morphology Belva Cells Acanthocytes (Spur) Keratocytes PT INR APTT Fibrinogen Puncture Site Patient Temperature O2 Saturation ABG pH ABG pCO2 ABG pO2 ABG HCO3 ABG O2 Content ABG Base Excess ABG Methemoglobin Jordy Test Hemoglobin Carboxyhemoglobin O2 Delivery Device Vent Setting Inspired O2 Critical Value Sodium Potassium Chloride Carbon Dioxide Anion Gap BUN Creatinine Estimated GFR POC Glucose 192 H 195 H Random Glucose Osmolality Lactic Acid 3.7 H Calcium Calcium Adj for Albumin Phosphorus Magnesium Total Bilirubin AST ALT Alkaline Phosphatase Ammonia Total Creatine Kinase CK-MB (CK-2) CK-MB (CK-2) % Troponin I Total Protein Albumin Lipase Beta-Hydroxybutyric Acd Urine Color Urine Clarity Urine pH Ur Specific [place] Urine Protein Urine Glucose (UA) Urine Ketones Urine Occult Blood Urine Nitrate Urine Bilirubin Urine Urobilinogen Ur Leukocyte Esterase Urine RBC Urine WBC Urine WBC Clumps Amorphous Sediment Urine Bacteria Hyaline Casts Urine Mucus Micro UA Comment Urine Culture Comments Random Vancomycin 08/04/18 08/04/18 08/04/18 04:02 05:01 05:52 WBC RBC Hgb Hct MCV MCH MCHC RDW Plt Count MPV Prelim Diff (Auto) Neut % (Auto) Lymph % (Auto) [place]cl[place] % (Auto) Eos % (Auto) Baso % (Auto) Neut # (Auto) Lymph # (Auto) [place]cl[place] # (Auto) Eos # (Auto) Baso # (Auto) WBC Differential Seg Neuts % (Manual) Band Neuts % (Manual) Lymphocytes % (Manual) Monocytes % (Manual) Metamyelocytes % (Man) Abs Neuts (Manual) Nucleated RBCs/100 WBC Differential Comment Toxic Granulation Toxic Vacuolation Platelet Estimate Platelet Morphology Belva Cells Acanthocytes (Spur) Keratocytes PT INR APTT Fibrinogen Puncture Site Patient Temperature O2 Saturation ABG pH ABG pCO2 ABG pO2 ABG HCO3 ABG O2 Content ABG Base Excess ABG Methemoglobin Jordy Test Hemoglobin Carboxyhemoglobin O2 Delivery Device Vent Setting Inspired O2 Critical Value Sodium Potassium Chloride Carbon Dioxide Anion Gap BUN Creatinine Estimated GFR POC Glucose 220 H 209 H 204 H Random Glucose Osmolality Lactic Acid Calcium Calcium Adj for Albumin Phosphorus Magnesium Total Bilirubin AST ALT Alkaline Phosphatase Ammonia Total Creatine Kinase CK-MB (CK-2) CK-MB (CK-2) % Troponin I Total Protein Albumin Lipase Beta-Hydroxybutyric Acd Urine Color Urine Clarity Urine pH Ur Specific [place] Urine Protein Urine Glucose (UA) Urine Ketones Urine Occult Blood Urine Nitrate Urine Bilirubin Urine Urobilinogen Ur Leukocyte Esterase Urine RBC Urine WBC Urine WBC Clumps Amorphous Sediment Urine Bacteria Hyaline Casts Urine Mucus Micro UA Comment Urine Culture Comments Random Vancomycin 08/04/18 08/04/18 08/04/18 06:54 07:43 07:43 WBC 38.1 H RBC 3.08 L Hgb 9.5 L Hct 27.1 L MCV 88.0 MCH 30.8 MCHC 35.0 RDW 16.6 Plt Count 63 L MPV 8.4 Prelim Diff (Auto) Slide review pending Neut % (Auto) 96.7 H Lymph % (Auto) 2.3 L Mcclain % (Auto) 0.7 Eos % (Auto) 0.1 Baso % (Auto) 0.2 Neut # (Auto) 36.9 H Lymph # (Auto) 0.9 L Mcclain # (Auto) 0.3 Eos # (Auto) 0.0 Baso # (Auto) 0.1 WBC Differential Manual diff final Seg Neuts % (Manual) 47 Band Neuts % (Manual) 51 H Lymphocytes % (Manual) 2 L Monocytes % (Manual) Metamyelocytes % (Man) Abs Neuts (Manual) 37.3 H Nucleated RBCs/100 WBC Differential Comment . Toxic Granulation 1+ H Toxic Vacuolation Platelet Estimate Low L Platelet Morphology Normal Indigo Cells 1+ H Acanthocytes (Spur) Occ H Keratocytes PT INR APTT Fibrinogen Puncture Site Patient Temperature O2 Saturation ABG pH ABG pCO2 ABG pO2 ABG HCO3 ABG O2 Content ABG Base Excess ABG Methemoglobin Jordy Test Hemoglobin Carboxyhemoglobin O2 Delivery Device Vent Setting Inspired O2 Critical Value Sodium Potassium Chloride Carbon Dioxide Anion Gap BUN Creatinine Estimated GFR POC Glucose 211 H Random Glucose Osmolality Lactic Acid 3.7 H Calcium Calcium Adj for Albumin Phosphorus Magnesium Total Bilirubin AST ALT Alkaline Phosphatase Ammonia Total Creatine Kinase CK-MB (CK-2) CK-MB (CK-2) % Troponin I Total Protein Albumin Lipase Beta-Hydroxybutyric Acd Urine Color Urine Clarity Urine pH Ur Specific [place] Urine Protein Urine Glucose (UA) Urine Ketones Urine Occult Blood Urine Nitrate Urine Bilirubin Urine Urobilinogen Ur Leukocyte Esterase Urine RBC Urine WBC Urine WBC Clumps Amorphous Sediment Urine Bacteria Hyaline Casts Urine Mucus Micro UA Comment Urine Culture Comments Random Vancomycin 08/04/18 08/04/18 08/04/18 07:43 07:43 08:36 WBC RBC Hgb Hct MCV MCH MCHC RDW Plt Count MPV Prelim Diff (Auto) Neut % (Auto) Lymph % (Auto) Mcclain % (Auto) Eos % (Auto) Baso % (Auto) Neut # (Auto) Lymph # (Auto) Mcclain # (Auto) Eos # (Auto) Baso # (Auto) WBC Differential Seg Neuts % (Manual) Band Neuts % (Manual) Lymphocytes % (Manual) Monocytes % (Manual) Metamyelocytes % (Man) Abs Neuts (Manual) Nucleated RBCs/100 WBC Differential Comment Toxic Granulation Toxic Vacuolation Platelet Estimate Platelet Morphology Indigo Cells Acanthocytes (Spur) Keratocytes PT 15.2 H INR 1.5 APTT 46.5 H Fibrinogen 241 Puncture Site Patient Temperature O2 Saturation ABG pH ABG pCO2 ABG pO2 ABG HCO3 ABG O2 Content ABG Base Excess ABG Methemoglobin Jordy Test Hemoglobin Carboxyhemoglobin O2 Delivery Device Vent Setting Inspired O2 Critical Value Sodium 140 Potassium 4.4 Chloride 115 H Carbon Dioxide 13.2 L Anion Gap 12 BUN 75 H Creatinine 2.80 H Estimated GFR 28 L POC Glucose 205 H Random Glucose 198 H Osmolality Lactic Acid Calcium 5.7 L* Calcium Adj for Albumin 7.0 L* Phosphorus 1.7 L Magnesium 1.9 Total Bilirubin 0.4 AST 3067 H ALT 1158 H Alkaline Phosphatase 128 H Ammonia Total Creatine Kinase 4932 H CK-MB (CK-2) 41.1 H CK-MB (CK-2) % 0.8 Troponin I 0.23 H Total Protein 4.2 L Albumin 1.3 L Lipase 1559 H Beta-Hydroxybutyric Acd Urine Color Urine Clarity Urine pH Ur Specific [place] Urine Protein Urine Glucose (UA) Urine Ketones Urine Occult Blood Urine Nitrate Urine Bilirubin Urine Urobilinogen Ur Leukocyte Esterase Urine RBC Urine WBC Urine WBC Clumps Amorphous Sediment Urine Bacteria Hyaline Casts Urine Mucus Micro UA Comment Urine Culture Comments Random Vancomycin 08/04/18 08/04/18 08/04/18 08:46 09:50 11:17 WBC RBC Hgb Hct MCV MCH MCHC RDW Plt Count MPV Prelim Diff (Auto) Neut % (Auto) Lymph % (Auto) Mcclain % (Auto) Eos % (Auto) Baso % (Auto) Neut # (Auto) Lymph # (Auto) Mcclain # (Auto) Eos # (Auto) Baso # (Auto) WBC Differential Seg Neuts % (Manual) Band Neuts % (Manual) Lymphocytes % (Manual) Monocytes % (Manual) Metamyelocytes % (Man) Abs Neuts (Manual) Nucleated RBCs/100 WBC Differential Comment Toxic Granulation Toxic Vacuolation Platelet Estimate Platelet Morphology Belva Cells Acanthocytes (Spur) Keratocytes PT INR APTT Fibrinogen Puncture Site [place] Patient Temperature 98.6 O2 Saturation 96 ABG pH 7.38 ABG pCO2 23 L* ABG pO2 167 H ABG HCO3 13 L* ABG O2 Content 13.5 ABG Base Excess -11.0 L ABG Methemoglobin 2.1 H Jordy Test Hemoglobin 9.7 L Carboxyhemoglobin 0.5 O2 Delivery Device Ventilator Vent Setting See comments Inspired O2 35 Critical Value Yes Sodium Potassium Chloride Carbon Dioxide Anion Gap BUN Creatinine Estimated GFR POC Glucose 175 H 204 H Random Glucose Osmolality Lactic Acid Calcium Calcium Adj for Albumin Phosphorus Magnesium Total Bilirubin AST ALT Alkaline Phosphatase Ammonia Total Creatine Kinase CK-MB (CK-2) CK-MB (CK-2) % Troponin I Total Protein Albumin Lipase Beta-Hydroxybutyric Acd Urine Color Urine Clarity Urine pH Ur Specific [place] Urine Protein Urine Glucose (UA) Urine Ketones Urine Occult Blood Urine Nitrate Urine Bilirubin Urine Urobilinogen Ur Leukocyte Esterase Urine RBC Urine WBC Urine WBC Clumps Amorphous Sediment Urine Bacteria Hyaline Casts Urine Mucus Micro UA Comment Urine Culture Comments Random Vancomycin 08/04/18 11:42 WBC RBC Hgb Hct MCV MCH MCHC RDW Plt Count MPV Prelim Diff (Auto) Neut % (Auto) Lymph % (Auto) Mcclain % (Auto) Eos % (Auto) Baso % (Auto) Neut # (Auto) Lymph # (Auto) Mcclain # (Auto) Eos # (Auto) Baso # (Auto) WBC Differential Seg Neuts % (Manual) Band Neuts % (Manual) Lymphocytes % (Manual) Monocytes % (Manual) Metamyelocytes % (Man) Abs Neuts (Manual) Nucleated RBCs/100 WBC Differential Comment Toxic Granulation Toxic Vacuolation Platelet Estimate Platelet Morphology Indigo Cells Acanthocytes (Spur) Keratocytes PT INR APTT Fibrinogen Puncture Site Patient Temperature O2 Saturation ABG pH ABG pCO2 ABG pO2 ABG HCO3 ABG O2 Content ABG Base Excess ABG Methemoglobin Jordy Test Hemoglobin Carboxyhemoglobin O2 Delivery Device Vent Setting Inspired O2 Critical Value Sodium 141 Potassium Chloride Carbon Dioxide Anion Gap BUN Creatinine Estimated GFR POC Glucose Random Glucose Osmolality 307 H Lactic Acid Calcium Calcium Adj for Albumin Phosphorus Magnesium Total Bilirubin AST ALT Alkaline Phosphatase Ammonia Total Creatine Kinase CK-MB (CK-2) CK-MB (CK-2) % Troponin I Total Protein Albumin Lipase Beta-Hydroxybutyric Acd Urine Color Urine Clarity Urine pH Ur Specific [place] Urine Protein Urine Glucose (UA) Urine Ketones Urine Occult Blood Urine Nitrate Urine Bilirubin Urine Urobilinogen Ur Leukocyte Esterase Urine RBC Urine WBC Urine WBC Clumps Amorphous Sediment Urine Bacteria Hyaline Casts Urine Mucus Micro UA Comment Urine Culture Comments Random Vancomycin - Imaging Impressions Head MRI 08/04/18 07:35 CONCLUSION: Markedly abnormal brain appearance as above. Findings were discussed with Dr. Grubbs <Srikanth Carpenter - Last Filed: 08/04/18 13:13> Assessment and Plan (1) Gastrointestinal hemorrhage with melena Status: Acute Code(s): K92.1 - Melena (2) Macrocytic anemia Status: Acute Code(s): D53.9 - Nutritional anemia, unspecified - Plan This patient is a 57-year-old male who presented to the emergency department at [facility] with reported altered mental status. Patient has a medical history significant for stage IV lung cancer, diabetes mellitus, hypertension, peripheral neuropathy and narcotic use. Upon arrival to emergency room, patient was noted to be hypothermic, hypokalemic, hyperglycemic with blood sugar 900. As per critical care documentation. CT brain revealed no acute intracranial findings, foot x-ray left foot revealed gas gangrene. Patient admitted with altered mental status sepsis, DKA. Upon consultation, patient is intubated and mechanically ventilated. Vasopressin, fentanyl, pantoprazole, but norepinephrine and vitamin K infusing. As per bedside RN there is no active bleeding at this time. Our service has been consulted for reported melena stools. It is unknown if patient has ever had endoscopic procedures in the past. Presently, bedside RN reports patient having moderate amounts of loose dark brown stool. GI bleed with melena stools Patient presented to emergency room with altered mental status. Patient was noted to be hypothermic, hypokalemic and hyperglycemic on arrival. Left lower extremity gas gangrene noted. Patient currently scheduled for amputation of same. Bedside RN reporting patient having loose watery dark brown stools. 08/03/2018 0130-hemoglobin 6.4 hematocrit 18.6 08/03/2018 0425-hemoglobin 10.5 hematocrit 31.6 posttransfusion 3 units packed RBCs Plan -N.p.o. -NG tube -Monitor patient closely for bleeding -Transfuse if needed -Monitor hemoglobin and hematocrit -Continue PPI -Plan of care as per critical care medicine -Patient may require endoscopic procedures when stable -Supportive care -Further recommendations to follow This patient has been seen by myself and Dr. Carpenter and this note is written on his behalf - Attending Attestation Dr. Carpenter <Shannon Martin - Last Filed: 08/03/18 15:10> (1) Gastrointestinal hemorrhage with melena Status: Acute Code(s): K92.1 - Melena (2) Macrocytic anemia Status: Acute Code(s): D53.9 - Nutritional anemia, unspecified - Attending Attestation Seen and examined with Judie plan as above. Hemoccult positive with anemia. Will need Endoscopic evaluation when more stable. Further recommendations to follow. Thank you for the consult. <Srikanth Carpenter - Last Filed: 08/04/18 13:13>
[2018-08-03] MEDS ORDERED: Calcium Chloride Inj 1 GM in Dextrose 5% in Water Inj 100 ML IV.SIG ONE ×2 (15:30)
[2018-08-03] MEDS ORDERED: Sodium Chloride 0.45 % Inj 1,000 ML IV.CONT ONE (17:00)
[2018-08-03 18:15] LABS: ABG Base Excess -12.6 mmol/L (-2-2); ABG PCO2 25 mmHg (38-42); ABG PO2 209 mmHG (61-120)
--- NOTE | 2018-08-03 19:12 | P.PNVS ---
Subjective Subjective/Hospital Course: 57-year-old male with gas gangrene of the foot and sepsis The wound has been opened up and drained and at this point patient needs to be adequately resuscitated with fluids electrolytes and consequent hyperglycemia and septic shock addressed in ICU setting Patient will be scheduled for guillotine amputation tomorrow morning when more stable but right now drainage on emergency basis was already done. Will take patient to the operating room tomorrow 08/03/2018 Patient with gas gangrene of the left leg underwent emergency debridement by podiatry yesterday in order to temporize the situation Through the night patient was hemodynamically unstable on 3 vasopressors including Levophed and Brett-Synephrine and vasopressin He was resuscitated with massive amounts of crystalloids and hemodynamically slowly stabilizing Now remains on 2 drips including vasopressin and Levophed Respiratory patient has good PO2 FiO2 gradient remains intubated and ventilated on assist control ventilatory mode Patient has metabolic acidosis with base deficit which is slowly resolving He is hypercoagulable and this is slowly resolving as the septic shock is resolving by supportive therapy At this point patient needs left foot guillotine amputation. There is no truly good time to do this because patient was too unstable this morning to have any procedures done and unless the amputation is carried out patient will get worse because the source of sepsis and gas gangrene remains Therefore I believe we have several hour window this afternoon to go ahead with this and patient will be taken to operating room in this window or the chances of survival at the best weighing against the sepsis and surgery To operating room now Objective Vital Signs / I&O: Vital Signs 08/02/18 19:15 08/02/18 19:30 08/02/18 19:45 Temperature 92.5 F L 93.0 F L 93.6 F L Pulse Rate 84 86 88 Respiratory Rate 44 H 40 H 46 H Blood Pressure 99/53 L 96/52 L 94/50 L Pulse Oximetry 100 100 100 08/02/18 20:00 08/02/18 20:15 08/02/18 20:18 Temperature 94.1 F L 94.6 F L Pulse Rate 91 H 93 H 92 H Respiratory Rate 50 H 46 H 20 Blood Pressure 92/50 L 92/53 L Pulse Oximetry 100 100 100 08/02/18 20:30 08/02/18 20:45 08/02/18 21:00 Temperature 95.2 F L 95.7 F L 96.1 F L Pulse Rate 96 H 96 H 97 H Respiratory Rate 44 H 44 H 46 H Blood Pressure 88/53 L 96/52 L 90/55 L Pulse Oximetry 100 100 100 08/02/18 21:15 08/02/18 21:30 08/02/18 21:45 Temperature 96.4 F L 96.6 F L 97.0 F L Pulse Rate 97 H 97 H 100 H Respiratory Rate 45 H 44 H 45 H Blood Pressure 90/52 L 89/51 L 90/53 L Pulse Oximetry 99 99 99 08/02/18 22:00 08/02/18 22:15 08/02/18 22:30 Temperature 97.2 F L 97.5 F L 97.9 F Pulse Rate 100 H 100 H 100 H Respiratory Rate 44 H 39 H 40 H Blood Pressure 88/49 L 83/48 L 82/51 L Pulse Oximetry 99 99 99 08/02/18 22:45 08/02/18 23:00 08/02/18 23:15 Temperature 98.1 F 98.4 F 98.6 F Pulse Rate 98 H 94 H 92 H Respiratory Rate 39 H 36 H 37 H Blood Pressure 84/51 L 85/50 L 85/49 L Pulse Oximetry 98 98 98 08/02/18 23:30 08/02/18 23:47 08/03/18 00:00 Temperature 98.6 F Pulse Rate 88 97 H 80 Respiratory Rate 32 H 18 Blood Pressure 86/52 L 100/57 L Pulse Oximetry 98 08/03/18 00:30 08/03/18 01:30 08/03/18 01:45 Temperature 97.3 F L 97.2 F L Pulse Rate 93 H 85 Respiratory Rate 22 26 H 27 H Blood Pressure 96/50 L 95/55 L Pulse Oximetry 100 100 100 08/03/18 02:00 08/03/18 02:01 08/03/18 02:15 Temperature 96.8 F L 96.8 F L 96.4 F L Pulse Rate 85 86 90 Respiratory Rate 26 H 26 H 29 H Blood Pressure 100/50 L 100/50 L 117/56 L Pulse Oximetry 100 100 08/03/18 02:16 08/03/18 02:20 08/03/18 02:30 Temperature 96.4 F L 96.3 F L 95.9 F L Pulse Rate 91 H 96 H 91 H Respiratory Rate 26 H 29 H 29 H Blood Pressure 117/56 L 121/56 L 110/58 L Pulse Oximetry 100 100 08/03/18 02:40 08/03/18 02:50 08/03/18 02:55 Temperature 95.4 F L 95.2 F L 95 F L Pulse Rate 91 H 97 H 96 H Respiratory Rate 30 H 33 H 32 H Blood Pressure 119/57 L 125/62 Pulse Oximetry 99 99 08/03/18 03:00 08/03/18 03:10 08/03/18 03:20 Temperature 95.0 F L 94.8 F L 94.8 F L Pulse Rate 96 H 96 H 94 H Respiratory Rate 28 H 27 H 26 H Blood Pressure 119/62 111/58 L 108/60 Pulse Oximetry 92 L 90 L 94 L 08/03/18 03:30 08/03/18 03:38 08/03/18 03:40 Temperature 94.6 F L 94.1 F L 94.6 F L Pulse Rate 92 H 91 H 91 H Respiratory Rate 25 H 27 H 28 H Blood Pressure 91/54 L 92/56 L Pulse Oximetry 100 100 08/03/18 03:50 08/03/18 04:00 08/03/18 04:10 Temperature 94.6 F L 94.5 F L 94.3 F L Pulse Rate 93 H 95 H 91 H Respiratory Rate 34 H 26 H 23 Blood Pressure 110/62 123/66 115/67 Pulse Oximetry 99 98 95 08/03/18 04:12 08/03/18 04:15 08/03/18 04:20 Temperature 94.1 F L Pulse Rate 90 90 Respiratory Rate 26 H 26 H 24 Blood Pressure 109/62 Pulse Oximetry 95 98 08/03/18 04:30 08/03/18 04:40 08/03/18 04:50 Temperature 94.1 F L 94.1 F L 94.1 F L Pulse Rate 91 H 90 91 H Respiratory Rate 25 H 28 H 26 H Blood Pressure 113/64 115/69 119/70 Pulse Oximetry 97 100 100 08/03/18 05:00 08/03/18 05:10 08/03/18 05:20 Temperature 94.1 F L 94.1 F L 94.1 F L Pulse Rate 92 H 92 H 90 Respiratory Rate 29 H 23 25 H Blood Pressure 123/71 143/68 H 109/52 L Pulse Oximetry 100 100 100 08/03/18 05:30 08/03/18 05:31 08/03/18 05:40 Temperature 94.3 F L 94.3 F L 94.3 F L Pulse Rate 89 88 89 Respiratory Rate 25 H 25 H 25 H Blood Pressure 106/58 L 103/56 L Pulse Oximetry 100 100 08/03/18 05:50 08/03/18 06:00 08/03/18 06:30 Temperature 94.3 F L 94.3 F L 94.8 F L Pulse Rate 88 87 88 Respiratory Rate 26 H 25 H 24 Blood Pressure 105/58 L 114/62 118/59 L Pulse Oximetry 100 100 100 08/03/18 06:40 08/03/18 06:50 08/03/18 07:00 Temperature 95.0 F L 95.2 F L 95.5 F L Pulse Rate 90 90 91 H Respiratory Rate 24 23 22 Blood Pressure 117/60 121/62 123/61 Pulse Oximetry 100 100 100 08/03/18 07:10 08/03/18 07:20 08/03/18 07:22 Temperature 95.7 F L 95.9 F L 95.9 F L Pulse Rate 90 90 90 Respiratory Rate 23 23 23 Blood Pressure 129/67 118/60 121/61 Pulse Oximetry 100 100 100 08/03/18 07:30 08/03/18 07:40 08/03/18 07:50 Temperature 96.1 F L 96.4 F L 96.6 F L Pulse Rate 90 91 H 92 H Respiratory Rate 22 20 23 Blood Pressure 122/66 103/56 L 108/57 L Pulse Oximetry 100 100 100 08/03/18 08:00 08/03/18 08:10 08/03/18 08:20 Temperature 96.8 F L 97.0 F L 97.2 F L Pulse Rate 93 H 92 H 93 H Respiratory Rate 23 22 21 Blood Pressure 134/71 121/61 134/71 Pulse Oximetry 98 100 100 08/03/18 08:30 08/03/18 08:40 08/03/18 08:50 Temperature 97.2 F L 97.3 F L 97.5 F L Pulse Rate 92 H 93 H 93 H Respiratory Rate 21 19 20 Blood Pressure 121/60 112/58 L 118/63 Pulse Oximetry 100 100 100 08/03/18 08:55 08/03/18 09:00 08/03/18 09:10 Temperature 97.7 F 97.7 F 97.9 F Pulse Rate 95 H 95 H 97 H Respiratory Rate 19 19 21 Blood Pressure 101/55 L 97/55 L 118/57 L Pulse Oximetry 100 100 100 08/03/18 09:20 08/03/18 09:30 08/03/18 09:40 Temperature 98.1 F 98.1 F 98.2 F Pulse Rate 96 H 95 H 96 H Respiratory Rate 21 20 16 Blood Pressure 118/61 117/60 154/76 H Pulse Oximetry 100 100 95 08/03/18 09:50 08/03/18 10:00 08/03/18 10:10 Temperature 98.4 F 98.6 F 98.6 F Pulse Rate 97 H 97 H 98 H Respiratory Rate 20 21 20 Blood Pressure 104/57 L 102/56 L 108/56 L Pulse Oximetry 08/03/18 10:20 08/03/18 10:30 08/03/18 10:40 Temperature 98.6 F 98.6 F 98.6 F Pulse Rate 97 H 96 H 94 H Respiratory Rate 20 20 20 Blood Pressure 111/57 L 116/61 116/60 Pulse Oximetry 100 100 08/03/18 10:50 08/03/18 11:00 08/03/18 11:10 Temperature 98.6 F 98.6 F 98.4 F Pulse Rate 94 H 95 H 95 H Respiratory Rate 27 H 20 20 Blood Pressure 119/63 100/57 L 103/59 L Pulse Oximetry 100 100 100 08/03/18 11:20 08/03/18 11:30 08/03/18 11:40 Temperature 98.4 F 98.2 F 98.1 F Pulse Rate 95 H 94 H 93 H Respiratory Rate 20 21 20 Blood Pressure 107/55 L 110/58 L 114/61 Pulse Oximetry 100 100 100 08/03/18 11:50 08/03/18 11:59 08/03/18 12:00 Temperature 98.1 F 97.9 F Pulse Rate 93 H 92 H 91 H Respiratory Rate 21 20 21 Blood Pressure 113/61 134/71 Pulse Oximetry 100 100 100 08/03/18 12:10 08/03/18 12:20 08/03/18 12:30 Temperature 97.9 F 97.7 F 97.7 F Pulse Rate 91 H 91 H 92 H Respiratory Rate 21 20 21 Blood Pressure 106/59 L 118/66 112/64 Pulse Oximetry 100 100 100 08/03/18 12:40 08/03/18 12:50 08/03/18 13:00 Temperature 97.5 F L 97.3 F L 97.2 F L Pulse Rate 91 H 90 89 Respiratory Rate 20 20 20 Blood Pressure 107/63 112/63 112/64 Pulse Oximetry 100 100 100 08/03/18 14:00 08/03/18 15:00 08/03/18 15:30 Temperature 96.4 F L 96.4 F L Pulse Rate 85 85 85 Respiratory Rate 20 20 20 Blood Pressure Pulse Oximetry 98 100 100 08/03/18 16:00 08/03/18 16:03 08/03/18 16:23 Temperature 96.1 F L 96.1 F L 95.9 F L Pulse Rate 79 79 93 H Respiratory Rate 20 20 20 Blood Pressure 98/60 L 105/67 178/89 H Pulse Oximetry 97 96 96 08/03/18 16:30 08/03/18 17:00 08/03/18 17:30 Temperature 95.9 F L 96.1 F L 96.3 F L Pulse Rate 78 80 80 Respiratory Rate 20 20 20 Blood Pressure 98/60 L 110/67 102/65 Pulse Oximetry 97 96 94 L 08/03/18 18:00 Temperature 96.4 F L Pulse Rate 83 Respiratory Rate 20 Blood Pressure 96/64 L Pulse Oximetry 95 Intake & Output 08/03/18 08/03/18 08/04/18 06:59 18:59 06:59 Intake Total 6754 / 6754 6575 / 6575 Output Total 230 / 230 160 / 160 Balance 6524 / 6524 6415 / 6415 Weight 61 kg Intake: IV 5335 / 5335 6575 / 6575 D5W/1/2 NS Inj 1,000 ML @ 200 800 / 800 mls/hr IV.CONT .Q5H [facility] Rx#: [id number] NovoLIN R (IV Infusion) 100 100 / 100 100 / 100 UNIT In NS Inj 99 ML @ 5 UNITS/ HR 5 mls/hr IV.CONT TITRATE PRN Rx#:[id number] D5W/1/2NS + KCL 20 mEq Inj 1, 1400 / 1400 000 ML @ 200 mls/hr IV.CONT . Q5H [facility] Rx#:[id number] Protonix Inj 80 MG In NS Inj 100 / 100 100 ML @ 10 mls/hr IV.CONT Q10H [facility] Rx#:[id number] NS Inj 1,000 ML @ 250 mls/hr IV 700 / 700 .CONT .Q4H [facility] Rx#:[id number] Sodium Bicarbonate 8.4% Inj 50 1000 / 1000 MEQ KCl Inj 20 MEQ In D5W/1/2 NS Inj 940 ML @ 200 mls/hr IV. CONT .Q5H [facility] Rx#:[id number] 1/2 Normal Saline Inj 1,000 ML 400 / 400 1000 / 1000 @ 999 mls/hr IV.CONT BOLUS [facility] Rx#:[id number] Flexbumin 25% Inj 100 ML @ 60 100 / 100 mls/hr IV.SIG ONCE ONE Rx#: [id number] Calcium Chloride Inj 1 GM In 110 / 110 D5W Inj 100 ML @ 110 mls/hr IV. SIG ONCE ONE Rx#:[id number] Cleocin 600 mg/NS Premix 600 mg 50 / 50 50 / 50 In 50 ml @ 100 mls/hr IV.SIG Q8H [facility] Rx#:[id number] Cleocin Inj 600 MG In NS Inj 104 / 104 100 ML @ 208 mls/hr IV.SIG Q8H [facility] Rx#:[id number] Diflucan 200 mg Premix Bag 100 100 / 100 ML @ 100 mls/hr IV.SIG Q24H [facility] Rx#:[id number] LR 1000 mL Inj 1,000 ML @ Wide 1000 / 1000 Open IV.SIG BOLUS [facility] Rx#: [id number] Magnesium Sulfate Inj 2 GM In 100 / 100 NS Inj 96 ML @ 50 mls/hr IV.SIG ONCE ONE Rx#:[id number] Protonix Inj 80 MG In NS Inj 35 35 / 35 ML @ 420 mls/hr IV.SIG [facility] Rx#:[id number] Vitamin K Inj 10 MG In NS Inj 51 / 51 50 ML @ 102 mls/hr IV.SIG ONCE ONE Rx#:[id number] Zosyn 2.25 GM Premix 50 ML @ 100 / 100 100 / 100 100 mls/hr IV.SIG Q6H [facility] Rx#: [id number] KCl 40 mEq Premix Inj 40 meq In 100 / 100 100 ml @ 25 mls/hr IV.SIG ONCE ONE Rx#:[id number] Potassium Phosphate Inj 30 MMOL 260 / 260 In NS Inj 250 ML @ 43.333 mls/ hr IV.SIG ONCE ONE Rx#:[id number] NS Inj 1,000 ML @ 1000 mls/hr 1999 / 1999 IV.SIG BOLUS [facility] Rx#:[id number] NS Inj 250 ML @ 15 mls/hr IV. 50 / 50 SIG ONCE [facility] Rx#:[id number] 1/2 Normal Saline Inj 1,000 ML 1000 / 1000 1000 / 1000 @ Wide Open IV.SIG [facility] Rx #:[id number] Intake (Blood Product) Amt 1419 / 1419 0 / 0 Plasma Thawed 5 Day Acda Unit 219 / 219 [id number] Plasma Thawed 5 Day Acda Unit 0 / 0 0 / 0 [id number] Rbc As-3 Leukoreduced Unit 400 / 400 [id number] Rbc As-3 Leukoreduced Unit 400 / 400 [id number] Rbc As-3 Leukoreduced Unit 400 / 400 [id number] Output: Urine Amount (Catheter) 230 / 230 160 / 160 Indwelling Temp Sensing 230 / 230 160 / 160 Catheter Other: Date of Last Bowel Movement 08/03/18 08/03/18 # Bowel Movements 1 2 Laboratory Results - last 24 hr 08/02/18 08/02/18 08/02/18 10:55 15:03 15:03 WBC RBC Hgb Hct MCV MCH MCHC RDW Plt Count MPV Prelim Diff (Auto) Neut % (Auto) Lymph % (Auto) Wirt % (Auto) Eos % (Auto) Baso % (Auto) Neut # (Auto) Lymph # (Auto) Wirt # (Auto) Eos # (Auto) Baso # (Auto) WBC Differential Seg Neuts % (Manual) Band Neuts % (Manual) Lymphocytes % (Manual) Monocytes % (Manual) Metamyelocytes % (Man) Abs Neuts (Manual) Nucleated RBCs/100 WBC Differential Comment Toxic Granulation Toxic Vacuolation Platelet Estimate Platelet Morphology PT INR APTT Fibrinogen Puncture Site Patient Temperature O2 Saturation ABG pH ABG pCO2 ABG pO2 ABG HCO3 ABG O2 Content ABG Base Excess ABG Methemoglobin Jordy Test Hemoglobin Carboxyhemoglobin O2 Delivery Device Vent Setting Inspired O2 Critical Value Sodium Cancelled 143 D Potassium Cancelled 3.3 L D Chloride Cancelled 113 H D Carbon Dioxide Cancelled 10.9 L Anion Gap Cancelled 19 H BUN Cancelled 91 H Creatinine Cancelled 2.49 H Estimated GFR Cancelled 32 L POC Glucose Random Glucose Cancelled 592 H* D Lactic Acid Calcium Cancelled 6.6 L* D Calcium Adj for Albumin 8.8 Phosphorus Cancelled 3.3 Magnesium Cancelled 2.4 D Ammonia Total Creatine Kinase CK-MB (CK-2) CK-MB (CK-2) % Troponin I Cancelled 0.03 Albumin 1.2 L Lipase Beta-Hydroxybutyric Acd Urine Color Yellow Urine Clarity Cloudy H Urine pH 5.0 Ur Specific River 1.015 Urine Protein Negative Urine Glucose (UA) 500 or greater Urine Ketones 20 Urine Occult Blood Moderate H Urine Nitrate Negative Urine Bilirubin Negative Urine Urobilinogen Less than 2 Ur Leukocyte Esterase Large H Urine RBC 13 H Urine WBC 114 H Urine WBC Clumps Few H Amorphous Sediment Few H Urine Bacteria Few H Hyaline Casts 10 Urine Mucus Few H Micro UA Comment Cath-culture ind Urine Culture Comments Cath-cult indicated Urine Eosinophils Nasal Screen MRSA (PCR) Stl C.difficile DNA Amp St C. diff Tox Epid 027 MTS Gel Crossmatch Blood Bank Comment 08/02/18 08/02/18 08/02/18 17:44 18:03 18:58 WBC RBC Hgb Hct MCV MCH MCHC RDW Plt Count MPV Prelim Diff (Auto) Neut % (Auto) Lymph % (Auto) Wirt % (Auto) Eos % (Auto) Baso % (Auto) Neut # (Auto) Lymph # (Auto) Wirt # (Auto) Eos # (Auto) Baso # (Auto) WBC Differential Seg Neuts % (Manual) Band Neuts % (Manual) Lymphocytes % (Manual) Monocytes % (Manual) Metamyelocytes % (Man) Abs Neuts (Manual) Nucleated RBCs/100 WBC Differential Comment Toxic Granulation Toxic Vacuolation Platelet Estimate Platelet Morphology PT INR APTT Fibrinogen Puncture Site Patient Temperature O2 Saturation ABG pH ABG pCO2 ABG pO2 ABG HCO3 ABG O2 Content ABG Base Excess ABG Methemoglobin Jordy Test Hemoglobin Carboxyhemoglobin O2 Delivery Device Vent Setting Inspired O2 Critical Value Sodium 144 Potassium 3.2 L Chloride 115 H Carbon Dioxide 12.1 L Anion Gap 17 H BUN 91 H Creatinine 2.49 H Estimated GFR 32 L POC Glucose 512 H* Random Glucose 485 H* D Lactic Acid Calcium 6.5 L* Calcium Adj for Albumin 8.7 Phosphorus Magnesium Ammonia Total Creatine Kinase CK-MB (CK-2) CK-MB (CK-2) % Troponin I Albumin 1.3 L Lipase Beta-Hydroxybutyric Acd Urine Color Urine Clarity Urine pH Ur Specific River Urine Protein Urine Glucose (UA) Urine Ketones Urine Occult Blood Urine Nitrate Urine Bilirubin Urine Urobilinogen Ur Leukocyte Esterase Urine RBC Urine WBC Urine WBC Clumps Amorphous Sediment Urine Bacteria Hyaline Casts Urine Mucus Micro UA Comment Urine Culture Comments Urine Eosinophils 0-2 H Nasal Screen MRSA (PCR) Stl C.difficile DNA Amp St C. diff Tox Epid 027 iCatapult Gel CrossOssDsign ABtch Blood Bank Comment 08/02/18 08/02/18 08/02/18 20:04 20:58 21:00 WBC RBC Hgb Hct MCV MCH MCHC RDW Plt Count MPV Prelim Diff (Auto) Neut % (Auto) Lymph % (Auto) Wirt % (Auto) Eos % (Auto) Baso % (Auto) Neut # (Auto) Lymph # (Auto) Wirt # (Auto) Eos # (Auto) Baso # (Auto) WBC Differential Seg Neuts % (Manual) Band Neuts % (Manual) Lymphocytes % (Manual) Monocytes % (Manual) Metamyelocytes % (Man) Abs Neuts (Manual) Nucleated RBCs/100 WBC Differential Comment Toxic Granulation Toxic Vacuolation Platelet Estimate Platelet Morphology PT INR APTT Fibrinogen Puncture Site Patient Temperature O2 Saturation ABG pH ABG pCO2 ABG pO2 ABG HCO3 ABG O2 Content ABG Base Excess ABG Methemoglobin Jordy Test Hemoglobin Carboxyhemoglobin O2 Delivery Device Vent Setting Inspired O2 Critical Value Sodium Potassium Chloride Carbon Dioxide Anion Gap BUN Creatinine Estimated GFR POC Glucose 459 H* 392 H Random Glucose Lactic Acid 6.0 H* Calcium Calcium Adj for Albumin Phosphorus Magnesium Ammonia Total Creatine Kinase CK-MB (CK-2) CK-MB (CK-2) % Troponin I Albumin Lipase Beta-Hydroxybutyric Acd Urine Color Urine Clarity Urine pH Ur Specific River Urine Protein Urine Glucose (UA) Urine Ketones Urine Occult Blood Urine Nitrate Urine Bilirubin Urine Urobilinogen Ur Leukocyte Esterase Urine RBC Urine WBC Urine WBC Clumps Amorphous Sediment Urine Bacteria Hyaline Casts Urine Mucus Micro UA Comment Urine Culture Comments Urine Eosinophils Nasal Screen MRSA (PCR) Stl C.difficile DNA Amp St C. diff Tox Epid 027 MTS Gel Crossmatch Blood Bank Comment 08/02/18 08/02/18 08/02/18 22:00 22:50 22:59 WBC RBC Hgb Hct MCV MCH MCHC RDW Plt Count MPV Prelim Diff (Auto) Neut % (Auto) Lymph % (Auto) Wirt % (Auto) Eos % (Auto) Baso % (Auto) Neut # (Auto) Lymph # (Auto) Wirt # (Auto) Eos # (Auto) Baso # (Auto) WBC Differential Seg Neuts % (Manual) Band Neuts % (Manual) Lymphocytes % (Manual) Monocytes % (Manual) Metamyelocytes % (Man) Abs Neuts (Manual) Nucleated RBCs/100 WBC Differential Comment Toxic Granulation Toxic Vacuolation Platelet Estimate Platelet Morphology PT INR APTT Fibrinogen Puncture Site Patient Temperature O2 Saturation ABG pH ABG pCO2 ABG pO2 ABG HCO3 ABG O2 Content ABG Base Excess ABG Methemoglobin Jordy Test Hemoglobin Carboxyhemoglobin O2 Delivery Device Vent Setting Inspired O2 Critical Value Sodium Potassium Chloride Carbon Dioxide Anion Gap BUN Creatinine Estimated GFR POC Glucose 337 H 316 H Random Glucose Lactic Acid Calcium Calcium Adj for Albumin Phosphorus Magnesium Ammonia Total Creatine Kinase CK-MB (CK-2) CK-MB (CK-2) % Troponin I Albumin Lipase Beta-Hydroxybutyric Acd Urine Color Urine Clarity Urine pH Ur Specific River Urine Protein Urine Glucose (UA) Urine Ketones Urine Occult Blood Urine Nitrate Urine Bilirubin Urine Urobilinogen Ur Leukocyte Esterase Urine RBC Urine WBC Urine WBC Clumps Amorphous Sediment Urine Bacteria Hyaline Casts Urine Mucus Micro UA Comment Urine Culture Comments Urine Eosinophils Nasal Screen MRSA (PCR) Not detected Stl C.difficile DNA Amp St C. diff Tox Epid 027 MTS Gel Crossmatch Blood Bank Comment 08/03/18 08/03/18 08/03/18 00:00 00:00 00:08 WBC RBC Hgb Hct MCV MCH MCHC RDW Plt Count MPV Prelim Diff (Auto) Neut % (Auto) Lymph % (Auto) Wirt % (Auto) Eos % (Auto) Baso % (Auto) Neut # (Auto) Lymph # (Auto) Wirt # (Auto) Eos # (Auto) Baso # (Auto) WBC Differential Seg Neuts % (Manual) Band Neuts % (Manual) Lymphocytes % (Manual) Monocytes % (Manual) Metamyelocytes % (Man) Abs Neuts (Manual) Nucleated RBCs/100 WBC Differential Comment Toxic Granulation Toxic Vacuolation Platelet Estimate Platelet Morphology PT INR APTT Fibrinogen Puncture Site Patient Temperature O2 Saturation ABG pH ABG pCO2 ABG pO2 ABG HCO3 ABG O2 Content ABG Base Excess ABG Methemoglobin Jordy Test Hemoglobin Carboxyhemoglobin O2 Delivery Device Vent Setting Inspired O2 Critical Value Sodium 143 Potassium 4.2 D Chloride 119 H Carbon Dioxide 11.5 L Anion Gap 13 BUN 97 H Creatinine 2.53 H Estimated GFR 32 L POC Glucose 245 H Random Glucose 232 H D Lactic Acid Calcium 6.6 L* Calcium Adj for Albumin 8.8 Phosphorus 0.9 L D Magnesium 1.9 Ammonia 40 H Total Creatine Kinase 6895 H CK-MB (CK-2) 100.7 H CK-MB (CK-2) % 1.5 Troponin I Albumin 1.2 L Lipase Beta-Hydroxybutyric Acd Urine Color Urine Clarity Urine pH Ur Specific River Urine Protein Urine Glucose (UA) Urine Ketones Urine Occult Blood Urine Nitrate Urine Bilirubin Urine Urobilinogen Ur Leukocyte Esterase Urine RBC Urine WBC Urine WBC Clumps Amorphous Sediment Urine Bacteria Hyaline Casts Urine Mucus Micro UA Comment Urine Culture Comments Urine Eosinophils Nasal Screen MRSA (PCR) Stl C.difficile DNA Amp St C. diff Tox Epid 027 MTS Gel Crossmatch Blood Bank Comment 08/03/18 08/03/18 08/03/18 01:13 01:14 01:29 WBC RBC Hgb Hct MCV MCH MCHC RDW Plt Count MPV Prelim Diff (Auto) Neut % (Auto) Lymph % (Auto) Wirt % (Auto) Eos % (Auto) Baso % (Auto) Neut # (Auto) Lymph # (Auto) Wirt # (Auto) Eos # (Auto) Baso # (Auto) WBC Differential Seg Neuts % (Manual) Band Neuts % (Manual) Lymphocytes % (Manual) Monocytes % (Manual) Metamyelocytes % (Man) Abs Neuts (Manual) Nucleated RBCs/100 WBC Differential Comment Toxic Granulation Toxic Vacuolation Platelet Estimate Platelet Morphology PT INR APTT Fibrinogen Puncture Site Art line Patient Temperature 98.6 O2 Saturation 94 ABG pH 7.21 L* ABG pCO2 20 L* ABG pO2 284 H ABG HCO3 8 L* ABG O2 Content 4.8 L ABG Base Excess -19.1 L ABG Methemoglobin 3.6 H* Jordy Test Present Hemoglobin 3.0 L* Carboxyhemoglobin 0.9 O2 Delivery Device Ventilator Vent Setting Ac22/550/+5/60% Inspired O2 60 Critical Value Yes Sodium Potassium Chloride Carbon Dioxide Anion Gap BUN Creatinine Estimated GFR POC Glucose 275 H Random Glucose Lactic Acid Calcium Calcium Adj for Albumin Phosphorus Magnesium Ammonia Total Creatine Kinase CK-MB (CK-2) CK-MB (CK-2) % Troponin I Albumin Lipase Beta-Hydroxybutyric Acd Urine Color Urine Clarity Urine pH Ur Specific River Urine Protein Urine Glucose (UA) Urine Ketones Urine Occult Blood Urine Nitrate Urine Bilirubin Urine Urobilinogen Ur Leukocyte Esterase Urine RBC Urine WBC Urine WBC Clumps Amorphous Sediment Urine Bacteria Hyaline Casts Urine Mucus Micro UA Comment Urine Culture Comments Urine Eosinophils Nasal Screen MRSA (PCR) Stl C.difficile DNA Amp St C. diff Tox Epid 027 MTS Gel Crossmatch See Detail Blood Bank Comment 08/03/18 08/03/18 08/03/18 01:30 01:30 01:43 WBC 37.1 H RBC 2.06 L Hgb 6.4 L* D Hct 18.6 L* MCV 90.3 D MCH 31.1 MCHC 34.4 RDW 14.9 Plt Count 142 L MPV 9.1 Prelim Diff (Auto) Neut % (Auto) Lymph % (Auto) Wirt % (Auto) Eos % (Auto) Baso % (Auto) Neut # (Auto) Lymph # (Auto) Wirt # (Auto) Eos # (Auto) Baso # (Auto) WBC Differential Seg Neuts % (Manual) Band Neuts % (Manual) Lymphocytes % (Manual) Monocytes % (Manual) Metamyelocytes % (Man) Abs Neuts (Manual) Nucleated RBCs/100 WBC Differential Comment Toxic Granulation Toxic Vacuolation Platelet Estimate Platelet Morphology PT 17.7 H INR 1.7 APTT 46.5 H Fibrinogen 216 L Puncture Site Patient Temperature O2 Saturation ABG pH ABG pCO2 ABG pO2 ABG HCO3 ABG O2 Content ABG Base Excess ABG Methemoglobin Jordy Test Hemoglobin Carboxyhemoglobin O2 Delivery Device Vent Setting Inspired O2 Critical Value Sodium Potassium Chloride Carbon Dioxide Anion Gap BUN Creatinine Estimated GFR POC Glucose Random Glucose Lactic Acid 6.1 H* Calcium Calcium Adj for Albumin Phosphorus Magnesium Ammonia Total Creatine Kinase CK-MB (CK-2) CK-MB (CK-2) % Troponin I Albumin Lipase Beta-Hydroxybutyric Acd Urine Color Urine Clarity Urine pH Ur Specific [place] Urine Protein Urine Glucose (UA) Urine Ketones Urine Occult Blood Urine Nitrate Urine Bilirubin Urine Urobilinogen Ur Leukocyte Esterase Urine RBC Urine WBC Urine WBC Clumps Amorphous Sediment Urine Bacteria Hyaline Casts Urine Mucus Micro UA Comment Urine Culture Comments Urine Eosinophils Nasal Screen MRSA (PCR) Stl C.difficile DNA Amp St C. diff Tox Epid 027 MTS Gel Crossmatch Blood Bank Comment 08/03/18 08/03/18 08/03/18 01:48 01:56 02:10 WBC RBC Hgb Hct MCV MCH MCHC RDW Plt Count MPV Prelim Diff (Auto) Neut % (Auto) Lymph % (Auto) Wirt % (Auto) Eos % (Auto) Baso % (Auto) Neut # (Auto) Lymph # (Auto) Wirt # (Auto) Eos # (Auto) Baso # (Auto) WBC Differential Seg Neuts % (Manual) Band Neuts % (Manual) Lymphocytes % (Manual) Monocytes % (Manual) Metamyelocytes % (Man) Abs Neuts (Manual) Nucleated RBCs/100 WBC Differential Comment Toxic Granulation Toxic Vacuolation Platelet Estimate Platelet Morphology PT INR APTT Fibrinogen Puncture Site Patient Temperature O2 Saturation ABG pH ABG pCO2 ABG pO2 ABG HCO3 ABG O2 Content ABG Base Excess ABG Methemoglobin Jordy Test Hemoglobin Carboxyhemoglobin O2 Delivery Device Vent Setting Inspired O2 Critical Value Sodium Potassium Chloride Carbon Dioxide Anion Gap BUN Creatinine Estimated GFR POC Glucose 258 H Random Glucose Lactic Acid Calcium Calcium Adj for Albumin Phosphorus Magnesium Ammonia Total Creatine Kinase CK-MB (CK-2) CK-MB (CK-2) % Troponin I Albumin Lipase Beta-Hydroxybutyric Acd Urine Color Urine Clarity Urine pH Ur Specific [place] Urine Protein Urine Glucose (UA) Urine Ketones Urine Occult Blood Urine Nitrate Urine Bilirubin Urine Urobilinogen Ur Leukocyte Esterase Urine RBC Urine WBC Urine WBC Clumps Amorphous Sediment Urine Bacteria Hyaline Casts Urine Mucus Micro UA Comment Urine Culture Comments Urine Eosinophils Nasal Screen MRSA (PCR) Stl C.difficile DNA Amp St C. diff Tox Epid 027 MTS Gel Crossmatch See Detail See Detail Blood Bank Comment 08/03/18 08/03/18 08/03/18 03:04 03:39 04:00 WBC RBC Hgb Hct MCV MCH MCHC RDW Plt Count MPV Prelim Diff (Auto) Neut % (Auto) Lymph % (Auto) Wirt % (Auto) Eos % (Auto) Baso % (Auto) Neut # (Auto) Lymph # (Auto) Wirt # (Auto) Eos # (Auto) Baso # (Auto) WBC Differential Seg Neuts % (Manual) Band Neuts % (Manual) Lymphocytes % (Manual) Monocytes % (Manual) Metamyelocytes % (Man) Abs Neuts (Manual) Nucleated RBCs/100 WBC Differential Comment Toxic Granulation Toxic Vacuolation Platelet Estimate Platelet Morphology PT 18.1 H INR 1.8 APTT 43.9 H Fibrinogen Puncture Site Patient Temperature O2 Saturation ABG pH ABG pCO2 ABG pO2 ABG HCO3 ABG O2 Content ABG Base Excess ABG Methemoglobin Jordy Test Hemoglobin Carboxyhemoglobin O2 Delivery Device Vent Setting Inspired O2 Critical Value Sodium Potassium Chloride Carbon Dioxide Anion Gap BUN Creatinine Estimated GFR POC Glucose 246 H Random Glucose Lactic Acid Calcium Calcium Adj for Albumin Phosphorus Magnesium Ammonia Total Creatine Kinase CK-MB (CK-2) CK-MB (CK-2) % Troponin I Albumin Lipase Beta-Hydroxybutyric Acd Urine Color Urine Clarity Urine pH Ur Specific [place] Urine Protein Urine Glucose (UA) Urine Ketones Urine Occult Blood Urine Nitrate Urine Bilirubin Urine Urobilinogen Ur Leukocyte Esterase Urine RBC Urine WBC Urine WBC Clumps Amorphous Sediment Urine Bacteria Hyaline Casts Urine Mucus Micro UA Comment Urine Culture Comments Urine Eosinophils Nasal Screen MRSA (PCR) Stl C.difficile DNA Amp St C. diff Tox Epid 027 MTS Gel Crossmatch Blood Bank Comment 08/03/18 08/03/18 08/03/18 04:00 04:02 04:10 WBC RBC Hgb Hct MCV MCH MCHC RDW Plt Count MPV Prelim Diff (Auto) Neut % (Auto) Lymph % (Auto) Wirt % (Auto) Eos % (Auto) Baso % (Auto) Neut # (Auto) Lymph # (Auto) Wirt # (Auto) Eos # (Auto) Baso # (Auto) WBC Differential Seg Neuts % (Manual) Band Neuts % (Manual) Lymphocytes % (Manual) Monocytes % (Manual) Metamyelocytes % (Man) Abs Neuts (Manual) Nucleated RBCs/100 WBC Differential Comment Toxic Granulation Toxic Vacuolation Platelet Estimate Platelet Morphology PT INR APTT Fibrinogen Puncture Site Patient Temperature O2 Saturation ABG pH ABG pCO2 ABG pO2 ABG HCO3 ABG O2 Content ABG Base Excess ABG Methemoglobin Jordy Test Hemoglobin Carboxyhemoglobin O2 Delivery Device Vent Setting Inspired O2 Critical Value Sodium 147 H Potassium 3.9 Chloride 119 H Carbon Dioxide 13.1 L Anion Gap 15 BUN 91 H Creatinine 2.41 H Estimated GFR 34 L POC Glucose 206 H Random Glucose 215 H Lactic Acid 6.6 H* Calcium 6.2 L* Calcium Adj for Albumin 8.5 Phosphorus 2.3 L D Magnesium 1.9 Ammonia Total Creatine Kinase CK-MB (CK-2) CK-MB (CK-2) % Troponin I Albumin 1.1 L Lipase Beta-Hydroxybutyric Acd 0.15 D Urine Color Urine Clarity Urine pH Ur Specific [place] Urine Protein Urine Glucose (UA) Urine Ketones Urine Occult Blood Urine Nitrate Urine Bilirubin Urine Urobilinogen Ur Leukocyte Esterase Urine RBC Urine WBC Urine WBC Clumps Amorphous Sediment Urine Bacteria Hyaline Casts Urine Mucus Micro UA Comment Urine Culture Comments Urine Eosinophils Nasal Screen MRSA (PCR) Stl C.difficile DNA Amp St C. diff Tox Epid 027 MTS Gel Crossmatch Blood Bank Comment 08/03/18 08/03/18 08/03/18 04:25 05:11 05:44 WBC 35.1 H RBC 3.46 L Hgb 10.5 L D Hct 31.6 L MCV 91.2 MCH 30.2 MCHC 33.1 RDW 16.4 Plt Count 124 L MPV 8.8 Prelim Diff (Auto) Slide review pending Neut % (Auto) 97.2 H Lymph % (Auto) 1.7 L Wirt % (Auto) 0.9 Eos % (Auto) 0.1 Baso % (Auto) 0.1 Neut # (Auto) 34.1 H Lymph # (Auto) 0.6 L Wirt # (Auto) 0.3 Eos # (Auto) 0.0 Baso # (Auto) 0.0 WBC Differential Manual diff final Seg Neuts % (Manual) 32 Band Neuts % (Manual) 63 H Lymphocytes % (Manual) 1 L Monocytes % (Manual) 2 Metamyelocytes % (Man) 2 H Abs Neuts (Manual) 34.0 H Nucleated RBCs/100 WBC 2 H Differential Comment . Toxic Granulation 1+ H Toxic Vacuolation Present H Platelet Estimate Low L Platelet Morphology Normal PT INR APTT Fibrinogen Puncture Site Art line Patient Temperature 98.6 O2 Saturation 97 ABG pH 7.27 L* ABG pCO2 23 L* ABG pO2 267 H ABG HCO3 10 L* ABG O2 Content 14.1 ABG Base Excess -15.5 L ABG Methemoglobin 2.1 H Jordy Test Present Hemoglobin 10.0 L Carboxyhemoglobin 0.6 O2 Delivery Device Ventilator Vent Setting Ac22/550/+5/60% Inspired O2 60 Critical Value Yes Sodium Potassium Chloride Carbon Dioxide Anion Gap BUN Creatinine Estimated GFR POC Glucose 187 H Random Glucose Lactic Acid Calcium Calcium Adj for Albumin Phosphorus Magnesium Ammonia Total Creatine Kinase CK-MB (CK-2) CK-MB (CK-2) % Troponin I Albumin Lipase Beta-Hydroxybutyric Acd Urine Color Urine Clarity Urine pH Ur Specific [place] Urine Protein Urine Glucose (UA) Urine Ketones Urine Occult Blood Urine Nitrate Urine Bilirubin Urine Urobilinogen Ur Leukocyte Esterase Urine RBC Urine WBC Urine WBC Clumps Amorphous Sediment Urine Bacteria Hyaline Casts Urine Mucus Micro UA Comment Urine Culture Comments Urine Eosinophils Nasal Screen MRSA (PCR) Stl C.difficile DNA Amp St C. diff Tox Epid 027 MTS Gel Crossmatch Blood Bank Comment 08/03/18 08/03/18 08/03/18 06:05 07:02 08:22 WBC RBC Hgb Hct MCV MCH MCHC RDW Plt Count MPV Prelim Diff (Auto) Neut % (Auto) Lymph % (Auto) Wirt % (Auto) Eos % (Auto) Baso % (Auto) Neut # (Auto) Lymph # (Auto) Wirt # (Auto) Eos # (Auto) Baso # (Auto) WBC Differential Seg Neuts % (Manual) Band Neuts % (Manual) Lymphocytes % (Manual) Monocytes % (Manual) Metamyelocytes % (Man) Abs Neuts (Manual) Nucleated RBCs/100 WBC Differential Comment Toxic Granulation Toxic Vacuolation Platelet Estimate Platelet Morphology PT INR APTT Fibrinogen Puncture Site Patient Temperature O2 Saturation ABG pH ABG pCO2 ABG pO2 ABG HCO3 ABG O2 Content ABG Base Excess ABG Methemoglobin Jordy Test Hemoglobin Carboxyhemoglobin O2 Delivery Device Vent Setting Inspired O2 Critical Value Sodium Potassium Chloride Carbon Dioxide Anion Gap BUN Creatinine Estimated GFR POC Glucose 168 H 159 H 182 H Random Glucose Lactic Acid Calcium Calcium Adj for Albumin Phosphorus Magnesium Ammonia Total Creatine Kinase CK-MB (CK-2) CK-MB (CK-2) % Troponin I Albumin Lipase Beta-Hydroxybutyric Acd Urine Color Urine Clarity Urine pH Ur Specific [place] Urine Protein Urine Glucose (UA) Urine Ketones Urine Occult Blood Urine Nitrate Urine Bilirubin Urine Urobilinogen Ur Leukocyte Esterase Urine RBC Urine WBC Urine WBC Clumps Amorphous Sediment Urine Bacteria Hyaline Casts Urine Mucus Micro UA Comment Urine Culture Comments Urine Eosinophils Nasal Screen MRSA (PCR) Stl C.difficile DNA Amp St C. diff Tox Epid 027 MTS Gel Crossmatch Blood Bank Comment 08/03/18 08/03/18 08/03/18 08:30 08:30 08:30 WBC RBC Hgb Hct MCV MCH MCHC RDW Plt Count MPV Prelim Diff (Auto) Neut % (Auto) Lymph % (Auto) Wirt % (Auto) Eos % (Auto) Baso % (Auto) Neut # (Auto) Lymph # (Auto) Wirt # (Auto) Eos # (Auto) Baso # (Auto) WBC Differential Seg Neuts % (Manual) Band Neuts % (Manual) Lymphocytes % (Manual) Monocytes % (Manual) Metamyelocytes % (Man) Abs Neuts (Manual) Nucleated RBCs/100 WBC Differential Comment Toxic Granulation Toxic Vacuolation Platelet Estimate Platelet Morphology PT INR APTT Cancelled Fibrinogen Puncture Site Patient Temperature O2 Saturation ABG pH ABG pCO2 ABG pO2 ABG HCO3 ABG O2 Content ABG Base Excess ABG Methemoglobin Jordy Test Hemoglobin Carboxyhemoglobin O2 Delivery Device Vent Setting Inspired O2 Critical Value Sodium 144 Potassium 4.2 Chloride 119 H Carbon Dioxide 11.8 L Anion Gap 13 BUN 85 H Creatinine 2.49 H Estimated GFR 32 L POC Glucose Random Glucose 166 H Lactic Acid 4.9 H* Calcium 5.8 L* Calcium Adj for Albumin 7.9 L Phosphorus 3.1 Magnesium 1.7 Ammonia Total Creatine Kinase CK-MB (CK-2) CK-MB (CK-2) % Troponin I Albumin 1.4 L Lipase Beta-Hydroxybutyric Acd Urine Color Urine Clarity Urine pH Ur Specific [place] Urine Protein Urine Glucose (UA) Urine Ketones Urine Occult Blood Urine Nitrate Urine Bilirubin Urine Urobilinogen Ur Leukocyte Esterase Urine RBC Urine WBC Urine WBC Clumps Amorphous Sediment Urine Bacteria Hyaline Casts Urine Mucus Micro UA Comment Urine Culture Comments Urine Eosinophils Nasal Screen MRSA (PCR) Stl C.difficile DNA Amp St C. diff Tox Epid 027 MTS Gel Crossmatch Blood Bank Comment 08/03/18 08/03/18 08/03/18 08:30 08:30 08:30 WBC RBC Hgb Hct MCV MCH MCHC RDW Plt Count MPV Prelim Diff (Auto) Neut % (Auto) Lymph % (Auto) Wirt % (Auto) Eos % (Auto) Baso % (Auto) Neut # (Auto) Lymph # (Auto) Wirt # (Auto) Eos # (Auto) Baso # (Auto) WBC Differential Seg Neuts % (Manual) Band Neuts % (Manual) Lymphocytes % (Manual) Monocytes % (Manual) Metamyelocytes % (Man) Abs Neuts (Manual) Nucleated RBCs/100 WBC Differential Comment Toxic Granulation Toxic Vacuolation Platelet Estimate Platelet Morphology PT Cancelled 15.5 H INR Cancelled 1.5 APTT 38.0 H Fibrinogen 203 L Puncture Site Patient Temperature O2 Saturation ABG pH ABG pCO2 ABG pO2 ABG HCO3 ABG O2 Content ABG Base Excess ABG Methemoglobin Jordy Test Hemoglobin Carboxyhemoglobin O2 Delivery Device Vent Setting Inspired O2 Critical Value Sodium Potassium Chloride Carbon Dioxide Anion Gap BUN Creatinine Estimated GFR POC Glucose Random Glucose Lactic Acid Calcium Calcium Adj for Albumin Phosphorus Magnesium Ammonia Total Creatine Kinase CK-MB (CK-2) CK-MB (CK-2) % Troponin I 0.33 H Albumin Lipase 7136 H Beta-Hydroxybutyric Acd Urine Color Urine Clarity Urine pH Ur Specific [place] Urine Protein Urine Glucose (UA) Urine Ketones Urine Occult Blood Urine Nitrate Urine Bilirubin Urine Urobilinogen Ur Leukocyte Esterase Urine RBC Urine WBC Urine WBC Clumps Amorphous Sediment Urine Bacteria Hyaline Casts Urine Mucus Micro UA Comment Urine Culture Comments Urine Eosinophils Nasal Screen MRSA (PCR) Stl C.difficile DNA Amp St C. diff Tox Epid 027 MTS Gel Crossmatch Blood Bank Comment 08/03/18 08/03/18 08/03/18 09:11 09:18 09:49 WBC RBC Hgb 9.9 L Hct MCV MCH MCHC RDW Plt Count MPV Prelim Diff (Auto) Neut % (Auto) Lymph % (Auto) Wirt % (Auto) Eos % (Auto) Baso % (Auto) Neut # (Auto) Lymph # (Auto) Wirt # (Auto) Eos # (Auto) Baso # (Auto) WBC Differential Seg Neuts % (Manual) Band Neuts % (Manual) Lymphocytes % (Manual) Monocytes % (Manual) Metamyelocytes % (Man) Abs Neuts (Manual) Nucleated RBCs/100 WBC Differential Comment Toxic Granulation Toxic Vacuolation Platelet Estimate Platelet Morphology PT INR APTT Fibrinogen Puncture Site Patient Temperature O2 Saturation ABG pH ABG pCO2 ABG pO2 ABG HCO3 ABG O2 Content ABG Base Excess ABG Methemoglobin Jordy Test Hemoglobin Carboxyhemoglobin O2 Delivery Device Vent Setting Inspired O2 Critical Value Sodium Potassium Chloride Carbon Dioxide Anion Gap BUN Creatinine Estimated GFR POC Glucose 175 H Random Glucose Lactic Acid Calcium Calcium Adj for Albumin Phosphorus Magnesium Ammonia Total Creatine Kinase CK-MB (CK-2) CK-MB (CK-2) % Troponin I Albumin Lipase Beta-Hydroxybutyric Acd Urine Color Urine Clarity Urine pH Ur Specific [place] Urine Protein Urine Glucose (UA) Urine Ketones Urine Occult Blood Urine Nitrate Urine Bilirubin Urine Urobilinogen Ur Leukocyte Esterase Urine RBC Urine WBC Urine WBC Clumps Amorphous Sediment Urine Bacteria Hyaline Casts Urine Mucus Micro UA Comment Urine Culture Comments Urine Eosinophils Nasal Screen MRSA (PCR) Stl C.difficile DNA Amp Negative St C. diff Tox Epid 027 Negative MTS Gel Crossmatch Blood Bank Comment 08/03/18 08/03/18 08/03/18 10:04 10:44 10:58 WBC RBC Hgb Hct MCV MCH MCHC RDW Plt Count MPV Prelim Diff (Auto) Neut % (Auto) Lymph % (Auto) Wirt % (Auto) Eos % (Auto) Baso % (Auto) Neut # (Auto) Lymph # (Auto) Wirt # (Auto) Eos # (Auto) Baso # (Auto) WBC Differential Seg Neuts % (Manual) Band Neuts % (Manual) Lymphocytes % (Manual) Monocytes % (Manual) Metamyelocytes % (Man) Abs Neuts (Manual) Nucleated RBCs/100 WBC Differential Comment Toxic Granulation Toxic Vacuolation Platelet Estimate Platelet Morphology PT INR APTT Fibrinogen Puncture Site Art line Patient Temperature 98.6 O2 Saturation 96 ABG pH 7.30 L ABG pCO2 25 L ABG pO2 226 H ABG HCO3 12 L* ABG O2 Content 13.2 ABG Base Excess -13.5 L ABG Methemoglobin 2.1 H Jordy Test Present Hemoglobin 9.4 L Carboxyhemoglobin 0.6 O2 Delivery Device Ventilator Vent Setting Prvc/ac Inspired O2 40 Critical Value Yes Sodium Potassium Chloride Carbon Dioxide Anion Gap BUN Creatinine Estimated GFR POC Glucose 168 H 154 H Random Glucose Lactic Acid Calcium Calcium Adj for Albumin Phosphorus Magnesium Ammonia Total Creatine Kinase CK-MB (CK-2) CK-MB (CK-2) % Troponin I Albumin Lipase Beta-Hydroxybutyric Acd Urine Color Urine Clarity Urine pH Ur Specific [place] Urine Protein Urine Glucose (UA) Urine Ketones Urine Occult Blood Urine Nitrate Urine Bilirubin Urine Urobilinogen Ur Leukocyte Esterase Urine RBC Urine WBC Urine WBC Clumps Amorphous Sediment Urine Bacteria Hyaline Casts Urine Mucus Micro UA Comment Urine Culture Comments Urine Eosinophils Nasal Screen MRSA (PCR) Stl C.difficile DNA Amp St C. diff Tox Epid 027 MTS Gel Crossmatch Blood Bank Comment 08/03/18 08/03/18 08/03/18 12:01 12:24 12:59 WBC RBC Hgb Hct MCV MCH MCHC RDW Plt Count MPV Prelim Diff (Auto) Neut % (Auto) Lymph % (Auto) Wirt % (Auto) Eos % (Auto) Baso % (Auto) Neut # (Auto) Lymph # (Auto) Wirt # (Auto) Eos # (Auto) Baso # (Auto) WBC Differential Seg Neuts % (Manual) Band Neuts % (Manual) Lymphocytes % (Manual) Monocytes % (Manual) Metamyelocytes % (Man) Abs Neuts (Manual) Nucleated RBCs/100 WBC Differential Comment Toxic Granulation Toxic Vacuolation Platelet Estimate Platelet Morphology PT INR APTT Fibrinogen Puncture Site Patient Temperature O2 Saturation ABG pH ABG pCO2 ABG pO2 ABG HCO3 ABG O2 Content ABG Base Excess ABG Methemoglobin Jordy Test Hemoglobin Carboxyhemoglobin O2 Delivery Device Vent Setting Inspired O2 Critical Value Sodium Potassium Chloride Carbon Dioxide Anion Gap BUN Creatinine Estimated GFR POC Glucose 140 H 137 H 156 H Random Glucose Lactic Acid Calcium Calcium Adj for Albumin Phosphorus Magnesium Ammonia Total Creatine Kinase CK-MB (CK-2) CK-MB (CK-2) % Troponin I Albumin Lipase Beta-Hydroxybutyric Acd Urine Color Urine Clarity Urine pH Ur Specific [place] Urine Protein Urine Glucose (UA) Urine Ketones Urine Occult Blood Urine Nitrate Urine Bilirubin Urine Urobilinogen Ur Leukocyte Esterase Urine RBC Urine WBC Urine WBC Clumps Amorphous Sediment Urine Bacteria Hyaline Casts Urine Mucus Micro UA Comment Urine Culture Comments Urine Eosinophils Nasal Screen MRSA (PCR) Stl C.difficile DNA Amp St C. diff Tox Epid 027 MTS Gel Crossmatch Blood Bank Comment 08/03/18 08/03/18 08/03/18 13:50 13:54 14:47 WBC RBC Hgb Hct MCV MCH MCHC RDW Plt Count MPV Prelim Diff (Auto) Neut % (Auto) Lymph % (Auto) Wirt % (Auto) Eos % (Auto) Baso % (Auto) Neut # (Auto) Lymph # (Auto) Wirt # (Auto) Eos # (Auto) Baso # (Auto) WBC Differential Seg Neuts % (Manual) Band Neuts % (Manual) Lymphocytes % (Manual) Monocytes % (Manual) Metamyelocytes % (Man) Abs Neuts (Manual) Nucleated RBCs/100 WBC Differential Comment Toxic Granulation Toxic Vacuolation Platelet Estimate Platelet Morphology PT INR APTT Fibrinogen Puncture Site Patient Temperature O2 Saturation ABG pH ABG pCO2 ABG pO2 ABG HCO3 ABG O2 Content ABG Base Excess ABG Methemoglobin Jordy Test Hemoglobin Carboxyhemoglobin O2 Delivery Device Vent Setting Inspired O2 Critical Value Sodium 143 Potassium 4.0 Chloride 118 H Carbon Dioxide 13.6 L Anion Gap 11 BUN 86 H Creatinine 2.37 H Estimated GFR 34 L POC Glucose 177 H 158 H Random Glucose 151 H Lactic Acid Calcium 5.8 L* Calcium Adj for Albumin 7.6 L Phosphorus Magnesium Ammonia Total Creatine Kinase CK-MB (CK-2) CK-MB (CK-2) % Troponin I Albumin 1.7 L Lipase Beta-Hydroxybutyric Acd 0.09 Urine Color Urine Clarity Urine pH Ur Specific [place] Urine Protein Urine Glucose (UA) Urine Ketones Urine Occult Blood Urine Nitrate Urine Bilirubin Urine Urobilinogen Ur Leukocyte Esterase Urine RBC Urine WBC Urine WBC Clumps Amorphous Sediment Urine Bacteria Hyaline Casts Urine Mucus Micro UA Comment Urine Culture Comments Urine Eosinophils Nasal Screen MRSA (PCR) Stl C.difficile DNA Amp St C. diff Tox Epid 027 MTS Gel Crossmatch Blood Bank Comment 08/03/18 08/03/18 08/03/18 15:42 16:49 17:15 WBC RBC Hgb Hct MCV MCH MCHC RDW Plt Count MPV Prelim Diff (Auto) Neut % (Auto) Lymph % (Auto) Wirt % (Auto) Eos % (Auto) Baso % (Auto) Neut # (Auto) Lymph # (Auto) Wirt # (Auto) Eos # (Auto) Baso # (Auto) WBC Differential Seg Neuts % (Manual) Band Neuts % (Manual) Lymphocytes % (Manual) Monocytes % (Manual) Metamyelocytes % (Man) Abs Neuts (Manual) Nucleated RBCs/100 WBC Differential Comment Toxic Granulation Toxic Vacuolation Platelet Estimate Platelet Morphology PT INR APTT Fibrinogen Puncture Site Patient Temperature O2 Saturation ABG pH ABG pCO2 ABG pO2 ABG HCO3 ABG O2 Content ABG Base Excess ABG Methemoglobin Jordy Test Hemoglobin Carboxyhemoglobin O2 Delivery Device Vent Setting Inspired O2 Critical Value Sodium Potassium Chloride Carbon Dioxide Anion Gap BUN Creatinine Estimated GFR POC Glucose 171 H 172 H Random Glucose Lactic Acid 3.6 H Calcium Calcium Adj for Albumin Phosphorus Magnesium Ammonia Total Creatine Kinase CK-MB (CK-2) CK-MB (CK-2) % Troponin I Albumin Lipase Beta-Hydroxybutyric Acd Urine Color Urine Clarity Urine pH Ur Specific [place] Urine Protein Urine Glucose (UA) Urine Ketones Urine Occult Blood Urine Nitrate Urine Bilirubin Urine Urobilinogen Ur Leukocyte Esterase Urine RBC Urine WBC Urine WBC Clumps Amorphous Sediment Urine Bacteria Hyaline Casts Urine Mucus Micro UA Comment Urine Culture Comments Urine Eosinophils Nasal Screen MRSA (PCR) Stl C.difficile DNA Amp St C. diff Tox Epid 027 iCatapult Gel Crossmatch Blood Bank Comment 08/03/18 08/03/18 08/03/18 17:15 17:15 17:33 WBC RBC Hgb 9.1 L Hct MCV MCH MCHC RDW Plt Count MPV Prelim Diff (Auto) Neut % (Auto) Lymph % (Auto) Wirt % (Auto) Eos % (Auto) Baso % (Auto) Neut # (Auto) Lymph # (Auto) Wirt # (Auto) Eos # (Auto) Baso # (Auto) WBC Differential Seg Neuts % (Manual) Band Neuts % (Manual) Lymphocytes % (Manual) Monocytes % (Manual) Metamyelocytes % (Man) Abs Neuts (Manual) Nucleated RBCs/100 WBC Differential Comment Toxic Granulation Toxic Vacuolation Platelet Estimate Platelet Morphology PT INR APTT Fibrinogen Puncture Site Patient Temperature O2 Saturation ABG pH ABG pCO2 ABG pO2 ABG HCO3 ABG O2 Content ABG Base Excess ABG Methemoglobin Jordy Test Hemoglobin Carboxyhemoglobin O2 Delivery Device Vent Setting Inspired O2 Critical Value Sodium Potassium Chloride Carbon Dioxide Anion Gap BUN Creatinine Estimated GFR POC Glucose 184 H Random Glucose Lactic Acid Calcium Calcium Adj for Albumin Phosphorus Magnesium 1.9 Ammonia Total Creatine Kinase CK-MB (CK-2) CK-MB (CK-2) % Troponin I Albumin Lipase Beta-Hydroxybutyric Acd Urine Color Urine Clarity Urine pH Ur Specific [place] Urine Protein Urine Glucose (UA) Urine Ketones Urine Occult Blood Urine Nitrate Urine Bilirubin Urine Urobilinogen Ur Leukocyte Esterase Urine RBC Urine WBC Urine WBC Clumps Amorphous Sediment Urine Bacteria Hyaline Casts Urine Mucus Micro UA Comment Urine Culture Comments Urine Eosinophils Nasal Screen MRSA (PCR) Stl C.difficile DNA Amp St C. diff Tox Epid 027 MTS Gel Crossmatch Blood Bank Comment 08/03/18 08/03/18 18:05 18:49 WBC RBC Hgb Hct MCV MCH MCHC RDW Plt Count MPV Prelim Diff (Auto) Neut % (Auto) Lymph % (Auto) Wirt % (Auto) Eos % (Auto) Baso % (Auto) Neut # (Auto) Lymph # (Auto) Wirt # (Auto) Eos # (Auto) Baso # (Auto) WBC Differential Seg Neuts % (Manual) Band Neuts % (Manual) Lymphocytes % (Manual) Monocytes % (Manual) Metamyelocytes % (Man) Abs Neuts (Manual) Nucleated RBCs/100 WBC Differential Comment Toxic Granulation Toxic Vacuolation Platelet Estimate Platelet Morphology PT INR APTT Fibrinogen Puncture Site Art line Patient Temperature 98.6 O2 Saturation 96 ABG pH 7.32 L ABG pCO2 25 L ABG pO2 209 H ABG HCO3 12 L* ABG O2 Content 12.9 ABG Base Excess -12.6 L ABG Methemoglobin 2.1 H Jordy Test Present Hemoglobin 9.2 L Carboxyhemoglobin 0.6 O2 Delivery Device Ventilator Vent Setting Prvc/ac Inspired O2 40 Critical Value No Sodium Potassium Chloride Carbon Dioxide Anion Gap BUN Creatinine Estimated GFR POC Glucose 132 H Random Glucose Lactic Acid Calcium Calcium Adj for Albumin Phosphorus Magnesium Ammonia Total Creatine Kinase CK-MB (CK-2) CK-MB (CK-2) % Troponin I Albumin Lipase Beta-Hydroxybutyric Acd Urine Color Urine Clarity Urine pH Ur Specific [place] Urine Protein Urine Glucose (UA) Urine Ketones Urine Occult Blood Urine Nitrate Urine Bilirubin Urine Urobilinogen Ur Leukocyte Esterase Urine RBC Urine WBC Urine WBC Clumps Amorphous Sediment Urine Bacteria Hyaline Casts Urine Mucus Micro UA Comment Urine Culture Comments Urine Eosinophils Nasal Screen MRSA (PCR) Stl C.difficile DNA Amp St C. diff Tox Epid 027 MTS Gel Crossmatch Blood Bank Comment Microbiology 08/02/18 10:55 Urine Culture - Preliminary Catheterized Urine Staphylococcus aureus 08/03/18 09:49 Stool Occult Blood (FOREIGN) - Final Stool Hemoccult positive 08/02/18 10:49 Aerobic Blood Culture - Preliminary Blood - Peripheral No growth in 1 day Anaerobic Blood Culture - Preliminary No growth in 1 day 08/02/18 10:49 Aerobic Blood Culture - Preliminary Blood - Peripheral No growth in 1 day Anaerobic Blood Culture - Preliminary No growth in 1 day Impressions Extremity Arterial Study 08/02/18 00:00 CONCLUSION: Severe small vessel disease, left worse than right Chest X-Ray 08/02/18 10:30 CONCLUSION: Negative examination. 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 Negative CT Head non contrast. . Chest X-Ray 08/02/18 14:18 CONCLUSION: Satisfactory Central line positioning. Abdomen/Bladder Ultrasound 08/02/18 14:35 CONCLUSION: Bladder distention despite Tang catheter. Chest X-Ray 08/03/18 00:37 CONCLUSION: Endotracheal tube, nasogastric tube and left central line in good position. No focal infiltrate or effusion.
--- NOTE | 2018-08-03 21:06 | MP ---
cc: Alan Berumen MD DATE OF OPERATION: 08/03/2018 POSTOPERATIVE DIAGNOSES: Septic shock, gas gangrene of the left foot, metabolic acidosis, hypocoagulable state. POSTOPERATIVE DIAGNOSES: Septic shock, gas gangrene of the left foot, metabolic acidosis, hypocoagulable state. PROCEDURE PERFORMED: Guillotine left foot amputation, first stage procedure. SURGEON: Alan Berumen MD ANESTHESIA: General. ESTIMATED BLOOD LOSS: 50 mL. DESCRIPTION OF PROCEDURE: The patient was prepped and draped in usual fashion and a circumferential incision made about 3 inches above the ankle with a 10 blade and deepened down to the level of the vasculature. The posterior tibial artery was transected and ligated with a 2-0 Vicryl stick ties proximally and silk distally. The anterior tibial artery was nearly occluded; however, there was some bleeding from this. This was also ligated with some 2-0 Vicryl and then the tibia and fibula exposed with a periosteal elevator, elevating the periosteum slightly up. Both bones were now transected with an oscillating saw and the posterior flap was transected and specimen removed. The area was irrigated with saline. Meticulous hemostasis was obtained and wound VAC placed. The patient tolerated the procedure well. This patient will require a second stage procedure probably a week from now to close all this. MD ONEL Tovar/marvin , 08:26 PM , 08:32 PM
[2018-08-04] LABS: Baso % (Auto) 0.1 % (0.0-2.0); Hematocrit 27.4 % (39.0-51.0); Hemoglobin 9.4 gm/dL (13.0-17.0); Lymph # (Auto) 0.7 th/mm3 (1.0-4.8); Lymph % (Auto) 2.3 % (9.0-44.0); Mean Corpuscular HGB Conc 34.2 % (32.0-36.0); Mean Corpuscular Hemoglobin 30.1 pg (27.0-34.0); Mean Corpuscular Volume 87.9 fL (80.0-100.0); Mono # (Auto) 0.3 th/mm3 (0.0-0.9); Neut # (Auto) 31.1 th/mm3 (1.8-7.7); Neut % (Auto) 96.6 % (16.0-70.0); Platelet Count 69 th/mm3 (150-450); Red Blood Count 3.12 mil/mm3 (4.50-5.90); Red Cell Distribution Width 16.7 % (11.6-17.2); White Blood Count 32.2 th/mm3 (4.0-11.0)
[2018-08-04 00:37] LABS: Albumin 1.4 g/dL (3.4-5.0); Calcium 5.7 mg/dL (8.5-10.1); Carbon Dioxide 15.8 meq/L (21.0-32.0); Magnesium 1.8 mg/dL (1.5-2.5); Phosphorus 1.8 mg/dL (2.5-4.9); Potassium 4.2 meq/L (3.5-5.1); Total Protein 4.3 g/dL (6.4-8.2); Vancomycin,Random 8.6 Comment
[2018-08-04 01:08] LABS: Creatine Kinase MB 50.3 ng/mL (0.5-3.6)
[2018-08-04 01:36] LABS: INR 1.5 Ratio; Prothrombin Time 15.6 sec (9.8-11.6)
[2018-08-04] MEDS: [UNRECOGNIZED DRUG - OTHER] IV.CONT SCH ×2 (03:17→05:59)
[2018-08-04] MEDS: POTASSIUM CHLORIDE IV.CONT SCH ×2 (03:17→05:59)
[2018-08-04] MEDS: SODIUM BICARBONATE IV.CONT SCH ×2 (03:17→05:59)
[2018-08-04] MEDS: Chlorhexidine Gluconate 2% 1 Pack (2 Cloths) TOPICAL SCH (03:18)
[2018-08-04] MEDS: Oral Hygiene Kit OROPHARYNG SCH ×3 (03:18→16:10)
[2018-08-04] MEDS: Piperacil/Tazo 2.25 GM Premix 50 ML IV.SIG SCH ×4 (04:09→23:12)
[2018-08-04 04:59] LABS: Metamyelocytes 3 % (0-1); Monocytes 2 % (0-8); Tallied Nucleated RBC 2 (0-0)
[2018-08-04 05:00] LABS: Acanthocytes Occ; Burr Cells 1+; Platelet Morphology Normal (Normal); Toxic Vacuolation Present
--- NOTE | 2018-08-04 07:19 | MB ---
cc: Alan Berumen MD DATE: 08/03/2018 CONSULTING PHYSICIAN: Dr. Berumen REASON FOR CONSULTATION: Gangrene of the left foot, septic shock, metabolic acidosis, respiratory failure and diabetic ketoacidosis. CRITICAL CARE: 38 minutes. HISTORY OF PRESENT ILLNESS: This 57-year-old male with longstanding diabetes mellitus and noncompliance is admitted to the hospital with hypotensive shock, sepsis, gangrene of the left foot and respiratory failure. At the time of admission, the patient's temperature was 74 degrees and he was in profound metabolic acidosis, septic shock with gas gangrene of the right foot. Consult is sought. PAST MEDICAL HISTORY: Longstanding diabetes, coronary artery disease and history of lung cancer. PAST SURGICAL HISTORY: Unknown to me. PHYSICAL EXAMINATION: GENERAL: Reveals a 57-year-old male on ventilator, intubated and sedated. HEENT: Pupils equal and reactive. Extraocular muscles cannot be tested. NECK: Bilateral carotid pulses. No bruits. CHEST: Bilateral breath sounds. The patient is fully intubated, ventilated. ABDOMEN: Soft. No rebound, masses or guarding. EXTREMITIES: The patient has palpable femoral pulses. He has palpable popliteal pulses and dopplerable dorsalis pedis and posterior tibial on the left. On the left, the patient has no pulses in the foot and the entire foot is essentially involved in bad gangrene with purulent wet necrotic tissue. There is very little of the left foot basically left after it was drained in the ER by Dr. Horn. Neurologically, the patient cannot be examined, intubated and ventilated. ASSESSMENT AND PLAN: The patient with sepsis due to the gas gangrene of the foot. The patient already underwent debridement of the foot emergently in the emergency room by Dr. Horn which essentially saved this patient's life. The patient is now hemodynamically unstable on 3 vasopressors including Levophed, Brett-Synephrine and vasopressin. He is in profound metabolic acidosis, hypocoagulable state, hypothermia with respiratory failure. At this point, the patient is not a candidate for surgery; however, the patient will be resuscitated with probably massive amounts of fluids. Will be placed on antibiotics and in the next 12-24 hours he should be taken to the operating room for a guillotine foot amputation. On one hand the patient is too unstable to go to the operating room now, but on the other hand until the cause of his sepsis is removed, he is not going to get much better either. Therefore, we have to choose very judiciously the window when the patient is just enough resuscitated to sustain the surgery and then from there will go on. The patient will require guillotine amputation first and then second stage procedure probably a week from now. I thank you for the referral. I will continue to follow the patient. MD ONEL Tovar/sj , 08:24 PM , 08:31 PM
[2018-08-04 08:13] LABS: Baso # (Auto) 0.1 th/mm3 (0.0-0.2); Baso % (Auto) 0.2 % (0.0-2.0); Eos % (Auto) 0.1 % (0.0-4.0); Hematocrit 27.1 % (39.0-51.0); Hemoglobin 9.5 gm/dL (13.0-17.0); Lymph # (Auto) 0.9 th/mm3 (1.0-4.8); Lymph % (Auto) 2.3 % (9.0-44.0); Mean Corpuscular Hemoglobin 30.8 pg (27.0-34.0); Mean Platelet Volume 8.4 fL (7.0-11.0); Mono # (Auto) 0.3 th/mm3 (0.0-0.9); Mono % (Auto) 0.7 % (0.0-8.0); Neut # (Auto) 36.9 th/mm3 (1.8-7.7); Neut % (Auto) 96.7 % (16.0-70.0); Platelet Count 63 th/mm3 (150-450); Red Blood Count 3.08 mil/mm3 (4.50-5.90); Red Cell Distribution Width 16.6 % (11.6-17.2); White Blood Count 38.1 th/mm3 (4.0-11.0)
[2018-08-04 08:30] LABS: Activated Partial Thrombo Time 46.5 sec (23.4-31.7); INR 1.5 Ratio; Prothrombin Time 15.2 sec (9.8-11.6)
[2018-08-04 08:47] LABS: Albumin 1.3 g/dL (3.4-5.0); Calcium 5.7 mg/dL (8.5-10.1); Carbon Dioxide 13.2 meq/L (21.0-32.0); Magnesium 1.9 mg/dL (1.5-2.5); Phosphorus 1.7 mg/dL (2.5-4.9); Potassium 4.4 meq/L (3.5-5.1); Total Protein 4.2 g/dL (6.4-8.2); Troponin I 0.23 ng/mL (0.02-0.05)
[2018-08-04 08:57] LABS: ABG PCO2 23 mmHg (38-42); ABG PO2 167 mmHG (61-120)
[2018-08-04 09:08] LABS: Lymphocytes 2 % (9-44); Platelet Morphology Normal (Normal)
[2018-08-04 09:09] LABS: Toxic Granulation 1+
[2018-08-04 09:11] LABS: Acanthocytes Occ; Burr Cells 1+
[2018-08-04 09:22] LABS: CKMB Percent 0.8 % (0.0-4.0); Creatine Kinase MB 41.1 ng/mL (0.5-3.6)
--- NOTE | 2018-08-04 09:45 | MR ---
EXAM DATE: 08/04/2018 9:23 AM EST AGE/SEX: 57 years / Male INDICATIONS: Altered mental status. CLINICAL DATA: This is the patient's initial encounter. Patient reports that signs and symptoms have been present for 1 day and indicates a pain score of 0/10. MEDICAL/SURGICAL HISTORY: Diabetes mellitus type II. Chronic renal insufficiency. Carcinoma, lung. Hypertension. . Left foot amputation. COMPARISON: [facility], CT HEAD W/O CONTRAST, 08/02/2018. . TECHNIQUE: Multiplanar, multisequence examination of the brain was performed without contrast. FINDINGS: There is extensive edema and swelling throughout the cerebellar hemispheres bilaterally. There is upw binh and downward herniation of cerebellar tissues. There is developing hydrocephalus with mild transe pendymal fluid migration noted. Supratentorially, patchy T2 hyperintensity in gyri throughout likely indicate global insult of some type. There is no evidence of macroscopic hemorrhage. No focal mass. F luid in the facial sinuses throughout. CONCLUSION: Markedly abnormal brain appearance as above. Findings were discussed with Dr. Grubbs Electronically signed by: Aron Villarreal MD 08/04/2018 9:43 AM EST
[2018-08-04] MEDS: Norepinephrine Inj 16 MG in Sodium Chlor 0.9% Inj 234 ML IV.CONT PRN ×2 (10:01→21:00)
[2018-08-04] MEDS: Senna/Docusate Sodium 8.6/50 MG Tablet PO SCH ×2 (10:04→21:02)
[2018-08-04] MEDS: Chlorhexidine 0.12% Oral Kit 15 ML UDC OROPHARYNG SCH ×2 (10:04→21:01)
[2018-08-04] MEDS: Pantoprazole Inj 80 MG in Sodium Chlor 0.9% Inj 100 ML IV.CONT SCH ×2 (10:04→20:42)
[2018-08-04] MEDS ORDERED: Dextrose 50% in Water 50 ML Vial IV.PUSH PRN (10:43)
--- NOTE | 2018-08-04 10:58 | P.PNCC ---
Subjective Subjective Remarks/Hospital Course: This is a 49-year-old male. Date of admission 08/02/2008. Past medical history includes diabetes mellitus, hypertension, peripheral neuropathy and narcotic use. Patient was recently DNR under fluoroscopy hospice. Patient left [facility] 07/10/2018 according to records. Patient was found today by friends altered mental status. Patient was transferred according to [facility] for evaluation treatment. Upon arrival, patient was hypothermic with a temperature of 79 F. Workup included sodium 1.8, potassium 5.5 and creatinine 3.17. Blood sugar was 900. Lipid cell count is 47,000 with 34 bands. Hemoglobin is 9.4 and platelets 143. INR is 1.5. Albumin is 1.63 CPK is 3200. Transaminases are elevated. Patient received 5 L normal saline in the ED of warm saline and started on insulin drip per DKA protocol. Anion gap was 27. Lactic and beta hydroxybutyrate currently pending. CT brain revealed no acute intracranial findings. Foot x-ray revealed gas gangrene left foot. Attempted to consult podiatry at the present time. Patient was started on vancomycin and piperacillin/tazobactam. I added clindamycin A central line was placed due to multiple lab draws/ of hypotension 08/03 -intubated overnight due to altered mental status. Worsening sepsis. Debrided left foot yesterday. Vascular surgery did evaluate. Currently on norepinephrine and vasopressin drips. Transfused 3 units PRBCs and fresh frozen plasma overnight. SUBJECTIVE: 08/04: This morning, noted no corneal reflex/no gag or cough. Pupils appeared fixed. Negative oculocephalic reflex. MRI brain revealed bilateral cerebellar edema with upward and downward herniation. Early hydrocephalus. Remains hypothermic. Son Mando Danielle notified. Objective Vital Signs / I&O: Vital Signs 08/03/18 11:00 08/03/18 11:10 08/03/18 11:20 Temperature 98.6 F 98.4 F 98.4 F Pulse Rate 95 H 95 H 95 H Respiratory Rate 20 20 20 Blood Pressure 100/57 L 103/59 L 107/55 L Pulse Oximetry 100 100 100 08/03/18 11:30 08/03/18 11:40 08/03/18 11:50 Temperature 98.2 F 98.1 F 98.1 F Pulse Rate 94 H 93 H 93 H Respiratory Rate 21 20 21 Blood Pressure 110/58 L 114/61 113/61 Pulse Oximetry 100 100 100 08/03/18 11:59 08/03/18 12:00 08/03/18 12:10 Temperature 97.9 F 97.9 F Pulse Rate 92 H 91 H 91 H Respiratory Rate 20 21 21 Blood Pressure 134/71 106/59 L Pulse Oximetry 100 100 100 08/03/18 12:20 08/03/18 12:30 08/03/18 12:40 Temperature 97.7 F 97.7 F 97.5 F L Pulse Rate 91 H 92 H 91 H Respiratory Rate 20 21 20 Blood Pressure 118/66 112/64 107/63 Pulse Oximetry 100 100 100 08/03/18 12:50 08/03/18 13:00 08/03/18 14:00 Temperature 97.3 F L 97.2 F L 96.4 F L Pulse Rate 90 89 85 Respiratory Rate 20 20 20 Blood Pressure 112/63 112/64 Pulse Oximetry 100 100 98 08/03/18 15:00 08/03/18 15:30 08/03/18 16:00 Temperature 96.4 F L 96.1 F L Pulse Rate 85 85 79 Respiratory Rate 20 20 20 Blood Pressure 98/60 L Pulse Oximetry 100 100 97 08/03/18 16:03 08/03/18 16:23 08/03/18 16:30 Temperature 96.1 F L 95.9 F L 95.9 F L Pulse Rate 79 93 H 78 Respiratory Rate 20 20 20 Blood Pressure 105/67 178/89 H 98/60 L Pulse Oximetry 96 96 97 08/03/18 17:00 08/03/18 17:30 08/03/18 18:00 Temperature 96.1 F L 96.3 F L 96.4 F L Pulse Rate 80 80 83 Respiratory Rate 20 20 20 Blood Pressure 110/67 102/65 96/64 L Pulse Oximetry 96 94 L 95 08/03/18 18:30 08/03/18 19:05 08/03/18 19:40 Temperature 96.8 F L Pulse Rate 83 Respiratory Rate 20 20 Blood Pressure 98/62 L Pulse Oximetry 94 L 98 100 08/03/18 20:29 08/03/18 20:32 08/03/18 20:44 Temperature 96.6 F L Pulse Rate 87 87 86 Respiratory Rate 20 20 Blood Pressure 120/73 Pulse Oximetry 100 100 08/03/18 21:00 08/03/18 21:30 08/03/18 22:00 Temperature 96.3 F L 96.1 F L 95.7 F L Pulse Rate 85 85 83 Respiratory Rate 20 20 20 Blood Pressure 123/77 123/75 114/72 Pulse Oximetry 100 100 100 08/03/18 22:30 08/03/18 22:40 08/03/18 23:00 Temperature 95.5 F L 95.4 F L Pulse Rate 81 80 Respiratory Rate 20 20 20 Blood Pressure 114/79 97/64 L Pulse Oximetry 100 100 100 08/03/18 23:30 08/04/18 00:00 08/04/18 00:02 Temperature 95.4 F L 95.4 F L Pulse Rate 80 79 79 Respiratory Rate 20 20 20 Blood Pressure 87/60 L 90/61 L Pulse Oximetry 100 100 08/04/18 00:30 08/04/18 01:00 08/04/18 01:30 Temperature 95.5 F L 95.9 F L 96.1 F L Pulse Rate 80 80 81 Respiratory Rate 20 20 20 Blood Pressure 90/62 L 93/64 L 89/61 L Pulse Oximetry 100 100 100 08/04/18 01:35 08/04/18 02:00 08/04/18 02:30 Temperature 96.3 F L 96.1 F L Pulse Rate 81 80 Respiratory Rate 20 20 20 Blood Pressure 86/60 L 88/60 L Pulse Oximetry 100 100 100 08/04/18 03:00 08/04/18 03:30 08/04/18 03:34 Temperature 95.9 F L 95.5 F L 95.5 F L Pulse Rate 80 82 84 Respiratory Rate 20 20 20 Blood Pressure 85/62 L 82/56 L 84/55 L Pulse Oximetry 100 100 100 08/04/18 03:50 08/04/18 04:00 08/04/18 04:30 Temperature 95.2 F L 94.6 F L Pulse Rate 85 84 84 Respiratory Rate 20 20 20 Blood Pressure 124/79 113/70 Pulse Oximetry 100 100 08/04/18 04:45 08/04/18 05:00 08/04/18 05:30 Temperature 94.3 F L 93.9 F L Pulse Rate 81 80 Respiratory Rate 20 20 20 Blood Pressure 118/75 123/77 Pulse Oximetry 99 100 100 08/04/18 06:00 08/04/18 06:01 08/04/18 08:00 Temperature 93.6 F L 93.6 F L Pulse Rate 78 78 82 Respiratory Rate 20 20 Blood Pressure 106/72 Pulse Oximetry 100 100 99 08/04/18 08:22 08/04/18 09:41 Temperature Pulse Rate 82 Respiratory Rate 20 Blood Pressure Pulse Oximetry 100 98 Intake & Output 08/03/18 08/04/18 08/04/18 18:59 06:59 18:59 Intake Total 6575 / 6575 4204 / 4204 350 / 350 Output Total 160 / 160 525 / 525 Balance 6415 / 6415 3679 / 3679 350 / 350 Weight 82 kg Intake: IV 6575 / 6575 3754 / 3754 350 / 350 NovoLIN R (IV Infusion) 100 100 / 100 UNIT In NS Inj 99 ML @ 5 UNITS/ HR 5 mls/hr IV.CONT TITRATE PRN Rx#:[id number] D5W/1/2NS + KCL 20 mEq Inj 1, 1400 / 1400 000 ML @ 200 mls/hr IV.CONT . Q5H [facility] Rx#:[id number] Levophed Inj 16 MG In NS Inj 250 / 250 250 / 250 234 ML @ 2 MCG/MIN 1.87 mls/hr IV.CONT TITRATE PRN Rx#: [id number] Protonix Inj 80 MG In NS Inj 100 / 100 100 / 100 100 / 100 100 ML @ 10 mls/hr IV.CONT Q10H [facility] Rx#:[id number] Sodium Bicarbonate 8.4% Inj 50 1000 / 1000 3000 / 3000 MEQ KCl Inj 20 MEQ In D5W/1/2 NS Inj 940 ML @ 200 mls/hr IV. CONT .Q5H [facility] Rx#:[id number] 1/2 Normal Saline Inj 1,000 ML 1000 / 1000 @ 999 mls/hr IV.CONT BOLUS ONE Rx#:[id number] Pitressin Inj 40 UNIT In D5W 100 / 100 Inj 98 ML @ 0.04 UNITS/MIN 6 mls/hr IV.CONT CONT [facility] Rx#: [id number] Flexbumin 25% Inj 100 ML @ 60 100 / 100 mls/hr IV.SIG ONCE ONE Rx#: [id number] Calcium Chloride Inj 1 GM In 110 / 110 D5W Inj 100 ML @ 110 mls/hr IV. SIG ONCE ONE Rx#:[id number] Cleocin 600 mg/NS Premix 600 mg 50 / 50 In 50 ml @ 100 mls/hr IV.SIG Q8H [facility] Rx#:[id number] Cleocin Inj 600 MG In NS Inj 104 / 104 104 / 104 100 ML @ 208 mls/hr IV.SIG Q8H [facility] Rx#:[id number] Diflucan 200 mg Premix Bag 100 100 / 100 100 / 100 ML @ 100 mls/hr IV.SIG Q24H [facility] Rx#:[id number] LR 1000 mL Inj 1,000 ML @ Wide 1000 / 1000 Open IV.SIG BOLUS ONE Rx#: [id number] Magnesium Sulfate Inj 2 GM In 100 / 100 NS Inj 96 ML @ 50 mls/hr IV.SIG ONCE ONE Rx#:[id number] Vitamin K Inj 10 MG In NS Inj 51 / 51 50 ML @ 102 mls/hr IV.SIG ONCE ONE Rx#:[id number] Zosyn 2.25 GM Premix 50 ML @ 100 / 100 100 / 100 100 mls/hr IV.SIG Q6H [facility] Rx#: [id number] Potassium Phosphate Inj 30 MMOL 260 / 260 In NS Inj 250 ML @ 43.333 mls/ hr IV.SIG ONCE ONE Rx#:[id number] 1/2 Normal Saline Inj 1,000 ML 1000 / 1000 @ Wide Open IV.SIG BOLUS ONE Rx #:[id number] Anesthesia Amount 450 / 450 Intake (Blood Product) Amt 0 / 0 Plasma Thawed 5 Day Acda Unit 0 / 0 [id number] Output: Estimated Blood Loss 50 / 50 Urine Amount (Catheter) 160 / 160 325 / 325 Indwelling Temp Sensing 160 / 160 325 / 325 Catheter Wound Vac Amount 150 / 150 Left Foot 150 / 150 Other: Mode Setting Left Foot Continuous Date of Last Bowel Movement 08/03/18 08/03/18 08/03/18 # Bowel Movements 2 Result Diagrams: 08/04/18 07:43 08/04/18 07:43 Other Results: Microbiology 08/02/18 10:55 Catheterized Urine Urine Culture - Preliminary Staphylococcus aureus 08/03/18 09:04 Sputum - Endotracheal Gram Stain - Final 08/03/18 09:49 Stool Stool Occult Blood (FOREIGN) - Final Hemoccult positive 08/02/18 10:49 Blood - Peripheral Aerobic Blood Culture - Preliminary No growth in 1 day 08/02/18 10:49 Blood - Peripheral Anaerobic Blood Culture - Preliminary No growth in 1 day 08/02/18 10:49 Blood - Peripheral Aerobic Blood Culture - Preliminary No growth in 1 day 08/02/18 10:49 Blood - Peripheral Anaerobic Blood Culture - Preliminary No growth in 1 day Imaging: ITS Impressions Extremity Arterial Study 08/02/18 00:00 CONCLUSION: Severe small vessel disease, left worse than right Foot X-Ray 08/02/18 10:30 CONCLUSION: Extensive gas gangrene of the left foot Head CT 08/02/18 10:30 CONCLUSION: 1. Negative CT Head non contrast. . Abdomen/Bladder Ultrasound 08/02/18 14:35 CONCLUSION: Bladder distention despite Tang catheter. Chest X-Ray 08/03/18 00:37 CONCLUSION: Endotracheal tube, nasogastric tube and left central line in good position. No focal infiltrate or effusion. Head MRI 08/04/18 07:35 CONCLUSION: Markedly abnormal brain appearance as above. Findings were discussed with Dr. Grubbs Objective Remarks: GENERAL: 57-year-old male currently orotracheally intubated SKIN: Cool and dry. 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 Normocephalic. EYES: Pupils equal and round about 3 mm bilaterally and reactive. No scleral icterus. No injection or drainage. ENT: No nasal bleeding or discharge. Mucous membranes pink and moist. NECK: Trachea midline. No JVD. CARDIOVASCULAR: RRR. S1, S2 no S 4. RESPIRATORY: No accessory muscle use. Crackles in the bases bilaterally. No wheezing. GASTROINTESTINAL: Abdomen soft, non-tender, nondistended. Bowel sounds are appreciated. MUSCULOSKELETAL: Extremities without clubbing, cyanosis, or edema. Left below the knee dictation with wound VAC in place NEUROLOGICAL: Currently off all sedation. Currently no gag and cough. Currently not withdrawing to pain bilateral upper extremities. Negative vestibuloccipital reflux) Assessment and Plan - Problem List (1) Leukocytosis Code(s): D72.829 - Elevated white blood cell count, unspecified Status: Acute (2) Hypermagnesemia Code(s): E83.41 - Hypermagnesemia Status: Acute (3) Hyponatremia Code(s): E87.1 - Hypo-osmolality and hyponatremia Status: Acute (4) Rhabdomyolysis Code(s): M62.82 - Rhabdomyolysis Status: Acute (5) Macrocytic anemia Code(s): D53.9 - Nutritional anemia, unspecified Status: Acute (6) Thrombocytopenia Code(s): D69.6 - Thrombocytopenia, unspecified Status: Acute (7) Hypoalbuminemia Code(s): E88.09 - Other disorders of plasma-protein metabolism, not elsewhere classified Status: Acute (8) Hyperkalemia Code(s): E87.5 - Hyperkalemia Status: Acute (9) Elevated transaminase level Code(s): R74.0 - Nonspecific elevation of levels of transaminase and lactic acid dehydrogenase [LDH] Status: Acute (10) Sepsis Code(s): A41.9 - Sepsis, unspecified organism Status: Acute (11) Hypothermia Code(s): T68.XXXA - Hypothermia, initial encounter Status: Acute (12) Diabetic foot infection Code(s): E11.628 - Type 2 diabetes mellitus with other skin complications; L08.9 - Local infection of the skin and subcutaneous tissue, unspecified Status: Acute (13) Acute renal failure Code(s): N17.9 - Acute kidney failure, unspecified Status: Acute - Assessment and Plan Plan: Neuro/Psych: Acute bilateral cerebellar edema consistent with CVA with early upward and downward herniation with early hydrocephalus Admission with acute toxic metabolic encephalopathy Peripheral neuropathy History of EtOH and cocaine abuse CT brain 08/02 revealed no acute intracranial findings MRI brain 07/27 revealed bilateral cerebral edema with upward and downward herniation. Early hydrocephaly. Increased transependymal flow. Negative gag/cough/clinically. Negative vestibular occipital area/cold calorics. Holding gabapentin 100 mg twice daily/home medication for peripheral neuropathy. Written for propofol/fentanyl drips for sedation/analgesia while intubated Daily sedation vacation EEG pending Did discuss with neurosurgery/no indication for ventriculostomy at this time with neurological examination. CV: Severe sepsis History of essential hypertension Lactic acidosis Status post 5 L crystalloid in ED. Holding lisinopril 5 mg daily/home medication while hypotensive Currently on norepinephrine drip at 25 mcg/min and vasopressin drip at 0.04 units/min to maintain mean arterial pressure greater than equal 65 EKG on admission revealed ST elevation/Quinones waves in leads II, III and aVF. Echocardiogram 06/23 revealed EF of 65%. No regional wall motion normality's. Initial troponin negative. Peaked at 0.33 currently 0.23 Your lactates until cleared. Currently 3.7 Resp: Acute respiratory failure secondary to metabolic derangement History of tobaccoism PRVC 22/550/0.8/ Ventilator bundle Albuterol/ipratropium aerosols every 4 hours with albuterol aerosols every 2 hours as needed dyspnea Head of bed at 30 degrees Spontaneous breathing trials and clinically indicated Repeat ABG at 1800 hrs. today. Follow-up chest x-ray in a.m. 08/05 GI: Elevated transaminases Rhabdomyolysis Hypoalbuminemia Currently received 5 L crystalloid in the ED. Recheck CPK in a.m. Significant severe protein malnutrition We will check hepatitis panel. Recheck transaminases in a.m. 08/05 GI consulted for possible GI bleed in light of coagulopathic state. Serial currently on pantoprazole drip at 8 mg an hour. : Tang catheter has been placed for accurate I's and O's in a critical patient Endo: History of diabetes mellitus DKA Received 5 units R insulin bolus currently and drip at 9.5 mg an hour. Currently on D5 one half normal saline with 1 ampoule sodium bicarbonate and 20 mg KCl at 200 cc an hour. Discontinued in light of current brain swelling. Check blood glucose every hour with aspart sliding scale insulin/high regimen Holding home medication of insulin glargine 40 units at night, metformin 5 mg twice daily, pioglitazone 15 mg daily and sitagliptin 100 mg daily TSH was 2.69 Renal: Acute kidney injury Based on creatinine 1.0. Currently greater than 2 0.8 Monitor urine output Accurate I's and O's 0/2 urine eosinophils, No hydronephrosis on renal ultrasound hour distended bladder despite Tang catheter Heme: Leukocytosis with bandemia Macrocytic anemia Thrombocytopenia Elevated INR Received 3 PRBCs and 2 FFP overnight Monitor CBC daily. Follow trends. Follow-up on PTT/fibrinogen in a.m. ID: Placed on vancomycin, piperacillin/tazobactam and clindamycin Infectious disease consultation appreciated Blood cultures x2, wound culture all pending MSK: Left foot gangrene Postop day #1 left PT dictation chronic wound VAC in place X-ray foot revealed gas gangrene. Podiatry bedside debridement appreciated. Vascular surgery saw last night. Plan on getting the amputation when stable FEN: Replace electrolytes as clinically indicated Access -Left IJ CVL day 3 placed 08/02 -Right radial arterial line day #2 Prophylaxis -GI -pantoprazole gtt -DVT -SCD/pharmacological prophylaxis held in light of possible GI bleeding 35 minutes critical care time (1) Leukocytosis Qualifiers: Leukocytosis type: bandemia Qualified Code(s): D72.825 - Bandemia (4) Rhabdomyolysis Qualifiers: Rhabdomyolysis type: non-traumatic Qualified Code(s): M62.82 - Rhabdomyolysis (10) Sepsis Qualifiers: Sepsis type: sepsis due to unspecified organism Qualified Code(s): A41.9 - Sepsis, unspecified organism (11) Hypothermia Qualifiers: Encounter type: initial encounter Qualified Code(s): T68.XXXA - Hypothermia, initial encounter (13) Acute renal failure Qualifiers: Acute renal failure type: unspecified Qualified Code(s): N17.9 - Acute kidney failure, unspecified
[2018-08-04] MEDS ORDERED: Sodium Glycerophosphate Inj 30 MMOL in Sodium Chlor 0.9% Inj 250 ML IV.SIG ONE (11:30)
[2018-08-04] MEDS ORDERED: Calcium Chloride Inj 2 GM in Sodium Chlor 0.9% Inj 100 ML IV.SIG ONE (11:30)
[2018-08-04] MEDS ORDERED: Sodium Phosphate Inj 30 MMOL in Sodium Chlor 0.9% Inj 250 ML IV.SIG ONE (11:30)
[2018-08-04 12:39] LABS: Sodium 141 meq/L (136-145)
[2018-08-04] MEDS: Insulin NovoLOG Aspart Correctional Sugar Inj SQ SCH ×3 (12:45→21:15)
[2018-08-04] MEDS: Vasopressin Inj 40 UNIT in Dextrose 5% in Water Inj 98 ML IV.CONT SCH ×2 (12:46)
[2018-08-04] MEDS ORDERED: Cathflo Activase Inj 2 MG Vial I-CATHETER ONE (13:15)
--- NOTE | 2018-08-04 14:50 | P.PNVS ---
Subjective Subjective/Hospital Course: 57-year-old male with gas gangrene of the foot and sepsis The wound has been opened up and drained and at this point patient needs to be adequately resuscitated with fluids electrolytes and consequent hyperglycemia and septic shock addressed in ICU setting Patient will be scheduled for guillotine amputation tomorrow morning when more stable but right now drainage on emergency basis was already done. Will take patient to the operating room tomorrow 08/03/2018 Patient with gas gangrene of the left leg underwent emergency debridement by podiatry yesterday in order to temporize the situation Through the night patient was hemodynamically unstable on 3 vasopressors including Levophed and Brett-Synephrine and vasopressin He was resuscitated with massive amounts of crystalloids and hemodynamically slowly stabilizing Now remains on 2 drips including vasopressin and Levophed Respiratory patient has good PO2 FiO2 gradient remains intubated and ventilated on assist control ventilatory mode Patient has metabolic acidosis with base deficit which is slowly resolving He is hypercoagulable and this is slowly resolving as the septic shock is resolving by supportive therapy At this point patient needs left foot guillotine amputation. There is no truly good time to do this because patient was too unstable this morning to have any procedures done and unless the amputation is carried out patient will get worse because the source of sepsis and gas gangrene remains Therefore I believe we have several hour window this afternoon to go ahead with this and patient will be taken to operating room in this window or the chances of survival at the best weighing against the sepsis and surgery To operating room now 08/04/18 Stump is clean and wound vasc is on with some SS drainage Patient is critical with fixed and dilated pupils this am. Prognosis grave and is imminent. Fully agree with Dr Grubbs on care and management. Objective Vital Signs / I&O: Vital Signs 08/03/18 15:00 08/03/18 15:30 08/03/18 16:00 Temperature 96.4 F L 96.1 F L Pulse Rate 85 85 79 Respiratory Rate 20 20 20 Blood Pressure 98/60 L Pulse Oximetry 100 100 97 08/03/18 16:03 08/03/18 16:23 08/03/18 16:30 Temperature 96.1 F L 95.9 F L 95.9 F L Pulse Rate 79 93 H 78 Respiratory Rate 20 20 20 Blood Pressure 105/67 178/89 H 98/60 L Pulse Oximetry 96 96 97 08/03/18 17:00 08/03/18 17:30 08/03/18 18:00 Temperature 96.1 F L 96.3 F L 96.4 F L Pulse Rate 80 80 83 Respiratory Rate 20 20 20 Blood Pressure 110/67 102/65 96/64 L Pulse Oximetry 96 94 L 95 08/03/18 18:30 08/03/18 19:05 08/03/18 19:40 Temperature 96.8 F L Pulse Rate 83 Respiratory Rate 20 20 Blood Pressure 98/62 L Pulse Oximetry 94 L 98 100 08/03/18 20:29 08/03/18 20:32 08/03/18 20:44 Temperature 96.6 F L Pulse Rate 87 87 86 Respiratory Rate 20 20 Blood Pressure 120/73 Pulse Oximetry 100 100 08/03/18 21:00 08/03/18 21:30 08/03/18 22:00 Temperature 96.3 F L 96.1 F L 95.7 F L Pulse Rate 85 85 83 Respiratory Rate 20 20 20 Blood Pressure 123/77 123/75 114/72 Pulse Oximetry 100 100 100 08/03/18 22:30 08/03/18 22:40 08/03/18 23:00 Temperature 95.5 F L 95.4 F L Pulse Rate 81 80 Respiratory Rate 20 20 20 Blood Pressure 114/79 97/64 L Pulse Oximetry 100 100 100 08/03/18 23:30 08/04/18 00:00 08/04/18 00:02 Temperature 95.4 F L 95.4 F L Pulse Rate 80 79 79 Respiratory Rate 20 20 20 Blood Pressure 87/60 L 90/61 L Pulse Oximetry 100 100 08/04/18 00:30 08/04/18 01:00 08/04/18 01:30 Temperature 95.5 F L 95.9 F L 96.1 F L Pulse Rate 80 80 81 Respiratory Rate 20 20 20 Blood Pressure 90/62 L 93/64 L 89/61 L Pulse Oximetry 100 100 100 08/04/18 01:35 08/04/18 02:00 08/04/18 02:30 Temperature 96.3 F L 96.1 F L Pulse Rate 81 80 Respiratory Rate 20 20 20 Blood Pressure 86/60 L 88/60 L Pulse Oximetry 100 100 100 08/04/18 03:00 08/04/18 03:30 08/04/18 03:34 Temperature 95.9 F L 95.5 F L 95.5 F L Pulse Rate 80 82 84 Respiratory Rate 20 20 20 Blood Pressure 85/62 L 82/56 L 84/55 L Pulse Oximetry 100 100 100 08/04/18 03:50 08/04/18 04:00 08/04/18 04:30 Temperature 95.2 F L 94.6 F L Pulse Rate 85 84 84 Respiratory Rate 20 20 20 Blood Pressure 124/79 113/70 Pulse Oximetry 100 100 08/04/18 04:45 08/04/18 05:00 08/04/18 05:30 Temperature 94.3 F L 93.9 F L Pulse Rate 81 80 Respiratory Rate 20 20 20 Blood Pressure 118/75 123/77 Pulse Oximetry 99 100 100 08/04/18 06:00 08/04/18 06:01 08/04/18 07:00 Temperature 93.6 F L 93.6 F L 93.0 F L Pulse Rate 78 78 77 Respiratory Rate 20 20 20 Blood Pressure 106/72 Pulse Oximetry 100 100 100 08/04/18 08:00 08/04/18 08:22 08/04/18 09:41 Temperature 93.4 F L Pulse Rate 82 82 Respiratory Rate 20 20 Blood Pressure Pulse Oximetry 100 100 98 08/04/18 10:00 08/04/18 11:00 08/04/18 11:30 Temperature 94 F L 94.1 F L Pulse Rate 91 H 92 H 90 Respiratory Rate 20 20 20 Blood Pressure Pulse Oximetry 100 99 100 08/04/18 12:00 08/04/18 13:00 08/04/18 14:00 Temperature 94.6 F L 95 F L 95.1 F L Pulse Rate 90 87 90 Respiratory Rate 20 20 20 Blood Pressure Pulse Oximetry 100 100 99 Intake & Output 08/03/18 08/04/18 08/04/18 18:59 06:59 18:59 Intake Total 6575 / 6575 4204 / 4204 1845 / 1845 Output Total 160 / 160 525 / 525 367 / 367 Balance 6415 / 6415 3679 / 3679 1478 / 1478 Weight 82 kg Intake: IV 6575 / 6575 3754 / 3754 1845 / 1845 NovoLIN R (IV Infusion) 100 100 / 100 21 / 21 UNIT In NS Inj 99 ML @ 5 UNITS/ HR 5 mls/hr IV.CONT TITRATE PRN Rx#:[id number] D5W/1/2NS + KCL 20 mEq Inj 1, 1400 / 1400 000 ML @ 200 mls/hr IV.CONT . Q5H DAYANARA Rx#:[id number] Levophed Inj 16 MG In NS Inj 250 / 250 250 / 250 234 ML @ 2 MCG/MIN 1.87 mls/hr IV.CONT TITRATE PRN Rx#: [id number] Protonix Inj 80 MG In NS Inj 100 / 100 100 / 100 100 / 100 100 ML @ 10 mls/hr IV.CONT Q10H DAYANARA Rx#:[id number] Sodium Bicarbonate 8.4% Inj 50 1000 / 1000 3000 / 3000 1000 / 1000 MEQ KCl Inj 20 MEQ In D5W/1/2 NS Inj 940 ML @ 200 mls/hr IV. CONT .Q5H DAYANARA Rx#:[id number] 1/2 Normal Saline Inj 1,000 ML 1000 / 1000 @ 999 mls/hr IV.CONT BOLUS ONE Rx#:[id number] Pitressin Inj 40 UNIT In D5W 100 / 100 100 / 100 Inj 98 ML @ 0.04 UNITS/MIN 6 mls/hr IV.CONT CONT DAYANARA Rx#: [id number] Flexbumin 25% Inj 100 ML @ 60 100 / 100 mls/hr IV.SIG ONCE ONE Rx#: [id number] Calcium Chloride Inj 1 GM In 110 / 110 D5W Inj 100 ML @ 110 mls/hr IV. SIG ONCE ONE Rx#:[id number] Calcium Chloride Inj 2 GM In NS 120 / 120 Inj 100 ML @ 120 mls/hr IV.SIG ONCE ONE Rx#:[id number] Cleocin 600 mg/NS Premix 600 mg 50 / 50 In 50 ml @ 100 mls/hr IV.SIG Q8H DAYANARA Rx#:[id number] Cleocin Inj 600 MG In NS Inj 104 / 104 104 / 104 104 / 104 100 ML @ 208 mls/hr IV.SIG Q8H DAYANARA Rx#:[id number] Diflucan 200 mg Premix Bag 100 100 / 100 100 / 100 ML @ 100 mls/hr IV.SIG Q24H DAYANARA Rx#:[id number] LR 1000 mL Inj 1,000 ML @ Wide 1000 / 1000 Open IV.SIG BOLUS ONE Rx#: [id number] Magnesium Sulfate Inj 2 GM In 100 / 100 NS Inj 96 ML @ 50 mls/hr IV.SIG ONCE ONE Rx#:[id number] Vitamin K Inj 10 MG In NS Inj 51 / 51 50 ML @ 102 mls/hr IV.SIG ONCE ONE Rx#:[id number] Zosyn 2.25 GM Premix 50 ML @ 100 / 100 100 / 100 50 / 50 100 mls/hr IV.SIG Q6H DAYANARA Rx#: [id number] Potassium Phosphate Inj 30 MMOL 260 / 260 In NS Inj 250 ML @ 43.333 mls/ hr IV.SIG ONCE ONE Rx#:[id number] 1/2 Normal Saline Inj 1,000 ML 1000 / 1000 @ Wide Open IV.SIG BOLUS ONE Rx #:[id number] fentaNYL 10 mcg/mL Premix Drip 100 / 100 2,500 mcg In 250 ml @ 50 MCG/HR 5 mls/hr IV.SIG TITRATE PRN Rx #:[id number] Anesthesia Amount 450 / 450 Intake (Blood Product) Amt 0 / 0 Plasma Thawed 5 Day Acda Unit 0 / 0 [id number] Output: Estimated Blood Loss 50 / 50 Urine Amount (Catheter) 160 / 160 325 / 325 367 / 367 Indwelling Temp Sensing 160 / 160 325 / 325 367 / 367 Catheter Wound Vac Amount 150 / 150 Left Foot 150 / 150 Other: Mode Setting Left Foot Continuous Date of Last Bowel Movement 08/03/18 08/03/18 08/03/18 # Bowel Movements 2 Laboratory Results - last 24 hr 08/03/18 08/03/18 08/03/18 14:47 15:42 16:49 WBC RBC Hgb Hct MCV MCH MCHC RDW Plt Count MPV Prelim Diff (Auto) Neut % (Auto) Lymph % (Auto) Frontier % (Auto) Eos % (Auto) Baso % (Auto) Neut # (Auto) Lymph # (Auto) Frontier # (Auto) Eos # (Auto) Baso # (Auto) WBC Differential Seg Neuts % (Manual) Band Neuts % (Manual) Lymphocytes % (Manual) Monocytes % (Manual) Metamyelocytes % (Man) Abs Neuts (Manual) Nucleated RBCs/100 WBC Differential Comment Toxic Granulation Toxic Vacuolation Platelet Estimate Platelet Morphology [place] Cells Acanthocytes (Spur) Keratocytes PT INR APTT Fibrinogen Puncture Site Patient Temperature O2 Saturation ABG pH ABG pCO2 ABG pO2 ABG HCO3 ABG O2 Content ABG Base Excess ABG Methemoglobin Jordy Test Hemoglobin Carboxyhemoglobin O2 Delivery Device Vent Setting Inspired O2 Critical Value Sodium Potassium Chloride Carbon Dioxide Anion Gap BUN Creatinine Estimated GFR POC Glucose 158 H 171 H 172 H Random Glucose Osmolality Lactic Acid Calcium Calcium Adj for Albumin Phosphorus Magnesium Total Bilirubin AST ALT Alkaline Phosphatase Ammonia Total Creatine Kinase CK-MB (CK-2) CK-MB (CK-2) % Troponin I Total Protein Albumin Lipase Random Vancomycin 08/03/18 08/03/18 08/03/18 17:15 17:15 17:15 WBC RBC Hgb 9.1 L Hct MCV MCH MCHC RDW Plt Count MPV Prelim Diff (Auto) Neut % (Auto) Lymph % (Auto) Frontier % (Auto) Eos % (Auto) Baso % (Auto) Neut # (Auto) Lymph # (Auto) Frontier # (Auto) Eos # (Auto) Baso # (Auto) WBC Differential Seg Neuts % (Manual) Band Neuts % (Manual) Lymphocytes % (Manual) Monocytes % (Manual) Metamyelocytes % (Man) Abs Neuts (Manual) Nucleated RBCs/100 WBC Differential Comment Toxic Granulation Toxic Vacuolation Platelet Estimate Platelet Morphology [place] Cells Acanthocytes (Spur) Keratocytes PT INR APTT Fibrinogen Puncture Site Patient Temperature O2 Saturation ABG pH ABG pCO2 ABG pO2 ABG HCO3 ABG O2 Content ABG Base Excess ABG Methemoglobin Jordy Test Hemoglobin Carboxyhemoglobin O2 Delivery Device Vent Setting Inspired O2 Critical Value Sodium Potassium Chloride Carbon Dioxide Anion Gap BUN Creatinine Estimated GFR POC Glucose Random Glucose Osmolality Lactic Acid 3.6 H Calcium Calcium Adj for Albumin Phosphorus Magnesium 1.9 Total Bilirubin AST ALT Alkaline Phosphatase Ammonia Total Creatine Kinase CK-MB (CK-2) CK-MB (CK-2) % Troponin I Total Protein Albumin Lipase Random Vancomycin 08/03/18 08/03/18 08/03/18 17:33 18:05 18:49 WBC RBC Hgb Hct MCV MCH MCHC RDW Plt Count MPV Prelim Diff (Auto) Neut % (Auto) Lymph % (Auto) Frontier % (Auto) Eos % (Auto) Baso % (Auto) Neut # (Auto) Lymph # (Auto) Frontier # (Auto) Eos # (Auto) Baso # (Auto) WBC Differential Seg Neuts % (Manual) Band Neuts % (Manual) Lymphocytes % (Manual) Monocytes % (Manual) Metamyelocytes % (Man) Abs Neuts (Manual) Nucleated RBCs/100 WBC Differential Comment Toxic Granulation Toxic Vacuolation Platelet Estimate Platelet Morphology [place] Cells Acanthocytes (Spur) Keratocytes PT INR APTT Fibrinogen Puncture Site Art line Patient Temperature 98.6 O2 Saturation 96 ABG pH 7.32 L ABG pCO2 25 L ABG pO2 209 H ABG HCO3 12 L* ABG O2 Content 12.9 ABG Base Excess -12.6 L ABG Methemoglobin 2.1 H Jordy Test Present Hemoglobin 9.2 L Carboxyhemoglobin 0.6 O2 Delivery Device Ventilator Vent Setting Prvc/ac Inspired O2 40 Critical Value No Sodium Potassium Chloride Carbon Dioxide Anion Gap BUN Creatinine Estimated GFR POC Glucose 184 H 132 H Random Glucose Osmolality Lactic Acid Calcium Calcium Adj for Albumin Phosphorus Magnesium Total Bilirubin AST ALT Alkaline Phosphatase Ammonia Total Creatine Kinase CK-MB (CK-2) CK-MB (CK-2) % Troponin I Total Protein Albumin Lipase Random Vancomycin 08/03/18 08/03/18 08/03/18 21:00 21:20 22:08 WBC RBC Hgb Hct MCV MCH MCHC RDW Plt Count MPV Prelim Diff (Auto) Neut % (Auto) Lymph % (Auto) [place] % (Auto) Eos % (Auto) Baso % (Auto) Neut # (Auto) Lymph # (Auto) [place] # (Auto) Eos # (Auto) Baso # (Auto) WBC Differential Seg Neuts % (Manual) Band Neuts % (Manual) Lymphocytes % (Manual) Monocytes % (Manual) Metamyelocytes % (Man) Abs Neuts (Manual) Nucleated RBCs/100 WBC Differential Comment Toxic Granulation Toxic Vacuolation Platelet Estimate Platelet Morphology [place] Cells Acanthocytes (Spur) Keratocytes PT INR APTT Fibrinogen Puncture Site Patient Temperature O2 Saturation ABG pH ABG pCO2 ABG pO2 ABG HCO3 ABG O2 Content ABG Base Excess ABG Methemoglobin Jordy Test Hemoglobin Carboxyhemoglobin O2 Delivery Device Vent Setting Inspired O2 Critical Value Sodium Potassium Chloride Carbon Dioxide Anion Gap BUN Creatinine Estimated GFR POC Glucose 188 H 228 H Random Glucose Osmolality Lactic Acid 2.3 H Calcium Calcium Adj for Albumin Phosphorus Magnesium Total Bilirubin AST ALT Alkaline Phosphatase Ammonia Total Creatine Kinase CK-MB (CK-2) CK-MB (CK-2) % Troponin I Total Protein Albumin Lipase Random Vancomycin 08/03/18 08/03/18 08/03/18 22:59 23:40 23:40 WBC 32.2 H RBC 3.12 L Hgb 9.4 L Hct 27.4 L MCV 87.9 MCH 30.1 MCHC 34.2 RDW 16.7 Plt Count 69 L D MPV 8.0 Prelim Diff (Auto) Slide review pending Neut % (Auto) 96.6 H Lymph % (Auto) 2.3 L Frontier % (Auto) 1.0 Eos % (Auto) 0.0 Baso % (Auto) 0.1 Neut # (Auto) 31.1 H Lymph # (Auto) 0.7 L Frontier # (Auto) 0.3 Eos # (Auto) 0.0 Baso # (Auto) 0.0 WBC Differential Manual diff final Seg Neuts % (Manual) 69 Band Neuts % (Manual) 26 H Lymphocytes % (Manual) Monocytes % (Manual) 2 Metamyelocytes % (Man) 3 H Abs Neuts (Manual) 31.6 H Nucleated RBCs/100 WBC 2 H Differential Comment . Toxic Granulation Toxic Vacuolation Present H Platelet Estimate Low L Platelet Morphology Normal [place] Cells 1+ H Acanthocytes (Spur) Occ H Keratocytes Occ H PT 15.6 H INR 1.5 APTT 48.0 H D Fibrinogen 198 L Puncture Site Patient Temperature O2 Saturation ABG pH ABG pCO2 ABG pO2 ABG HCO3 ABG O2 Content ABG Base Excess ABG Methemoglobin Jordy Test Hemoglobin Carboxyhemoglobin O2 Delivery Device Vent Setting Inspired O2 Critical Value Sodium Potassium Chloride Carbon Dioxide Anion Gap BUN Creatinine Estimated GFR POC Glucose 212 H Random Glucose Osmolality Lactic Acid Calcium Calcium Adj for Albumin Phosphorus Magnesium Total Bilirubin AST ALT Alkaline Phosphatase Ammonia Total Creatine Kinase CK-MB (CK-2) CK-MB (CK-2) % Troponin I Total Protein Albumin Lipase Random Vancomycin 08/03/18 08/03/18 08/03/18 23:40 23:40 23:40 WBC RBC Hgb Hct MCV MCH MCHC RDW Plt Count MPV Prelim Diff (Auto) Neut % (Auto) Lymph % (Auto) Frontier % (Auto) Eos % (Auto) Baso % (Auto) Neut # (Auto) Lymph # (Auto) Frontier # (Auto) Eos # (Auto) Baso # (Auto) WBC Differential Seg Neuts % (Manual) Band Neuts % (Manual) Lymphocytes % (Manual) Monocytes % (Manual) Metamyelocytes % (Man) Abs Neuts (Manual) Nucleated RBCs/100 WBC Differential Comment Toxic Granulation Toxic Vacuolation Platelet Estimate Platelet Morphology [place]igo Cells Acanthocytes (Spur) Keratocytes PT INR APTT Fibrinogen Puncture Site Patient Temperature O2 Saturation ABG pH ABG pCO2 ABG pO2 ABG HCO3 ABG O2 Content ABG Base Excess ABG Methemoglobin Jordy Test Hemoglobin Carboxyhemoglobin O2 Delivery Device Vent Setting Inspired O2 Critical Value Sodium 141 Potassium 4.2 Chloride 116 H Carbon Dioxide 15.8 L Anion Gap 9 BUN 78 H Creatinine 2.55 H Estimated GFR 32 L POC Glucose Random Glucose 190 H Osmolality Lactic Acid 3.5 H Calcium 5.7 L* Calcium Adj for Albumin 7.0 L* Phosphorus 1.8 L D Magnesium 1.8 Total Bilirubin 0.4 AST 3969 H ALT 1337 H Alkaline Phosphatase 124 H Ammonia 36 H Total Creatine Kinase 4926 H CK-MB (CK-2) 50.3 H CK-MB (CK-2) % 1.0 Troponin I Total Protein 4.3 L D Albumin 1.4 L Lipase Random Vancomycin 8.6 08/04/18 08/04/18 08/04/18 00:04 01:03 01:58 WBC RBC Hgb Hct MCV MCH MCHC RDW Plt Count MPV Prelim Diff (Auto) Neut % (Auto) Lymph % (Auto) Frontier % (Auto) Eos % (Auto) Baso % (Auto) Neut # (Auto) Lymph # (Auto) Frontier # (Auto) Eos # (Auto) Baso # (Auto) WBC Differential Seg Neuts % (Manual) Band Neuts % (Manual) Lymphocytes % (Manual) Monocytes % (Manual) Metamyelocytes % (Man) Abs Neuts (Manual) Nucleated RBCs/100 WBC Differential Comment Toxic Granulation Toxic Vacuolation Platelet Estimate Platelet Morphology [place] Cells Acanthocytes (Spur) Keratocytes PT INR APTT Fibrinogen Puncture Site Patient Temperature O2 Saturation ABG pH ABG pCO2 ABG pO2 ABG HCO3 ABG O2 Content ABG Base Excess ABG Methemoglobin Jordy Test Hemoglobin Carboxyhemoglobin O2 Delivery Device Vent Setting Inspired O2 Critical Value Sodium Potassium Chloride Carbon Dioxide Anion Gap BUN Creatinine Estimated GFR POC Glucose 188 H 205 H 192 H Random Glucose Osmolality Lactic Acid Calcium Calcium Adj for Albumin Phosphorus Magnesium Total Bilirubin AST ALT Alkaline Phosphatase Ammonia Total Creatine Kinase CK-MB (CK-2) CK-MB (CK-2) % Troponin I Total Protein Albumin Lipase Random Vancomycin 08/04/18 08/04/18 08/04/18 02:58 03:00 04:02 WBC RBC Hgb Hct MCV MCH MCHC RDW Plt Count MPV Prelim Diff (Auto) Neut % (Auto) Lymph % (Auto) Frontier % (Auto) Eos % (Auto) Baso % (Auto) Neut # (Auto) Lymph # (Auto) Frontier # (Auto) Eos # (Auto) Baso # (Auto) WBC Differential Seg Neuts % (Manual) Band Neuts % (Manual) Lymphocytes % (Manual) Monocytes % (Manual) Metamyelocytes % (Man) Abs Neuts (Manual) Nucleated RBCs/100 WBC Differential Comment Toxic Granulation Toxic Vacuolation Platelet Estimate Platelet Morphology [place]igo Cells Acanthocytes (Spur) Keratocytes PT INR APTT Fibrinogen Puncture Site Patient Temperature O2 Saturation ABG pH ABG pCO2 ABG pO2 ABG HCO3 ABG O2 Content ABG Base Excess ABG Methemoglobin Jordy Test Hemoglobin Carboxyhemoglobin O2 Delivery Device Vent Setting Inspired O2 Critical Value Sodium Potassium Chloride Carbon Dioxide Anion Gap BUN Creatinine Estimated GFR POC Glucose 195 H 220 H Random Glucose Osmolality Lactic Acid 3.7 H Calcium Calcium Adj for Albumin Phosphorus Magnesium Total Bilirubin AST ALT Alkaline Phosphatase Ammonia Total Creatine Kinase CK-MB (CK-2) CK-MB (CK-2) % Troponin I Total Protein Albumin Lipase Random Vancomycin 08/04/18 08/04/18 08/04/18 05:01 05:52 06:54 WBC RBC Hgb Hct MCV MCH MCHC RDW Plt Count MPV Prelim Diff (Auto) Neut % (Auto) Lymph % (Auto) Frontier % (Auto) Eos % (Auto) Baso % (Auto) Neut # (Auto) Lymph # (Auto) Frontier # (Auto) Eos # (Auto) Baso # (Auto) WBC Differential Seg Neuts % (Manual) Band Neuts % (Manual) Lymphocytes % (Manual) Monocytes % (Manual) Metamyelocytes % (Man) Abs Neuts (Manual) Nucleated RBCs/100 WBC Differential Comment Toxic Granulation Toxic Vacuolation Platelet Estimate Platelet Morphology Indigo Cells Acanthocytes (Spur) Keratocytes PT INR APTT Fibrinogen Puncture Site Patient Temperature O2 Saturation ABG pH ABG pCO2 ABG pO2 ABG HCO3 ABG O2 Content ABG Base Excess ABG Methemoglobin Jordy Test Hemoglobin Carboxyhemoglobin O2 Delivery Device Vent Setting Inspired O2 Critical Value Sodium Potassium Chloride Carbon Dioxide Anion Gap BUN Creatinine Estimated GFR POC Glucose 209 H 204 H 211 H Random Glucose Osmolality Lactic Acid Calcium Calcium Adj for Albumin Phosphorus Magnesium Total Bilirubin AST ALT Alkaline Phosphatase Ammonia Total Creatine Kinase CK-MB (CK-2) CK-MB (CK-2) % Troponin I Total Protein Albumin Lipase Random Vancomycin 08/04/18 08/04/18 08/04/18 07:43 07:43 07:43 WBC 38.1 H RBC 3.08 L Hgb 9.5 L Hct 27.1 L MCV 88.0 MCH 30.8 MCHC 35.0 RDW 16.6 Plt Count 63 L MPV 8.4 Prelim Diff (Auto) Slide review pending Neut % (Auto) 96.7 H Lymph % (Auto) 2.3 L Frontier % (Auto) 0.7 Eos % (Auto) 0.1 Baso % (Auto) 0.2 Neut # (Auto) 36.9 H Lymph # (Auto) 0.9 L Frontier # (Auto) 0.3 Eos # (Auto) 0.0 Baso # (Auto) 0.1 WBC Differential Manual diff final Seg Neuts % (Manual) 47 Band Neuts % (Manual) 51 H Lymphocytes % (Manual) 2 L Monocytes % (Manual) Metamyelocytes % (Man) Abs Neuts (Manual) 37.3 H Nucleated RBCs/100 WBC Differential Comment . Toxic Granulation 1+ H Toxic Vacuolation Platelet Estimate Low L Platelet Morphology Normal [place]igo Cells 1+ H Acanthocytes (Spur) Occ H Keratocytes PT 15.2 H INR 1.5 APTT 46.5 H Fibrinogen 241 Puncture Site Patient Temperature O2 Saturation ABG pH ABG pCO2 ABG pO2 ABG HCO3 ABG O2 Content ABG Base Excess ABG Methemoglobin Jordy Test Hemoglobin Carboxyhemoglobin O2 Delivery Device Vent Setting Inspired O2 Critical Value Sodium Potassium Chloride Carbon Dioxide Anion Gap BUN Creatinine Estimated GFR POC Glucose Random Glucose Osmolality Lactic Acid 3.7 H Calcium Calcium Adj for Albumin Phosphorus Magnesium Total Bilirubin AST ALT Alkaline Phosphatase Ammonia Total Creatine Kinase CK-MB (CK-2) CK-MB (CK-2) % Troponin I Total Protein Albumin Lipase Random Vancomycin 08/04/18 08/04/18 08/04/18 07:43 08:36 08:46 WBC RBC Hgb Hct MCV MCH MCHC RDW Plt Count MPV Prelim Diff (Auto) Neut % (Auto) Lymph % (Auto) Frontier % (Auto) Eos % (Auto) Baso % (Auto) Neut # (Auto) Lymph # (Auto) Frontier # (Auto) Eos # (Auto) Baso # (Auto) WBC Differential Seg Neuts % (Manual) Band Neuts % (Manual) Lymphocytes % (Manual) Monocytes % (Manual) Metamyelocytes % (Man) Abs Neuts (Manual) Nucleated RBCs/100 WBC Differential Comment Toxic Granulation Toxic Vacuolation Platelet Estimate Platelet Morphology [place] Cells Acanthocytes (Spur) Keratocytes PT INR APTT Fibrinogen Puncture Site [place] Patient Temperature 98.6 O2 Saturation 96 ABG pH 7.38 ABG pCO2 23 L* ABG pO2 167 H ABG HCO3 13 L* ABG O2 Content 13.5 ABG Base Excess -11.0 L ABG Methemoglobin 2.1 H Jordy Test Hemoglobin 9.7 L Carboxyhemoglobin 0.5 O2 Delivery Device Ventilator Vent Setting See comments Inspired O2 35 Critical Value Yes Sodium 140 Potassium 4.4 Chloride 115 H Carbon Dioxide 13.2 L Anion Gap 12 BUN 75 H Creatinine 2.80 H Estimated GFR 28 L POC Glucose 205 H Random Glucose 198 H Osmolality Lactic Acid Calcium 5.7 L* Calcium Adj for Albumin 7.0 L* Phosphorus 1.7 L Magnesium 1.9 Total Bilirubin 0.4 AST 3067 H ALT 1158 H Alkaline Phosphatase 128 H Ammonia Total Creatine Kinase 4932 H CK-MB (CK-2) 41.1 H CK-MB (CK-2) % 0.8 Troponin I 0.23 H Total Protein 4.2 L Albumin 1.3 L Lipase 1559 H Random Vancomycin 08/04/18 08/04/18 08/04/18 09:50 11:17 11:42 WBC RBC Hgb Hct MCV MCH MCHC RDW Plt Count MPV Prelim Diff (Auto) Neut % (Auto) Lymph % (Auto) Frontier % (Auto) Eos % (Auto) Baso % (Auto) Neut # (Auto) Lymph # (Auto) Frontier # (Auto) Eos # (Auto) Baso # (Auto) WBC Differential Seg Neuts % (Manual) Band Neuts % (Manual) Lymphocytes % (Manual) Monocytes % (Manual) Metamyelocytes % (Man) Abs Neuts (Manual) Nucleated RBCs/100 WBC Differential Comment Toxic Granulation Toxic Vacuolation Platelet Estimate Platelet Morphology Indigo Cells Acanthocytes (Spur) Keratocytes PT INR APTT Fibrinogen Puncture Site Patient Temperature O2 Saturation ABG pH ABG pCO2 ABG pO2 ABG HCO3 ABG O2 Content ABG Base Excess ABG Methemoglobin Jordy Test Hemoglobin Carboxyhemoglobin O2 Delivery Device Vent Setting Inspired O2 Critical Value Sodium 141 Potassium Chloride Carbon Dioxide Anion Gap BUN Creatinine Estimated GFR POC Glucose 175 H 204 H Random Glucose Osmolality 307 H Lactic Acid Calcium Calcium Adj for Albumin Phosphorus Magnesium Total Bilirubin AST ALT Alkaline Phosphatase Ammonia Total Creatine Kinase CK-MB (CK-2) CK-MB (CK-2) % Troponin I Total Protein Albumin Lipase Random Vancomycin Microbiology 08/03/18 09:04 Gram Stain - Final Sputum - Endotracheal Sputum Culture - Preliminary gram negative rods 08/03/18 14:36 Genital Culture - Preliminary Genital - Penis 08/02/18 10:49 Aerobic Blood Culture - Preliminary Blood - Peripheral No growth in 2 days Anaerobic Blood Culture - Preliminary No growth in 2 days 08/02/18 10:49 Aerobic Blood Culture - Preliminary Blood - Peripheral No growth in 2 days Anaerobic Blood Culture - Preliminary No growth in 2 days 08/02/18 10:55 Urine Culture - Final Catheterized Urine Staphylococcus aureus 08/03/18 09:49 Stool Occult Blood (FOREIGN) - Final Stool Hemoccult positive Impressions Extremity Arterial Study 08/02/18 00:00 CONCLUSION: Severe small vessel disease, left worse than right Abdomen/Bladder Ultrasound 08/02/18 14:35 CONCLUSION: Bladder distention despite Tang catheter. Chest X-Ray 08/03/18 00:37 CONCLUSION: Endotracheal tube, nasogastric tube and left central line in good position. No focal infiltrate or effusion. Head MRI 08/04/18 07:35 CONCLUSION: Markedly abnormal brain appearance as above. Findings were discussed with Dr. Grubbs
[2018-08-04] MEDS ORDERED: Vancomycin Inj 1,250 MG in Sodium Chlor 0.9% Inj 250 ML IV.SIG ONE (15:00)
--- NOTE | 2018-08-04 15:19 | MR ---
EXAM DATE: 08/04/2018 3:13 PM EST AGE/SEX: 57 years / Male INDICATIONS: CVA. CLINICAL DATA: This is the patient's subsequent encounter. Patient reports that signs and symptoms h ave been present for 2 days and indicates a pain score of Nonresponsive. MEDICAL/SURGICAL HISTORY: Diabetes mellitus type II. Carcinoma, lung. . left foot amputated COMPARISON: [facility] – [place], MR HEAD W/O CONTRAST, 08/04/2018. . TECHNIQUE: 3D [id number] MRA was performed. Source images, multiplanar STS MIP, and 3D volum e MIP reconstructions were reviewed. FINDINGS: Atiy-tr-[id number] MR angiography is provided. I see no evidence of significant blood flow in the anterio r, middle or posterior cerebral circulation. CONCLUSION: 1. There is no evidence of intracranial blood flow identified by MRA. This examination would be conc erning for possible brain . Further evaluation with brain studies would be warranted. Electronically signed by: Dariusz Beckman MD 08/04/2018 3:18 PM EST
--- NOTE | 2018-08-04 15:22 | MR ---
EXAM DATE: 08/04/2018 3:13 PM EST AGE/SEX: 57 years / Male INDICATIONS: . CVA. CLINICAL DATA: This is the patient's subsequent encounter. Patient reports that signs and symptoms h ave been present for 2 days and indicates a pain score of 3/10. MEDICAL/SURGICAL HISTORY: Diabetes mellitus type II. Carcinoma, lung. . left foot amputated COMPARISON: [facility] [place] [facility] [place] CERVICAL SPINE W & W/O CONTRAST, 07/10/2017. . TECHNIQUE: 3D time-of- flight MRA of the extracranial circulation was performed using a neurovascul ar coil. Post processing was performed including rotating sub-volume maximum intensity projections o f each carotid artery, rotating full-volume maximum intensity projections of both carotid arteries, s agittal and coronal sliding thin-slab reformations of each carotid artery, and left oblique sliding t hin-slab reformation through the aortic arch to include the origin of the arch branch vessels. FINDINGS: Aortic Arch : Truncus arch anatomy. The arch vessels appear widely patent. Right Carotid : Right internal carotid artery is absent flow related enhancement, presumed occluded Left Carotid : Left internal carotid artery is absent flow related enhancement, presumed occluded. Vertebrals : Vertebral artery visualization is discontinuous bilaterally. 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 If the patient cannot undergo CTA examination of the carotids which is recommended, ultrasound is suggested for further correlation. Percent stenosis is calculated using the diameter of the stenotic region over the diameter of the nor mal distal internal carotid artery Electronically signed by: Aron Villarreal MD 08/04/2018 3:20 PM EST
--- NOTE | 2018-08-04 15:42 | MG ---
cc: Lynne Rice MD AGE: [age] years old. EEG NUMBER: [id number]. REFERRING PHYSICIAN: Dr. Grubbs. Only photic stimulation. Done in room 522, intubated. I do not have an MRI report. Admitted for change in mental status, confusion, hypotension, respiratory failure, history of diabetes, lung cancer on norepinephrine. DESCRIPTION OF RECORD: EEG is significantly attenuated. Low amplitude, nearly flat. Some minor artifact seen. EKG looks sinus, some sweat sway, but no reactivity noted. Photic stimulation without any driving response. IMPRESSION: Abnormal EEG due to severe attenuation of the background that may be seen in a severe encephalopathy such as possibly even anoxic brain injury. Clinical correlation. Lynne Rice MD DF/ , 03:10 PM , 03:15 PM
[2018-08-04 16:02] LABS: Baso % (Auto) 0.1 % (0.0-2.0); Hematocrit 30.6 % (39.0-51.0); Hemoglobin 10.5 gm/dL (13.0-17.0); Lymph # (Auto) 0.8 th/mm3 (1.0-4.8); Lymph % (Auto) 1.7 % (9.0-44.0); Mean Corpuscular HGB Conc 34.3 % (32.0-36.0); Mean Corpuscular Hemoglobin 30.1 pg (27.0-34.0); Mean Corpuscular Volume 87.7 fL (80.0-100.0); Mean Platelet Volume 8.6 fL (7.0-11.0); Mono # (Auto) 0.4 th/mm3 (0.0-0.9); Mono % (Auto) 0.9 % (0.0-8.0); Neut # (Auto) 43.5 th/mm3 (1.8-7.7); Neut % (Auto) 97.3 % (16.0-70.0); Platelet Count 72 th/mm3 (150-450); Red Blood Count 3.48 mil/mm3 (4.50-5.90); Red Cell Distribution Width 16.3 % (11.6-17.2); White Blood Count 44.8 th/mm3 (4.0-11.0)
--- NOTE | 2018-08-04 16:20 | MB ---
cc: Yovany Guy MD, PhD DATE: 08/04/2018 REASON FOR CONSULTATION: Stroke. HISTORY OF PRESENT ILLNESS: Mr. Beatty is a 57-year-old man who presented to the ER for alteration in mental status. He was found to have acute renal failure, lactic acidosis, elevated white count at 46,000 and was hypothermic. He also was found to have dry gangrene to the left foot, status post amputation for that. The patient has had MRI scan of the brain done today which shows extensive edema and swelling in the cerebellar hemispheres bilaterally with herniation of the cerebellum upward downward with hydrocephalus as well. No hemorrhage is identified. He had an MRA of the head done today as well, which shows no evidence for intracranial blood flow identified by MRA, concerning for possible brain . 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 NEUROLOGICAL EXAMINATION: VITAL SIGNS: His blood pressure is 130/59, pulse is 90, temperature 95.1 degrees. NEUROLOGIC: Higher cortical function is nonresponsive. CRANIAL NERVES: Pupils are 3 mm fixed, nonreactive. Cold caloric testing I am told by the nursing staff was negative with no significant response. He has no corneal reflexes. He has no extraocular movements to oculocephalics, no gag reflex, absent ciliospinal reflex. MOTOR EXAM: There is no withdrawal to painful stimulation. No spontaneous movement. LABORATORY DATA: White count is 37,100, hemoglobin 6.4, hematocrit 18.6%, platelet count 142,000. His sodium is 140, potassium 4.4, chloride 115, CO2 is 13.2. BUN is 75, creatinine 2.8, AST 3067, ALT 1158, alkaline phosphatase 128. IMPRESSION: Bilateral cerebral infarctions with significant edema and herniation. The patient's exam as well as MRA findings are consistent with brain . RECOMMENDATIONS: Recommend a nuclear medicine study to further assess for brain . The patient did have an EEG and will review this as well. Yovany Guy MD, PhD MATILDA/jose manuel , 03:50 PM , 03:57 PM
[2018-08-04 16:26] LABS: Calcium 6.5 mg/dL (8.5-10.1); Carbon Dioxide 14.9 meq/L (21.0-32.0); Magnesium 1.8 mg/dL (1.5-2.5); Phosphorus 3.4 mg/dL (2.5-4.9); Potassium 4.9 meq/L (3.5-5.1)
[2018-08-04 16:42] LABS: Albumin 1.3 g/dL (3.4-5.0); Calcium-Albumin Corrected 8.7 mg/dL (8.5-10.1)
[2018-08-04 17:05] LABS: Burr Cells 1+; Lymphocytes 1 % (9-44); Metamyelocytes 2 % (0-1); Monocytes 1 % (0-8); Ovalocytes 1+; Platelet Morphology Normal (Normal)
--- NOTE | 2018-08-04 17:33 | ECHRPT ---
Indication: CVA/TIA CONCLUSIONS Normal left ventricular size. Wall thickness is measured at the upper limits of normal. The left ventricular systolic function is low normal with an estimated ejection fraction in the rang e of 50- 55%. Normal atrial septal thickness. The tricuspid valve is not well visualized. The pulmonary valve is not well visualized. BP: / HR: Rhythm: MEASUREMENTS (Male / Female) Normal Values Technical Quality:Technically difficult study 2D ECHO LV Diastolic Diameter PLAX 4.4 cm 4.2 - 5.9 / 3.9 - 5.3 cm LV Systolic Diameter PLAX 2.3 cm IVS Diastolic Thickness 0.9 cm 0.6 - 1.0 / 0.6 - 0.9 cm LVPW Diastolic Thickness 0.9 cm 0.6 - 1.0 / 0.6 - 0.9 cm LV Relative Wall Thickness 0.4 RV Internal Dim ED PLAX 2.7 cm LVOT Diameter 1.8 cm Aortic Root Diameter 2.9 cm LA Systolic Diameter LX 2.4 cm 3.0 - 4.0 / 2.7 - 3.8 cm FINDINGS LEFT VENTRICLE Normal left ventricular size. Wall thickness is measured at the upper limits of normal. The left ventricular systolic function is low normal with an estimated ejection fraction in the rang e of 50- 55%. RIGHT VENTRICLE Normal right ventricular size and systolic function. LEFT ATRIUM The left atrial size is normal. RIGHT ATRIUM The right atrial size is normal. ATRIAL SEPTUM Normal atrial septal thickness. AORTA The aortic root and proximal ascending aorta are normal in size on limited imaging. MITRAL VALVE Structurally normal mitral valve. AORTIC VALVE Trileaflet aortic valve. TRICUSPID VALVE The tricuspid valve is not well visualized. PULMONARY VALVE The pulmonary valve is not well visualized. VESSELS The inferior vena cava is normal in size. PERICARDIUM No pericardial effusion. Florentin Gunderson MD, FACC (Electronically Signed) Final Date:04 August 2018 17:33
[2018-08-04 18:33] LABS: Baso # (Auto) 0.1 th/mm3 (0.0-0.2); Baso % (Auto) 0.1 % (0.0-2.0); Hematocrit 30.6 % (39.0-51.0); Hemoglobin 10.6 gm/dL (13.0-17.0); Lymph # (Auto) 0.9 th/mm3 (1.0-4.8); Lymph % (Auto) 1.8 % (9.0-44.0); Mean Corpuscular HGB Conc 34.6 % (32.0-36.0); Mean Corpuscular Hemoglobin 30.4 pg (27.0-34.0); Mean Corpuscular Volume 87.7 fL (80.0-100.0); Mean Platelet Volume 8.8 fL (7.0-11.0); Mono # (Auto) 0.6 th/mm3 (0.0-0.9); Mono % (Auto) 1.2 % (0.0-8.0); Neut # (Auto) 46.8 th/mm3 (1.8-7.7); Neut % (Auto) 96.9 % (16.0-70.0); Platelet Count 72 th/mm3 (150-450); Red Blood Count 3.49 mil/mm3 (4.50-5.90); Red Cell Distribution Width 16.8 % (11.6-17.2); White Blood Count 48.3 th/mm3 (4.0-11.0)
[2018-08-04 19:07] LABS: Lymphocytes 1 % (9-44); Metamyelocytes 3 % (0-1); Myelocytes 1 % (0-0)
[2018-08-04 19:08] LABS: Acanthocytes Occ; Burr Cells 1+; Ovalocytes 1+; Platelet Morphology Normal (Normal)
[2018-08-04 19:18] LABS: Calcium 6.3 mg/dL (8.5-10.1); Magnesium 1.8 mg/dL (1.5-2.5); Phosphorus 4.1 mg/dL (2.5-4.9); Potassium 5.2 meq/L (3.5-5.1)
[2018-08-04 19:35] LABS: Albumin 1.3 g/dL (3.4-5.0); Calcium-Albumin Corrected 8.5 mg/dL (8.5-10.1)
[2018-08-04 19:49] LABS: CKMB Percent 0.9 % (0.0-4.0); Creatine Kinase MB 36.2 ng/mL (0.5-3.6)
[2018-08-04] MEDS ORDERED: Atropine Inj 1 MG/10 ML Syringe ONE (20:27)
--- NOTE | 2018-08-04 20:40 | P.PCN ---
Date of procedure: 08/04/18 Pre-op diagnosis: Cardiac arrest Post-op diagnosis: same Procedure: CPR Note Patient developed asystole. Immediate CPR was started. ACLS protocol was followed patient received CPR and 1 amp of epinephrine. Return of spontaneous occlusion within 4 seconds. Levophed titrated to 100 mcg/min vasopressin at 0.06 international units. After return of spontaneous circulation a discussed with Dax Beatty patient's son. I explained them that patient is probably brain . They agreed on DNR status but continued care at this time. CODE STATUS changed to DNR Surgeon: Dylon Sharp Condition: critical Disposition: ICU
[2018-08-04 23:44] LABS: Baso % (Auto) 0.1 % (0.0-2.0); Hematocrit 32.1 % (39.0-51.0); Hemoglobin 11.1 gm/dL (13.0-17.0); Lymph # (Auto) 0.7 th/mm3 (1.0-4.8); Lymph % (Auto) 1.3 % (9.0-44.0); Mean Corpuscular HGB Conc 34.4 % (32.0-36.0); Mean Corpuscular Hemoglobin 29.8 pg (27.0-34.0); Mean Corpuscular Volume 86.7 fL (80.0-100.0); Mean Platelet Volume 9.2 fL (7.0-11.0); Mono # (Auto) 0.4 th/mm3 (0.0-0.9); Mono % (Auto) 0.8 % (0.0-8.0); Neut # (Auto) 53.6 th/mm3 (1.8-7.7); Neut % (Auto) 97.8 % (16.0-70.0); Platelet Count 79 th/mm3 (150-450); Red Blood Count 3.71 mil/mm3 (4.50-5.90); Red Cell Distribution Width 16.7 % (11.6-17.2); White Blood Count 54.8 th/mm3 (4.0-11.0)
[2018-08-04 23:57] LABS: INR 1.3 Ratio; Prothrombin Time 13.3 sec (9.8-11.6)
[2018-08-05 00:17] LABS: Albumin 1.3 g/dL (3.4-5.0); Calcium 6.4 mg/dL (8.5-10.1); Carbon Dioxide 12.5 meq/L (21.0-32.0); Magnesium 1.9 mg/dL (1.5-2.5); Phosphorus 4.4 mg/dL (2.5-4.9); Potassium 5.7 meq/L (3.5-5.1)
[2018-08-05] MEDS: Insulin NovoLOG Aspart Correctional Sugar Inj SQ SCH ×6 (00:33→20:55)
[2018-08-05] MEDS: Oral Hygiene Kit OROPHARYNG SCH ×4 (00:36→15:40)
[2018-08-05] MEDS: Norepinephrine Inj 16 MG in Sodium Chlor 0.9% Inj 234 ML IV.CONT PRN ×5 (00:56→22:24)
[2018-08-05 00:58] LABS: Creatine Kinase MB 32.8 ng/mL (0.5-3.6)
[2018-08-05 01:28] LABS: Lymphocytes 1 % (9-44)
[2018-08-05 01:30] LABS: Acanthocytes Occ; Toxic Granulation 1+
[2018-08-05 01:31] LABS: Pappenheimer Bodies Present
[2018-08-05 01:33] LABS: Burr Cells 1+
[2018-08-05] MEDS ORDERED: Calcium Chloride Inj 2 GM in Sodium Chlor 0.9% Inj 100 ML IV.SIG SCH (02:30)
[2018-08-05] MEDS: Chlorhexidine Gluconate 2% 1 Pack (2 Cloths) TOPICAL SCH (03:26)
--- NOTE | 2018-08-05 05:27 | XR ---
EXAM DATE: 08/05/2018 4:38 AM EST AGE/SEX: 57 years / Male INDICATIONS: Shortness of breath, possible pulmonary disease. CLINICAL DATA: This is the patient's subsequent encounter. Patient reports that signs and symptoms h ave been present for 3 days and indicates a pain score of 0/10. MEDICAL/SURGICAL HISTORY: Diabetes mellitus type II. Carcinoma, lung. . Left foot amputation. COMPARISON: [facility], CHEST 1V SINGLE AP, 08/03/2018. . FINDINGS: Endotracheal tube tip about 1 cm above vee. NG enters stomach. Left central line in superior vena cava. Bilateral mostly basilar airspace disease. Small left effusion. No pneumothorax. CONCLUSION: Bilateral mostly basilar airspace disease and small effusion, increased from August 03. Support hayden aratus unchanged. Electronically signed by: Kristian Guido MD 08/05/2018 5:25 AM EST
[2018-08-05] MEDS: Vasopressin Inj 40 UNIT in Dextrose 5% in Water Inj 98 ML IV.CONT SCH ×4 (05:29→22:24)
[2018-08-05] MEDS: Pantoprazole Inj 80 MG in Sodium Chlor 0.9% Inj 100 ML IV.CONT SCH ×2 (05:31→15:21)
[2018-08-05] MEDS: Piperacil/Tazo 2.25 GM Premix 50 ML IV.SIG SCH ×4 (05:35→22:39)
[2018-08-05] MEDS ORDERED: Sodium Polystyrene Sulfonate/Sorbitol Liq 15 GM/60 ML UDC PO ONE ×2 (06:18→13:15)
[2018-08-05] MEDS ORDERED: Calcium Chloride Inj 1 GM in Sodium Chlor 0.9% Inj 100 ML IV.SIG ONE ×2 (06:18→14:00)
[2018-08-05] MEDS ORDERED: Dextrose 50% in Water 50 ML Vial IV.PUSH ONE ×3 (06:18→17:51)
[2018-08-05 06:54] LABS: Vancomycin,Random 21.9 Comment
[2018-08-05 07:26] LABS: Baso # (Auto) 0.1 th/mm3 (0.0-0.2); Baso % (Auto) 0.2 % (0.0-2.0); Eos % (Auto) 0.1 % (0.0-4.0); Hematocrit 29.3 % (39.0-51.0); Hemoglobin 10.1 gm/dL (13.0-17.0); Lymph # (Auto) 0.9 th/mm3 (1.0-4.8); Lymph % (Auto) 1.9 % (9.0-44.0); Mean Corpuscular HGB Conc 34.3 % (32.0-36.0); Mean Corpuscular Hemoglobin 30.4 pg (27.0-34.0); Mean Corpuscular Volume 88.7 fL (80.0-100.0); Mean Platelet Volume 9.4 fL (7.0-11.0); Mono # (Auto) 0.6 th/mm3 (0.0-0.9); Mono % (Auto) 1.3 % (0.0-8.0); Neut # (Auto) 43.3 th/mm3 (1.8-7.7); Neut % (Auto) 96.5 % (16.0-70.0); Platelet Count 64 th/mm3 (150-450); Red Blood Count 3.31 mil/mm3 (4.50-5.90); Red Cell Distribution Width 16.8 % (11.6-17.2); White Blood Count 44.8 th/mm3 (4.0-11.0)
[2018-08-05 07:56] LABS: Carbon Dioxide 11.8 meq/L (21.0-32.0); Magnesium 1.9 mg/dL (1.5-2.5); Phosphorus 4.4 mg/dL (2.5-4.9); Potassium 6.1 meq/L (3.5-5.1)
[2018-08-05] MEDS: Senna/Docusate Sodium 8.6/50 MG Tablet PO SCH ×2 (08:02→21:50)
[2018-08-05] MEDS: Chlorhexidine 0.12% Oral Kit 15 ML UDC OROPHARYNG SCH ×2 (08:02→21:33)
[2018-08-05 08:08] LABS: Albumin 1.1 g/dL (3.4-5.0); Calcium-Albumin Corrected 9.3 mg/dL (8.5-10.1)
[2018-08-05 08:26] LABS: Lymphocytes 3 % (9-44); Monocytes 2 % (0-8); Toxic Granulation 1+
[2018-08-05 08:27] LABS: Burr Cells 1+; Ovalocytes 1+
--- NOTE | 2018-08-05 10:21 | P.DIET ---
Nutritional Evaluation Type of nutrition evaluation: initial Screening comments: 08/05 NPO alert x3 days Objective - Diagnosis septic shock, hypothermia, gangrene L food, DKA - Objective Objective Comments: PMH: DM, HTN, lung CA Labs: K+ 6.1, BUN 76, Cr 3.4, GFR 23, POC glucose 204 139 153, lactic acid 3.4, Ca+ 7.0 Pt s/p guillotine L food amputation 08/03 Assessment Assessment: Pt currently at nutritional risk r/t being NPO for x3 days. Pt currently no code DNR status after episode of asystole and CPR. Wt noted, CBW = 82kg. Labs reviewed, consult RD as necessary. Additional recs to follow r/t medical course. Recommendations: 1. Pt currently no code DNR status after episode of asystole and CPR 2. Consult RD as necessary, additional recs to follow r/t medical course Dietitian to Monitor: Lab values, Renal labs, Liver enzymes, Glucose level, Intake & Output, Medical course
--- NOTE | 2018-08-05 10:31 | P.CONPAL ---
Consult Service: Palliative Care Requesting Physician: Fabian Grubbs Reason for Consult: a. To assist with evaluation and management of symptoms including:pain, dyspnea b. To assist medical decision maker(s) with: better understanding of current medical conditions; weighing benefits/burdens of medical treatment options; making medical treatment decisions. Primary Care Provider: UNKNOWN History of Present Illness History of Present Illness: This is a 57-year-old male who was brought to [facility] on 08/02[place]18 after being found by friends with altered mental status. Per medical records, patient recently left [facility] 07/10/18 AMA, he was being followed by [facility] hospice until 08/02/18 when he was admitted to the hospital. He has a long history of substance abuse. He has had visits/ admissions to [facility] in the past for similar issues including DKA, substance abuse, and wounds, and At time of arrival this admission, he was not following commands, was only opening his eyes and grunting to pain. ED staff was able to contact [facility] who confirmed patient left [place] 07/10/18. He has a long history of substance abuse, stage IV lung cancer, DM, neuropathy. Patient initially presented to the emergency with a DNR that was signed in February. However, staff received written order from [facility] revoking DNR status, making him a full code. Patient was admitted to the medical ICU with altered mental status and sepsis. Upon arrival to the emergency room: * He was found to be hypothermic with a temperature of 79 F, * WBCs 47, bands 34, hemoglobin 9.4, platelets 143, INR 1.5 * Blood sugar was 900. Anion gap 27, sodium 129, BUN/CT 105/3.13, AST/ALT 348/ 124, alkaline phosphatase 199, albumin 1.6, CPK 3200 * Original CT of the brain in the ED was negative for any acute findings. CXR was negative for any acute findings. 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 On 08/03/18 patient was intubated for airway protection secondary to altered mental status and worsening sepsis. He was started on Levophed and vasopressin drips for blood pressure support. He was seen and evaluated by podiatry who after evaluation and I&D, is strongly recommending a guillotine amputation, Dr Jazarevic was then consulted. This morning patient was found by nurse with a blown pupil, no cough no gag reflex, he was sent for MRI which revealed bilateral cerebellar edema with upward and downward herniation, early hydrocephalus, and was hypothermic. On 08/04/18 patient went into cardiac arrest , underwent CPR. Status was discussed with patient's son Rogerio, was advised he is likely brain , patient was made DNR. MRA showed no evidence of intracranial blood flow concerning for brain . 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 Per nursing, negative vestibular occipital/cold caloric testing. Chest x-ray this morning showed small left pleural effusion. At time of my exam, patient's family is at bedside. They are appropriately tearful. Son Mando states he has been somewhat estranged from his father, is unaware of his living conditions prior to coming to the hospital since leaving [facility]. He also reports patient has a daughter that he has been estranged from, he is attempting to reach her through their mutual contacts. Update provided to family regarding poor prognosis and likelihood that the patient is brain . They will likely consider withdrawal of life support in the coming days. Son states he is waiting for additional family members to arrive. Function/Cognitive Trajectory: Patient recently left [facility] on 07/10. Per Medical records, patient was on [facility] until admission to [facility] on 08/02/18. Patient was admitted to LTC facility by hospice on 06/11/18, at that time he was capacitated to make his own decision. Review of Systems unobtainable due to endotracheal tube, unobtainable due to mental status PMFSH - History History Provided By: Medical Record - Medical History Medical History: Medical History (Last Updated 08/05/18 @ 11:39 by CHARIS Braxton) Diabetes History of sepsis History of wound infection Hypertension Lung cancer Peripheral neuropathy Substance abuse - Surgical History Surgical History: Surgical History (Last Updated 08/05/18 @ 14:11 by CHARIS Braxton) H/O removal of cyst No pertinent past surgical history - Family History Family History: Family History (Last Updated 08/05/18 @ 14:12 by CHARIS Braxton) Other No history of cardiac disorder - Tobacco History Smoking Status: Former smoker - Alcohol History How Often Do You Have a Drink Containing Alcohol: Unable to Obtain - Substance Use History Substance History: Past History (cocaine use) - Travel History History of Recent Travel: No Recent Travel in the [place] Within the Last 8 Weeks: No Recent Travel Out of the Country Within the Last 8 Weeks: No - Immunization History Tetanus Immunization: Unsure Medications and Allergies Active Medications: Active Medications Al Hydroxide/Mg Hydroxide (Milk Of Magnesia Liq) 30 ml PO Q12H PRN PRN Reason: Mild Constipation Albuterol (Albuterol Neb (Prn)) 2.5 mg NEB Q2HR NEB PRN PRN Reason: SHORTNESS OF BREATH/WHEEZING Albuterol (Duoneb Neb (Jackelin)) 1 ampul NEB Q4HR NEB JACKELIN Last Admin: 08/05/18 08:39 Dose: 1 ampul Chlorhexidine Gluconate (Chlorhexidine 2% Cloth) 3 pack TOPICAL DAILY@0400 JACKELIN Stop: 08/08/18 03:59 Last Admin: 08/05/18 03:26 Dose: 3 pack Chlorhexidine Gluconate (Chlorhexidine 2% Cloth) 3 pack TOPICAL DAILY@0400 PRN PRN Reason: Extra cloth needed Stop: 08/08/18 03:59 Chlorhexidine Gluconate (Peridex 0.12% Oral Kit) 15 ml OROPHARYNG BID@0800, 2000 [facility] Last Admin: 08/05/18 08:02 Dose: 15 ml Dextrose (D50w Vial) 50 ml IV.PUSH UNSCH PRN PRN Reason: PER HYPOGLYCEMIA PROTOCOL Glucagon (Glucagon Inj) 1 mg OTHER PRN PRN PRN Reason: for Hypoglycemia Protocol Potassium Chloride (Kcl 20 Meq Premix Inj) 20 meq in 100 mls @ 100 mls/hr IV.SIG Q1H PRN PRN Reason: for K+ 4.5 to 5 Potassium Chloride (Kcl 20 Meq Premix Inj) 20 meq in 100 mls @ 100 mls/hr IV.SIG Q1H PRN PRN Reason: for K+ 3.5 to 4.4 Potassium Chloride (Kcl 20 Meq Premix Inj) 20 meq in 100 mls @ 50 mls/hr IV.SIG Q2H PRN PRN Reason: for K+ 3.5 to 4.4 Potassium Chloride (Kcl 20 Meq Premix Inj) 20 meq in 100 mls @ 50 mls/hr IV.SIG Q2H PRN PRN Reason: for Initial K+ ONLY < 3.5 Potassium Chloride (Kcl 40 Meq Premix Inj) 40 meq in 100 mls @ 100 mls/hr IV.SIG Q1H PRN PRN Reason: for Initial K+ ONLY < 3.5 Potassium Chloride (Kcl 20 Meq Premix Inj) 20 meq in 100 mls @ 50 mls/hr IV.SIG Q2H PRN PRN Reason: for Subsequent K+ < 3.5 Potassium Chloride (Kcl 40 Meq Premix Inj) 40 meq in 100 mls @ 50 mls/hr IV.SIG Q2H PRN PRN Reason: for Subsequent K+ < 3.5 Sodium Phosphate 15 mmol/ (Sodium Chloride) 105 mls @ 25 mls/hr IV.SIG UNSCH PRN PRN Reason: for Phosphate Level < 1.0 Potassium Chloride (Kcl 20 Meq Premix Inj) 20 meq in 100 mls @ 50 mls/hr IV.SIG Q2H PRN PRN Reason: for K+ 4.5 to 5 Fentanyl (Fentanyl 10 Mcg/Ml Premix Drip) 2,500 mcg in 250 mls @ 5 mls/hr IV.SIG TITRATE PRN; Protocol PRN Reason: Per Protocol Last Titration: 08/04/18 11:36 Dose: Infused Pantoprazole Sodium 80 mg/ (Sodium Chloride) 100 mls @ 10 mls/hr IV.CONT Q10H JACKELIN Last Admin: 08/05/18 05:31 Dose: 10 mls/hr Fluconazole (Diflucan 200 Mg Premix Bag) 100 mls @ 100 mls/hr IV.SIG Q24H JACKELIN Last Infusion: 08/05/18 07:18 Dose: Infused Vasopressin 40 unit/ Dextrose 100 mls @ 6 mls/hr IV.CONT CONT JACKELIN; Protocol Last Admin: 08/05/18 05:29 Dose: 0.04 units/min, 6 mls/hr Norepinephrine Bitartrate 16 (mg/ Sodium Chloride) 250 mls @ 1.87 mls/hr IV.CONT TITRATE PRN; Protocol PRN Reason: See Protocol Last Titration: 08/05/18 08:36 Dose: 50 mcg/min, 46.87 mls/hr Piperacillin/Tazobactam/Dextrose (Zosyn 2.25 Gm Premix) 50 mls @ 100 mls/hr IV.SIG Q6H JACKELIN Last Infusion: 08/05/18 06:15 Dose: Infused Clindamycin Phosphate 600 mg/ (Sodium Chloride) 104 mls @ 208 mls/hr IV.SIG Q8H [facility] Last Infusion: 08/05/18 08:35 Dose: Infused Sodium Chloride (Sodium Chloride 3% Inj) 500 mls @ 20 mls/hr IV.SIG CONT [facility] Last Admin: 08/04/18 14:00 Dose: 20 mls/hr Insulin Aspart (Novolog Insulin Correctional Sugar Inj) 0 unit SQ Q4HR [facility]; Protocol Last Admin: 08/05/18 07:34 Dose: Not Given Lactulose (Lactulose Liq) 30 ml PO DAILY PRN PRN Reason: SEVERE CONSITIPATION Midazolam HCl (Versed Inj) 2 mg IV.PUSH Q15M PRN PRN Reason: sedation Last Admin: 08/03/18 03:18 Dose: 2 mg Miscellaneous Medication () 1 each OROPHARYNG 0000,0400,1200,1600 [facility] Last Admin: 08/05/18 03:26 Dose: 1 each Morphine Sulfate (Morphine Inj) 2 mg IV.PUSH Q2H PRN PRN Reason: PAIN SCALE 6 TO 10 Last Admin: 08/02/18 20:55 Dose: 2 mg Ondansetron HCl (Zofran Inj) 4 mg IV.PUSH Q6H PRN PRN Reason: NAUSEA OR VOMITING Pharmacy Profile Note (Vancomycin Consult Pharmacy) 1 each OTHER UNSCH PRN PRN Reason: Pharmacy to dose Senna/Docusate Sodium (Kenia-Colace) 1 tab PO BID [facility] Last Admin: 08/05/18 08:02 Dose: 1 tab Sodium Bicarbonate (Sodium Bicarbonate 8.4% Inj) 100 meq IV.PUSH UNSCH PRN PRN Reason: for pH less than 6.9 Sodium Bicarbonate (Sodium Bicarbonate 8.4% Inj) 50 meq IV.PUSH UNSCH PRN PRN Reason: for pH 6.9 to 7.0 Sodium Chloride (Ns Flush) 2 ml IV.FLUSH UNSCH PRN PRN Reason: FLUSH AFTER USING IV ACCESS Sodium Chloride (Ns Flush) 2 ml IV.FLUSH BID [facility] Last Admin: 08/05/18 08:02 Dose: Not Given Sodium Chloride (Ns Flush) 0 ml IV.FLUSH DAILY [facility] Last Admin: 08/05/18 08:02 Dose: Not Given Terbutaline Sulfate (Brethine Inj) 1 mg SQ UNSCH PRN PRN Reason: For Extravasation Allergies Allergy/AdvReac Type Severity Reaction Status Date / Time No Known Allergies Allergy Uncoded 10/29/16 14:56 Home Medications Medication Instructions Recorded Confirmed Type gabapentin 100 mg PO BID 08/02/18 08/02/18 History hydrocodone-acetaminophen [[place]] 1 tab PO Q4H 08/02/18 08/02/18 History insulin glargine [Lantus U-100 40 unit SUBCUT HS 08/02/18 08/02/18 History Insulin] lisinopril 5 mg PO DAILY 08/02/18 08/02/18 History metformin 500 mg PO BID 08/02/18 08/02/18 History pioglitazone 15 mg PO DAILY 08/02/18 08/02/18 History sitagliptin [Januvia] 100 mg PO DAILY 08/02/18 08/02/18 History Physical Exam Vital Signs: Vital Signs - 24 hr 08/04/18 11:00 08/04/18 11:30 08/04/18 12:00 Temperature 94.1 F L 94.8 F L Pulse Rate 92 H 90 90 Respiratory Rate 20 20 20 Blood Pressure Pulse Oximetry 99 100 100 08/04/18 12:30 08/04/18 13:00 08/04/18 13:30 Temperature 95.0 F L 95.4 F L 95.5 F L Pulse Rate 88 87 90 Respiratory Rate 20 20 20 Blood Pressure 103/73 123/82 124/79 Pulse Oximetry 100 100 100 08/04/18 14:00 08/04/18 15:00 08/04/18 15:05 Temperature 95.5 F L 95.7 F L 95.9 F L Pulse Rate 90 96 H 89 Respiratory Rate 20 20 Blood Pressure 118/68 Pulse Oximetry 99 100 08/04/18 15:14 08/04/18 15:30 08/04/18 16:00 Temperature 95.7 F L 95.4 F L Pulse Rate 91 H 96 H 100 H Respiratory Rate 20 20 20 Blood Pressure 99/67 L Pulse Oximetry 98 98 99 08/04/18 17:00 08/04/18 18:00 08/04/18 19:00 Temperature 95.9 F L 96.4 F L 97.2 F L Pulse Rate 106 H 108 H 109 H Respiratory Rate 20 20 20 Blood Pressure Pulse Oximetry 98 98 99 08/04/18 19:31 08/04/18 20:00 08/04/18 20:23 Temperature 97.5 F L 97.9 F 98.2 F Pulse Rate 111 H 113 H 59 L Respiratory Rate 20 20 20 Blood Pressure 106/75 97/75 L 84/51 L Pulse Oximetry 98 98 08/04/18 20:25 08/04/18 20:28 08/04/18 20:30 Temperature 98.2 F 98.2 F 98.2 F Pulse Rate 48 L 36 L 133 H Respiratory Rate 20 104 H 121 H Blood Pressure 72/52 L 125/80 96/33 L Pulse Oximetry 73 L 60 L 08/04/18 20:32 08/04/18 20:33 08/04/18 20:34 Temperature 98.2 F 98.2 F 98.2 F Pulse Rate 143 H 143 H 143 H Respiratory Rate 25 H 20 20 Blood Pressure 209/108 H 202/112 H 194/113 H Pulse Oximetry 71 L 87 L 99 08/04/18 20:35 08/04/18 20:36 08/04/18 20:37 Temperature 98.2 F 98.4 F 98.4 F Pulse Rate 141 H 141 H 138 H Respiratory Rate 22 20 20 Blood Pressure 188/99 H 181/100 H 171/90 H Pulse Oximetry 99 96 98 08/04/18 20:45 08/04/18 21:00 08/04/18 21:15 Temperature 98.4 F 98.4 F 98.4 F Pulse Rate 124 H 112 H 115 H Respiratory Rate 20 20 20 Blood Pressure 110/71 114/70 137/78 Pulse Oximetry 99 99 99 08/04/18 21:30 08/04/18 21:45 08/04/18 22:00 Temperature 98.2 F 98.2 F 98.2 F Pulse Rate 117 H 116 H 116 H Respiratory Rate 20 20 20 Blood Pressure 118/74 115/74 117/79 Pulse Oximetry 99 99 99 08/04/18 22:15 08/04/18 22:30 08/04/18 22:45 Temperature 98.4 F 98.4 F 98.4 F Pulse Rate 114 H 115 H 117 H Respiratory Rate 20 20 17 Blood Pressure 121/84 129/80 135/84 Pulse Oximetry 99 99 99 08/04/18 23:00 08/04/18 23:15 08/04/18 23:30 Temperature 98.6 F 98.6 F 98.8 F Pulse Rate 117 H 116 H 112 H Respiratory Rate 20 20 20 Blood Pressure 133/80 131/75 125/72 Pulse Oximetry 99 99 98 08/04/18 23:45 08/05/18 00:00 08/05/18 00:06 Temperature 98.8 F 99.0 F Pulse Rate 110 H 110 H Respiratory Rate 20 20 20 Blood Pressure 97/70 L 95/69 L Pulse Oximetry 98 98 98 08/05/18 00:15 08/05/18 00:30 08/05/18 00:46 Temperature 99.0 F 99.1 F 99.1 F Pulse Rate 109 H 104 H 101 H Respiratory Rate 20 20 20 Blood Pressure 95/71 L 109/64 96/64 L Pulse Oximetry 98 98 98 08/05/18 01:00 08/05/18 01:15 08/05/18 01:30 Temperature 99.1 F 99.1 F 99.0 F Pulse Rate 100 H 100 H 101 H Respiratory Rate 20 20 20 Blood Pressure 96/70 L 97/71 L 98/71 L Pulse Oximetry 97 97 97 08/05/18 01:45 08/05/18 02:00 08/05/18 02:15 Temperature 99.0 F 99.0 F 98.8 F Pulse Rate 102 H 103 H 102 H Respiratory Rate 20 20 20 Blood Pressure 114/69 111/72 103/66 Pulse Oximetry 98 97 97 08/05/18 02:30 08/05/18 02:45 08/05/18 03:00 Temperature 98.8 F 98.8 F 98.6 F Pulse Rate 98 H 97 H 96 H Respiratory Rate 20 20 20 Blood Pressure 99/64 L 111/67 103/65 Pulse Oximetry 97 97 98 08/05/18 03:15 08/05/18 03:30 08/05/18 03:45 Temperature 98.6 F 98.6 F 98.4 F Pulse Rate 95 H 94 H 93 H Respiratory Rate 20 20 20 Blood Pressure 102/69 104/72 108/69 Pulse Oximetry 98 98 99 08/05/18 04:00 08/05/18 04:15 08/05/18 04:17 Temperature 98.4 F 98.2 F Pulse Rate 93 H 92 H Respiratory Rate 20 20 20 Blood Pressure 122/74 121/74 Pulse Oximetry 99 99 98 08/05/18 04:30 08/05/18 04:38 08/05/18 04:45 Temperature 98.1 F 97.9 F Pulse Rate 91 H 90 91 H Respiratory Rate 20 20 Blood Pressure 123/75 123/75 113/70 Pulse Oximetry 98 99 08/05/18 05:00 08/05/18 05:15 08/05/18 05:30 Temperature 97.7 F 97.7 F 97.5 F L Pulse Rate 91 H 91 H 91 H Respiratory Rate 20 20 20 Blood Pressure 111/74 126/79 123/76 Pulse Oximetry 99 99 98 08/05/18 05:45 08/05/18 06:00 08/05/18 06:15 Temperature 97.3 F L 97.3 F L 97.2 F L Pulse Rate 91 H 89 90 Respiratory Rate 20 20 20 Blood Pressure 115/70 112/69 111/67 Pulse Oximetry 98 94 L 99 08/05/18 07:00 08/05/18 08:00 08/05/18 08:41 Temperature 96.9 F L Pulse Rate 98 H 98 H 98 H Respiratory Rate 20 20 Blood Pressure Pulse Oximetry 100 100 100 I&O: Intake & Output 08/03/18 08/04/18 08/05/18 08/06/18 06:59 06:59 06:59 06:59 Intake Total 18366 / 12709 46777 / 65573 3585.5 / 3585.5 314 / 314 Output Total 530 / 530 685 / 685 1337 / 1337 50 / 50 Balance 42741 / 40475 86751 / 13385 2248.5 / 2248.5 264 / 264 Weight 61 kg 82 kg Physical Exam: CONSTITUTIONAL/GENERAL: This is an adequately nourished patient, in no apparent distress. TUBES/LINES/DRAINS: ET tube, right radial A-line, left lower extremity wound VAC , triple-lumen catheter, Tang SKIN: Left foot amputation, wound VAC in place draining small amount of gerard red blood. Right foot with multiple blisters. Skin is hot and dry to touch HEAD: Atraumatic. Normocephalic. EYES: Left pupil 6 mm oblong shape, right pupil 6 mm. No reaction noted bilaterally. Scleral edema bilaterally. ENT: Unable to visualize oropharynx secondary to ET tube. NECK: Trachea midline. Supple, nontender. No palpable thyroid enlargement or nodularity. CARDIOVASCULAR: Regular rate and rhythm without murmurs. Patient on 70 mcg of levo fed and vasopressin to maintain blood pressure. Unable to palpate right pedal pulse. RESPIRATORY/CHEST: Orally intubated mechanically ventilated. Lung sounds on right clear, left with coarse scattered rhonchi. GASTROINTESTINAL: Abdomen soft. Intermittent bowel sounds GENITOURINARY: +bladder distension. Tang catheter in place scant urine MUSCULOSKELETAL: Left foot amputation with wound VAC dressing in place. Vascular changes to right foot, multiple blisters noted. Extremities flaccid x4 LYMPHATICS: No palpable cervical or supraclavicular adenopathy. NEUROLOGICAL: Unresponsive PSYCHIATRIC: No obvious anxiety/depression. no apparent hallucinations or other psychotic thought process. Diagnostic Tests Laboratory: Laboratory Results - last 72 hr 08/02/18 08/02/18 08/02/18 10:49 10:49 10:49 WBC 46.7 H RBC 3.10 L Hgb 9.4 L Hct 31.4 L MCV 101.2 H MCH 30.4 MCHC 30.1 L RDW 17.2 Plt Count 145 L MPV 10.6 Prelim Diff (Auto) Manual diff required Neut % (Auto) Lymph % (Auto) Winn % (Auto) Eos % (Auto) Baso % (Auto) Neut # (Auto) Lymph # (Auto) Winn # (Auto) Eos # (Auto) Baso # (Auto) WBC Differential Manual diff final Seg Neuts % (Manual) 61 Band Neuts % (Manual) 34 H Lymphocytes % (Manual) 1 L Monocytes % (Manual) 3 Metamyelocytes % (Man) 1 Myelocytes % (Man) Abs Neuts (Manual) 44.8 H Nucleated RBCs/100 WBC Differential Comment . Toxic Granulation 1+ H Toxic Vacuolation Present H Platelet Estimate Low L Platelet Morphology Normal Pappenheimer Bodies Ovalocytes Gering Cells Acanthocytes (Spur) Keratocytes PT 15.0 H INR 1.5 APTT Fibrinogen Puncture Site Patient Temperature O2 Saturation ABG pH ABG pCO2 ABG pO2 ABG HCO3 ABG O2 Content ABG Base Excess ABG Methemoglobin Jordy Test Hemoglobin Carboxyhemoglobin O2 Delivery Device Liter Flow Vent Setting Inspired O2 Critical Value Sodium 129 L Potassium 5.5 H Chloride 93 L Carbon Dioxide 8.7 L Anion Gap 27 H BUN 105 H Creatinine 3.13 H Estimated GFR 25 L POC Glucose Random Glucose 909 H* Hemoglobin A1c Osmolality Lactic Acid Calcium 8.7 Calcium Adj for Albumin Phosphorus Magnesium 3.4 H Total Bilirubin 0.5 AST 348 H ALT 124 H Alkaline Phosphatase 199 H Ammonia Total Creatine Kinase 3289 H CK-MB (CK-2) 53.4 H CK-MB (CK-2) % 1.6 Troponin I Less than 0.02 L B-Natriuretic Peptide Total Protein 6.5 Albumin 1.6 L Lipase Beta-Hydroxybutyric Acd TSH 2.690 Urine Color Urine Clarity Urine pH Ur Specific [place] Urine Protein Urine Glucose (UA) Urine Ketones Urine Occult Blood Urine Nitrate Urine Bilirubin Urine Urobilinogen Ur Leukocyte Esterase Urine RBC Urine WBC Urine WBC Clumps Amorphous Sediment Urine Bacteria Hyaline Casts Urine Mucus Micro UA Comment Ur Microscopic Review Urine Culture Comments Urine Eosinophils Ur Random Creatinine Ur Random Sodium Nasal Screen MRSA (PCR) Stl C.difficile DNA Amp St C. diff Tox Epid 027 Random Vancomycin Blood Type Blood Type Recheck Antibody Screen MTS Gel Crossmatch Blood Bank Comment 08/02/18 08/02/18 08/02/18 10:49 10:49 10:49 WBC RBC Hgb Hct MCV MCH MCHC RDW Plt Count MPV Prelim Diff (Auto) Neut % (Auto) Lymph % (Auto) Winn % (Auto) Eos % (Auto) Baso % (Auto) Neut # (Auto) Lymph # (Auto) Winn # (Auto) Eos # (Auto) Baso # (Auto) WBC Differential Seg Neuts % (Manual) Band Neuts % (Manual) Lymphocytes % (Manual) Monocytes % (Manual) Metamyelocytes % (Man) Myelocytes % (Man) Abs Neuts (Manual) Nucleated RBCs/100 WBC Differential Comment Toxic Granulation Toxic Vacuolation Platelet Estimate Platelet Morphology Pappenheimer Bodies Ovalocytes Gering Cells Acanthocytes (Spur) Keratocytes PT INR APTT Fibrinogen Puncture Site Patient Temperature O2 Saturation ABG pH ABG pCO2 ABG pO2 ABG HCO3 ABG O2 Content ABG Base Excess ABG Methemoglobin Jordy Test Hemoglobin Carboxyhemoglobin O2 Delivery Device Liter Flow Vent Setting Inspired O2 Critical Value Sodium Potassium Chloride Carbon Dioxide Anion Gap BUN Creatinine Estimated GFR POC Glucose Random Glucose Hemoglobin A1c 11.3 H Osmolality Lactic Acid Calcium Calcium Adj for Albumin Phosphorus Magnesium Total Bilirubin AST ALT Alkaline Phosphatase Ammonia Total Creatine Kinase CK-MB (CK-2) CK-MB (CK-2) % Troponin I B-Natriuretic Peptide 42 Total Protein Albumin Lipase 65702 H Beta-Hydroxybutyric Acd 9.86 H TSH Urine Color Urine Clarity Urine pH Ur Specific [place] Urine Protein Urine Glucose (UA) Urine Ketones Urine Occult Blood Urine Nitrate Urine Bilirubin Urine Urobilinogen Ur Leukocyte Esterase Urine RBC Urine WBC Urine WBC Clumps Amorphous Sediment Urine Bacteria Hyaline Casts Urine Mucus Micro UA Comment Ur Microscopic Review Urine Culture Comments Urine Eosinophils Ur Random Creatinine Ur Random Sodium Nasal Screen MRSA (PCR) Stl C.difficile DNA Amp St C. diff Tox Epid 027 Random Vancomycin Blood Type Blood Type Recheck Antibody Screen MTS Gel Crossmatch Blood Bank Comment 08/02/18 08/02/18 08/02/18 10:55 11:16 12:10 WBC RBC Hgb Hct MCV MCH MCHC RDW Plt Count MPV Prelim Diff (Auto) Neut % (Auto) Lymph % (Auto) Winn % (Auto) Eos % (Auto) Baso % (Auto) Neut # (Auto) Lymph # (Auto) Winn # (Auto) Eos # (Auto) Baso # (Auto) WBC Differential Seg Neuts % (Manual) Band Neuts % (Manual) Lymphocytes % (Manual) Monocytes % (Manual) Metamyelocytes % (Man) Myelocytes % (Man) Abs Neuts (Manual) Nucleated RBCs/100 WBC Differential Comment Toxic Granulation Toxic Vacuolation Platelet Estimate Platelet Morphology Pappenheimer Bodies Ovalocytes Gering Cells Acanthocytes (Spur) Keratocytes PT INR APTT Fibrinogen Puncture Site Right radial Patient Temperature 98.6 O2 Saturation 96 ABG pH 7.09 L* ABG pCO2 25 L ABG pO2 191 H ABG HCO3 7 L* ABG O2 Content 12.0 ABG Base Excess -20.9 L ABG Methemoglobin 1.0 Jordy Test Present Hemoglobin 8.6 L Carboxyhemoglobin 1.5 O2 Delivery Device Nasal cannula Liter Flow 2.00 Vent Setting Inspired O2 Critical Value Yes Sodium Potassium Chloride Carbon Dioxide Anion Gap BUN Creatinine Estimated GFR POC Glucose Random Glucose Hemoglobin A1c Osmolality Lactic Acid Calcium Calcium Adj for Albumin Phosphorus Magnesium Total Bilirubin AST ALT Alkaline Phosphatase Ammonia Total Creatine Kinase CK-MB (CK-2) CK-MB (CK-2) % Troponin I B-Natriuretic Peptide Total Protein Albumin Lipase Beta-Hydroxybutyric Acd TSH Urine Color Yellow Urine Clarity Cloudy H Urine pH 5.0 Ur Specific [place] 1.015 Urine Protein Negative Urine Glucose (UA) 500 or greater Urine Ketones 20 Urine Occult Blood Moderate H Urine Nitrate Negative Urine Bilirubin Negative Urine Urobilinogen Less than 2 Ur Leukocyte Esterase Large H Urine RBC 13 H Urine WBC 114 H Urine WBC Clumps Few H Amorphous Sediment Few H Urine Bacteria Few H Hyaline Casts 10 Urine Mucus Few H Micro UA Comment Cath-culture ind Ur Microscopic Review Not Reportable Urine Culture Comments Cath-cult indicated Urine Eosinophils Ur Random Creatinine Ur Random Sodium Nasal Screen MRSA (PCR) Stl C.difficile DNA Amp St C. diff Tox Epid 027 Random Vancomycin Blood Type O Positive Blood Type Recheck Required Antibody Screen Negative MTS Gel Crossmatch Blood Bank Comment 08/02/18 08/02/18 08/02/18 12:34 14:49 15:03 WBC RBC Hgb Hct MCV MCH MCHC RDW Plt Count MPV Prelim Diff (Auto) Neut % (Auto) Lymph % (Auto) Winn % (Auto) Eos % (Auto) Baso % (Auto) Neut # (Auto) Lymph # (Auto) Winn # (Auto) Eos # (Auto) Baso # (Auto) WBC Differential Seg Neuts % (Manual) Band Neuts % (Manual) Lymphocytes % (Manual) Monocytes % (Manual) Metamyelocytes % (Man) Myelocytes % (Man) Abs Neuts (Manual) Nucleated RBCs/100 WBC Differential Comment Toxic Granulation Toxic Vacuolation Platelet Estimate Platelet Morphology Pappenheimer Bodies Ovalocytes Indigo Cells Acanthocytes (Spur) Keratocytes PT INR APTT Fibrinogen Puncture Site Patient Temperature O2 Saturation ABG pH ABG pCO2 ABG pO2 ABG HCO3 ABG O2 Content ABG Base Excess ABG Methemoglobin Jordy Test Hemoglobin Carboxyhemoglobin O2 Delivery Device Liter Flow Vent Setting Inspired O2 Critical Value Sodium Cancelled Potassium Cancelled Chloride Cancelled Carbon Dioxide Cancelled Anion Gap Cancelled BUN Cancelled Creatinine Cancelled Estimated GFR Cancelled POC Glucose Greater than 600 H* Greater than 600 H* Random Glucose Cancelled Hemoglobin A1c Osmolality Lactic Acid Calcium Cancelled Calcium Adj for Albumin Phosphorus Cancelled Magnesium Cancelled Total Bilirubin AST ALT Alkaline Phosphatase Ammonia Total Creatine Kinase CK-MB (CK-2) CK-MB (CK-2) % Troponin I Cancelled B-Natriuretic Peptide Total Protein Albumin Lipase Beta-Hydroxybutyric Acd TSH Urine Color Urine Clarity Urine pH Ur Specific [place] Urine Protein Urine Glucose (UA) Urine Ketones Urine Occult Blood Urine Nitrate Urine Bilirubin Urine Urobilinogen Ur Leukocyte Esterase Urine RBC Urine WBC Urine WBC Clumps Amorphous Sediment Urine Bacteria Hyaline Casts Urine Mucus Micro UA Comment Ur Microscopic Review Urine Culture Comments Urine Eosinophils Ur Random Creatinine Ur Random Sodium Nasal Screen MRSA (PCR) Stl C.difficile DNA Amp St C. diff Tox Epid 027 Random Vancomycin Blood Type Blood Type Recheck Antibody Screen MTS Gel Crossmatch Blood Bank Comment 08/02/18 08/02/18 08/02/18 15:03 15:03 16:05 WBC RBC Hgb Hct MCV MCH MCHC RDW Plt Count MPV Prelim Diff (Auto) Neut % (Auto) Lymph % (Auto) Winn % (Auto) Eos % (Auto) Baso % (Auto) Neut # (Auto) Lymph # (Auto) Winn # (Auto) Eos # (Auto) Baso # (Auto) WBC Differential Seg Neuts % (Manual) Band Neuts % (Manual) Lymphocytes % (Manual) Monocytes % (Manual) Metamyelocytes % (Man) Myelocytes % (Man) Abs Neuts (Manual) Nucleated RBCs/100 WBC Differential Comment Toxic Granulation Toxic Vacuolation Platelet Estimate Platelet Morphology Pappenheimer Bodies Ovalocytes Indigo Cells Acanthocytes (Spur) Keratocytes PT INR APTT 54.6 H Fibrinogen 282 Puncture Site Patient Temperature O2 Saturation ABG pH ABG pCO2 ABG pO2 ABG HCO3 ABG O2 Content ABG Base Excess ABG Methemoglobin Jordy Test Hemoglobin Carboxyhemoglobin O2 Delivery Device Liter Flow Vent Setting Inspired O2 Critical Value Sodium 143 D Potassium 3.3 L D Chloride 113 H D Carbon Dioxide 10.9 L Anion Gap 19 H BUN 91 H Creatinine 2.49 H Estimated GFR 32 L POC Glucose Random Glucose 592 H* D Hemoglobin A1c Osmolality Lactic Acid 4.6 H* Calcium 6.6 L* D Calcium Adj for Albumin 8.8 Phosphorus 3.3 Magnesium 2.4 D Total Bilirubin AST ALT Alkaline Phosphatase Ammonia Total Creatine Kinase CK-MB (CK-2) CK-MB (CK-2) % Troponin I 0.03 B-Natriuretic Peptide Total Protein Albumin 1.2 L Lipase Beta-Hydroxybutyric Acd TSH Urine Color Urine Clarity Urine pH Ur Specific [place] Urine Protein Urine Glucose (UA) Urine Ketones Urine Occult Blood Urine Nitrate Urine Bilirubin Urine Urobilinogen Ur Leukocyte Esterase Urine RBC Urine WBC Urine WBC Clumps Amorphous Sediment Urine Bacteria Hyaline Casts Urine Mucus Micro UA Comment Ur Microscopic Review Urine Culture Comments Urine Eosinophils Ur Random Creatinine Ur Random Sodium Nasal Screen MRSA (PCR) Stl C.difficile DNA Amp St C. diff Tox Epid 027 Random Vancomycin Blood Type Blood Type Recheck Antibody Screen MTS Gel Crossmatch Blood Bank Comment 08/02/18 08/02/18 08/02/18 17:18 17:44 17:44 WBC RBC Hgb Hct MCV MCH MCHC RDW Plt Count MPV Prelim Diff (Auto) Neut % (Auto) Lymph % (Auto) Winn % (Auto) Eos % (Auto) Baso % (Auto) Neut # (Auto) Lymph # (Auto) Winn # (Auto) Eos # (Auto) Baso # (Auto) WBC Differential Seg Neuts % (Manual) Band Neuts % (Manual) Lymphocytes % (Manual) Monocytes % (Manual) Metamyelocytes % (Man) Myelocytes % (Man) Abs Neuts (Manual) Nucleated RBCs/100 WBC Differential Comment Toxic Granulation Toxic Vacuolation Platelet Estimate Platelet Morphology Pappenheimer Bodies Ovalocytes Indigo Cells Acanthocytes (Spur) Keratocytes PT INR APTT Fibrinogen Puncture Site Patient Temperature O2 Saturation ABG pH ABG pCO2 ABG pO2 ABG HCO3 ABG O2 Content ABG Base Excess ABG Methemoglobin Jordy Test Hemoglobin Carboxyhemoglobin O2 Delivery Device Liter Flow Vent Setting Inspired O2 Critical Value Sodium Potassium Chloride Carbon Dioxide Anion Gap BUN Creatinine Estimated GFR POC Glucose 547 H* Random Glucose Hemoglobin A1c Osmolality Lactic Acid Calcium Calcium Adj for Albumin Phosphorus Magnesium Total Bilirubin AST ALT Alkaline Phosphatase Ammonia Total Creatine Kinase CK-MB (CK-2) CK-MB (CK-2) % Troponin I B-Natriuretic Peptide Total Protein Albumin Lipase Beta-Hydroxybutyric Acd TSH Urine Color Urine Clarity Urine pH Ur Specific [place] Urine Protein Urine Glucose (UA) Urine Ketones Urine Occult Blood Urine Nitrate Urine Bilirubin Urine Urobilinogen Ur Leukocyte Esterase Urine RBC Urine WBC Urine WBC Clumps Amorphous Sediment Urine Bacteria Hyaline Casts Urine Mucus Micro UA Comment Ur Microscopic Review Urine Culture Comments Urine Eosinophils 0-2 H Ur Random Creatinine 21 L Ur Random Sodium 13 Nasal Screen MRSA (PCR) Stl C.difficile DNA Amp St C. diff Tox Epid 027 Random Vancomycin Blood Type Blood Type Recheck Antibody Screen MTS Gel Crossmatch Blood Bank Comment 08/02/18 08/02/18 08/02/18 18:03 18:07 18:12 WBC RBC Hgb Hct MCV MCH MCHC RDW Plt Count MPV Prelim Diff (Auto) Neut % (Auto) Lymph % (Auto) Winn % (Auto) Eos % (Auto) Baso % (Auto) Neut # (Auto) Lymph # (Auto) Winn # (Auto) Eos # (Auto) Baso # (Auto) WBC Differential Seg Neuts % (Manual) Band Neuts % (Manual) Lymphocytes % (Manual) Monocytes % (Manual) Metamyelocytes % (Man) Myelocytes % (Man) Abs Neuts (Manual) Nucleated RBCs/100 WBC Differential Comment Toxic Granulation Toxic Vacuolation Platelet Estimate Platelet Morphology Pappenheimer Bodies Ovalocytes Gering Cells Acanthocytes (Spur) Keratocytes PT INR APTT Fibrinogen Puncture Site Right radial Patient Temperature 98.6 O2 Saturation 95 ABG pH 7.25 L* ABG pCO2 24 L* ABG pO2 142 H ABG HCO3 10 L* ABG O2 Content 11.0 L ABG Base Excess -15.9 L ABG Methemoglobin 2.4 H Jordy Test Present Hemoglobin 8.1 L Carboxyhemoglobin 0.9 O2 Delivery Device Nasal cannula Liter Flow 1.00 Vent Setting Inspired O2 Critical Value Yes Sodium 144 Potassium 3.2 L Chloride 115 H Carbon Dioxide 12.1 L Anion Gap 17 H BUN 91 H Creatinine 2.49 H Estimated GFR 32 L POC Glucose 554 H* Random Glucose 485 H* D Hemoglobin A1c Osmolality Lactic Acid Calcium 6.5 L* Calcium Adj for Albumin 8.7 Phosphorus Magnesium Total Bilirubin AST ALT Alkaline Phosphatase Ammonia Total Creatine Kinase CK-MB (CK-2) CK-MB (CK-2) % Troponin I B-Natriuretic Peptide Total Protein Albumin 1.3 L Lipase Beta-Hydroxybutyric Acd TSH Urine Color Urine Clarity Urine pH Ur Specific [place] Urine Protein Urine Glucose (UA) Urine Ketones Urine Occult Blood Urine Nitrate Urine Bilirubin Urine Urobilinogen Ur Leukocyte Esterase Urine RBC Urine WBC Urine WBC Clumps Amorphous Sediment Urine Bacteria Hyaline Casts Urine Mucus Micro UA Comment Ur Microscopic Review Urine Culture Comments Urine Eosinophils Ur Random Creatinine Ur Random Sodium Nasal Screen MRSA (PCR) Stl C.difficile DNA Amp St C. diff Tox Epid 027 Random Vancomycin Blood Type Blood Type Recheck Antibody Screen MTS Gel Crossmatch Blood Bank Comment 08/02/18 08/02/18 08/02/18 18:58 20:04 20:58 WBC RBC Hgb Hct MCV MCH MCHC RDW Plt Count MPV Prelim Diff (Auto) Neut % (Auto) Lymph % (Auto) Winn % (Auto) Eos % (Auto) Baso % (Auto) Neut # (Auto) Lymph # (Auto) Winn # (Auto) Eos # (Auto) Baso # (Auto) WBC Differential Seg Neuts % (Manual) Band Neuts % (Manual) Lymphocytes % (Manual) Monocytes % (Manual) Metamyelocytes % (Man) Myelocytes % (Man) Abs Neuts (Manual) Nucleated RBCs/100 WBC Differential Comment Toxic Granulation Toxic Vacuolation Platelet Estimate Platelet Morphology Pappenheimer Bodies Ovalocytes Indigo Cells Acanthocytes (Spur) Keratocytes PT INR APTT Fibrinogen Puncture Site Patient Temperature O2 Saturation ABG pH ABG pCO2 ABG pO2 ABG HCO3 ABG O2 Content ABG Base Excess ABG Methemoglobin Jordy Test Hemoglobin Carboxyhemoglobin O2 Delivery Device Liter Flow Vent Setting Inspired O2 Critical Value Sodium Potassium Chloride Carbon Dioxide Anion Gap BUN Creatinine Estimated GFR POC Glucose 512 H* 459 H* 392 H Random Glucose Hemoglobin A1c Osmolality Lactic Acid Calcium Calcium Adj for Albumin Phosphorus Magnesium Total Bilirubin AST ALT Alkaline Phosphatase Ammonia Total Creatine Kinase CK-MB (CK-2) CK-MB (CK-2) % Troponin I B-Natriuretic Peptide Total Protein Albumin Lipase Beta-Hydroxybutyric Acd TSH Urine Color Urine Clarity Urine pH Ur Specific [place] Urine Protein Urine Glucose (UA) Urine Ketones Urine Occult Blood Urine Nitrate Urine Bilirubin Urine Urobilinogen Ur Leukocyte Esterase Urine RBC Urine WBC Urine WBC Clumps Amorphous Sediment Urine Bacteria Hyaline Casts Urine Mucus Micro UA Comment Ur Microscopic Review Urine Culture Comments Urine Eosinophils Ur Random Creatinine Ur Random Sodium Nasal Screen MRSA (PCR) Stl C.difficile DNA Amp St C. diff Tox Epid 027 Random Vancomycin Blood Type Blood Type Recheck Antibody Screen MTS Gel Crossmatch Blood Bank Comment 08/02/18 08/02/18 08/02/18 21:00 22:00 22:50 WBC RBC Hgb Hct MCV MCH MCHC RDW Plt Count MPV Prelim Diff (Auto) Neut % (Auto) Lymph % (Auto) Winn % (Auto) Eos % (Auto) Baso % (Auto) Neut # (Auto) Lymph # (Auto) Winn # (Auto) Eos # (Auto) Baso # (Auto) WBC Differential Seg Neuts % (Manual) Band Neuts % (Manual) Lymphocytes % (Manual) Monocytes % (Manual) Metamyelocytes % (Man) Myelocytes % (Man) Abs Neuts (Manual) Nucleated RBCs/100 WBC Differential Comment Toxic Granulation Toxic Vacuolation Platelet Estimate Platelet Morphology Pappenheimer Bodies Ovalocytes Indigo Cells Acanthocytes (Spur) Keratocytes PT INR APTT Fibrinogen Puncture Site Patient Temperature O2 Saturation ABG pH ABG pCO2 ABG pO2 ABG HCO3 ABG O2 Content ABG Base Excess ABG Methemoglobin Jordy Test Hemoglobin Carboxyhemoglobin O2 Delivery Device Liter Flow Vent Setting Inspired O2 Critical Value Sodium Potassium Chloride Carbon Dioxide Anion Gap BUN Creatinine Estimated GFR POC Glucose 337 H Random Glucose Hemoglobin A1c Osmolality Lactic Acid 6.0 H* Calcium Calcium Adj for Albumin Phosphorus Magnesium Total Bilirubin AST ALT Alkaline Phosphatase Ammonia Total Creatine Kinase CK-MB (CK-2) CK-MB (CK-2) % Troponin I B-Natriuretic Peptide Total Protein Albumin Lipase Beta-Hydroxybutyric Acd TSH Urine Color Urine Clarity Urine pH Ur Specific [place] Urine Protein Urine Glucose (UA) Urine Ketones Urine Occult Blood Urine Nitrate Urine Bilirubin Urine Urobilinogen Ur Leukocyte Esterase Urine RBC Urine WBC Urine WBC Clumps Amorphous Sediment Urine Bacteria Hyaline Casts Urine Mucus Micro UA Comment Ur Microscopic Review Urine Culture Comments Urine Eosinophils Ur Random Creatinine Ur Random Sodium Nasal Screen MRSA (PCR) Not detected Stl C.difficile DNA Amp St C. diff Tox Epid 027 Random Vancomycin Blood Type Blood Type Recheck Antibody Screen MTS Gel Crossmatch Blood Bank Comment 08/02/18 08/03/18 08/03/18 22:59 00:00 00:00 WBC RBC Hgb Hct MCV MCH MCHC RDW Plt Count MPV Prelim Diff (Auto) Neut % (Auto) Lymph % (Auto) Winn % (Auto) Eos % (Auto) Baso % (Auto) Neut # (Auto) Lymph # (Auto) Winn # (Auto) Eos # (Auto) Baso # (Auto) WBC Differential Seg Neuts % (Manual) Band Neuts % (Manual) Lymphocytes % (Manual) Monocytes % (Manual) Metamyelocytes % (Man) Myelocytes % (Man) Abs Neuts (Manual) Nucleated RBCs/100 WBC Differential Comment Toxic Granulation Toxic Vacuolation Platelet Estimate Platelet Morphology Pappenheimer Bodies Ovalocytes Indigo Cells Acanthocytes (Spur) Keratocytes PT INR APTT Fibrinogen Puncture Site Patient Temperature O2 Saturation ABG pH ABG pCO2 ABG pO2 ABG HCO3 ABG O2 Content ABG Base Excess ABG Methemoglobin Jordy Test Hemoglobin Carboxyhemoglobin O2 Delivery Device Liter Flow Vent Setting Inspired O2 Critical Value Sodium 143 Potassium 4.2 D Chloride 119 H Carbon Dioxide 11.5 L Anion Gap 13 BUN 97 H Creatinine 2.53 H Estimated GFR 32 L POC Glucose 316 H Random Glucose 232 H D Hemoglobin A1c Osmolality Lactic Acid Calcium 6.6 L* Calcium Adj for Albumin 8.8 Phosphorus 0.9 L D Magnesium 1.9 Total Bilirubin AST ALT Alkaline Phosphatase Ammonia 40 H Total Creatine Kinase 6895 H CK-MB (CK-2) 100.7 H CK-MB (CK-2) % 1.5 Troponin I B-Natriuretic Peptide Total Protein Albumin 1.2 L Lipase Beta-Hydroxybutyric Acd TSH Urine Color Urine Clarity Urine pH Ur Specific [place] Urine Protein Urine Glucose (UA) Urine Ketones Urine Occult Blood Urine Nitrate Urine Bilirubin Urine Urobilinogen Ur Leukocyte Esterase Urine RBC Urine WBC Urine WBC Clumps Amorphous Sediment Urine Bacteria Hyaline Casts Urine Mucus Micro UA Comment Ur Microscopic Review Urine Culture Comments Urine Eosinophils Ur Random Creatinine Ur Random Sodium Nasal Screen MRSA (PCR) Stl C.difficile DNA Amp St C. diff Tox Epid 027 Random Vancomycin Blood Type Blood Type Recheck Antibody Screen MTS Gel Crossmatch Blood Bank Comment 08/03/18 08/03/18 08/03/18 00:08 01:13 01:14 WBC RBC Hgb Hct MCV MCH MCHC RDW Plt Count MPV Prelim Diff (Auto) Neut % (Auto) Lymph % (Auto) Winn % (Auto) Eos % (Auto) Baso % (Auto) Neut # (Auto) Lymph # (Auto) Winn # (Auto) Eos # (Auto) Baso # (Auto) WBC Differential Seg Neuts % (Manual) Band Neuts % (Manual) Lymphocytes % (Manual) Monocytes % (Manual) Metamyelocytes % (Man) Myelocytes % (Man) Abs Neuts (Manual) Nucleated RBCs/100 WBC Differential Comment Toxic Granulation Toxic Vacuolation Platelet Estimate Platelet Morphology Pappenheimer Bodies Ovalocytes Indigo Cells Acanthocytes (Spur) Keratocytes PT INR APTT Fibrinogen Puncture Site Art line Patient Temperature 98.6 O2 Saturation 94 ABG pH 7.21 L* ABG pCO2 20 L* ABG pO2 284 H ABG HCO3 8 L* ABG O2 Content 4.8 L ABG Base Excess -19.1 L ABG Methemoglobin 3.6 H* Jordy Test Present Hemoglobin 3.0 L* Carboxyhemoglobin 0.9 O2 Delivery Device Ventilator Liter Flow Vent Setting Ac22/550/+5/60% Inspired O2 60 Critical Value Yes Sodium Potassium Chloride Carbon Dioxide Anion Gap BUN Creatinine Estimated GFR POC Glucose 245 H 275 H Random Glucose Hemoglobin A1c Osmolality Lactic Acid Calcium Calcium Adj for Albumin Phosphorus Magnesium Total Bilirubin AST ALT Alkaline Phosphatase Ammonia Total Creatine Kinase CK-MB (CK-2) CK-MB (CK-2) % Troponin I B-Natriuretic Peptide Total Protein Albumin Lipase Beta-Hydroxybutyric Acd TSH Urine Color Urine Clarity Urine pH Ur Specific [place] Urine Protein Urine Glucose (UA) Urine Ketones Urine Occult Blood Urine Nitrate Urine Bilirubin Urine Urobilinogen Ur Leukocyte Esterase Urine RBC Urine WBC Urine WBC Clumps Amorphous Sediment Urine Bacteria Hyaline Casts Urine Mucus Micro UA Comment Ur Microscopic Review Urine Culture Comments Urine Eosinophils Ur Random Creatinine Ur Random Sodium Nasal Screen MRSA (PCR) Stl C.difficile DNA Amp St C. diff Tox Epid 027 Random Vancomycin Blood Type Blood Type Recheck Antibody Screen MTS Gel Crossmatch Blood Bank Comment 08/03/18 08/03/18 08/03/18 01:29 01:30 01:30 WBC 37.1 H RBC 2.06 L Hgb 6.4 L* D Hct 18.6 L* MCV 90.3 D MCH 31.1 MCHC 34.4 RDW 14.9 Plt Count 142 L MPV 9.1 Prelim Diff (Auto) Neut % (Auto) Lymph % (Auto) Winn % (Auto) Eos % (Auto) Baso % (Auto) Neut # (Auto) Lymph # (Auto) Winn # (Auto) Eos # (Auto) Baso # (Auto) WBC Differential Seg Neuts % (Manual) Band Neuts % (Manual) Lymphocytes % (Manual) Monocytes % (Manual) Metamyelocytes % (Man) Myelocytes % (Man) Abs Neuts (Manual) Nucleated RBCs/100 WBC Differential Comment Toxic Granulation Toxic Vacuolation Platelet Estimate Platelet Morphology Pappenheimer Bodies Ovalocytes Gering Cells Acanthocytes (Spur) Keratocytes PT 17.7 H INR 1.7 APTT 46.5 H Fibrinogen 216 L Puncture Site Patient Temperature O2 Saturation ABG pH ABG pCO2 ABG pO2 ABG HCO3 ABG O2 Content ABG Base Excess ABG Methemoglobin Jordy Test Hemoglobin Carboxyhemoglobin O2 Delivery Device Liter Flow Vent Setting Inspired O2 Critical Value Sodium Potassium Chloride Carbon Dioxide Anion Gap BUN Creatinine Estimated GFR POC Glucose Random Glucose Hemoglobin A1c Osmolality Lactic Acid Calcium Calcium Adj for Albumin Phosphorus Magnesium Total Bilirubin AST ALT Alkaline Phosphatase Ammonia Total Creatine Kinase CK-MB (CK-2) CK-MB (CK-2) % Troponin I B-Natriuretic Peptide Total Protein Albumin Lipase Beta-Hydroxybutyric Acd TSH Urine Color Urine Clarity Urine pH Ur Specific [place] Urine Protein Urine Glucose (UA) Urine Ketones Urine Occult Blood Urine Nitrate Urine Bilirubin Urine Urobilinogen Ur Leukocyte Esterase Urine RBC Urine WBC Urine WBC Clumps Amorphous Sediment Urine Bacteria Hyaline Casts Urine Mucus Micro UA Comment Ur Microscopic Review Urine Culture Comments Urine Eosinophils Ur Random Creatinine Ur Random Sodium Nasal Screen MRSA (PCR) Stl C.difficile DNA Amp St C. diff Tox Epid 027 Random Vancomycin Blood Type Blood Type Recheck Antibody Screen MTS Gel Crossmatch See Detail Blood Bank Comment 08/03/18 08/03/18 08/03/18 01:43 01:48 01:56 WBC RBC Hgb Hct MCV MCH MCHC RDW Plt Count MPV Prelim Diff (Auto) Neut % (Auto) Lymph % (Auto) Winn % (Auto) Eos % (Auto) Baso % (Auto) Neut # (Auto) Lymph # (Auto) Winn # (Auto) Eos # (Auto) Baso # (Auto) WBC Differential Seg Neuts % (Manual) Band Neuts % (Manual) Lymphocytes % (Manual) Monocytes % (Manual) Metamyelocytes % (Man) Myelocytes % (Man) Abs Neuts (Manual) Nucleated RBCs/100 WBC Differential Comment Toxic Granulation Toxic Vacuolation Platelet Estimate Platelet Morphology Pappenheimer Bodies Ovalocytes Gering Cells Acanthocytes (Spur) Keratocytes PT INR APTT Fibrinogen Puncture Site Patient Temperature O2 Saturation ABG pH ABG pCO2 ABG pO2 ABG HCO3 ABG O2 Content ABG Base Excess ABG Methemoglobin Jordy Test Hemoglobin Carboxyhemoglobin O2 Delivery Device Liter Flow Vent Setting Inspired O2 Critical Value Sodium Potassium Chloride Carbon Dioxide Anion Gap BUN Creatinine Estimated GFR POC Glucose 258 H Random Glucose Hemoglobin A1c Osmolality Lactic Acid 6.1 H* Calcium Calcium Adj for Albumin Phosphorus Magnesium Total Bilirubin AST ALT Alkaline Phosphatase Ammonia Total Creatine Kinase CK-MB (CK-2) CK-MB (CK-2) % Troponin I B-Natriuretic Peptide Total Protein Albumin Lipase Beta-Hydroxybutyric Acd TSH Urine Color Urine Clarity Urine pH Ur Specific [place] Urine Protein Urine Glucose (UA) Urine Ketones Urine Occult Blood Urine Nitrate Urine Bilirubin Urine Urobilinogen Ur Leukocyte Esterase Urine RBC Urine WBC Urine WBC Clumps Amorphous Sediment Urine Bacteria Hyaline Casts Urine Mucus Micro UA Comment Ur Microscopic Review Urine Culture Comments Urine Eosinophils Ur Random Creatinine Ur Random Sodium Nasal Screen MRSA (PCR) Stl C.difficile DNA Amp St C. diff Tox Epid 027 Random Vancomycin Blood Type Blood Type Recheck Antibody Screen MTS Gel Crossmatch See Detail Blood Bank Comment 08/03/18 08/03/18 08/03/18 02:10 03:04 03:39 WBC RBC Hgb Hct MCV MCH MCHC RDW Plt Count MPV Prelim Diff (Auto) Neut % (Auto) Lymph % (Auto) Winn % (Auto) Eos % (Auto) Baso % (Auto) Neut # (Auto) Lymph # (Auto) Winn # (Auto) Eos # (Auto) Baso # (Auto) WBC Differential Seg Neuts % (Manual) Band Neuts % (Manual) Lymphocytes % (Manual) Monocytes % (Manual) Metamyelocytes % (Man) Myelocytes % (Man) Abs Neuts (Manual) Nucleated RBCs/100 WBC Differential Comment Toxic Granulation Toxic Vacuolation Platelet Estimate Platelet Morphology Pappenheimer Bodies Ovalocytes Indigo Cells Acanthocytes (Spur) Keratocytes PT INR APTT Fibrinogen Puncture Site Patient Temperature O2 Saturation ABG pH ABG pCO2 ABG pO2 ABG HCO3 ABG O2 Content ABG Base Excess ABG Methemoglobin Jordy Test Hemoglobin Carboxyhemoglobin O2 Delivery Device Liter Flow Vent Setting Inspired O2 Critical Value Sodium Potassium Chloride Carbon Dioxide Anion Gap BUN Creatinine Estimated GFR POC Glucose 246 H Random Glucose Hemoglobin A1c Osmolality Lactic Acid Calcium Calcium Adj for Albumin Phosphorus Magnesium Total Bilirubin AST ALT Alkaline Phosphatase Ammonia Total Creatine Kinase CK-MB (CK-2) CK-MB (CK-2) % Troponin I B-Natriuretic Peptide Total Protein Albumin Lipase Beta-Hydroxybutyric Acd TSH Urine Color Urine Clarity Urine pH Ur Specific [place] Urine Protein Urine Glucose (UA) Urine Ketones Urine Occult Blood Urine Nitrate Urine Bilirubin Urine Urobilinogen Ur Leukocyte Esterase Urine RBC Urine WBC Urine WBC Clumps Amorphous Sediment Urine Bacteria Hyaline Casts Urine Mucus Micro UA Comment Ur Microscopic Review Urine Culture Comments Urine Eosinophils Ur Random Creatinine Ur Random Sodium Nasal Screen MRSA (PCR) Stl C.difficile DNA Amp St C. diff Tox Epid 027 Random Vancomycin Blood Type Blood Type Recheck Antibody Screen MTS Gel Crossmatch See Detail Blood Bank Comment 08/03/18 08/03/18 08/03/18 04:00 04:00 04:02 WBC RBC Hgb Hct MCV MCH MCHC RDW Plt Count MPV Prelim Diff (Auto) Neut % (Auto) Lymph % (Auto) Winn % (Auto) Eos % (Auto) Baso % (Auto) Neut # (Auto) Lymph # (Auto) Winn # (Auto) Eos # (Auto) Baso # (Auto) WBC Differential Seg Neuts % (Manual) Band Neuts % (Manual) Lymphocytes % (Manual) Monocytes % (Manual) Metamyelocytes % (Man) Myelocytes % (Man) Abs Neuts (Manual) Nucleated RBCs/100 WBC Differential Comment Toxic Granulation Toxic Vacuolation Platelet Estimate Platelet Morphology Pappenheimer Bodies Ovalocytes Gering Cells Acanthocytes (Spur) Keratocytes PT 18.1 H INR 1.8 APTT 43.9 H Fibrinogen Puncture Site Patient Temperature O2 Saturation ABG pH ABG pCO2 ABG pO2 ABG HCO3 ABG O2 Content ABG Base Excess ABG Methemoglobin Jordy Test Hemoglobin Carboxyhemoglobin O2 Delivery Device Liter Flow Vent Setting Inspired O2 Critical Value Sodium 147 H Potassium 3.9 Chloride 119 H Carbon Dioxide 13.1 L Anion Gap 15 BUN 91 H Creatinine 2.41 H Estimated GFR 34 L POC Glucose Random Glucose 215 H Hemoglobin A1c Osmolality Lactic Acid 6.6 H* Calcium 6.2 L* Calcium Adj for Albumin 8.5 Phosphorus 2.3 L D Magnesium 1.9 Total Bilirubin AST ALT Alkaline Phosphatase Ammonia Total Creatine Kinase CK-MB (CK-2) CK-MB (CK-2) % Troponin I B-Natriuretic Peptide Total Protein Albumin 1.1 L Lipase Beta-Hydroxybutyric Acd 0.15 D TSH Urine Color Urine Clarity Urine pH Ur Specific [place] Urine Protein Urine Glucose (UA) Urine Ketones Urine Occult Blood Urine Nitrate Urine Bilirubin Urine Urobilinogen Ur Leukocyte Esterase Urine RBC Urine WBC Urine WBC Clumps Amorphous Sediment Urine Bacteria Hyaline Casts Urine Mucus Micro UA Comment Ur Microscopic Review Urine Culture Comments Urine Eosinophils Ur Random Creatinine Ur Random Sodium Nasal Screen MRSA (PCR) Stl C.difficile DNA Amp St C. diff Tox Epid 027 Random Vancomycin Blood Type Blood Type Recheck Antibody Screen MTS Gel Crossmatch Blood Bank Comment 08/03/18 08/03/18 08/03/18 04:10 04:25 05:11 WBC 35.1 H RBC 3.46 L Hgb 10.5 L D Hct 31.6 L MCV 91.2 MCH 30.2 MCHC 33.1 RDW 16.4 Plt Count 124 L MPV 8.8 Prelim Diff (Auto) Slide review pending Neut % (Auto) 97.2 H Lymph % (Auto) 1.7 L Winn % (Auto) 0.9 Eos % (Auto) 0.1 Baso % (Auto) 0.1 Neut # (Auto) 34.1 H Lymph # (Auto) 0.6 L Winn # (Auto) 0.3 Eos # (Auto) 0.0 Baso # (Auto) 0.0 WBC Differential Manual diff final Seg Neuts % (Manual) 32 Band Neuts % (Manual) 63 H Lymphocytes % (Manual) 1 L Monocytes % (Manual) 2 Metamyelocytes % (Man) 2 H Myelocytes % (Man) Abs Neuts (Manual) 34.0 H Nucleated RBCs/100 WBC 2 H Differential Comment . Toxic Granulation 1+ H Toxic Vacuolation Present H Platelet Estimate Low L Platelet Morphology Normal Pappenheimer Bodies Ovalocytes Gering Cells Acanthocytes (Spur) Keratocytes PT INR APTT Fibrinogen Puncture Site Patient Temperature O2 Saturation ABG pH ABG pCO2 ABG pO2 ABG HCO3 ABG O2 Content ABG Base Excess ABG Methemoglobin Jordy Test Hemoglobin Carboxyhemoglobin O2 Delivery Device Liter Flow Vent Setting Inspired O2 Critical Value Sodium Potassium Chloride Carbon Dioxide Anion Gap BUN Creatinine Estimated GFR POC Glucose 206 H 187 H Random Glucose Hemoglobin A1c Osmolality Lactic Acid Calcium Calcium Adj for Albumin Phosphorus Magnesium Total Bilirubin AST ALT Alkaline Phosphatase Ammonia Total Creatine Kinase CK-MB (CK-2) CK-MB (CK-2) % Troponin I B-Natriuretic Peptide Total Protein Albumin Lipase Beta-Hydroxybutyric Acd TSH Urine Color Urine Clarity Urine pH Ur Specific [place] Urine Protein Urine Glucose (UA) Urine Ketones Urine Occult Blood Urine Nitrate Urine Bilirubin Urine Urobilinogen Ur Leukocyte Esterase Urine RBC Urine WBC Urine WBC Clumps Amorphous Sediment Urine Bacteria Hyaline Casts Urine Mucus Micro UA Comment Ur Microscopic Review Urine Culture Comments Urine Eosinophils Ur Random Creatinine Ur Random Sodium Nasal Screen MRSA (PCR) Stl C.difficile DNA Amp St C. diff Tox Epid 027 Random Vancomycin Blood Type Blood Type Recheck Antibody Screen MTS Gel Crossmatch Blood Bank Comment 08/03/18 08/03/18 08/03/18 05:44 06:05 07:02 WBC RBC Hgb Hct MCV MCH MCHC RDW Plt Count MPV Prelim Diff (Auto) Neut % (Auto) Lymph % (Auto) Winn % (Auto) Eos % (Auto) Baso % (Auto) Neut # (Auto) Lymph # (Auto) Winn # (Auto) Eos # (Auto) Baso # (Auto) WBC Differential Seg Neuts % (Manual) Band Neuts % (Manual) Lymphocytes % (Manual) Monocytes % (Manual) Metamyelocytes % (Man) Myelocytes % (Man) Abs Neuts (Manual) Nucleated RBCs/100 WBC Differential Comment Toxic Granulation Toxic Vacuolation Platelet Estimate Platelet Morphology Pappenheimer Bodies Ovalocytes Indigo Cells Acanthocytes (Spur) Keratocytes PT INR APTT Fibrinogen Puncture Site Art line Patient Temperature 98.6 O2 Saturation 97 ABG pH 7.27 L* ABG pCO2 23 L* ABG pO2 267 H ABG HCO3 10 L* ABG O2 Content 14.1 ABG Base Excess -15.5 L ABG Methemoglobin 2.1 H Jordy Test Present Hemoglobin 10.0 L Carboxyhemoglobin 0.6 O2 Delivery Device Ventilator Liter Flow Vent Setting Ac22/550/+5/60% Inspired O2 60 Critical Value Yes Sodium Potassium Chloride Carbon Dioxide Anion Gap BUN Creatinine Estimated GFR POC Glucose 168 H 159 H Random Glucose Hemoglobin A1c Osmolality Lactic Acid Calcium Calcium Adj for Albumin Phosphorus Magnesium Total Bilirubin AST ALT Alkaline Phosphatase Ammonia Total Creatine Kinase CK-MB (CK-2) CK-MB (CK-2) % Troponin I B-Natriuretic Peptide Total Protein Albumin Lipase Beta-Hydroxybutyric Acd TSH Urine Color Urine Clarity Urine pH Ur Specific [place] Urine Protein Urine Glucose (UA) Urine Ketones Urine Occult Blood Urine Nitrate Urine Bilirubin Urine Urobilinogen Ur Leukocyte Esterase Urine RBC Urine WBC Urine WBC Clumps Amorphous Sediment Urine Bacteria Hyaline Casts Urine Mucus Micro UA Comment Ur Microscopic Review Urine Culture Comments Urine Eosinophils Ur Random Creatinine Ur Random Sodium Nasal Screen MRSA (PCR) Stl C.difficile DNA Amp St C. diff Tox Epid 027 Random Vancomycin Blood Type Blood Type Recheck Antibody Screen MTS Gel Crossmatch Blood Bank Comment 08/03/18 08/03/18 08/03/18 08:22 08:30 08:30 WBC RBC Hgb Hct MCV MCH MCHC RDW Plt Count MPV Prelim Diff (Auto) Neut % (Auto) Lymph % (Auto) Winn % (Auto) Eos % (Auto) Baso % (Auto) Neut # (Auto) Lymph # (Auto) Winn # (Auto) Eos # (Auto) Baso # (Auto) WBC Differential Seg Neuts % (Manual) Band Neuts % (Manual) Lymphocytes % (Manual) Monocytes % (Manual) Metamyelocytes % (Man) Myelocytes % (Man) Abs Neuts (Manual) Nucleated RBCs/100 WBC Differential Comment Toxic Granulation Toxic Vacuolation Platelet Estimate Platelet Morphology Pappenheimer Bodies Ovalocytes Indigo Cells Acanthocytes (Spur) Keratocytes PT INR APTT Fibrinogen Puncture Site Patient Temperature O2 Saturation ABG pH ABG pCO2 ABG pO2 ABG HCO3 ABG O2 Content ABG Base Excess ABG Methemoglobin Jordy Test Hemoglobin Carboxyhemoglobin O2 Delivery Device Liter Flow Vent Setting Inspired O2 Critical Value Sodium 144 Potassium 4.2 Chloride 119 H Carbon Dioxide 11.8 L Anion Gap 13 BUN 85 H Creatinine 2.49 H Estimated GFR 32 L POC Glucose 182 H Random Glucose 166 H Hemoglobin A1c Osmolality Lactic Acid 4.9 H* Calcium 5.8 L* Calcium Adj for Albumin 7.9 L Phosphorus 3.1 Magnesium 1.7 Total Bilirubin AST ALT Alkaline Phosphatase Ammonia Total Creatine Kinase CK-MB (CK-2) CK-MB (CK-2) % Troponin I B-Natriuretic Peptide Total Protein Albumin 1.4 L Lipase Beta-Hydroxybutyric Acd TSH Urine Color Urine Clarity Urine pH Ur Specific [place] Urine Protein Urine Glucose (UA) Urine Ketones Urine Occult Blood Urine Nitrate Urine Bilirubin Urine Urobilinogen Ur Leukocyte Esterase Urine RBC Urine WBC Urine WBC Clumps Amorphous Sediment Urine Bacteria Hyaline Casts Urine Mucus Micro UA Comment Ur Microscopic Review Urine Culture Comments Urine Eosinophils Ur Random Creatinine Ur Random Sodium Nasal Screen MRSA (PCR) Stl C.difficile DNA Amp St C. diff Tox Epid 027 Random Vancomycin Blood Type Blood Type Recheck Antibody Screen MTS Gel Crossmatch Blood Bank Comment 08/03/18 08/03/18 08/03/18 08:30 08:30 08:30 WBC RBC Hgb Hct MCV MCH MCHC RDW Plt Count MPV Prelim Diff (Auto) Neut % (Auto) Lymph % (Auto) Winn % (Auto) Eos % (Auto) Baso % (Auto) Neut # (Auto) Lymph # (Auto) Winn # (Auto) Eos # (Auto) Baso # (Auto) WBC Differential Seg Neuts % (Manual) Band Neuts % (Manual) Lymphocytes % (Manual) Monocytes % (Manual) Metamyelocytes % (Man) Myelocytes % (Man) Abs Neuts (Manual) Nucleated RBCs/100 WBC Differential Comment Toxic Granulation Toxic Vacuolation Platelet Estimate Platelet Morphology Pappenheimer Bodies Ovalocytes Indigo Cells Acanthocytes (Spur) Keratocytes PT Cancelled 15.5 H INR Cancelled 1.5 APTT Cancelled 38.0 H Fibrinogen 203 L Puncture Site Patient Temperature O2 Saturation ABG pH ABG pCO2 ABG pO2 ABG HCO3 ABG O2 Content ABG Base Excess ABG Methemoglobin Jordy Test Hemoglobin Carboxyhemoglobin O2 Delivery Device Liter Flow Vent Setting Inspired O2 Critical Value Sodium Potassium Chloride Carbon Dioxide Anion Gap BUN Creatinine Estimated GFR POC Glucose Random Glucose Hemoglobin A1c Osmolality Lactic Acid Calcium Calcium Adj for Albumin Phosphorus Magnesium Total Bilirubin AST ALT Alkaline Phosphatase Ammonia Total Creatine Kinase CK-MB (CK-2) CK-MB (CK-2) % Troponin I B-Natriuretic Peptide Total Protein Albumin Lipase Beta-Hydroxybutyric Acd TSH Urine Color Urine Clarity Urine pH Ur Specific [place] Urine Protein Urine Glucose (UA) Urine Ketones Urine Occult Blood Urine Nitrate Urine Bilirubin Urine Urobilinogen Ur Leukocyte Esterase Urine RBC Urine WBC Urine WBC Clumps Amorphous Sediment Urine Bacteria Hyaline Casts Urine Mucus Micro UA Comment Ur Microscopic Review Urine Culture Comments Urine Eosinophils Ur Random Creatinine Ur Random Sodium Nasal Screen MRSA (PCR) Stl C.difficile DNA Amp St C. diff Tox Epid 027 Random Vancomycin Blood Type Blood Type Recheck Antibody Screen MTS Gel Crossmatch Blood Bank Comment 08/03/18 08/03/18 08/03/18 08:30 09:11 09:18 WBC RBC Hgb 9.9 L Hct MCV MCH MCHC RDW Plt Count MPV Prelim Diff (Auto) Neut % (Auto) Lymph % (Auto) Winn % (Auto) Eos % (Auto) Baso % (Auto) Neut # (Auto) Lymph # (Auto) Winn # (Auto) Eos # (Auto) Baso # (Auto) WBC Differential Seg Neuts % (Manual) Band Neuts % (Manual) Lymphocytes % (Manual) Monocytes % (Manual) Metamyelocytes % (Man) Myelocytes % (Man) Abs Neuts (Manual) Nucleated RBCs/100 WBC Differential Comment Toxic Granulation Toxic Vacuolation Platelet Estimate Platelet Morphology Pappenheimer Bodies Ovalocytes Gering Cells Acanthocytes (Spur) Keratocytes PT INR APTT Fibrinogen Puncture Site Patient Temperature O2 Saturation ABG pH ABG pCO2 ABG pO2 ABG HCO3 ABG O2 Content ABG Base Excess ABG Methemoglobin Jordy Test Hemoglobin Carboxyhemoglobin O2 Delivery Device Liter Flow Vent Setting Inspired O2 Critical Value Sodium Potassium Chloride Carbon Dioxide Anion Gap BUN Creatinine Estimated GFR POC Glucose 175 H Random Glucose Hemoglobin A1c Osmolality Lactic Acid Calcium Calcium Adj for Albumin Phosphorus Magnesium Total Bilirubin AST ALT Alkaline Phosphatase Ammonia Total Creatine Kinase CK-MB (CK-2) CK-MB (CK-2) % Troponin I 0.33 H B-Natriuretic Peptide Total Protein Albumin Lipase 7136 H Beta-Hydroxybutyric Acd TSH Urine Color Urine Clarity Urine pH Ur Specific [place] Urine Protein Urine Glucose (UA) Urine Ketones Urine Occult Blood Urine Nitrate Urine Bilirubin Urine Urobilinogen Ur Leukocyte Esterase Urine RBC Urine WBC Urine WBC Clumps Amorphous Sediment Urine Bacteria Hyaline Casts Urine Mucus Micro UA Comment Ur Microscopic Review Urine Culture Comments Urine Eosinophils Ur Random Creatinine Ur Random Sodium Nasal Screen MRSA (PCR) Stl C.difficile DNA Amp St C. diff Tox Epid 027 Random Vancomycin Blood Type Blood Type Recheck Antibody Screen MTS Gel Crossmatch Blood Bank Comment 08/03/18 08/03/18 08/03/18 09:49 10:04 10:44 WBC RBC Hgb Hct MCV MCH MCHC RDW Plt Count MPV Prelim Diff (Auto) Neut % (Auto) Lymph % (Auto) Winn % (Auto) Eos % (Auto) Baso % (Auto) Neut # (Auto) Lymph # (Auto) Winn # (Auto) Eos # (Auto) Baso # (Auto) WBC Differential Seg Neuts % (Manual) Band Neuts % (Manual) Lymphocytes % (Manual) Monocytes % (Manual) Metamyelocytes % (Man) Myelocytes % (Man) Abs Neuts (Manual) Nucleated RBCs/100 WBC Differential Comment Toxic Granulation Toxic Vacuolation Platelet Estimate Platelet Morphology Pappenheimer Bodies Ovalocytes Gering Cells Acanthocytes (Spur) Keratocytes PT INR APTT Fibrinogen Puncture Site Art line Patient Temperature 98.6 O2 Saturation 96 ABG pH 7.30 L ABG pCO2 25 L ABG pO2 226 H ABG HCO3 12 L* ABG O2 Content 13.2 ABG Base Excess -13.5 L ABG Methemoglobin 2.1 H Jordy Test Present Hemoglobin 9.4 L Carboxyhemoglobin 0.6 O2 Delivery Device Ventilator Liter Flow Vent Setting Prvc/ac Inspired O2 40 Critical Value Yes Sodium Potassium Chloride Carbon Dioxide Anion Gap BUN Creatinine Estimated GFR POC Glucose 168 H Random Glucose Hemoglobin A1c Osmolality Lactic Acid Calcium Calcium Adj for Albumin Phosphorus Magnesium Total Bilirubin AST ALT Alkaline Phosphatase Ammonia Total Creatine Kinase CK-MB (CK-2) CK-MB (CK-2) % Troponin I B-Natriuretic Peptide Total Protein Albumin Lipase Beta-Hydroxybutyric Acd TSH Urine Color Urine Clarity Urine pH Ur Specific [place] Urine Protein Urine Glucose (UA) Urine Ketones Urine Occult Blood Urine Nitrate Urine Bilirubin Urine Urobilinogen Ur Leukocyte Esterase Urine RBC Urine WBC Urine WBC Clumps Amorphous Sediment Urine Bacteria Hyaline Casts Urine Mucus Micro UA Comment Ur Microscopic Review Urine Culture Comments Urine Eosinophils Ur Random Creatinine Ur Random Sodium Nasal Screen MRSA (PCR) Stl C.difficile DNA Amp Negative St C. diff Tox Epid 027 Negative Random Vancomycin Blood Type Blood Type Recheck Antibody Screen MTS Gel Crossmatch Blood Bank Comment 08/03/18 08/03/18 08/03/18 10:58 12:01 12:24 WBC RBC Hgb Hct MCV MCH MCHC RDW Plt Count MPV Prelim Diff (Auto) Neut % (Auto) Lymph % (Auto) Winn % (Auto) Eos % (Auto) Baso % (Auto) Neut # (Auto) Lymph # (Auto) Winn # (Auto) Eos # (Auto) Baso # (Auto) WBC Differential Seg Neuts % (Manual) Band Neuts % (Manual) Lymphocytes % (Manual) Monocytes % (Manual) Metamyelocytes % (Man) Myelocytes % (Man) Abs Neuts (Manual) Nucleated RBCs/100 WBC Differential Comment Toxic Granulation Toxic Vacuolation Platelet Estimate Platelet Morphology Pappenheimer Bodies Ovalocytes Indigo Cells Acanthocytes (Spur) Keratocytes PT INR APTT Fibrinogen Puncture Site Patient Temperature O2 Saturation ABG pH ABG pCO2 ABG pO2 ABG HCO3 ABG O2 Content ABG Base Excess ABG Methemoglobin Jordy Test Hemoglobin Carboxyhemoglobin O2 Delivery Device Liter Flow Vent Setting Inspired O2 Critical Value Sodium Potassium Chloride Carbon Dioxide Anion Gap BUN Creatinine Estimated GFR POC Glucose 154 H 140 H 137 H Random Glucose Hemoglobin A1c Osmolality Lactic Acid Calcium Calcium Adj for Albumin Phosphorus Magnesium Total Bilirubin AST ALT Alkaline Phosphatase Ammonia Total Creatine Kinase CK-MB (CK-2) CK-MB (CK-2) % Troponin I B-Natriuretic Peptide Total Protein Albumin Lipase Beta-Hydroxybutyric Acd TSH Urine Color Urine Clarity Urine pH Ur Specific [place] Urine Protein Urine Glucose (UA) Urine Ketones Urine Occult Blood Urine Nitrate Urine Bilirubin Urine Urobilinogen Ur Leukocyte Esterase Urine RBC Urine WBC Urine WBC Clumps Amorphous Sediment Urine Bacteria Hyaline Casts Urine Mucus Micro UA Comment Ur Microscopic Review Urine Culture Comments Urine Eosinophils Ur Random Creatinine Ur Random Sodium Nasal Screen MRSA (PCR) Stl C.difficile DNA Amp St C. diff Tox Epid 027 Random Vancomycin Blood Type Blood Type Recheck Antibody Screen MTS Gel Crossmatch Blood Bank Comment 08/03/18 08/03/18 08/03/18 12:59 13:50 13:54 WBC RBC Hgb Hct MCV MCH MCHC RDW Plt Count MPV Prelim Diff (Auto) Neut % (Auto) Lymph % (Auto) Winn % (Auto) Eos % (Auto) Baso % (Auto) Neut # (Auto) Lymph # (Auto) Winn # (Auto) Eos # (Auto) Baso # (Auto) WBC Differential Seg Neuts % (Manual) Band Neuts % (Manual) Lymphocytes % (Manual) Monocytes % (Manual) Metamyelocytes % (Man) Myelocytes % (Man) Abs Neuts (Manual) Nucleated RBCs/100 WBC Differential Comment Toxic Granulation Toxic Vacuolation Platelet Estimate Platelet Morphology Pappenheimer Bodies Ovalocytes Gering Cells Acanthocytes (Spur) Keratocytes PT INR APTT Fibrinogen Puncture Site Patient Temperature O2 Saturation ABG pH ABG pCO2 ABG pO2 ABG HCO3 ABG O2 Content ABG Base Excess ABG Methemoglobin Jordy Test Hemoglobin Carboxyhemoglobin O2 Delivery Device Liter Flow Vent Setting Inspired O2 Critical Value Sodium 143 Potassium 4.0 Chloride 118 H Carbon Dioxide 13.6 L Anion Gap 11 BUN 86 H Creatinine 2.37 H Estimated GFR 34 L POC Glucose 156 H 177 H Random Glucose 151 H Hemoglobin A1c Osmolality Lactic Acid Calcium 5.8 L* Calcium Adj for Albumin 7.6 L Phosphorus Magnesium Total Bilirubin AST ALT Alkaline Phosphatase Ammonia Total Creatine Kinase CK-MB (CK-2) CK-MB (CK-2) % Troponin I B-Natriuretic Peptide Total Protein Albumin 1.7 L Lipase Beta-Hydroxybutyric Acd 0.09 TSH Urine Color Urine Clarity Urine pH Ur Specific [place] Urine Protein Urine Glucose (UA) Urine Ketones Urine Occult Blood Urine Nitrate Urine Bilirubin Urine Urobilinogen Ur Leukocyte Esterase Urine RBC Urine WBC Urine WBC Clumps Amorphous Sediment Urine Bacteria Hyaline Casts Urine Mucus Micro UA Comment Ur Microscopic Review Urine Culture Comments Urine Eosinophils Ur Random Creatinine Ur Random Sodium Nasal Screen MRSA (PCR) Stl C.difficile DNA Amp St C. diff Tox Epid 027 Random Vancomycin Blood Type Blood Type Recheck Antibody Screen MTS Gel Crossmatch Blood Bank Comment 08/03/18 08/03/18 08/03/18 14:47 15:42 16:49 WBC RBC Hgb Hct MCV MCH MCHC RDW Plt Count MPV Prelim Diff (Auto) Neut % (Auto) Lymph % (Auto) Winn % (Auto) Eos % (Auto) Baso % (Auto) Neut # (Auto) Lymph # (Auto) Winn # (Auto) Eos # (Auto) Baso # (Auto) WBC Differential Seg Neuts % (Manual) Band Neuts % (Manual) Lymphocytes % (Manual) Monocytes % (Manual) Metamyelocytes % (Man) Myelocytes % (Man) Abs Neuts (Manual) Nucleated RBCs/100 WBC Differential Comment Toxic Granulation Toxic Vacuolation Platelet Estimate Platelet Morphology Pappenheimer Bodies Ovalocytes Gering Cells Acanthocytes (Spur) Keratocytes PT INR APTT Fibrinogen Puncture Site Patient Temperature O2 Saturation ABG pH ABG pCO2 ABG pO2 ABG HCO3 ABG O2 Content ABG Base Excess ABG Methemoglobin Jordy Test Hemoglobin Carboxyhemoglobin O2 Delivery Device Liter Flow Vent Setting Inspired O2 Critical Value Sodium Potassium Chloride Carbon Dioxide Anion Gap BUN Creatinine Estimated GFR POC Glucose 158 H 171 H 172 H Random Glucose Hemoglobin A1c Osmolality Lactic Acid Calcium Calcium Adj for Albumin Phosphorus Magnesium Total Bilirubin AST ALT Alkaline Phosphatase Ammonia Total Creatine Kinase CK-MB (CK-2) CK-MB (CK-2) % Troponin I B-Natriuretic Peptide Total Protein Albumin Lipase Beta-Hydroxybutyric Acd TSH Urine Color Urine Clarity Urine pH Ur Specific [place] Urine Protein Urine Glucose (UA) Urine Ketones Urine Occult Blood Urine Nitrate Urine Bilirubin Urine Urobilinogen Ur Leukocyte Esterase Urine RBC Urine WBC Urine WBC Clumps Amorphous Sediment Urine Bacteria Hyaline Casts Urine Mucus Micro UA Comment Ur Microscopic Review Urine Culture Comments Urine Eosinophils Ur Random Creatinine Ur Random Sodium Nasal Screen MRSA (PCR) Stl C.difficile DNA Amp St C. diff Tox Epid 027 Random Vancomycin Blood Type Blood Type Recheck Antibody Screen MTS Gel Crossmatch Blood Bank Comment 08/03/18 08/03/18 08/03/18 17:15 17:15 17:15 WBC RBC Hgb 9.1 L Hct MCV MCH MCHC RDW Plt Count MPV Prelim Diff (Auto) Neut % (Auto) Lymph % (Auto) Winn % (Auto) Eos % (Auto) Baso % (Auto) Neut # (Auto) Lymph # (Auto) Winn # (Auto) Eos # (Auto) Baso # (Auto) WBC Differential Seg Neuts % (Manual) Band Neuts % (Manual) Lymphocytes % (Manual) Monocytes % (Manual) Metamyelocytes % (Man) Myelocytes % (Man) Abs Neuts (Manual) Nucleated RBCs/100 WBC Differential Comment Toxic Granulation Toxic Vacuolation Platelet Estimate Platelet Morphology Pappenheimer Bodies Ovalocytes Indigo Cells Acanthocytes (Spur) Keratocytes PT INR APTT Fibrinogen Puncture Site Patient Temperature O2 Saturation ABG pH ABG pCO2 ABG pO2 ABG HCO3 ABG O2 Content ABG Base Excess ABG Methemoglobin Jordy Test Hemoglobin Carboxyhemoglobin O2 Delivery Device Liter Flow Vent Setting Inspired O2 Critical Value Sodium Potassium Chloride Carbon Dioxide Anion Gap BUN Creatinine Estimated GFR POC Glucose Random Glucose Hemoglobin A1c Osmolality Lactic Acid 3.6 H Calcium Calcium Adj for Albumin Phosphorus Magnesium 1.9 Total Bilirubin AST ALT Alkaline Phosphatase Ammonia Total Creatine Kinase CK-MB (CK-2) CK-MB (CK-2) % Troponin I B-Natriuretic Peptide Total Protein Albumin Lipase Beta-Hydroxybutyric Acd TSH Urine Color Urine Clarity Urine pH Ur Specific [place] Urine Protein Urine Glucose (UA) Urine Ketones Urine Occult Blood Urine Nitrate Urine Bilirubin Urine Urobilinogen Ur Leukocyte Esterase Urine RBC Urine WBC Urine WBC Clumps Amorphous Sediment Urine Bacteria Hyaline Casts Urine Mucus Micro UA Comment Ur Microscopic Review Urine Culture Comments Urine Eosinophils Ur Random Creatinine Ur Random Sodium Nasal Screen MRSA (PCR) Stl C.difficile DNA Amp St C. diff Tox Epid 027 Random Vancomycin Blood Type Blood Type Recheck Antibody Screen MTS Gel Crossmatch Blood Bank Comment 08/03/18 08/03/18 08/03/18 17:33 18:05 18:49 WBC RBC Hgb Hct MCV MCH MCHC RDW Plt Count MPV Prelim Diff (Auto) Neut % (Auto) Lymph % (Auto) Winn % (Auto) Eos % (Auto) Baso % (Auto) Neut # (Auto) Lymph # (Auto) Winn # (Auto) Eos # (Auto) Baso # (Auto) WBC Differential Seg Neuts % (Manual) Band Neuts % (Manual) Lymphocytes % (Manual) Monocytes % (Manual) Metamyelocytes % (Man) Myelocytes % (Man) Abs Neuts (Manual) Nucleated RBCs/100 WBC Differential Comment Toxic Granulation Toxic Vacuolation Platelet Estimate Platelet Morphology Pappenheimer Bodies Ovalocytes Gering Cells Acanthocytes (Spur) Keratocytes PT INR APTT Fibrinogen Puncture Site Art line Patient Temperature 98.6 O2 Saturation 96 ABG pH 7.32 L ABG pCO2 25 L ABG pO2 209 H ABG HCO3 12 L* ABG O2 Content 12.9 ABG Base Excess -12.6 L ABG Methemoglobin 2.1 H Jordy Test Present Hemoglobin 9.2 L Carboxyhemoglobin 0.6 O2 Delivery Device Ventilator Liter Flow Vent Setting Prvc/ac Inspired O2 40 Critical Value No Sodium Potassium Chloride Carbon Dioxide Anion Gap BUN Creatinine Estimated GFR POC Glucose 184 H 132 H Random Glucose Hemoglobin A1c Osmolality Lactic Acid Calcium Calcium Adj for Albumin Phosphorus Magnesium Total Bilirubin AST ALT Alkaline Phosphatase Ammonia Total Creatine Kinase CK-MB (CK-2) CK-MB (CK-2) % Troponin I B-Natriuretic Peptide Total Protein Albumin Lipase Beta-Hydroxybutyric Acd TSH Urine Color Urine Clarity Urine pH Ur Specific [place] Urine Protein Urine Glucose (UA) Urine Ketones Urine Occult Blood Urine Nitrate Urine Bilirubin Urine Urobilinogen Ur Leukocyte Esterase Urine RBC Urine WBC Urine WBC Clumps Amorphous Sediment Urine Bacteria Hyaline Casts Urine Mucus Micro UA Comment Ur Microscopic Review Urine Culture Comments Urine Eosinophils Ur Random Creatinine Ur Random Sodium Nasal Screen MRSA (PCR) Stl C.difficile DNA Amp St C. diff Tox Epid 027 Random Vancomycin Blood Type Blood Type Recheck Antibody Screen MTS Gel Crossmatch Blood Bank Comment 08/03/18 08/03/18 08/03/18 21:00 21:20 22:08 WBC RBC Hgb Hct MCV MCH MCHC RDW Plt Count MPV Prelim Diff (Auto) Neut % (Auto) Lymph % (Auto) Winn % (Auto) Eos % (Auto) Baso % (Auto) Neut # (Auto) Lymph # (Auto) Winn # (Auto) Eos # (Auto) Baso # (Auto) WBC Differential Seg Neuts % (Manual) Band Neuts % (Manual) Lymphocytes % (Manual) Monocytes % (Manual) Metamyelocytes % (Man) Myelocytes % (Man) Abs Neuts (Manual) Nucleated RBCs/100 WBC Differential Comment Toxic Granulation Toxic Vacuolation Platelet Estimate Platelet Morphology Pappenheimer Bodies Ovalocytes Indigo Cells Acanthocytes (Spur) Keratocytes PT INR APTT Fibrinogen Puncture Site Patient Temperature O2 Saturation ABG pH ABG pCO2 ABG pO2 ABG HCO3 ABG O2 Content ABG Base Excess ABG Methemoglobin Jodry Test Hemoglobin Carboxyhemoglobin O2 Delivery Device Liter Flow Vent Setting Inspired O2 Critical Value Sodium Potassium Chloride Carbon Dioxide Anion Gap BUN Creatinine Estimated GFR POC Glucose 188 H 228 H Random Glucose Hemoglobin A1c Osmolality Lactic Acid 2.3 H Calcium Calcium Adj for Albumin Phosphorus Magnesium Total Bilirubin AST ALT Alkaline Phosphatase Ammonia Total Creatine Kinase CK-MB (CK-2) CK-MB (CK-2) % Troponin I B-Natriuretic Peptide Total Protein Albumin Lipase Beta-Hydroxybutyric Acd TSH Urine Color Urine Clarity Urine pH Ur Specific [place] Urine Protein Urine Glucose (UA) Urine Ketones Urine Occult Blood Urine Nitrate Urine Bilirubin Urine Urobilinogen Ur Leukocyte Esterase Urine RBC Urine WBC Urine WBC Clumps Amorphous Sediment Urine Bacteria Hyaline Casts Urine Mucus Micro UA Comment Ur Microscopic Review Urine Culture Comments Urine Eosinophils Ur Random Creatinine Ur Random Sodium Nasal Screen MRSA (PCR) Stl C.difficile DNA Amp St C. diff Tox Epid 027 Random Vancomycin Blood Type Blood Type Recheck Antibody Screen MTS Gel Crossmatch Blood Bank Comment 08/03/18 08/03/18 08/03/18 22:59 23:40 23:40 WBC 32.2 H RBC 3.12 L Hgb 9.4 L Hct 27.4 L MCV 87.9 MCH 30.1 MCHC 34.2 RDW 16.7 Plt Count 69 L D MPV 8.0 Prelim Diff (Auto) Slide review pending Neut % (Auto) 96.6 H Lymph % (Auto) 2.3 L Winn % (Auto) 1.0 Eos % (Auto) 0.0 Baso % (Auto) 0.1 Neut # (Auto) 31.1 H Lymph # (Auto) 0.7 L Winn # (Auto) 0.3 Eos # (Auto) 0.0 Baso # (Auto) 0.0 WBC Differential Manual diff final Seg Neuts % (Manual) 69 Band Neuts % (Manual) 26 H Lymphocytes % (Manual) Monocytes % (Manual) 2 Metamyelocytes % (Man) 3 H Myelocytes % (Man) Abs Neuts (Manual) 31.6 H Nucleated RBCs/100 WBC 2 H Differential Comment . Toxic Granulation Toxic Vacuolation Present H Platelet Estimate Low L Platelet Morphology Normal Pappenheimer Bodies Ovalocytes Gering Cells 1+ H Acanthocytes (Spur) Occ H Keratocytes Occ H PT 15.6 H INR 1.5 APTT 48.0 H D Fibrinogen 198 L Puncture Site Patient Temperature O2 Saturation ABG pH ABG pCO2 ABG pO2 ABG HCO3 ABG O2 Content ABG Base Excess ABG Methemoglobin Jordy Test Hemoglobin Carboxyhemoglobin O2 Delivery Device Liter Flow Vent Setting Inspired O2 Critical Value Sodium Potassium Chloride Carbon Dioxide Anion Gap BUN Creatinine Estimated GFR POC Glucose 212 H Random Glucose Hemoglobin A1c Osmolality Lactic Acid Calcium Calcium Adj for Albumin Phosphorus Magnesium Total Bilirubin AST ALT Alkaline Phosphatase Ammonia Total Creatine Kinase CK-MB (CK-2) CK-MB (CK-2) % Troponin I B-Natriuretic Peptide Total Protein Albumin Lipase Beta-Hydroxybutyric Acd TSH Urine Color Urine Clarity Urine pH Ur Specific [place] Urine Protein Urine Glucose (UA) Urine Ketones Urine Occult Blood Urine Nitrate Urine Bilirubin Urine Urobilinogen Ur Leukocyte Esterase Urine RBC Urine WBC Urine WBC Clumps Amorphous Sediment Urine Bacteria Hyaline Casts Urine Mucus Micro UA Comment Ur Microscopic Review Urine Culture Comments Urine Eosinophils Ur Random Creatinine Ur Random Sodium Nasal Screen MRSA (PCR) Stl C.difficile DNA Amp St C. diff Tox Epid 027 Random Vancomycin Blood Type Blood Type Recheck Antibody Screen MTS Gel Crossmatch Blood Bank Comment 08/03/18 08/03/18 08/03/18 23:40 23:40 23:40 WBC RBC Hgb Hct MCV MCH MCHC RDW Plt Count MPV Prelim Diff (Auto) Neut % (Auto) Lymph % (Auto) Winn % (Auto) Eos % (Auto) Baso % (Auto) Neut # (Auto) Lymph # (Auto) Winn # (Auto) Eos # (Auto) Baso # (Auto) WBC Differential Seg Neuts % (Manual) Band Neuts % (Manual) Lymphocytes % (Manual) Monocytes % (Manual) Metamyelocytes % (Man) Myelocytes % (Man) Abs Neuts (Manual) Nucleated RBCs/100 WBC Differential Comment Toxic Granulation Toxic Vacuolation Platelet Estimate Platelet Morphology Pappenheimer Bodies Ovalocytes Gering Cells Acanthocytes (Spur) Keratocytes PT INR APTT Fibrinogen Puncture Site Patient Temperature O2 Saturation ABG pH ABG pCO2 ABG pO2 ABG HCO3 ABG O2 Content ABG Base Excess ABG Methemoglobin Jordy Test Hemoglobin Carboxyhemoglobin O2 Delivery Device Liter Flow Vent Setting Inspired O2 Critical Value Sodium 141 Potassium 4.2 Chloride 116 H Carbon Dioxide 15.8 L Anion Gap 9 BUN 78 H Creatinine 2.55 H Estimated GFR 32 L POC Glucose Random Glucose 190 H Hemoglobin A1c Osmolality Lactic Acid 3.5 H Calcium 5.7 L* Calcium Adj for Albumin 7.0 L* Phosphorus 1.8 L D Magnesium 1.8 Total Bilirubin 0.4 AST 3969 H ALT 1337 H Alkaline Phosphatase 124 H Ammonia 36 H Total Creatine Kinase 4926 H CK-MB (CK-2) 50.3 H CK-MB (CK-2) % 1.0 Troponin I B-Natriuretic Peptide Total Protein 4.3 L D Albumin 1.4 L Lipase Beta-Hydroxybutyric Acd TSH Urine Color Urine Clarity Urine pH Ur Specific [place] Urine Protein Urine Glucose (UA) Urine Ketones Urine Occult Blood Urine Nitrate Urine Bilirubin Urine Urobilinogen Ur Leukocyte Esterase Urine RBC Urine WBC Urine WBC Clumps Amorphous Sediment Urine Bacteria Hyaline Casts Urine Mucus Micro UA Comment Ur Microscopic Review Urine Culture Comments Urine Eosinophils Ur Random Creatinine Ur Random Sodium Nasal Screen MRSA (PCR) Stl C.difficile DNA Amp St C. diff Tox Epid 027 Random Vancomycin 8.6 Blood Type Blood Type Recheck Antibody Screen MTS Gel Crossmatch Blood Bank Comment 08/04/18 08/04/18 08/04/18 00:04 01:03 01:58 WBC RBC Hgb Hct MCV MCH MCHC RDW Plt Count MPV Prelim Diff (Auto) Neut % (Auto) Lymph % (Auto) Winn % (Auto) Eos % (Auto) Baso % (Auto) Neut # (Auto) Lymph # (Auto) Winn # (Auto) Eos # (Auto) Baso # (Auto) WBC Differential Seg Neuts % (Manual) Band Neuts % (Manual) Lymphocytes % (Manual) Monocytes % (Manual) Metamyelocytes % (Man) Myelocytes % (Man) Abs Neuts (Manual) Nucleated RBCs/100 WBC Differential Comment Toxic Granulation Toxic Vacuolation Platelet Estimate Platelet Morphology Pappenheimer Bodies Ovalocytes Indigo Cells Acanthocytes (Spur) Keratocytes PT INR APTT Fibrinogen Puncture Site Patient Temperature O2 Saturation ABG pH ABG pCO2 ABG pO2 ABG HCO3 ABG O2 Content ABG Base Excess ABG Methemoglobin Jordy Test Hemoglobin Carboxyhemoglobin O2 Delivery Device Liter Flow Vent Setting Inspired O2 Critical Value Sodium Potassium Chloride Carbon Dioxide Anion Gap BUN Creatinine Estimated GFR POC Glucose 188 H 205 H 192 H Random Glucose Hemoglobin A1c Osmolality Lactic Acid Calcium Calcium Adj for Albumin Phosphorus Magnesium Total Bilirubin AST ALT Alkaline Phosphatase Ammonia Total Creatine Kinase CK-MB (CK-2) CK-MB (CK-2) % Troponin I B-Natriuretic Peptide Total Protein Albumin Lipase Beta-Hydroxybutyric Acd TSH Urine Color Urine Clarity Urine pH Ur Specific [place] Urine Protein Urine Glucose (UA) Urine Ketones Urine Occult Blood Urine Nitrate Urine Bilirubin Urine Urobilinogen Ur Leukocyte Esterase Urine RBC Urine WBC Urine WBC Clumps Amorphous Sediment Urine Bacteria Hyaline Casts Urine Mucus Micro UA Comment Ur Microscopic Review Urine Culture Comments Urine Eosinophils Ur Random Creatinine Ur Random Sodium Nasal Screen MRSA (PCR) Stl C.difficile DNA Amp St C. diff Tox Epid 027 Random Vancomycin Blood Type Blood Type Recheck Antibody Screen Repair Report Gel [facility] Blood Bank Comment 08/04/18 08/04/18 08/04/18 02:58 03:00 04:02 WBC RBC Hgb Hct MCV MCH MCHC RDW Plt Count MPV Prelim Diff (Auto) Neut % (Auto) Lymph % (Auto) Winn % (Auto) Eos % (Auto) Baso % (Auto) Neut # (Auto) Lymph # (Auto) Winn # (Auto) Eos # (Auto) Baso # (Auto) WBC Differential Seg Neuts % (Manual) Band Neuts % (Manual) Lymphocytes % (Manual) Monocytes % (Manual) Metamyelocytes % (Man) Myelocytes % (Man) Abs Neuts (Manual) Nucleated RBCs/100 WBC Differential Comment Toxic Granulation Toxic Vacuolation Platelet Estimate Platelet Morphology Pappenheimer Bodies Ovalocytes Indigo Cells Acanthocytes (Spur) Keratocytes PT INR APTT Fibrinogen Puncture Site Patient Temperature O2 Saturation ABG pH ABG pCO2 ABG pO2 ABG HCO3 ABG O2 Content ABG Base Excess ABG Methemoglobin Jordy Test Hemoglobin Carboxyhemoglobin O2 Delivery Device Liter Flow Vent Setting Inspired O2 Critical Value Sodium Potassium Chloride Carbon Dioxide Anion Gap BUN Creatinine Estimated GFR POC Glucose 195 H 220 H Random Glucose Hemoglobin A1c Osmolality Lactic Acid 3.7 H Calcium Calcium Adj for Albumin Phosphorus Magnesium Total Bilirubin AST ALT Alkaline Phosphatase Ammonia Total Creatine Kinase CK-MB (CK-2) CK-MB (CK-2) % Troponin I B-Natriuretic Peptide Total Protein Albumin Lipase Beta-Hydroxybutyric Acd TSH Urine Color Urine Clarity Urine pH Ur Specific [place] Urine Protein Urine Glucose (UA) Urine Ketones Urine Occult Blood Urine Nitrate Urine Bilirubin Urine Urobilinogen Ur Leukocyte Esterase Urine RBC Urine WBC Urine WBC Clumps Amorphous Sediment Urine Bacteria Hyaline Casts Urine Mucus Micro UA Comment Ur Microscopic Review Urine Culture Comments Urine Eosinophils Ur Random Creatinine Ur Random Sodium Nasal Screen MRSA (PCR) Stl C.difficile DNA Amp St C. diff Tox Epid 027 Random Vancomycin Blood Type Blood Type Recheck Antibody Screen Repair Report Gel [facility] Blood Bank Comment 08/04/18 08/04/18 08/04/18 05:01 05:52 06:54 WBC RBC Hgb Hct MCV MCH MCHC RDW Plt Count MPV Prelim Diff (Auto) Neut % (Auto) Lymph % (Auto) Winn % (Auto) Eos % (Auto) Baso % (Auto) Neut # (Auto) Lymph # (Auto) Winn # (Auto) Eos # (Auto) Baso # (Auto) WBC Differential Seg Neuts % (Manual) Band Neuts % (Manual) Lymphocytes % (Manual) Monocytes % (Manual) Metamyelocytes % (Man) Myelocytes % (Man) Abs Neuts (Manual) Nucleated RBCs/100 WBC Differential Comment Toxic Granulation Toxic Vacuolation Platelet Estimate Platelet Morphology Pappenheimer Bodies Ovalocytes Indigo Cells Acanthocytes (Spur) Keratocytes PT INR APTT Fibrinogen Puncture Site Patient Temperature O2 Saturation ABG pH ABG pCO2 ABG pO2 ABG HCO3 ABG O2 Content ABG Base Excess ABG Methemoglobin Jordy Test Hemoglobin Carboxyhemoglobin O2 Delivery Device Liter Flow Vent Setting Inspired O2 Critical Value Sodium Potassium Chloride Carbon Dioxide Anion Gap BUN Creatinine Estimated GFR POC Glucose 209 H 204 H 211 H Random Glucose Hemoglobin A1c Osmolality Lactic Acid Calcium Calcium Adj for Albumin Phosphorus Magnesium Total Bilirubin AST ALT Alkaline Phosphatase Ammonia Total Creatine Kinase CK-MB (CK-2) CK-MB (CK-2) % Troponin I B-Natriuretic Peptide Total Protein Albumin Lipase Beta-Hydroxybutyric Acd TSH Urine Color Urine Clarity Urine pH Ur Specific [place] Urine Protein Urine Glucose (UA) Urine Ketones Urine Occult Blood Urine Nitrate Urine Bilirubin Urine Urobilinogen Ur Leukocyte Esterase Urine RBC Urine WBC Urine WBC Clumps Amorphous Sediment Urine Bacteria Hyaline Casts Urine Mucus Micro UA Comment Ur Microscopic Review Urine Culture Comments Urine Eosinophils Ur Random Creatinine Ur Random Sodium Nasal Screen MRSA (PCR) Stl C.difficile DNA Amp St C. diff Tox Epid 027 Random Vancomycin Blood Type Blood Type Recheck Antibody Screen MTS Gel Crossmatch Blood Bank Comment 08/04/18 08/04/18 08/04/18 07:43 07:43 07:43 WBC 38.1 H RBC 3.08 L Hgb 9.5 L Hct 27.1 L MCV 88.0 MCH 30.8 MCHC 35.0 RDW 16.6 Plt Count 63 L MPV 8.4 Prelim Diff (Auto) Slide review pending Neut % (Auto) 96.7 H Lymph % (Auto) 2.3 L Winn % (Auto) 0.7 Eos % (Auto) 0.1 Baso % (Auto) 0.2 Neut # (Auto) 36.9 H Lymph # (Auto) 0.9 L Winn # (Auto) 0.3 Eos # (Auto) 0.0 Baso # (Auto) 0.1 WBC Differential Manual diff final Seg Neuts % (Manual) 47 Band Neuts % (Manual) 51 H Lymphocytes % (Manual) 2 L Monocytes % (Manual) Metamyelocytes % (Man) Myelocytes % (Man) Abs Neuts (Manual) 37.3 H Nucleated RBCs/100 WBC Differential Comment . Toxic Granulation 1+ H Toxic Vacuolation Platelet Estimate Low L Platelet Morphology Normal Pappenheimer Bodies Ovalocytes Gering Cells 1+ H Acanthocytes (Spur) Occ H Keratocytes PT 15.2 H INR 1.5 APTT 46.5 H Fibrinogen 241 Puncture Site Patient Temperature O2 Saturation ABG pH ABG pCO2 ABG pO2 ABG HCO3 ABG O2 Content ABG Base Excess ABG Methemoglobin Jordy Test Hemoglobin Carboxyhemoglobin O2 Delivery Device Liter Flow Vent Setting Inspired O2 Critical Value Sodium Potassium Chloride Carbon Dioxide Anion Gap BUN Creatinine Estimated GFR POC Glucose Random Glucose Hemoglobin A1c Osmolality Lactic Acid 3.7 H Calcium Calcium Adj for Albumin Phosphorus Magnesium Total Bilirubin AST ALT Alkaline Phosphatase Ammonia Total Creatine Kinase CK-MB (CK-2) CK-MB (CK-2) % Troponin I B-Natriuretic Peptide Total Protein Albumin Lipase Beta-Hydroxybutyric Acd TSH Urine Color Urine Clarity Urine pH Ur Specific [place] Urine Protein Urine Glucose (UA) Urine Ketones Urine Occult Blood Urine Nitrate Urine Bilirubin Urine Urobilinogen Ur Leukocyte Esterase Urine RBC Urine WBC Urine WBC Clumps Amorphous Sediment Urine Bacteria Hyaline Casts Urine Mucus Micro UA Comment Ur Microscopic Review Urine Culture Comments Urine Eosinophils Ur Random Creatinine Ur Random Sodium Nasal Screen MRSA (PCR) Stl C.difficile DNA Amp St C. diff Tox Epid 027 Random Vancomycin Blood Type Blood Type Recheck Antibody Screen MTS Gel Crossmatch Blood Bank Comment 08/04/18 08/04/18 08/04/18 07:43 08:36 08:46 WBC RBC Hgb Hct MCV MCH MCHC RDW Plt Count MPV Prelim Diff (Auto) Neut % (Auto) Lymph % (Auto) Winn % (Auto) Eos % (Auto) Baso % (Auto) Neut # (Auto) Lymph # (Auto) Winn # (Auto) Eos # (Auto) Baso # (Auto) WBC Differential Seg Neuts % (Manual) Band Neuts % (Manual) Lymphocytes % (Manual) Monocytes % (Manual) Metamyelocytes % (Man) Myelocytes % (Man) Abs Neuts (Manual) Nucleated RBCs/100 WBC Differential Comment Toxic Granulation Toxic Vacuolation Platelet Estimate Platelet Morphology Pappenheimer Bodies Ovalocytes Indigo Cells Acanthocytes (Spur) Keratocytes PT INR APTT Fibrinogen Puncture Site Barton Patient Temperature 98.6 O2 Saturation 96 ABG pH 7.38 ABG pCO2 23 L* ABG pO2 167 H ABG HCO3 13 L* ABG O2 Content 13.5 ABG Base Excess -11.0 L ABG Methemoglobin 2.1 H Jordy Test Hemoglobin 9.7 L Carboxyhemoglobin 0.5 O2 Delivery Device Ventilator Liter Flow Vent Setting See comments Inspired O2 35 Critical Value Yes Sodium 140 Potassium 4.4 Chloride 115 H Carbon Dioxide 13.2 L Anion Gap 12 BUN 75 H Creatinine 2.80 H Estimated GFR 28 L POC Glucose 205 H Random Glucose 198 H Hemoglobin A1c Osmolality Lactic Acid Calcium 5.7 L* Calcium Adj for Albumin 7.0 L* Phosphorus 1.7 L Magnesium 1.9 Total Bilirubin 0.4 AST 3067 H ALT 1158 H Alkaline Phosphatase 128 H Ammonia Total Creatine Kinase 4932 H CK-MB (CK-2) 41.1 H CK-MB (CK-2) % 0.8 Troponin I 0.23 H B-Natriuretic Peptide Total Protein 4.2 L Albumin 1.3 L Lipase 1559 H Beta-Hydroxybutyric Acd TSH Urine Color Urine Clarity Urine pH Ur Specific [place] Urine Protein Urine Glucose (UA) Urine Ketones Urine Occult Blood Urine Nitrate Urine Bilirubin Urine Urobilinogen Ur Leukocyte Esterase Urine RBC Urine WBC Urine WBC Clumps Amorphous Sediment Urine Bacteria Hyaline Casts Urine Mucus Micro UA Comment Ur Microscopic Review Urine Culture Comments Urine Eosinophils Ur Random Creatinine Ur Random Sodium Nasal Screen MRSA (PCR) Stl C.difficile DNA Amp St C. diff Tox Epid 027 Random Vancomycin Blood Type Blood Type Recheck Antibody Screen MTS Gel Crossmatch Blood Bank Comment 08/04/18 08/04/18 08/04/18 09:50 11:17 11:42 WBC RBC Hgb Hct MCV MCH MCHC RDW Plt Count MPV Prelim Diff (Auto) Neut % (Auto) Lymph % (Auto) Winn % (Auto) Eos % (Auto) Baso % (Auto) Neut # (Auto) Lymph # (Auto) Winn # (Auto) Eos # (Auto) Baso # (Auto) WBC Differential Seg Neuts % (Manual) Band Neuts % (Manual) Lymphocytes % (Manual) Monocytes % (Manual) Metamyelocytes % (Man) Myelocytes % (Man) Abs Neuts (Manual) Nucleated RBCs/100 WBC Differential Comment Toxic Granulation Toxic Vacuolation Platelet Estimate Platelet Morphology Pappenheimer Bodies Ovalocytes Indigo Cells Acanthocytes (Spur) Keratocytes PT INR APTT Fibrinogen Puncture Site Patient Temperature O2 Saturation ABG pH ABG pCO2 ABG pO2 ABG HCO3 ABG O2 Content ABG Base Excess ABG Methemoglobin Jordy Test Hemoglobin Carboxyhemoglobin O2 Delivery Device Liter Flow Vent Setting Inspired O2 Critical Value Sodium 141 Potassium Chloride Carbon Dioxide Anion Gap BUN Creatinine Estimated GFR POC Glucose 175 H 204 H Random Glucose Hemoglobin A1c Osmolality 307 H Lactic Acid Calcium Calcium Adj for Albumin Phosphorus Magnesium Total Bilirubin AST ALT Alkaline Phosphatase Ammonia Total Creatine Kinase CK-MB (CK-2) CK-MB (CK-2) % Troponin I B-Natriuretic Peptide Total Protein Albumin Lipase Beta-Hydroxybutyric Acd TSH Urine Color Urine Clarity Urine pH Ur Specific [place] Urine Protein Urine Glucose (UA) Urine Ketones Urine Occult Blood Urine Nitrate Urine Bilirubin Urine Urobilinogen Ur Leukocyte Esterase Urine RBC Urine WBC Urine WBC Clumps Amorphous Sediment Urine Bacteria Hyaline Casts Urine Mucus Micro UA Comment Ur Microscopic Review Urine Culture Comments Urine Eosinophils Ur Random Creatinine Ur Random Sodium Nasal Screen MRSA (PCR) Stl C.difficile DNA Amp St C. diff Tox Epid 027 Random Vancomycin Blood Type Blood Type Recheck Antibody Screen MTS Gel Crossmatch Blood Bank Comment 08/04/18 08/04/18 08/04/18 15:25 15:25 15:25 WBC 44.8 H RBC 3.48 L Hgb 10.5 L Hct 30.6 L MCV 87.7 MCH 30.1 MCHC 34.3 RDW 16.3 Plt Count 72 L MPV 8.6 Prelim Diff (Auto) Slide review pending Neut % (Auto) 97.3 H Lymph % (Auto) 1.7 L Winn % (Auto) 0.9 Eos % (Auto) 0.0 Baso % (Auto) 0.1 Neut # (Auto) 43.5 H Lymph # (Auto) 0.8 L Winn # (Auto) 0.4 Eos # (Auto) 0.0 Baso # (Auto) 0.0 WBC Differential Manual diff final Seg Neuts % (Manual) 50 Band Neuts % (Manual) 46 H Lymphocytes % (Manual) 1 L Monocytes % (Manual) 1 Metamyelocytes % (Man) 2 H Myelocytes % (Man) Abs Neuts (Manual) 43.9 H Nucleated RBCs/100 WBC Differential Comment . Toxic Granulation Toxic Vacuolation Platelet Estimate Low L Platelet Morphology Normal Pappenheimer Bodies Ovalocytes 1+ H Indigo Cells 1+ H Acanthocytes (Spur) Keratocytes PT INR APTT Fibrinogen Puncture Site Patient Temperature O2 Saturation ABG pH ABG pCO2 ABG pO2 ABG HCO3 ABG O2 Content ABG Base Excess ABG Methemoglobin Jordy Test Hemoglobin Carboxyhemoglobin O2 Delivery Device Liter Flow Vent Setting Inspired O2 Critical Value Sodium 141 Potassium 4.9 Chloride 115 H Carbon Dioxide 14.9 L Anion Gap 11 BUN 75 H Creatinine 2.85 H Estimated GFR 28 L POC Glucose Random Glucose 131 H Hemoglobin A1c Osmolality 310 H Lactic Acid 3.2 H Calcium 6.5 L* D Calcium Adj for Albumin 8.7 D Phosphorus 3.4 D Magnesium 1.8 Total Bilirubin AST ALT Alkaline Phosphatase Ammonia Total Creatine Kinase CK-MB (CK-2) CK-MB (CK-2) % Troponin I B-Natriuretic Peptide Total Protein Albumin 1.3 L Lipase Beta-Hydroxybutyric Acd TSH Urine Color Urine Clarity Urine pH Ur Specific [place] Urine Protein Urine Glucose (UA) Urine Ketones Urine Occult Blood Urine Nitrate Urine Bilirubin Urine Urobilinogen Ur Leukocyte Esterase Urine RBC Urine WBC Urine WBC Clumps Amorphous Sediment Urine Bacteria Hyaline Casts Urine Mucus Micro UA Comment Ur Microscopic Review Urine Culture Comments Urine Eosinophils Ur Random Creatinine Ur Random Sodium Nasal Screen MRSA (PCR) Stl C.difficile DNA Amp St C. diff Tox Epid 027 Random Vancomycin Blood Type Blood Type Recheck Antibody Screen MTS Gel Crossmatch Blood Bank Comment 08/04/18 08/04/18 08/04/18 18:17 18:17 18:17 WBC 48.3 H RBC 3.49 L Hgb 10.6 L Hct 30.6 L MCV 87.7 MCH 30.4 MCHC 34.6 RDW 16.8 Plt Count 72 L MPV 8.8 Prelim Diff (Auto) Slide review pending Neut % (Auto) 96.9 H Lymph % (Auto) 1.8 L Winn % (Auto) 1.2 Eos % (Auto) 0.0 Baso % (Auto) 0.1 Neut # (Auto) 46.8 H Lymph # (Auto) 0.9 L Winn # (Auto) 0.6 Eos # (Auto) 0.0 Baso # (Auto) 0.1 WBC Differential Manual diff final Seg Neuts % (Manual) 69 Band Neuts % (Manual) 26 H Lymphocytes % (Manual) 1 L Monocytes % (Manual) Metamyelocytes % (Man) 3 H Myelocytes % (Man) 1 H Abs Neuts (Manual) 47.8 H Nucleated RBCs/100 WBC Differential Comment . Toxic Granulation Toxic Vacuolation Platelet Estimate Low L Platelet Morphology Normal Pappenheimer Bodies Ovalocytes 1+ H Gering Cells 1+ H Acanthocytes (Spur) Occ H Keratocytes PT INR APTT Fibrinogen Puncture Site Patient Temperature O2 Saturation ABG pH ABG pCO2 ABG pO2 ABG HCO3 ABG O2 Content ABG Base Excess ABG Methemoglobin Jordy Test Hemoglobin Carboxyhemoglobin O2 Delivery Device Liter Flow Vent Setting Inspired O2 Critical Value Sodium 141 Potassium 5.2 H Chloride 117 H Carbon Dioxide 15.0 L Anion Gap 9 BUN 74 H Creatinine 2.92 H Estimated GFR 27 L POC Glucose Random Glucose 126 H Hemoglobin A1c Osmolality Lactic Acid Calcium 6.3 L* Calcium Adj for Albumin 8.5 Phosphorus 4.1 Magnesium 1.8 Total Bilirubin AST ALT Alkaline Phosphatase Ammonia 37 H Total Creatine Kinase 3854 H CK-MB (CK-2) 36.2 H CK-MB (CK-2) % 0.9 Troponin I B-Natriuretic Peptide Total Protein Albumin 1.3 L Lipase Beta-Hydroxybutyric Acd TSH Urine Color Urine Clarity Urine pH Ur Specific [place] Urine Protein Urine Glucose (UA) Urine Ketones Urine Occult Blood Urine Nitrate Urine Bilirubin Urine Urobilinogen Ur Leukocyte Esterase Urine RBC Urine WBC Urine WBC Clumps Amorphous Sediment Urine Bacteria Hyaline Casts Urine Mucus Micro UA Comment Ur Microscopic Review Urine Culture Comments Urine Eosinophils Ur Random Creatinine Ur Random Sodium Nasal Screen MRSA (PCR) Stl C.difficile DNA Amp St C. diff Tox Epid 027 Random Vancomycin Blood Type Blood Type Recheck Antibody Screen MTS Gel Crossmatch Blood Bank Comment 08/04/18 08/04/18 08/04/18 21:14 23:05 23:05 WBC 54.8 H RBC 3.71 L Hgb 11.1 L Hct 32.1 L MCV 86.7 MCH 29.8 MCHC 34.4 RDW 16.7 Plt Count 79 L MPV 9.2 Prelim Diff (Auto) Slide review pending Neut % (Auto) 97.8 H Lymph % (Auto) 1.3 L Winn % (Auto) 0.8 Eos % (Auto) 0.0 Baso % (Auto) 0.1 Neut # (Auto) 53.6 H Lymph # (Auto) 0.7 L Winn # (Auto) 0.4 Eos # (Auto) 0.0 Baso # (Auto) 0.0 WBC Differential Manual diff final Seg Neuts % (Manual) 38 Band Neuts % (Manual) 61 H Lymphocytes % (Manual) 1 L Monocytes % (Manual) Metamyelocytes % (Man) Myelocytes % (Man) Abs Neuts (Manual) 54.3 H Nucleated RBCs/100 WBC Differential Comment . Toxic Granulation 1+ H Toxic Vacuolation Platelet Estimate Low L Platelet Morphology Enlarged H Pappenheimer Bodies Present H Ovalocytes Indigo Cells 1+ H Acanthocytes (Spur) Occ H Keratocytes PT INR APTT Fibrinogen Puncture Site Patient Temperature O2 Saturation ABG pH ABG pCO2 ABG pO2 ABG HCO3 ABG O2 Content ABG Base Excess ABG Methemoglobin Jordy Test Hemoglobin Carboxyhemoglobin O2 Delivery Device Liter Flow Vent Setting Inspired O2 Critical Value Sodium Potassium Chloride Carbon Dioxide Anion Gap BUN Creatinine Estimated GFR POC Glucose 139 H Random Glucose Hemoglobin A1c Osmolality Lactic Acid 3.7 H Calcium Calcium Adj for Albumin Phosphorus Magnesium Total Bilirubin AST ALT Alkaline Phosphatase Ammonia Total Creatine Kinase CK-MB (CK-2) CK-MB (CK-2) % Troponin I B-Natriuretic Peptide Total Protein Albumin Lipase Beta-Hydroxybutyric Acd TSH Urine Color Urine Clarity Urine pH Ur Specific [place] Urine Protein Urine Glucose (UA) Urine Ketones Urine Occult Blood Urine Nitrate Urine Bilirubin Urine Urobilinogen Ur Leukocyte Esterase Urine RBC Urine WBC Urine WBC Clumps Amorphous Sediment Urine Bacteria Hyaline Casts Urine Mucus Micro UA Comment Ur Microscopic Review Urine Culture Comments Urine Eosinophils Ur Random Creatinine Ur Random Sodium Nasal Screen MRSA (PCR) Stl C.difficile DNA Amp St C. diff Tox Epid 027 Random Vancomycin Blood Type Blood Type Recheck Antibody Screen MTS Gel Crossmatch Blood Bank Comment 08/04/18 08/04/18 08/04/18 23:05 23:05 23:05 WBC RBC Hgb Hct MCV MCH MCHC RDW Plt Count MPV Prelim Diff (Auto) Neut % (Auto) Lymph % (Auto) Winn % (Auto) Eos % (Auto) Baso % (Auto) Neut # (Auto) Lymph # (Auto) Winn # (Auto) Eos # (Auto) Baso # (Auto) WBC Differential Seg Neuts % (Manual) Band Neuts % (Manual) Lymphocytes % (Manual) Monocytes % (Manual) Metamyelocytes % (Man) Myelocytes % (Man) Abs Neuts (Manual) Nucleated RBCs/100 WBC Differential Comment Toxic Granulation Toxic Vacuolation Platelet Estimate Platelet Morphology Pappenheimer Bodies Ovalocytes Indigo Cells Acanthocytes (Spur) Keratocytes PT 13.3 H INR 1.3 APTT 44.0 H Fibrinogen 356 Puncture Site Patient Temperature O2 Saturation ABG pH ABG pCO2 ABG pO2 ABG HCO3 ABG O2 Content ABG Base Excess ABG Methemoglobin Jordy Test Hemoglobin Carboxyhemoglobin O2 Delivery Device Liter Flow Vent Setting Inspired O2 Critical Value Sodium 143 Potassium 5.7 H Chloride 116 H Carbon Dioxide 12.5 L Anion Gap 15 BUN 73 H Creatinine 3.16 H Estimated GFR 25 L POC Glucose Random Glucose 121 H Hemoglobin A1c Osmolality 318 H Lactic Acid Calcium 6.4 L* Calcium Adj for Albumin 7.4 L* Phosphorus 4.4 Magnesium 1.9 Total Bilirubin 0.7 AST 2140 H ALT 1065 H Alkaline Phosphatase 249 H Ammonia 23 Total Creatine Kinase 3304 H CK-MB (CK-2) 32.8 H CK-MB (CK-2) % 1.0 Troponin I B-Natriuretic Peptide Total Protein 5.0 L D Albumin 1.3 L Lipase Beta-Hydroxybutyric Acd TSH Urine Color Urine Clarity Urine pH Ur Specific [place] Urine Protein Urine Glucose (UA) Urine Ketones Urine Occult Blood Urine Nitrate Urine Bilirubin Urine Urobilinogen Ur Leukocyte Esterase Urine RBC Urine WBC Urine WBC Clumps Amorphous Sediment Urine Bacteria Hyaline Casts Urine Mucus Micro UA Comment Ur Microscopic Review Urine Culture Comments Urine Eosinophils Ur Random Creatinine Ur Random Sodium Nasal Screen MRSA (PCR) Stl C.difficile DNA Amp St C. diff Tox Epid 027 Random Vancomycin Blood Type Blood Type Recheck Antibody Screen MTS Gel Crossmatch Blood Bank Comment 08/04/18 08/05/18 08/05/18 23:05 03:35 03:39 WBC RBC Hgb Hct MCV MCH MCHC RDW Plt Count MPV Prelim Diff (Auto) Neut % (Auto) Lymph % (Auto) Winn % (Auto) Eos % (Auto) Baso % (Auto) Neut # (Auto) Lymph # (Auto) Winn # (Auto) Eos # (Auto) Baso # (Auto) WBC Differential Seg Neuts % (Manual) Band Neuts % (Manual) Lymphocytes % (Manual) Monocytes % (Manual) Metamyelocytes % (Man) Myelocytes % (Man) Abs Neuts (Manual) Nucleated RBCs/100 WBC Differential Comment Toxic Granulation Toxic Vacuolation Platelet Estimate Platelet Morphology Pappenheimer Bodies Ovalocytes Gering Cells Acanthocytes (Spur) Keratocytes PT INR APTT Fibrinogen Cancelled Puncture Site Patient Temperature O2 Saturation ABG pH ABG pCO2 ABG pO2 ABG HCO3 ABG O2 Content ABG Base Excess ABG Methemoglobin Jordy Test Hemoglobin Carboxyhemoglobin O2 Delivery Device Liter Flow Vent Setting Inspired O2 Critical Value Sodium Potassium Chloride Carbon Dioxide Anion Gap BUN Creatinine Estimated GFR POC Glucose 153 H Random Glucose Hemoglobin A1c Osmolality Lactic Acid 3.4 H Calcium Calcium Adj for Albumin Phosphorus Magnesium Total Bilirubin AST ALT Alkaline Phosphatase Ammonia Total Creatine Kinase CK-MB (CK-2) CK-MB (CK-2) % Troponin I B-Natriuretic Peptide Total Protein Albumin Lipase Beta-Hydroxybutyric Acd TSH Urine Color Urine Clarity Urine pH Ur Specific [place] Urine Protein Urine Glucose (UA) Urine Ketones Urine Occult Blood Urine Nitrate Urine Bilirubin Urine Urobilinogen Ur Leukocyte Esterase Urine RBC Urine WBC Urine WBC Clumps Amorphous Sediment Urine Bacteria Hyaline Casts Urine Mucus Micro UA Comment Ur Microscopic Review Urine Culture Comments Urine Eosinophils Ur Random Creatinine Ur Random Sodium Nasal Screen MRSA (PCR) Stl C.difficile DNA Amp St C. diff Tox Epid 027 Random Vancomycin Blood Type Blood Type Recheck Antibody Screen MTS Gel Crossmatch Blood Bank Comment 08/05/18 08/05/18 08/05/18 05:30 06:45 06:45 WBC 44.8 H RBC 3.31 L Hgb 10.1 L Hct 29.3 L MCV 88.7 MCH 30.4 MCHC 34.3 RDW 16.8 Plt Count 64 L MPV 9.4 Prelim Diff (Auto) Slide review pending Neut % (Auto) 96.5 H Lymph % (Auto) 1.9 L Winn % (Auto) 1.3 Eos % (Auto) 0.1 Baso % (Auto) 0.2 Neut # (Auto) 43.3 H Lymph # (Auto) 0.9 L Winn # (Auto) 0.6 Eos # (Auto) 0.0 Baso # (Auto) 0.1 WBC Differential Manual diff final Seg Neuts % (Manual) 76 H Band Neuts % (Manual) 19 H Lymphocytes % (Manual) 3 L Monocytes % (Manual) 2 Metamyelocytes % (Man) Myelocytes % (Man) Abs Neuts (Manual) 42.6 H Nucleated RBCs/100 WBC Differential Comment . Toxic Granulation 1+ H Toxic Vacuolation Platelet Estimate Low L Platelet Morphology Enlarged H Pappenheimer Bodies Ovalocytes 1+ H Indigo Cells 1+ H Acanthocytes (Spur) Keratocytes PT INR APTT Fibrinogen Puncture Site Patient Temperature O2 Saturation ABG pH ABG pCO2 ABG pO2 ABG HCO3 ABG O2 Content ABG Base Excess ABG Methemoglobin Jordy Test Hemoglobin Carboxyhemoglobin O2 Delivery Device Liter Flow Vent Setting Inspired O2 Critical Value Sodium 144 144 Potassium 6.1 H Chloride 119 H Carbon Dioxide 11.8 L Anion Gap 13 BUN 76 H Creatinine 3.41 H Estimated GFR 23 L POC Glucose Random Glucose 148 H Hemoglobin A1c Osmolality 318 H Lactic Acid Calcium 7.0 L* Calcium Adj for Albumin 9.3 D Phosphorus 4.4 Magnesium 1.9 Total Bilirubin AST ALT Alkaline Phosphatase Ammonia Total Creatine Kinase CK-MB (CK-2) CK-MB (CK-2) % Troponin I B-Natriuretic Peptide Total Protein Albumin 1.1 L Lipase Beta-Hydroxybutyric Acd TSH Urine Color Urine Clarity Urine pH Ur Specific [place] Urine Protein Urine Glucose (UA) Urine Ketones Urine Occult Blood Urine Nitrate Urine Bilirubin Urine Urobilinogen Ur Leukocyte Esterase Urine RBC Urine WBC Urine WBC Clumps Amorphous Sediment Urine Bacteria Hyaline Casts Urine Mucus Micro UA Comment Ur Microscopic Review Urine Culture Comments Urine Eosinophils Ur Random Creatinine Ur Random Sodium Nasal Screen MRSA (PCR) Stl C.difficile DNA Amp St C. diff Tox Epid 027 Random Vancomycin 21.9 Blood Type Blood Type Recheck Antibody Screen MTS Gel Crossmatch Blood Bank Comment Result Diagrams: 08/05/18 06:45 08/05/18 10:30 Microbiology: Microbiology 08/03/18 09:04 Gram Stain - Final Sputum - Endotracheal Sputum Culture - Preliminary gram negative rods 08/03/18 14:36 Genital Culture - Preliminary Genital - Penis 08/02/18 10:49 Aerobic Blood Culture - Preliminary Blood - Peripheral No growth in 2 days Anaerobic Blood Culture - Preliminary No growth in 2 days 08/02/18 10:49 Aerobic Blood Culture - Preliminary Blood - Peripheral No growth in 2 days Anaerobic Blood Culture - Preliminary No growth in 2 days 08/02/18 10:55 Urine Culture - Final Catheterized Urine Staphylococcus aureus 08/03/18 09:49 Stool Occult Blood (FOREIGN) - Final Stool Hemoccult positive Imaging: Impressions Head MRA 08/04/18 00:00 CONCLUSION: 1. There is no evidence of intracranial blood flow identified by MRA. This examination would be concerning for possible brain . Further evaluation with brain studies would be warranted. 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 If the patient cannot undergo CTA examination of the carotids which is recommended, ultrasound is suggested for further correlation. Percent stenosis is calculated using the diameter of the stenotic region over the diameter of the normal distal internal carotid artery _ Brain Flow Nuclear Medicine 08/05/18 00:00 CONCLUSION: 1. No blood flow identified to the brain parenchyma on the flow imaging suggesting brain . Chest X-Ray 08/05/18 06:00 CONCLUSION: Bilateral mostly basilar airspace disease and small effusion, increased from August 03. Support apparatus unchanged. Procedures: 08/02/18: I&D left foot 08/03/18: Intubated, TLC placed 08/04/18 Cardiac arrest, CPR Patient/Family Conference Present at Family Conference: Son Mando Velasquez, patient's sister and niece. Issues Discussed: * Palliative care role, purpose, approach * Additional medical, psychosocial, and spiritual history * Patients general health, functional status, and cognitive status is unknown * Family understanding of the current medical problems * Family understanding of prognosis * Current medical treatment options and benefits/burdens of those options * Likely scenarios comparing ongoing aggressive care with a transition to comfort measures only * Questions answered to the best of my ability * Palliative care contact information provided Family now requesting to w/d, Palliative attempting to locate daughter to see if she wishes to participate in decision making. Assessment and Plan - Symptom Scale (1) Pain 0-10 Scale: Unable to quantify (2) Dyspnea 0-10 Scale: Unable to quantify Pertinent Non-Medical Issues: Psychosocial: Patient recently left [facility] AMA. He has a long history of substance abuse issues. He has a son and sister who live locally. He also has a daughter whom he is estranged from, manuel Gilmore is attempting to reach through mutual contacts. Mando states he is unsure if she is , or if she is still in the area. Spiritual: Offered it security project manager services, family declined. Legal: Patient is incapacitated to make his own decisions. Per [place] statutes , healthcare decision making would default to his son and daughter. So far, attempts to reach daughter have been unsuccessful, son reports daughter has been estranged, he has reached out to mutual contacts to attempt to locate her. Requested accurint. We will continue to attempt locate. Call placed to [facility] to attempt to locate HCP paperwork as sister Pat reported completing such, they are unable to locate any such document. Call placed to [facility], spoke with medical records and DON who state patient did not have HCP or HCS paperwork on file with them. Ethical issues impacting care: none Important Contacts: Sister Pat: [phone] Manuel Gilmore Shashi Prognosis: Neurological evaluations and brain flow studies suggestive of brain . Code Status: No Code DNR Plan: Legal decision maker: Patient is incapacitated make his own decisions. He has a son and a sister who are local. Family has been unable to reach patient's daughter who reportedly lives in the area as well. Per [place] statutes, healthcare decision making would default to his son and daughter. So far, attempts to reach daughter have been unsuccessful, son reports daughter has been estranged. Sister Pat reports she is HCS but is unable to produce documentation. We will continue to attempt locate daughter. * Call placed to [facility] to attempt to locate HCP paperwork as sister Pat reported completing such, they are unable to locate any such document. * Call placed to [facility], spoke with medical records and DON who state patient did not have HCP or HCS paperwork on file with them. * Accurint report has been requested Goals: Given patient's current neuro status, family is considering withdrawal of life support in the coming days. At this time, they would like to maximize treatments currently in place until additional family members can arrive. * 1500: Notified by nursing that family would like to w/d patient today. Advised that we need to attempt to reach daughter (Azul) to determine if she wishes to participate in decision making. CODE STATUS: Patient was originally DNR. Was later found that he had revoked this while at [facility]. He was coded in the ICU, family has elected DNR status now. Brain flow study has revealed SYMPTOMS: --Pain: Patient had recent amputation of left foot. Now has blistering dry skin on the right lower extremity likely secondary to vasoconstriction due to pressors. Patient also had chest compressions which would likely contribute to pain. Does not appear painful at this time. Suspicion of brain , it is unlikely he is able to feel pain at this time. --Dyspnea: Patient is now intubated and mechanically ventilated. Have been unable to attempt apnea trials as patient is too unstable. No Spontaneous breathing, not expected to be weaned from ventilator. Palliative care will continue to follow during hospital course as condition evolves, to assist patient/decision-maker with understanding of medical conditions, weighing benefits/burdens of treatment options, for clarification of goals of treatment. Additionally will assist with any symptoms of palliative concern Appreciation Thank you for the opportunity to participate in the care of Mando Beatty. Attestation Attestation: To help prompt me to consider important information that might be impacting today's encounter and assessment, information from prior notes written by myself or my colleagues may have been "brought forward" into today's note. My signature on this note, however, is an attestation that I personally performed the exam, history, and/or decision-making noted today, and, unless otherwise indicated, the interactions with patient, family, and staff as well as the review of records all occurred today. I also attest that the listed assessment and stated plan reflect my best clinical judgment today based on the combination of historical information, prior notes, and today's exam/ interactions. When time spent is documented, it refers only to time spent today by the signer, or if indicated, combined time spent today by collaborating physician/nurse practitioner.
--- NOTE | 2018-08-05 11:28 | NM ---
EXAM DATE: 08/05/2018 11:02 AM EST AGE/SEX: 57 years / Male INDICATIONS: Infarction. CLINICAL DATA: This is the patient's initial encounter. Patient reports that signs and symptoms have been present for 1 day and indicates a pain score of 0/10. MEDICAL/SURGICAL HISTORY: Diabetes. Hypertension. Carcinoma, lung. . Status post left foot am putation. COMPARISON: [facility] [place], MR HEAD W/O CONTRAST, 08/04/2018. . TECHNIQUE: Anterior dynamic imaging as well as delayed static imaging. DOSE: 26.8 mCi Tc99m DTPA IV The diagnosis of brain is clinical and the results of this test should be taken in the content of clinical and electrocephalographic data. FINDINGS: Flow data is provided. There is no evidence of arterial inflow to the brain. The delayed imaging demonstrates a trace amount of activity over the sagittal sinus. This is likely c ollateral flow from the external circulation. CONCLUSION: 1. No blood flow identified to the brain parenchyma on the flow imaging suggesting brain . Electronically signed by: Dariusz Beckman MD 08/05/2018 11:27 AM EST
[2018-08-05 12:09] LABS: Sodium 146 meq/L (136-145)
--- NOTE | 2018-08-05 12:37 | P.PNCC ---
Subjective Subjective Remarks/Hospital Course: This is a 49-year-old male. Date of admission 08/02/2008. Past medical history includes diabetes mellitus, hypertension, peripheral neuropathy and narcotic use. Patient was recently DNR under fluoroscopy hospice. Patient left [facility] 07/10/2018 according to records. Patient was found today by friends altered mental status. Patient was transferred according to [facility] for evaluation treatment. Upon arrival, patient was hypothermic with a temperature of 79 F. Workup included sodium 1.8, potassium 5.5 and creatinine 3.17. Blood sugar was 900. Lipid cell count is 47,000 with 34 bands. Hemoglobin is 9.4 and platelets 143. INR is 1.5. Albumin is 1.63 CPK is 3200. Transaminases are elevated. Patient received 5 L normal saline in the ED of warm saline and started on insulin drip per DKA protocol. Anion gap was 27. Lactic and beta hydroxybutyrate currently pending. CT brain revealed no acute intracranial findings. Foot x-ray revealed gas gangrene left foot. Attempted to consult podiatry at the present time. Patient was started on vancomycin and piperacillin/tazobactam. I added clindamycin A central line was placed due to multiple lab draws/ of hypotension 08/03 -intubated overnight due to altered mental status. Worsening sepsis. Debrided left foot yesterday. Vascular surgery did evaluate. Currently on norepinephrine and vasopressin drips. Transfused 3 units PRBCs and fresh frozen plasma overnight. 08/04: This morning, noted no corneal reflex/no gag or cough. Pupils appeared fixed. Negative oculocephalic reflex. MRI brain revealed bilateral cerebellar edema with upward and downward herniation. Early hydrocephalus. Remains hypothermic. Son Mando Danielle notified. SUBJECTIVE: 08/05: Brain flow scan revealed no flow. Sagittal sinus likely external circulation. By examination appears brain . No corneals, gag, cough, oculocephalic or vestibular reflexes. Hypothermic in on multiple vasopressors unable to do apnea test. Objective Vital Signs / I&O: Vital Signs 08/04/18 13:00 08/04/18 13:30 08/04/18 14:00 Temperature 95.4 F L 95.5 F L 95.5 F L Pulse Rate 87 90 90 Respiratory Rate 20 20 20 Blood Pressure 123/82 124/79 118/68 Pulse Oximetry 100 100 99 08/04/18 15:00 08/04/18 15:05 08/04/18 15:14 Temperature 95.7 F L 95.9 F L Pulse Rate 96 H 89 91 H Respiratory Rate 20 20 Blood Pressure Pulse Oximetry 100 98 08/04/18 15:30 08/04/18 16:00 08/04/18 17:00 Temperature 95.7 F L 95.4 F L 95.9 F L Pulse Rate 96 H 100 H 106 H Respiratory Rate 20 20 20 Blood Pressure 99/67 L Pulse Oximetry 98 99 98 08/04/18 18:00 08/04/18 19:00 08/04/18 19:31 Temperature 96.4 F L 97.2 F L 97.5 F L Pulse Rate 108 H 109 H 111 H Respiratory Rate 20 20 20 Blood Pressure 106/75 Pulse Oximetry 98 99 98 08/04/18 20:00 08/04/18 20:23 08/04/18 20:25 Temperature 97.9 F 98.2 F 98.2 F Pulse Rate 113 H 59 L 48 L Respiratory Rate 20 20 20 Blood Pressure 97/75 L 84/51 L 72/52 L Pulse Oximetry 98 08/04/18 20:28 08/04/18 20:30 08/04/18 20:32 Temperature 98.2 F 98.2 F 98.2 F Pulse Rate 36 L 133 H 143 H Respiratory Rate 104 H 121 H 25 H Blood Pressure 125/80 96/33 L 209/108 H Pulse Oximetry 73 L 60 L 71 L 08/04/18 20:33 08/04/18 20:34 08/04/18 20:35 Temperature 98.2 F 98.2 F 98.2 F Pulse Rate 143 H 143 H 141 H Respiratory Rate 20 20 22 Blood Pressure 202/112 H 194/113 H 188/99 H Pulse Oximetry 87 L 99 99 08/04/18 20:36 08/04/18 20:37 08/04/18 20:45 Temperature 98.4 F 98.4 F 98.4 F Pulse Rate 141 H 138 H 124 H Respiratory Rate 20 20 20 Blood Pressure 181/100 H 171/90 H 110/71 Pulse Oximetry 96 98 99 08/04/18 21:00 08/04/18 21:15 08/04/18 21:30 Temperature 98.4 F 98.4 F 98.2 F Pulse Rate 112 H 115 H 117 H Respiratory Rate 20 20 20 Blood Pressure 114/70 137/78 118/74 Pulse Oximetry 99 99 99 08/04/18 21:45 08/04/18 22:00 08/04/18 22:15 Temperature 98.2 F 98.2 F 98.4 F Pulse Rate 116 H 116 H 114 H Respiratory Rate 20 20 20 Blood Pressure 115/74 117/79 121/84 Pulse Oximetry 99 99 99 08/04/18 22:30 08/04/18 22:45 08/04/18 23:00 Temperature 98.4 F 98.4 F 98.6 F Pulse Rate 115 H 117 H 117 H Respiratory Rate 20 17 20 Blood Pressure 129/80 135/84 133/80 Pulse Oximetry 99 99 99 08/04/18 23:15 08/04/18 23:30 08/04/18 23:45 Temperature 98.6 F 98.8 F 98.8 F Pulse Rate 116 H 112 H 110 H Respiratory Rate 20 20 20 Blood Pressure 131/75 125/72 97/70 L Pulse Oximetry 99 98 98 08/05/18 00:00 08/05/18 00:06 08/05/18 00:15 Temperature 99.0 F 99.0 F Pulse Rate 110 H 109 H Respiratory Rate 20 20 20 Blood Pressure 95/69 L 95/71 L Pulse Oximetry 98 98 98 08/05/18 00:30 08/05/18 00:46 08/05/18 01:00 Temperature 99.1 F 99.1 F 99.1 F Pulse Rate 104 H 101 H 100 H Respiratory Rate 20 20 20 Blood Pressure 109/64 96/64 L 96/70 L Pulse Oximetry 98 98 97 08/05/18 01:15 08/05/18 01:30 08/05/18 01:45 Temperature 99.1 F 99.0 F 99.0 F Pulse Rate 100 H 101 H 102 H Respiratory Rate 20 20 20 Blood Pressure 97/71 L 98/71 L 114/69 Pulse Oximetry 97 97 98 08/05/18 02:00 08/05/18 02:15 08/05/18 02:30 Temperature 99.0 F 98.8 F 98.8 F Pulse Rate 103 H 102 H 98 H Respiratory Rate 20 20 20 Blood Pressure 111/72 103/66 99/64 L Pulse Oximetry 97 97 97 08/05/18 02:45 08/05/18 03:00 08/05/18 03:15 Temperature 98.8 F 98.6 F 98.6 F Pulse Rate 97 H 96 H 95 H Respiratory Rate 20 20 20 Blood Pressure 111/67 103/65 102/69 Pulse Oximetry 97 98 98 08/05/18 03:30 08/05/18 03:45 08/05/18 04:00 Temperature 98.6 F 98.4 F 98.4 F Pulse Rate 94 H 93 H 93 H Respiratory Rate 20 20 20 Blood Pressure 104/72 108/69 122/74 Pulse Oximetry 98 99 99 08/05/18 04:15 08/05/18 04:17 08/05/18 04:30 Temperature 98.2 F 98.1 F Pulse Rate 92 H 91 H Respiratory Rate 20 20 20 Blood Pressure 121/74 123/75 Pulse Oximetry 99 98 98 08/05/18 04:38 08/05/18 04:45 08/05/18 05:00 Temperature 97.9 F 97.7 F Pulse Rate 90 91 H 91 H Respiratory Rate 20 20 Blood Pressure 123/75 113/70 111/74 Pulse Oximetry 99 99 08/05/18 05:15 08/05/18 05:30 08/05/18 05:45 Temperature 97.7 F 97.5 F L 97.3 F L Pulse Rate 91 H 91 H 91 H Respiratory Rate 20 20 20 Blood Pressure 126/79 123/76 115/70 Pulse Oximetry 99 98 98 08/05/18 06:00 08/05/18 06:15 08/05/18 07:00 Temperature 97.3 F L 97.2 F L 96.9 F L Pulse Rate 89 90 98 H Respiratory Rate 20 20 20 Blood Pressure 112/69 111/67 Pulse Oximetry 94 L 99 100 08/05/18 08:00 08/05/18 08:41 08/05/18 09:00 Temperature 97.5 F L 98.2 F Pulse Rate 101 H 98 H 97 H Respiratory Rate 20 20 20 Blood Pressure Pulse Oximetry 100 100 100 08/05/18 10:00 08/05/18 11:00 Temperature 99.1 F 98.9 F Pulse Rate 98 H 98 H Respiratory Rate 20 20 Blood Pressure Pulse Oximetry 100 99 Intake & Output 08/04/18 08/05/18 08/05/18 18:59 06:59 18:59 Intake Total 2561.5 / 2561.5 1024 / 1024 614 / 614 Output Total 697 / 697 640 / 640 290 / 290 Balance 1864.5 / 1864.5 384 / 384 324 / 324 Intake: IV 2561.5 / 2561.5 1024 / 1024 614 / 614 NovoLIN R (IV Infusion) 100 21 / 21 UNIT In NS Inj 99 ML @ 5 UNITS/ HR 5 mls/hr IV.CONT TITRATE PRN Rx#:[id number] Levophed Inj 16 MG In NS Inj 250 / 250 500 / 500 250 / 250 234 ML @ 2 MCG/MIN 1.87 mls/hr IV.CONT TITRATE PRN Rx#: [id number] Protonix Inj 80 MG In NS Inj 100 / 100 200 / 200 100 ML @ 10 mls/hr IV.CONT Q10H DAYANARA Rx#:[id number] Sodium Bicarbonate 8.4% Inj 50 1000 / 1000 MEQ KCl Inj 20 MEQ In D5W/1/2 NS Inj 940 ML @ 200 mls/hr IV. CONT .Q5H DAYANARA Rx#:[id number] Pitressin Inj 40 UNIT In D5W 100 / 100 Inj 98 ML @ 0.04 UNITS/MIN 6 mls/hr IV.CONT CONT DAYANARA Rx#: [id number] Sodium Chloride 3% Inj 500 ML @ 20 / 20 20 mls/hr IV.SIG NOW PRN Rx#: [id number] Calcium Chloride Inj 1 GM In NS 120 / 120 120 / 120 110 / 110 Inj 100 ML @ 110 mls/hr IV.SIG ONCE ONE Rx#:[id number] Cleocin Inj 600 MG In NS Inj 208 / 208 104 / 104 104 / 104 100 ML @ 208 mls/hr IV.SIG Q8H DAYANARA Rx#:[id number] Diflucan 200 mg Premix Bag 100 100 / 100 ML @ 100 mls/hr IV.SIG Q24H DAYANARA Rx#:[id number] Zosyn 2.25 GM Premix 50 ML @ 100 / 100 100 / 100 50 / 50 100 mls/hr IV.SIG Q6H DAYANARA Rx#: [id number] Glycophos Inj 30 MMOL In NS Inj 280 / 280 250 ML @ 46.667 mls/hr IV.SIG ONCE ONE Rx#:[id number] Vancomycin Inj 1,250 MG In NS 262.5 / 262.5 Inj 250 ML @ 262.5 mls/hr IV. SIG ONCE ONE Rx#:[id number] fentaNYL 10 mcg/mL Premix Drip 100 / 100 2,500 mcg In 250 ml @ 50 MCG/HR 5 mls/hr IV.SIG TITRATE PRN Rx #:[id number] Output: Urine Amount (Catheter) 647 / 647 615 / 615 290 / 290 Indwelling Temp Sensing 647 / 647 615 / 615 290 / 290 Catheter Wound Vac Amount 50 / 50 25 / 25 Left Foot 50 / 50 25 / 25 Other: Mode Setting Left Foot Continuous Continuous Continuous Date of Last Bowel Movement 08/03/18 08/03/18 08/03/18 Result Diagrams: 08/05/18 06:45 08/05/18 10:30 Other Results: Microbiology 08/03/18 09:04 Sputum - Endotracheal Gram Stain - Final 08/03/18 09:04 Sputum - Endotracheal Sputum Culture - Preliminary Escherichia coli Staphylococcus aureus 08/02/18 10:49 Blood - Peripheral Aerobic Blood Culture - Preliminary No growth in 3 days 08/02/18 10:49 Blood - Peripheral Anaerobic Blood Culture - Preliminary No growth in 3 days 08/02/18 10:49 Blood - Peripheral Aerobic Blood Culture - Preliminary No growth in 3 days 08/02/18 10:49 Blood - Peripheral Anaerobic Blood Culture - Preliminary No growth in 3 days 08/03/18 14:36 Genital - Penis Genital Culture - Preliminary 08/02/18 10:55 Catheterized Urine Urine Culture - Final Staphylococcus aureus 08/03/18 09:49 Stool Stool Occult Blood (FOREIGN) - Final Hemoccult positive Imaging: Extremity Arterial Study 08/02/18 00:00 CONCLUSION: Severe small vessel disease, left worse than right Chest X-Ray 08/02/18 10:30 CONCLUSION: Negative examination. 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 Negative CT Head non contrast. . Chest X-Ray 08/02/18 14:18 CONCLUSION: Satisfactory Central line positioning. Abdomen/Bladder Ultrasound 08/02/18 14:35 CONCLUSION: Bladder distention despite Tang catheter. Chest X-Ray 08/03/18 00:37 CONCLUSION: Endotracheal tube, nasogastric tube and left central line in good position. No focal infiltrate or effusion. Head MRA 08/04/18 00:00 CONCLUSION: 1. There is no evidence of intracranial blood flow identified by MRA. This examination would be concerning for possible brain . Further evaluation with brain studies would be warranted. 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 If the patient cannot undergo CTA examination of the carotids which is recommended, ultrasound is suggested for further correlation. Percent stenosis is calculated using the diameter of the stenotic region over the diameter of the normal distal internal carotid artery _ Head MRI 08/04/18 07:35 CONCLUSION: Markedly abnormal brain appearance as above. Findings were discussed with Dr. Grubbs Brain Flow Nuclear Medicine 08/05/18 00:00 CONCLUSION: 1. No blood flow identified to the brain parenchyma on the flow imaging suggesting brain . Chest X-Ray 08/05/18 06:00 CONCLUSION: Bilateral mostly basilar airspace disease and small effusion, increased from August 03. Support apparatus unchanged. Objective Remarks: GENERAL: 57-year-old male currently orotracheally intubated SKIN: Cool and dry. 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 Normocephalic. EYES: Pupils equal and round about 3 mm bilaterally and reactive. No scleral icterus. No injection or drainage. ENT: No nasal bleeding or discharge. Mucous membranes pink and moist. NECK: Trachea midline. No JVD. CARDIOVASCULAR: RRR. S1, S2 no S 4. RESPIRATORY: No accessory muscle use. Crackles in the bases bilaterally. No wheezing. GASTROINTESTINAL: Abdomen soft, non-tender, nondistended. Bowel sounds are appreciated. MUSCULOSKELETAL: Extremities without clubbing, cyanosis, or edema. Left below the knee dictation with wound VAC in place NEUROLOGICAL: Currently off all sedation. Currently no gag and cough. Currently not withdrawing to pain bilateral uppe or lower extremities. Negative vestibuloccipital and oculocephalic reflux) Assessment and Plan - Problem List (1) Leukocytosis Code(s): D72.829 - Elevated white blood cell count, unspecified Status: Acute (2) Hypermagnesemia Code(s): E83.41 - Hypermagnesemia Status: Acute (3) Hyponatremia Code(s): E87.1 - Hypo-osmolality and hyponatremia Status: Acute (4) Rhabdomyolysis Code(s): M62.82 - Rhabdomyolysis Status: Acute (5) Macrocytic anemia Code(s): D53.9 - Nutritional anemia, unspecified Status: Acute (6) Thrombocytopenia Code(s): D69.6 - Thrombocytopenia, unspecified Status: Acute (7) Hypoalbuminemia Code(s): E88.09 - Other disorders of plasma-protein metabolism, not elsewhere classified Status: Acute (8) Hyperkalemia Code(s): E87.5 - Hyperkalemia Status: Acute (9) Elevated transaminase level Code(s): R74.0 - Nonspecific elevation of levels of transaminase and lactic acid dehydrogenase [LDH] Status: Acute (10) Sepsis Code(s): A41.9 - Sepsis, unspecified organism Status: Acute (11) Hypothermia Code(s): T68.XXXA - Hypothermia, initial encounter Status: Acute (12) Diabetic foot infection Code(s): E11.628 - Type 2 diabetes mellitus with other skin complications; L08.9 - Local infection of the skin and subcutaneous tissue, unspecified Status: Acute (13) Acute renal failure Code(s): N17.9 - Acute kidney failure, unspecified Status: Acute - Assessment and Plan Plan: Neuro/Psych: Acute bilateral cerebellar edema consistent with CVA with early upward and downward herniation with early hydrocephalus Admission with acute toxic metabolic encephalopathy Peripheral neuropathy History of EtOH and cocaine abuse Clinical brain CT brain 08/02 revealed no acute intracranial findings MRI brain 07/27 revealed bilateral cerebral edema with upward and downward herniation. Early hydrocephaly. Increased transependymal flow. MRA brain/neck revealed no flow. Negative gag/cough/clinically. Negative vestibular occipital area/cold calorics. Holding gabapentin 100 mg twice daily/home medication for peripheral neuropathy. Written for propofol/fentanyl drips for sedation/analgesia while intubated Appreciate neurological consultation. EEG pending EEG essentially flat line Did discuss with neurosurgery/no indication for ventriculostomy at this time with neurological examination. Nuclear medicine brain scan today revealed no flow. Sagittal sinus likely external circulation. CV: Severe sepsis History of essential hypertension Lactic acidosis Status post 5 L crystalloid in ED. Holding lisinopril 5 mg daily/home medication while hypotensive Currently on norepinephrine drip at 70 mcg/min and vasopressin drip at 0.04 units/min to maintain mean arterial pressure greater than equal 65 EKG on admission revealed ST elevation/Quinones waves in leads II, III and aVF. Echocardiogram 06/23 revealed EF of 65%. No regional wall motion normality's. Initial troponin negative. Peaked at 0.33 currently 0.23 Your lactates until cleared. Currently 4.2 Resp: Acute respiratory failure secondary to metabolic derangement History of tobaccoism PRVC 22/550/0.8/1/100 Ventilator bundle Albuterol/ipratropium aerosols every 4 hours with albuterol aerosols every 2 hours as needed dyspnea Head of bed at 30 degrees Spontaneous breathing trials and clinically indicated Repeat ABG at 1800 hrs. today. Follow-up chest x-ray in a.m. 08/06 GI: Elevated transaminases Rhabdomyolysis Hypoalbuminemia Currently received 5 L crystalloid in the ED. Recheck CPK in a.m. Significant severe protein malnutrition We will check hepatitis panel. Recheck transaminases in a.m. 08/06 GI consulted for possible GI bleed in light of coagulopathic state. Serial currently on pantoprazole drip at 8 mg an hour. : Tang catheter has been placed for accurate I's and O's in a critical patient Endo: History of diabetes mellitus DKA Off insulin drip 07/27. Currently on sliding scale every 4 hours Currently on D5 one half normal saline with 1 ampoule sodium bicarbonate and 20 mg KCl at 200 cc an hour. Discontinued in light of current brain swelling. Check blood glucose every hour with aspart sliding scale insulin/high regimen Holding home medication of insulin glargine 40 units at night, metformin 5 mg twice daily, pioglitazone 15 mg daily and sitagliptin 100 mg daily TSH was 2.69 Renal: Acute kidney injury Based on creatinine 1.0. Currently greater than 2.6 Monitor urine output Accurate I's and O's 0/2 urine eosinophils, No hydronephrosis on renal ultrasound hour distended bladder despite Tang catheter Heme: Leukocytosis with bandemia Macrocytic anemia Thrombocytopenia Elevated INR Received 3 PRBCs and 2 FFP overnight Monitor CBC daily. Follow trends. Follow-up on PTT/fibrinogen in a.m. ID: MSSA UTI E. coli/staph aureus sputum positive Placed on vancomycin, piperacillin/tazobactam and clindamycin and fluconazole Infectious disease consultation appreciated Blood cultures x2, no growth. UA revealed MSSA UTI. There is E. coli and staph in his sputum. MSK: Left foot gangrene Postop day #2 left PT dictation chronic wound VAC in place X-ray foot revealed gas gangrene. Podiatry bedside debridement appreciated. Vascular surgery saw last night. Plan on getting the amputation when stable FEN: Replace electrolytes as clinically indicated Access -Left IJ CVL day 4 placed / -Right radial arterial line day #3 Prophylaxis -GI -pantoprazole gtt -DVT -SCD/pharmacological prophylaxis held in light of possible GI bleeding 35 minutes critical care time (1) Leukocytosis Qualifiers: Leukocytosis type: bandemia Qualified Code(s): D72.825 - Bandemia (4) Rhabdomyolysis Qualifiers: Rhabdomyolysis type: non-traumatic Qualified Code(s): M62.82 - Rhabdomyolysis (10) Sepsis Qualifiers: Sepsis type: sepsis due to unspecified organism Qualified Code(s): A41.9 - Sepsis, unspecified organism (11) Hypothermia Qualifiers: Encounter type: initial encounter Qualified Code(s): T68.XXXA - Hypothermia, initial encounter (13) Acute renal failure Qualifiers: Acute renal failure type: unspecified Qualified Code(s): N17.9 - Acute kidney failure, unspecified
[2018-08-05] MEDS ORDERED: RESP: Albuterol Concentrated 2.5 MG/0.5 ML Neb NEB ONE (17:51)
[2018-08-05] MEDS ORDERED: Vancomycin Inj 1,250 MG in Sodium Chlor 0.9% Inj 250 ML IV.SIG ONE (18:00)
--- NOTE | 2018-08-05 18:57 | P.PNNEU ---
Subjective Subjective Comments: nonresponsive. no new sx Active Medications: Active Medications Al Hydroxide/Mg Hydroxide (Milk Of Colleen Lidionisio) 30 ml PO Q12H PRN PRN Reason: Mild Constipation Albuterol (Albuterol Neb (Prn)) 2.5 mg NEB Q2HR NEB PRN PRN Reason: SHORTNESS OF BREATH/WHEEZING Albuterol (Duoneb Neb (Jackelin)) 1 ampul NEB Q4HR NEB JACKELIN Last Admin: 08/05/18 15:44 Dose: 1 ampul Chlorhexidine Gluconate (Chlorhexidine 2% Cloth) 3 pack TOPICAL DAILY@0400 JACKELIN Stop: 08/08/18 03:59 Last Admin: 08/05/18 03:26 Dose: 3 pack Chlorhexidine Gluconate (Chlorhexidine 2% Cloth) 3 pack TOPICAL DAILY@0400 PRN PRN Reason: Extra cloth needed Stop: 08/08/18 03:59 Chlorhexidine Gluconate (Peridex 0.12% Oral Kit) 15 ml OROPHARYNG BID@0800, 2000 [facility] Last Admin: 08/05/18 08:02 Dose: 15 ml Dextrose (D50w Vial) 50 ml IV.PUSH UNSCH PRN PRN Reason: PER HYPOGLYCEMIA PROTOCOL Glucagon (Glucagon Inj) 1 mg OTHER PRN PRN PRN Reason: for Hypoglycemia Protocol Potassium Chloride (Kcl 20 Meq Premix Inj) 20 meq in 100 mls @ 100 mls/hr IV.SIG Q1H PRN PRN Reason: for K+ 4.5 to 5 Potassium Chloride (Kcl 20 Meq Premix Inj) 20 meq in 100 mls @ 100 mls/hr IV.SIG Q1H PRN PRN Reason: for K+ 3.5 to 4.4 Potassium Chloride (Kcl 20 Meq Premix Inj) 20 meq in 100 mls @ 50 mls/hr IV.SIG Q2H PRN PRN Reason: for K+ 3.5 to 4.4 Potassium Chloride (Kcl 20 Meq Premix Inj) 20 meq in 100 mls @ 50 mls/hr IV.SIG Q2H PRN PRN Reason: for Initial K+ ONLY < 3.5 Potassium Chloride (Kcl 40 Meq Premix Inj) 40 meq in 100 mls @ 100 mls/hr IV.SIG Q1H PRN PRN Reason: for Initial K+ ONLY < 3.5 Potassium Chloride (Kcl 20 Meq Premix Inj) 20 meq in 100 mls @ 50 mls/hr IV.SIG Q2H PRN PRN Reason: for Subsequent K+ < 3.5 Potassium Chloride (Kcl 40 Meq Premix Inj) 40 meq in 100 mls @ 50 mls/hr IV.SIG Q2H PRN PRN Reason: for Subsequent K+ < 3.5 Sodium Phosphate 15 mmol/ (Sodium Chloride) 105 mls @ 25 mls/hr IV.SIG UNSCH PRN PRN Reason: for Phosphate Level < 1.0 Potassium Chloride (Kcl 20 Meq Premix Inj) 20 meq in 100 mls @ 50 mls/hr IV.SIG Q2H PRN PRN Reason: for K+ 4.5 to 5 Fentanyl (Fentanyl 10 Mcg/Ml Premix Drip) 2,500 mcg in 250 mls @ 5 mls/hr IV.SIG TITRATE PRN; Protocol PRN Reason: Per Protocol Last Titration: 08/04/18 11:36 Dose: Infused Pantoprazole Sodium 80 mg/ (Sodium Chloride) 100 mls @ 10 mls/hr IV.CONT Q10H JACKELIN Last Admin: 08/05/18 15:21 Dose: 10 mls/hr Fluconazole (Diflucan 200 Mg Premix Bag) 100 mls @ 100 mls/hr IV.SIG Q24H JACKELIN Last Infusion: 08/05/18 07:18 Dose: Infused Vasopressin 40 unit/ Dextrose 100 mls @ 6 mls/hr IV.CONT CONT JACKELIN; Protocol Last Admin: 08/05/18 05:29 Dose: 0.04 units/min, 6 mls/hr Norepinephrine Bitartrate 16 (mg/ Sodium Chloride) 250 mls @ 1.87 mls/hr IV.CONT TITRATE PRN; Protocol PRN Reason: See Protocol Last Titration: 08/05/18 11:47 Dose: 70 mcg/min, 65.62 mls/hr Piperacillin/Tazobactam/Dextrose (Zosyn 2.25 Gm Premix) 50 mls @ 100 mls/hr IV.SIG Q6H JACKELIN Last Infusion: 08/05/18 17:03 Dose: Infused Clindamycin Phosphate 600 mg/ (Sodium Chloride) 104 mls @ 208 mls/hr IV.SIG Q8H JACKELIN Last Infusion: 08/05/18 15:55 Dose: Infused Sodium Chloride (Sodium Chloride 3% Inj) 500 mls @ 20 mls/hr IV.SIG CONT [facility] Last Admin: 08/05/18 14:56 Dose: 20 mls/hr Vancomycin HCl 1,250 mg/ (Sodium Chloride) 262.5 mls @ 250 mls/hr IV.SIG ONCE ONE Stop: 08/05/18 19:02 Last Infusion: 08/05/18 18:11 Dose: Infused Insulin Aspart (Novolog Insulin Correctional Sugar Inj) 0 unit SQ Q4HR [facility]; Protocol Last Admin: 08/05/18 15:40 Dose: 5 unit Lactulose (Lactulose Liq) 30 ml PO DAILY PRN PRN Reason: SEVERE CONSITIPATION Midazolam HCl (Versed Inj) 2 mg IV.PUSH Q15M PRN PRN Reason: sedation Last Admin: 08/03/18 03:18 Dose: 2 mg Miscellaneous Medication () 1 each OROPHARYNG 0000,0400,1200,1600 [facility] Last Admin: 08/05/18 15:40 Dose: 1 each Morphine Sulfate (Morphine Inj) 2 mg IV.PUSH Q2H PRN PRN Reason: PAIN SCALE 6 TO 10 Last Admin: 08/02/18 20:55 Dose: 2 mg Ondansetron HCl (Zofran Inj) 4 mg IV.PUSH Q6H PRN PRN Reason: NAUSEA OR VOMITING Pharmacy Profile Note (Vancomycin Consult Pharmacy) 1 each OTHER UNSCH PRN PRN Reason: Pharmacy to dose Senna/Docusate Sodium (Kenia-Colace) 1 tab PO BID [facility] Last Admin: 08/05/18 08:02 Dose: 1 tab Sodium Bicarbonate (Sodium Bicarbonate 8.4% Inj) 100 meq IV.PUSH UNSCH PRN PRN Reason: for pH less than 6.9 Sodium Bicarbonate (Sodium Bicarbonate 8.4% Inj) 50 meq IV.PUSH UNSCH PRN PRN Reason: for pH 6.9 to 7.0 Sodium Chloride (Ns Flush) 2 ml IV.FLUSH UNSCH PRN PRN Reason: FLUSH AFTER USING IV ACCESS Sodium Chloride (Ns Flush) 2 ml IV.FLUSH BID [facility] Last Admin: 08/05/18 08:02 Dose: Not Given Sodium Chloride (Ns Flush) 0 ml IV.FLUSH DAILY [facility] Last Admin: 08/05/18 08:02 Dose: Not Given Terbutaline Sulfate (Brethine Inj) 1 mg SQ UNSCH PRN PRN Reason: For Extravasation Allergies/Adverse Reactions: Allergies Allergy/AdvReac Type Severity Reaction Status Date / Time No Known Allergies Allergy Uncoded 10/29/16 14:56 Physical Exam Vital signs: Vital Signs 08/04/18 19:00 08/04/18 19:31 08/04/18 20:00 Temperature 97.2 F L 97.5 F L 97.9 F Pulse Rate 109 H 111 H 113 H Respiratory Rate 20 20 20 Blood Pressure 106/75 97/75 L Pulse Oximetry 99 98 98 08/04/18 20:23 08/04/18 20:25 08/04/18 20:28 Temperature 98.2 F 98.2 F 98.2 F Pulse Rate 59 L 48 L 36 L Respiratory Rate 20 20 104 H Blood Pressure 84/51 L 72/52 L 125/80 Pulse Oximetry 73 L 08/04/18 20:30 08/04/18 20:32 08/04/18 20:33 Temperature 98.2 F 98.2 F 98.2 F Pulse Rate 133 H 143 H 143 H Respiratory Rate 121 H 25 H 20 Blood Pressure 96/33 L 209/108 H 202/112 H Pulse Oximetry 60 L 71 L 87 L 08/04/18 20:34 08/04/18 20:35 08/04/18 20:36 Temperature 98.2 F 98.2 F 98.4 F Pulse Rate 143 H 141 H 141 H Respiratory Rate 20 22 20 Blood Pressure 194/113 H 188/99 H 181/100 H Pulse Oximetry 99 99 96 08/04/18 20:37 08/04/18 20:45 08/04/18 21:00 Temperature 98.4 F 98.4 F 98.4 F Pulse Rate 138 H 124 H 112 H Respiratory Rate 20 20 20 Blood Pressure 171/90 H 110/71 114/70 Pulse Oximetry 98 99 99 08/04/18 21:15 08/04/18 21:30 08/04/18 21:45 Temperature 98.4 F 98.2 F 98.2 F Pulse Rate 115 H 117 H 116 H Respiratory Rate 20 20 20 Blood Pressure 137/78 118/74 115/74 Pulse Oximetry 99 99 99 08/04/18 22:00 08/04/18 22:15 08/04/18 22:30 Temperature 98.2 F 98.4 F 98.4 F Pulse Rate 116 H 114 H 115 H Respiratory Rate 20 20 20 Blood Pressure 117/79 121/84 129/80 Pulse Oximetry 99 99 99 08/04/18 22:45 08/04/18 23:00 08/04/18 23:15 Temperature 98.4 F 98.6 F 98.6 F Pulse Rate 117 H 117 H 116 H Respiratory Rate 17 20 20 Blood Pressure 135/84 133/80 131/75 Pulse Oximetry 99 99 99 08/04/18 23:30 08/04/18 23:45 08/05/18 00:00 Temperature 98.8 F 98.8 F 99.0 F Pulse Rate 112 H 110 H 110 H Respiratory Rate 20 20 20 Blood Pressure 125/72 97/70 L 95/69 L Pulse Oximetry 98 98 98 08/05/18 00:06 08/05/18 00:15 08/05/18 00:30 Temperature 99.0 F 99.1 F Pulse Rate 109 H 104 H Respiratory Rate 20 20 20 Blood Pressure 95/71 L 109/64 Pulse Oximetry 98 98 98 08/05/18 00:46 08/05/18 01:00 08/05/18 01:15 Temperature 99.1 F 99.1 F 99.1 F Pulse Rate 101 H 100 H 100 H Respiratory Rate 20 20 20 Blood Pressure 96/64 L 96/70 L 97/71 L Pulse Oximetry 98 97 97 08/05/18 01:30 08/05/18 01:45 08/05/18 02:00 Temperature 99.0 F 99.0 F 99.0 F Pulse Rate 101 H 102 H 103 H Respiratory Rate 20 20 20 Blood Pressure 98/71 L 114/69 111/72 Pulse Oximetry 97 98 97 08/05/18 02:15 08/05/18 02:30 08/05/18 02:45 Temperature 98.8 F 98.8 F 98.8 F Pulse Rate 102 H 98 H 97 H Respiratory Rate 20 20 20 Blood Pressure 103/66 99/64 L 111/67 Pulse Oximetry 97 97 97 08/05/18 03:00 08/05/18 03:15 08/05/18 03:30 Temperature 98.6 F 98.6 F 98.6 F Pulse Rate 96 H 95 H 94 H Respiratory Rate 20 20 20 Blood Pressure 103/65 102/69 104/72 Pulse Oximetry 98 98 98 08/05/18 03:45 08/05/18 04:00 08/05/18 04:15 Temperature 98.4 F 98.4 F 98.2 F Pulse Rate 93 H 93 H 92 H Respiratory Rate 20 20 20 Blood Pressure 108/69 122/74 121/74 Pulse Oximetry 99 99 99 08/05/18 04:17 08/05/18 04:30 08/05/18 04:38 Temperature 98.1 F Pulse Rate 91 H 90 Respiratory Rate 20 20 Blood Pressure 123/75 123/75 Pulse Oximetry 98 98 08/05/18 04:45 08/05/18 05:00 08/05/18 05:15 Temperature 97.9 F 97.7 F 97.7 F Pulse Rate 91 H 91 H 91 H Respiratory Rate 20 20 20 Blood Pressure 113/70 111/74 126/79 Pulse Oximetry 99 99 99 08/05/18 05:30 08/05/18 05:45 08/05/18 06:00 Temperature 97.5 F L 97.3 F L 97.3 F L Pulse Rate 91 H 91 H 89 Respiratory Rate 20 20 20 Blood Pressure 123/76 115/70 112/69 Pulse Oximetry 98 98 94 L 08/05/18 06:15 08/05/18 07:00 08/05/18 08:00 Temperature 97.2 F L 96.9 F L 97.5 F L Pulse Rate 90 98 H 101 H Respiratory Rate 20 20 20 Blood Pressure 111/67 Pulse Oximetry 99 100 100 08/05/18 08:41 08/05/18 09:00 08/05/18 10:00 Temperature 98.2 F 99.1 F Pulse Rate 98 H 97 H 98 H Respiratory Rate 20 20 20 Blood Pressure Pulse Oximetry 100 100 100 08/05/18 11:00 08/05/18 12:00 08/05/18 13:00 Temperature 98.9 F 98.7 F 98.8 F Pulse Rate 98 H 98 H 99 H Respiratory Rate 20 20 20 Blood Pressure 107/54 L Pulse Oximetry 99 98 97 08/05/18 14:00 08/05/18 15:00 08/05/18 15:44 Temperature 98.4 F 98.2 F Pulse Rate 114 H 112 H 109 H Respiratory Rate 20 20 20 Blood Pressure Pulse Oximetry 96 96 08/05/18 15:45 08/05/18 16:00 08/05/18 17:00 Temperature 98.0 F 97.7 F Pulse Rate 109 H 105 H Respiratory Rate 20 20 20 Blood Pressure 122/61 Pulse Oximetry 96 96 96 08/05/18 18:00 08/05/18 18:27 Temperature 97.1 F L Pulse Rate 102 H 111 H Respiratory Rate 20 21 Blood Pressure Pulse Oximetry 95 Intake & Output 08/04/18 08/05/18 08/05/18 18:59 06:59 18:59 Intake Total 2561.5 / 2561.5 1024 / 1024 1740.5 / 1740.5 Output Total 697 / 697 640 / 640 925 / 925 Balance 1864.5 / 1864.5 384 / 384 815.5 / 815.5 Intake: IV 2561.5 / 2561.5 1024 / 1024 1740.5 / 1740.5 NovoLIN R (IV Infusion) 100 21 / 21 UNIT In NS Inj 99 ML @ 5 UNITS/ HR 5 mls/hr IV.CONT TITRATE PRN Rx#:[id number] Levophed Inj 16 MG In NS Inj 250 / 250 500 / 500 250 / 250 234 ML @ 2 MCG/MIN 1.87 mls/hr IV.CONT TITRATE PRN Rx#: [id number] Protonix Inj 80 MG In NS Inj 100 / 100 200 / 200 100 / 100 100 ML @ 10 mls/hr IV.CONT Q10H JACKELIN Rx#:[id number] Sodium Bicarbonate 8.4% Inj 50 1000 / 1000 MEQ KCl Inj 20 MEQ In D5W/1/2 NS Inj 940 ML @ 200 mls/hr IV. CONT .Q5H JACKELIN Rx#:[id number] Pitressin Inj 40 UNIT In D5W 100 / 100 Inj 98 ML @ 0.04 UNITS/MIN 6 mls/hr IV.CONT CONT JACKELIN Rx#: [id number] Sodium Chloride 3% Inj 500 ML @ 20 / 20 500 / 500 20 mls/hr IV.SIG CONT JACKELIN Rx#: [id number] Calcium Chloride Inj 1 GM In NS 120 / 120 120 / 120 220 / 220 Inj 100 ML @ 110 mls/hr IV.SIG ONCE ONE Rx#:[id number] Cleocin Inj 600 MG In NS Inj 208 / 208 104 / 104 208 / 208 100 ML @ 208 mls/hr IV.SIG Q8H JACKELIN Rx#:[id number] Diflucan 200 mg Premix Bag 100 100 / 100 ML @ 100 mls/hr IV.SIG Q24H [facility] Rx#:[id number] Zosyn 2.25 GM Premix 50 ML @ 100 / 100 100 / 100 100 / 100 100 mls/hr IV.SIG Q6H [facility] Rx#: [id number] Glycophos Inj 30 MMOL In NS Inj 280 / 280 250 ML @ 46.667 mls/hr IV.SIG ONCE ONE Rx#:[id number] Vancomycin Inj 1,250 MG In NS 262.5 / 262.5 262.5 / 262.5 Inj 250 ML @ 250 mls/hr IV.SIG ONCE ONE Rx#:[id number] fentaNYL 10 mcg/mL Premix Drip 100 / 100 2,500 mcg In 250 ml @ 50 MCG/HR 5 mls/hr IV.SIG TITRATE PRN Rx #:[id number] Output: Urine Amount (Catheter) 647 / 647 615 / 615 875 / 875 Indwelling Temp Sensing 647 / 647 615 / 615 875 / 875 Catheter Wound Vac Amount 50 / 50 25 / 25 50 / 50 Left Foot 50 / 50 25 / 25 50 / 50 Other: Mode Setting Left Foot Continuous Continuous Continuous Date of Last Bowel Movement 08/03/18 08/03/18 08/03/18 - Routine Neurological Exam nonresponsive pupils 3 mm nonreactive NO eom to occulocephalics, absent corneal reflexes No spontaneous limb movement , no withdrawal - Urinary Catheter Management Indwelling Temp Sensing Catheter Cath placed during this visit: yes Reason for continuing: Hourly intake/output Insertion date: 08/02/18 Insertion time: 13:03 Objective Radiology Results: cerebral blood flow study--no significant cerebral blood flow EEG--essentially silent Laboratory Results - last 24 hr 08/03/18 08/03/18 08/04/18 01:29 01:48 18:17 WBC RBC Hgb Hct MCV MCH MCHC RDW Plt Count MPV Prelim Diff (Auto) Neut % (Auto) Lymph % (Auto) [place] % (Auto) Eos % (Auto) Baso % (Auto) Neut # (Auto) Lymph # (Auto) Norton # (Auto) Eos # (Auto) Baso # (Auto) WBC Differential Manual diff final Seg Neuts % (Manual) 69 Band Neuts % (Manual) 26 H Lymphocytes % (Manual) 1 L Monocytes % (Manual) Metamyelocytes % (Man) 3 H Myelocytes % (Man) 1 H Abs Neuts (Manual) 47.8 H Differential Comment Toxic Granulation Platelet Estimate Low L Platelet Morphology Normal Pappenheimer Bodies Ovalocytes 1+ H Indigo Cells 1+ H Acanthocytes (Spur) Occ H PT INR APTT Fibrinogen Sodium Potassium Chloride Carbon Dioxide Anion Gap BUN Creatinine Estimated GFR POC Glucose Random Glucose Osmolality Lactic Acid Calcium Calcium Adj for Albumin Phosphorus Magnesium Total Bilirubin AST ALT Alkaline Phosphatase Ammonia Total Creatine Kinase CK-MB (CK-2) CK-MB (CK-2) % Total Protein Albumin Random Vancomycin MTS Gel Crossmatch See Detail See Detail 08/04/18 08/04/18 08/04/18 18:17 18:17 21:14 WBC RBC Hgb Hct MCV MCH MCHC RDW Plt Count MPV Prelim Diff (Auto) Neut % (Auto) Lymph % (Auto) Norton % (Auto) Eos % (Auto) Baso % (Auto) Neut # (Auto) Lymph # (Auto) Norton # (Auto) Eos # (Auto) Baso # (Auto) WBC Differential Seg Neuts % (Manual) Band Neuts % (Manual) Lymphocytes % (Manual) Monocytes % (Manual) Metamyelocytes % (Man) Myelocytes % (Man) Abs Neuts (Manual) Differential Comment Toxic Granulation Platelet Estimate Platelet Morphology Pappenheimer Bodies Ovalocytes [place] Cells Acanthocytes (Spur) PT INR APTT Fibrinogen Sodium 141 Potassium 5.2 H Chloride 117 H Carbon Dioxide 15.0 L Anion Gap 9 BUN 74 H Creatinine 2.92 H Estimated GFR 27 L POC Glucose 139 H Random Glucose 126 H Osmolality Lactic Acid Calcium 6.3 L* Calcium Adj for Albumin 8.5 Phosphorus 4.1 Magnesium 1.8 Total Bilirubin AST ALT Alkaline Phosphatase Ammonia 37 H Total Creatine Kinase 3854 H CK-MB (CK-2) 36.2 H CK-MB (CK-2) % 0.9 Total Protein Albumin 1.3 L Random Vancomycin MTS Gel Crossmatch 08/04/18 08/04/18 08/04/18 23:05 23:05 23:05 WBC 54.8 H RBC 3.71 L Hgb 11.1 L Hct 32.1 L MCV 86.7 MCH 29.8 MCHC 34.4 RDW 16.7 Plt Count 79 L MPV 9.2 Prelim Diff (Auto) Slide review pending Neut % (Auto) 97.8 H Lymph % (Auto) 1.3 L Norton % (Auto) 0.8 Eos % (Auto) 0.0 Baso % (Auto) 0.1 Neut # (Auto) 53.6 H Lymph # (Auto) 0.7 L Norton # (Auto) 0.4 Eos # (Auto) 0.0 Baso # (Auto) 0.0 WBC Differential Manual diff final Seg Neuts % (Manual) 38 Band Neuts % (Manual) 61 H Lymphocytes % (Manual) 1 L Monocytes % (Manual) Metamyelocytes % (Man) Myelocytes % (Man) Abs Neuts (Manual) 54.3 H Differential Comment . Toxic Granulation 1+ H Platelet Estimate Low L Platelet Morphology Enlarged H Pappenheimer Bodies Present H Ovalocytes [place] Cells 1+ H Acanthocytes (Spur) Occ H PT 13.3 H INR 1.3 APTT 44.0 H Fibrinogen 356 Sodium Potassium Chloride Carbon Dioxide Anion Gap BUN Creatinine Estimated GFR POC Glucose Random Glucose Osmolality Lactic Acid 3.7 H Calcium Calcium Adj for Albumin Phosphorus Magnesium Total Bilirubin AST ALT Alkaline Phosphatase Ammonia Total Creatine Kinase CK-MB (CK-2) CK-MB (CK-2) % Total Protein Albumin Random Vancomycin MTS Gel Crossmatch 08/04/18 08/04/18 08/04/18 23:05 23:05 23:05 WBC RBC Hgb Hct MCV MCH MCHC RDW Plt Count MPV Prelim Diff (Auto) Neut % (Auto) Lymph % (Auto) Norton % (Auto) Eos % (Auto) Baso % (Auto) Neut # (Auto) Lymph # (Auto) Norton # (Auto) Eos # (Auto) Baso # (Auto) WBC Differential Seg Neuts % (Manual) Band Neuts % (Manual) Lymphocytes % (Manual) Monocytes % (Manual) Metamyelocytes % (Man) Myelocytes % (Man) Abs Neuts (Manual) Differential Comment Toxic Granulation Platelet Estimate Platelet Morphology Pappenheimer Bodies Ovalocytes Indigo Cells Acanthocytes (Spur) PT INR APTT Fibrinogen Cancelled Sodium 143 Potassium 5.7 H Chloride 116 H Carbon Dioxide 12.5 L Anion Gap 15 BUN 73 H Creatinine 3.16 H Estimated GFR 25 L POC Glucose Random Glucose 121 H Osmolality 318 H Lactic Acid Calcium 6.4 L* Calcium Adj for Albumin 7.4 L* Phosphorus 4.4 Magnesium 1.9 Total Bilirubin 0.7 AST 2140 H ALT 1065 H Alkaline Phosphatase 249 H Ammonia 23 Total Creatine Kinase 3304 H CK-MB (CK-2) 32.8 H CK-MB (CK-2) % 1.0 Total Protein 5.0 L D Albumin 1.3 L Random Vancomycin MTS Gel Crossmatch 08/05/18 08/05/18 08/05/18 03:35 03:39 05:30 WBC RBC Hgb Hct MCV MCH MCHC RDW Plt Count MPV Prelim Diff (Auto) Neut % (Auto) Lymph % (Auto) [place] % (Auto) Eos % (Auto) Baso % (Auto) Neut # (Auto) Lymph # (Auto) [place] # (Auto) Eos # (Auto) Baso # (Auto) WBC Differential Seg Neuts % (Manual) Band Neuts % (Manual) Lymphocytes % (Manual) Monocytes % (Manual) Metamyelocytes % (Man) Myelocytes % (Man) Abs Neuts (Manual) Differential Comment Toxic Granulation Platelet Estimate Platelet Morphology Pappenheimer Bodies Ovalocytes [place] Cells Acanthocytes (Spur) PT INR APTT Fibrinogen Sodium 144 Potassium Chloride Carbon Dioxide Anion Gap BUN Creatinine Estimated GFR POC Glucose 153 H Random Glucose Osmolality 318 H Lactic Acid 3.4 H Calcium Calcium Adj for Albumin Phosphorus Magnesium Total Bilirubin AST ALT Alkaline Phosphatase Ammonia Total Creatine Kinase CK-MB (CK-2) CK-MB (CK-2) % Total Protein Albumin Random Vancomycin 21.9 MTS Gel Crossmatch 08/05/18 08/05/18 08/05/18 06:45 06:45 09:15 WBC 44.8 H RBC 3.31 L Hgb 10.1 L Hct 29.3 L MCV 88.7 MCH 30.4 MCHC 34.3 RDW 16.8 Plt Count 64 L MPV 9.4 Prelim Diff (Auto) Slide review pending Neut % (Auto) 96.5 H Lymph % (Auto) 1.9 L Norton % (Auto) 1.3 Eos % (Auto) 0.1 Baso % (Auto) 0.2 Neut # (Auto) 43.3 H Lymph # (Auto) 0.9 L [place] # (Auto) 0.6 Eos # (Auto) 0.0 Baso # (Auto) 0.1 WBC Differential Manual diff final Seg Neuts % (Manual) 76 H Band Neuts % (Manual) 19 H Lymphocytes % (Manual) 3 L Monocytes % (Manual) 2 Metamyelocytes % (Man) Myelocytes % (Man) Abs Neuts (Manual) 42.6 H Differential Comment . Toxic Granulation 1+ H Platelet Estimate Low L Platelet Morphology Enlarged H Pappenheimer Bodies Ovalocytes 1+ H Indigo Cells 1+ H Acanthocytes (Spur) PT INR APTT Fibrinogen Sodium 144 Potassium 6.1 H Chloride 119 H Carbon Dioxide 11.8 L Anion Gap 13 BUN 76 H Creatinine 3.41 H Estimated GFR 23 L POC Glucose Random Glucose 148 H Osmolality Lactic Acid 4.9 H* Calcium 7.0 L* Calcium Adj for Albumin 9.3 D Phosphorus 4.4 Magnesium 1.9 Total Bilirubin AST ALT Alkaline Phosphatase Ammonia Total Creatine Kinase CK-MB (CK-2) CK-MB (CK-2) % Total Protein Albumin 1.1 L Random Vancomycin MTS Gel Crossmatch 08/05/18 08/05/18 08/05/18 10:30 10:30 11:44 WBC RBC Hgb Hct MCV MCH MCHC RDW Plt Count MPV Prelim Diff (Auto) Neut % (Auto) Lymph % (Auto) [place] % (Auto) Eos % (Auto) Baso % (Auto) Neut # (Auto) Lymph # (Auto) [place] # (Auto) Eos # (Auto) Baso # (Auto) WBC Differential Seg Neuts % (Manual) Band Neuts % (Manual) Lymphocytes % (Manual) Monocytes % (Manual) Metamyelocytes % (Man) Myelocytes % (Man) Abs Neuts (Manual) Differential Comment Toxic Granulation Platelet Estimate Platelet Morphology Pappenheimer Bodies Ovalocytes [place] Cells Acanthocytes (Spur) PT INR APTT Fibrinogen Sodium 146 H Potassium 6.0 H Chloride Carbon Dioxide Anion Gap BUN Creatinine Estimated GFR POC Glucose 159 H Random Glucose Osmolality 323 H Lactic Acid Calcium Calcium Adj for Albumin Phosphorus Magnesium Total Bilirubin AST ALT Alkaline Phosphatase Ammonia Total Creatine Kinase CK-MB (CK-2) CK-MB (CK-2) % Total Protein Albumin Random Vancomycin MTS Gel Crossmatch 08/05/18 08/05/18 08/05/18 15:05 15:38 17:11 WBC RBC Hgb Hct MCV MCH MCHC RDW Plt Count MPV Prelim Diff (Auto) Neut % (Auto) Lymph % (Auto) [place] % (Auto) Eos % (Auto) Baso % (Auto) Neut # (Auto) Lymph # (Auto) [place] # (Auto) Eos # (Auto) Baso # (Auto) WBC Differential Seg Neuts % (Manual) Band Neuts % (Manual) Lymphocytes % (Manual) Monocytes % (Manual) Metamyelocytes % (Man) Myelocytes % (Man) Abs Neuts (Manual) Differential Comment Toxic Granulation Platelet Estimate Platelet Morphology Pappenheimer Bodies Ovalocytes [place] Cells Acanthocytes (Spur) PT INR APTT Fibrinogen Sodium 149 H Potassium Chloride Carbon Dioxide Anion Gap BUN Creatinine Estimated GFR POC Glucose 184 H Random Glucose Osmolality Lactic Acid 5.2 H* Calcium Calcium Adj for Albumin Phosphorus Magnesium Total Bilirubin AST ALT Alkaline Phosphatase Ammonia Total Creatine Kinase CK-MB (CK-2) CK-MB (CK-2) % Total Protein Albumin Random Vancomycin MTS Gel Crossmatch 08/05/18 17:11 WBC RBC Hgb Hct MCV MCH MCHC RDW Plt Count MPV Prelim Diff (Auto) Neut % (Auto) Lymph % (Auto) [place] % (Auto) Eos % (Auto) Baso % (Auto) Neut # (Auto) Lymph # (Auto) [place] # (Auto) Eos # (Auto) Baso # (Auto) WBC Differential Seg Neuts % (Manual) Band Neuts % (Manual) Lymphocytes % (Manual) Monocytes % (Manual) Metamyelocytes % (Man) Myelocytes % (Man) Abs Neuts (Manual) Differential Comment Toxic Granulation Platelet Estimate Platelet Morphology Pappenheimer Bodies Ovalocytes [place] Cells Acanthocytes (Spur) PT INR APTT Fibrinogen Sodium Potassium 5.7 H Chloride Carbon Dioxide Anion Gap BUN Creatinine Estimated GFR POC Glucose Random Glucose Osmolality Lactic Acid Calcium Calcium Adj for Albumin Phosphorus Magnesium Total Bilirubin AST ALT Alkaline Phosphatase Ammonia Total Creatine Kinase CK-MB (CK-2) CK-MB (CK-2) % Total Protein Albumin Random Vancomycin MTS Gel Crossmatch Microbiology 08/03/18 09:04 Gram Stain - Final Sputum - Endotracheal Sputum Culture - Preliminary Escherichia coli Staphylococcus aureus 08/02/18 10:49 Aerobic Blood Culture - Preliminary Blood - Peripheral No growth in 3 days Anaerobic Blood Culture - Preliminary No growth in 3 days 08/02/18 10:49 Aerobic Blood Culture - Preliminary Blood - Peripheral No growth in 3 days Anaerobic Blood Culture - Preliminary No growth in 3 days Review/Management - Review/Management Plan: His neurologic exam, cerebral blood flow study and EEG are consistent with brain
[2018-08-05 23:50] LABS: Baso % (Auto) 0.1 % (0.0-2.0); Hematocrit 28.6 % (39.0-51.0); Hemoglobin 9.5 gm/dL (13.0-17.0); Lymph # (Auto) 1.2 th/mm3 (1.0-4.8); Lymph % (Auto) 2.8 % (9.0-44.0); Mean Corpuscular HGB Conc 33.2 % (32.0-36.0); Mean Corpuscular Hemoglobin 29.4 pg (27.0-34.0); Mean Corpuscular Volume 88.5 fL (80.0-100.0); Mean Platelet Volume 10.1 fL (7.0-11.0); Mono # (Auto) 0.5 th/mm3 (0.0-0.9); Mono % (Auto) 1.1 % (0.0-8.0); Neut # (Auto) 42.3 th/mm3 (1.8-7.7); Platelet Count 65 th/mm3 (150-450); Red Blood Count 3.23 mil/mm3 (4.50-5.90); Red Cell Distribution Width 17.1 % (11.6-17.2); White Blood Count 44.1 th/mm3 (4.0-11.0)
[2018-08-06] MEDS: Insulin NovoLOG Aspart Correctional Sugar Inj SQ SCH ×3 (00:01→12:33)
[2018-08-06] MEDS: Oral Hygiene Kit OROPHARYNG SCH ×2 (00:02→03:34)
[2018-08-06 00:06] LABS: Potassium 5.8 meq/L (3.5-5.1)
[2018-08-06] MEDS ORDERED: Sodium Polystyrene Sulfonate/Sorbitol Liq 15 GM/60 ML UDC NG/OG ONE (00:31)
[2018-08-06] MEDS: Pantoprazole Inj 80 MG in Sodium Chlor 0.9% Inj 100 ML IV.CONT SCH (00:48)
[2018-08-06] MEDS: Norepinephrine Inj 16 MG in Sodium Chlor 0.9% Inj 234 ML IV.CONT PRN ×3 (02:26→10:01)
[2018-08-06 02:34] LABS: Lymphocytes 3 % (9-44); Monocytes 1 % (0-8)
[2018-08-06 02:37] LABS: Platelet Morphology Normal (Normal); Toxic Vacuolation Present
[2018-08-06 02:38] LABS: Burr Cells 1+; Dohle Bodies Present; Toxic Granulation 1+
[2018-08-06 02:39] LABS: Acanthocytes Occ
[2018-08-06] MEDS: Chlorhexidine Gluconate 2% 1 Pack (2 Cloths) TOPICAL SCH (03:34)
[2018-08-06 03:53] LABS: Albumin 0.9 g/dL (3.4-5.0); Calcium 6.9 mg/dL (8.5-10.1); Carbon Dioxide 16.1 meq/L (21.0-32.0); Magnesium 1.7 mg/dL (1.5-2.5); Phosphorus 5.4 mg/dL (2.5-4.9); Potassium 5.7 meq/L (3.5-5.1); Total Protein 4.3 g/dL (6.4-8.2)
[2018-08-06] MEDS: Piperacil/Tazo 2.25 GM Premix 50 ML IV.SIG SCH ×2 (04:43→12:33)
[2018-08-06] MEDS ORDERED: Sodium Bicarbonate 8.4% Inj 50 MEQ/50 ML Syringe IV.PUSH ONE (04:55)
--- NOTE | 2018-08-06 06:31 | XR ---
EXAM DATE: 08/06/2018 5:53 AM EST AGE/SEX: 57 years / Male INDICATIONS: Respiratory failure. CLINICAL DATA: This is the patient's subsequent encounter. Patient reports that signs and symptoms h ave been present for 4 - 6 days and indicates a pain score of Nonresponsive. MEDICAL/SURGICAL HISTORY: . Diabetes mellitus type II. Carcinoma, lung. Septic shock. Hypotherm ia. Gangrene, left foot. Diabetic ketoacidosis. . Left foot amputation. COMPARISON: [facility] – [place], CHEST 1V SINGLE AP, 08/05/2018. . FINDINGS: Portable AP view of the chest demonstrates a normal-sized cardiac silhouette. ETT, nasogastric tube, and left IJ line remain present. Endotracheal tube distal tip measures only 11 mm the vee stable f rom yesterday's examination. There is a moderate sized left basilar pleural-parenchymal opacity that is either stable to slightly increased from yesterday's examination. No pneumothorax is identified. R ight lung demonstrates no significant abnormality. CONCLUSION: Left sided opacity is stable to slightly increased and represents pleural effusion with associated vo lume loss and/or airspace consolidation. Electronically signed by: Aron Chan MD 08/06/2018 6:30 AM EST
--- NOTE | 2018-08-06 08:05 | P.PNCC ---
Subjective Subjective Remarks/Hospital Course: This is a 49-year-old male. Date of admission 08/02/2008. Past medical history includes diabetes mellitus, hypertension, peripheral neuropathy and narcotic use. Patient was recently DNR under fluoroscopy hospice. Patient left [facility] 07/10/2018 according to records. Patient was found today by friends altered mental status. Patient was transferred according to [facility] for evaluation treatment. Upon arrival, patient was hypothermic with a temperature of 79 F. Workup included sodium 1.8, potassium 5.5 and creatinine 3.17. Blood sugar was 900. Lipid cell count is 47,000 with 34 bands. Hemoglobin is 9.4 and platelets 143. INR is 1.5. Albumin is 1.63 CPK is 3200. Transaminases are elevated. Patient received 5 L normal saline in the ED of warm saline and started on insulin drip per DKA protocol. Anion gap was 27. Lactic and beta hydroxybutyrate currently pending. CT brain revealed no acute intracranial findings. Foot x-ray revealed gas gangrene left foot. Attempted to consult podiatry at the present time. Patient was started on vancomycin and piperacillin/tazobactam. I added clindamycin A central line was placed due to multiple lab draws/ of hypotension 08/03 -intubated overnight due to altered mental status. Worsening sepsis. Debrided left foot yesterday. Vascular surgery did evaluate. Currently on norepinephrine and vasopressin drips. Transfused 3 units PRBCs and fresh frozen plasma overnight. 08/04: This morning, noted no corneal reflex/no gag or cough. Pupils appeared fixed. Negative oculocephalic reflex. MRI brain revealed bilateral cerebellar edema with upward and downward herniation. Early hydrocephalus. Remains hypothermic. Son Mando Danielle notified. SUBJECTIVE: 08/05: Brain flow scan revealed no flow. Sagittal sinus likely external circulation. By examination appears brain . No corneals, gag, cough, oculocephalic or vestibular reflexes. Hypothermic in on multiple vasopressors unable to do apnea test. 08/06: Clinical exam exam consistent with brain as well as cerebral blood flow study and EEG. No brainstem reflexes. Discussed with Dr. Guy. I will perform a apnea testing today if ABG pre-requirements are met. Objective Vital Signs / I&O: Vital Signs 08/05/18 08:00 08/05/18 08:41 08/05/18 09:00 Temperature 97.5 F L 98.2 F Pulse Rate 101 H 98 H 97 H Respiratory Rate 20 20 20 Blood Pressure Pulse Oximetry 100 100 100 08/05/18 10:00 08/05/18 11:00 08/05/18 12:00 Temperature 99.1 F 98.9 F 98.7 F Pulse Rate 98 H 98 H 98 H Respiratory Rate 20 20 20 Blood Pressure 107/54 L Pulse Oximetry 100 99 98 08/05/18 13:00 08/05/18 14:00 08/05/18 15:00 Temperature 98.8 F 98.4 F 98.2 F Pulse Rate 99 H 114 H 112 H Respiratory Rate 20 20 20 Blood Pressure Pulse Oximetry 97 96 96 08/05/18 15:30 08/05/18 15:44 08/05/18 15:45 Temperature 98.1 F 98.1 F Pulse Rate 110 H 109 H 109 H Respiratory Rate 20 20 20 Blood Pressure 118/71 117/72 Pulse Oximetry 96 96 08/05/18 16:00 08/05/18 16:15 08/05/18 16:30 Temperature 97.9 F 97.9 F 97.7 F Pulse Rate 109 H 107 H 107 H Respiratory Rate 20 20 20 Blood Pressure 135/78 121/74 123/76 Pulse Oximetry 96 96 96 08/05/18 16:45 08/05/18 17:00 08/05/18 17:15 Temperature 97.7 F 97.7 F 97.5 F L Pulse Rate 105 H 105 H 105 H Respiratory Rate 20 20 20 Blood Pressure 123/78 124/74 125/80 Pulse Oximetry 96 96 96 08/05/18 17:30 08/05/18 17:45 08/05/18 18:00 Temperature 97.5 F L 97.3 F L 97.2 F L Pulse Rate 104 H 104 H 102 H Respiratory Rate 20 20 20 Blood Pressure 137/86 134/83 132/84 Pulse Oximetry 96 95 95 08/05/18 18:15 08/05/18 18:27 08/05/18 18:30 Temperature 97.2 F L 97.0 F L Pulse Rate 102 H 111 H 110 H Respiratory Rate 20 21 20 Blood Pressure 128/82 161/85 H Pulse Oximetry 95 95 08/05/18 18:45 08/05/18 19:00 08/05/18 19:15 Temperature 96.8 F L 96.6 F L 96.6 F L Pulse Rate 113 H 109 H 111 H Respiratory Rate 20 20 20 Blood Pressure 149/84 H 106/69 142/82 H Pulse Oximetry 95 95 95 08/05/18 19:30 08/05/18 19:45 08/05/18 19:59 Temperature 96.4 F L 96.4 F L Pulse Rate 110 H 110 H Respiratory Rate 20 20 20 Blood Pressure 140/86 135/83 Pulse Oximetry 95 95 95 08/05/18 20:00 08/05/18 20:15 08/05/18 20:30 Temperature 96.4 F L 96.3 F L 96.3 F L Pulse Rate 109 H 107 H 107 H Respiratory Rate 20 20 20 Blood Pressure 135/85 138/90 136/91 H Pulse Oximetry 95 96 95 08/05/18 20:45 08/05/18 21:00 08/05/18 21:15 Temperature 96.3 F L 96.3 F L 93.4 F L Pulse Rate 107 H 107 H 107 H Respiratory Rate 20 20 20 Blood Pressure 151/90 H 152/88 H 154/88 H Pulse Oximetry 95 95 96 08/05/18 21:30 08/05/18 21:45 08/05/18 22:00 Temperature 95.9 F L 96.1 F L 96.3 F L Pulse Rate 107 H 108 H 108 H Respiratory Rate 20 20 20 Blood Pressure 138/81 132/87 129/85 Pulse Oximetry 96 96 95 08/05/18 22:15 08/05/18 22:30 08/05/18 22:45 Temperature 96.4 F L 96.6 F L 97.0 F L Pulse Rate 107 H 107 H 107 H Respiratory Rate 20 20 20 Blood Pressure 129/86 124/81 124/83 Pulse Oximetry 95 95 95 08/05/18 23:00 08/05/18 23:07 08/05/18 23:15 Temperature 97.2 F L 97.3 F L Pulse Rate 106 H 106 H 106 H Respiratory Rate 20 20 20 Blood Pressure 123/82 124/82 Pulse Oximetry 95 95 08/05/18 23:30 08/05/18 23:45 08/06/18 00:00 Temperature 97.7 F 97.9 F 98.1 F Pulse Rate 106 H 109 H 111 H Respiratory Rate 20 20 20 Blood Pressure 119/78 117/79 122/76 Pulse Oximetry 95 95 95 08/06/18 00:15 08/06/18 00:30 08/06/18 00:36 Temperature 98.2 F 98.4 F Pulse Rate 113 H 113 H Respiratory Rate 20 20 20 Blood Pressure 106/71 105/73 Pulse Oximetry 95 95 95 08/06/18 00:45 08/06/18 01:00 08/06/18 01:15 Temperature 98.4 F 98.8 F 98.6 F Pulse Rate 113 H 121 H 126 H Respiratory Rate 20 20 20 Blood Pressure 117/67 161/88 H 155/90 H Pulse Oximetry 95 97 95 08/06/18 01:30 08/06/18 01:45 08/06/18 02:00 Temperature 98.6 F 98.6 F 98.6 F Pulse Rate 124 H 120 H 119 H Respiratory Rate 20 20 20 Blood Pressure 138/75 124/75 113/68 Pulse Oximetry 95 95 96 08/06/18 02:15 08/06/18 02:30 08/06/18 02:45 Temperature 98.6 F 98.6 F 98.8 F Pulse Rate 118 H 118 H 116 H Respiratory Rate 20 20 20 Blood Pressure 110/64 118/74 122/82 Pulse Oximetry 97 97 97 08/06/18 03:00 08/06/18 03:15 08/06/18 03:30 Temperature 98.8 F 98.8 F 98.8 F Pulse Rate 116 H 114 H 114 H Respiratory Rate 20 20 20 Blood Pressure 116/76 113/78 118/73 Pulse Oximetry 97 97 97 08/06/18 03:45 08/06/18 03:46 08/06/18 04:00 Temperature 98.8 F 98.8 F Pulse Rate 114 H 114 H 115 H Respiratory Rate 20 20 20 Blood Pressure 129/71 130/76 Pulse Oximetry 97 97 97 08/06/18 04:15 08/06/18 04:30 08/06/18 04:45 Temperature 99.0 F 99.0 F 99.0 F Pulse Rate 115 H 115 H 115 H Respiratory Rate 20 20 20 Blood Pressure 123/67 127/67 122/76 Pulse Oximetry 97 97 99 08/06/18 04:49 08/06/18 05:00 08/06/18 05:15 Temperature 99.0 F 99.0 F Pulse Rate 115 H 115 H 115 H Respiratory Rate 20 20 Blood Pressure 122/76 125/76 124/72 Pulse Oximetry 98 98 08/06/18 05:30 08/06/18 05:45 08/06/18 06:00 Temperature 99.0 F 99.0 F 99.1 F Pulse Rate 115 H 115 H 115 H Respiratory Rate 20 20 20 Blood Pressure 119/75 105/67 114/71 Pulse Oximetry 98 98 98 08/06/18 06:15 Temperature 99.1 F Pulse Rate 117 H Respiratory Rate Blood Pressure 113/71 Pulse Oximetry 96 Intake & Output 08/05/18 08/06/18 08/06/18 18:59 06:59 18:59 Intake Total 1154 / 1154 100 / 100 Output Total 925 / 925 1010 / 1010 Balance 1065.5 / 1065.5 144 / 144 100 / 100 Weight 80.5 kg Intake: IV 1154 / 1154 100 / 100 Levophed Inj 16 MG In NS Inj 500 / 500 750 / 750 234 ML @ 2 MCG/MIN 1.87 mls/hr IV.CONT TITRATE PRN Rx#: [id number] Protonix Inj 80 MG In NS Inj 100 / 100 100 / 100 100 ML @ 10 mls/hr IV.CONT Q10H [facility] Rx#:[id number] Pitressin Inj 40 UNIT In D5W 100 / 100 Inj 98 ML @ 0.04 UNITS/MIN 6 mls/hr IV.CONT CONT [facility] Rx#: [id number] Sodium Chloride 3% Inj 500 ML @ 500 / 500 20 mls/hr IV.SIG CONT [facility] Rx#: [id number] Calcium Chloride Inj 1 GM In NS 220 / 220 Inj 100 ML @ 110 mls/hr IV.SIG ONCE ONE Rx#:[id number] Cleocin Inj 600 MG In NS Inj 208 / 208 104 / 104 100 ML @ 208 mls/hr IV.SIG Q8H [facility] Rx#:[id number] Diflucan 200 mg Premix Bag 100 100 / 100 100 / 100 ML @ 100 mls/hr IV.SIG Q24H [facility] Rx#:[id number] Zosyn 2.25 GM Premix 50 ML @ 100 / 100 100 / 100 100 mls/hr IV.SIG Q6H [facility] Rx#: [id number] Vancomycin Inj 1,250 MG In NS 262.5 / 262.5 Inj 250 ML @ 250 mls/hr IV.SIG ONCE ONE Rx#:[id number] Output: Urine Amount (Catheter) 875 / 875 1010 / 1010 Indwelling Temp Sensing 875 / 875 1010 / 1010 Catheter Wound Vac Amount 50 / 50 Left Foot 50 / 50 Other: Mode Setting Left Foot Continuous Continuous Date of Last Bowel Movement 08/03/18 08/03/18 # Bowel Movements 0 Result Diagrams: 08/05/18 23:35 08/06/18 03:05 Objective Remarks: GENERAL: 57-year-old male currently orotracheally intubated SKIN: Cool and dry. 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 Normocephalic. EYES: Pupils equal and round about dilated and fixed. No scleral icterus. No injection or drainage. ENT: No nasal bleeding or discharge. NECK: Trachea midline. No JVD. CARDIOVASCULAR: RRR. S1, S2 no S 4. RESPIRATORY: No accessory muscle use. Crackles in the bases bilaterally. No wheezing. No spontaneous breathing GASTROINTESTINAL: Abdomen soft, non-tender, nondistended. Bowel sounds are appreciated. MUSCULOSKELETAL: Extremities without clubbing, cyanosis, or edema. Left below the knee dictation with wound VAC in place NEUROLOGICAL: Currently off all sedation. Currently no gag and cough. Currently not withdrawing to pain bilateral upper or lower extremities. Negative vestibuloccipital and oculocephalic reflux) pupils are dilated and fixed no corneal reflex Assessment and Plan - Problem List (1) Leukocytosis Code(s): D72.829 - Elevated white blood cell count, unspecified Status: Acute (2) Hypermagnesemia Code(s): E83.41 - Hypermagnesemia Status: Acute (3) Hyponatremia Code(s): E87.1 - Hypo-osmolality and hyponatremia Status: Acute (4) Rhabdomyolysis Code(s): M62.82 - Rhabdomyolysis Status: Acute (5) Macrocytic anemia Code(s): D53.9 - Nutritional anemia, unspecified Status: Acute (6) Thrombocytopenia Code(s): D69.6 - Thrombocytopenia, unspecified Status: Acute (7) Hypoalbuminemia Code(s): E88.09 - Other disorders of plasma-protein metabolism, not elsewhere classified Status: Acute (8) Hyperkalemia Code(s): E87.5 - Hyperkalemia Status: Acute (9) Elevated transaminase level Code(s): R74.0 - Nonspecific elevation of levels of transaminase and lactic acid dehydrogenase [LDH] Status: Acute (10) Sepsis Code(s): A41.9 - Sepsis, unspecified organism Status: Acute (11) Hypothermia Code(s): T68.XXXA - Hypothermia, initial encounter Status: Acute (12) Diabetic foot infection Code(s): E11.628 - Type 2 diabetes mellitus with other skin complications; L08.9 - Local infection of the skin and subcutaneous tissue, unspecified Status: Acute (13) Acute renal failure Code(s): N17.9 - Acute kidney failure, unspecified Status: Acute - Assessment and Plan Plan: Neuro/Psych: Brain criteria met by clinical exam, brain flow study and EEG Acute bilateral cerebellar edema consistent with CVA with early upward and downward herniation with early hydrocephalus Admission with acute toxic metabolic encephalopathy Peripheral neuropathy History of EtOH and cocaine abuse Clinical brain Neurologic exam, cerebral blood flow study and EEG are consistent with brain CT brain 08/02 revealed no acute intracranial findings MRI brain 07/27 revealed bilateral cerebral edema with upward and downward herniation. Early hydrocephaly. Increased transependymal flow. MRA brain/neck revealed no flow. Negative gag/cough/clinically. Negative vestibular occipital area/cold calorics. Holding gabapentin 100 mg twice daily/home medication for peripheral neuropathy. Written for propofol/fentanyl drips for sedation/analgesia while intubated Appreciate neurological consultation. Did discuss with neurosurgery/no indication for ventriculostomy at this time with neurological examination. Nuclear medicine brain scan today revealed no flow consistent with brain . Sagittal sinus likely external circulation. CV: Severe sepsis History of essential hypertension Lactic acidosis Status post 5 L crystalloid in ED. Holding lisinopril 5 mg daily/home medication while hypotensive Currently on norepinephrine drip at 70 mcg/min and vasopressin drip at 0.04 units/min to maintain mean arterial pressure greater than equal 65 EKG on admission revealed ST elevation/Quinones waves in leads II, III and aVF. Echocardiogram 06/23 revealed EF of 65%. No regional wall motion normality's. Initial troponin negative. Peaked at 0.33 currently 0.23 Trend lactates until cleared. Currently 4.2 Resp: Acute respiratory failure secondary to metabolic derangement History of tobaccoism PRVC 22/550/0.8/100 Ventilator bundle Albuterol/ipratropium aerosols every 4 hours with albuterol aerosols every 2 hours as needed dyspnea Head of bed at 30 degrees Spontaneous breathing trials and clinically indicated Repeat ABG at 1800 hrs. today. Follow-up chest x-ray in a.m. 08/06 GI: Elevated transaminases Rhabdomyolysis Hypoalbuminemia Significant severe protein malnutrition We will check hepatitis panel. Recheck transaminases in a.m. 08/06 GI consulted for possible GI bleed in light of coagulopathic state. Serial currently on pantoprazole drip at 8 mg an hour. : Tang catheter has been placed for accurate I's and O's in a critical patient Endo: History of diabetes mellitus DKA Off insulin drip 07/27. Currently on sliding scale every 4 hours Currently on D5 one half normal saline with 1 ampoule sodium bicarbonate and 20 mg KCl at 200 cc an hour. Discontinued in light of current brain swelling. Check blood glucose every hour with aspart sliding scale insulin/high regimen Holding home medication of insulin glargine 40 units at night, metformin 5 mg twice daily, pioglitazone 15 mg daily and sitagliptin 100 mg daily TSH was 2.69 Renal: Acute kidney injury Based on creatinine 1.0. Currently worsening Monitor urine output Accurate I's and O's 0/2 urine eosinophils, No hydronephrosis on renal ultrasound hour distended bladder despite Tang catheter Heme: Leukocytosis with bandemia Macrocytic anemia Thrombocytopenia Elevated INR Received 3 PRBCs and 2 FFP overnight Monitor CBC daily. Follow trends. Follow-up on PTT/fibrinogen in a.m. ID: MSSA UTI E. coli/staph aureus sputum positive Placed on vancomycin, piperacillin/tazobactam and clindamycin and fluconazole Infectious disease consultation appreciated Blood cultures x2, no growth. UA revealed MSSA UTI. There is E. coli and staph in his sputum. MSK: Left foot gangrene X-ray foot revealed gas gangrene. Podiatry bedside debridement appreciated. Vascular surgery saw last night. Plan on getting the amputation when stable FEN: Replace electrolytes as clinically indicated Access -Left IJ CVL day 4 placed 08/02 -Right radial arterial line day #4 Prophylaxis -GI -pantoprazole gtt -DVT -SCD/pharmacological prophylaxis held in light of possible GI bleeding 35 minutes critical care time Patient is critically ill and meeting criteria for brain . I will check ABG to see if pre-requirements for apnea testing is met. Discussed with Dr. Guy (1) Leukocytosis Qualifiers: Leukocytosis type: bandemia Qualified Code(s): D72.825 - Bandemia (4) Rhabdomyolysis Qualifiers: Rhabdomyolysis type: non-traumatic Qualified Code(s): M62.82 - Rhabdomyolysis (10) Sepsis Qualifiers: Sepsis type: sepsis due to unspecified organism Qualified Code(s): A41.9 - Sepsis, unspecified organism (11) Hypothermia Qualifiers: Encounter type: initial encounter Qualified Code(s): T68.XXXA - Hypothermia, initial encounter (13) Acute renal failure Qualifiers: Acute renal failure type: unspecified Qualified Code(s): N17.9 - Acute kidney failure, unspecified
[2018-08-06 08:22] LABS: ABG Base Excess -10.2 mmol/L (-2-2); ABG PCO2 28 mmHg (38-42); ABG PO2 380 mmHG (61-120)
[2018-08-06 08:33] VITALS: O2SAT 100
[2018-08-06 09:29] LABS: ABG Base Excess -8.8 mmol/L (-2-2); ABG PCO2 42 mmHg (38-42); ABG PO2 307 mmHG (61-120)
--- NOTE | 2018-08-06 10:09 | P.DIET ---
Nutritional Evaluation Type of nutrition evaluation: follow-up Screening comments: 08/05 NPO alert x3 days 08/06 NPO alert x4 days Objective - Diagnosis septic shock, hypothermia, gangrene L food, DKA - Objective Objective Comments: PMH: DM, HTN, lung CA Labs: K+ 6.1, BUN 76, Cr 3.4, GFR 23, POC glucose 204 139 153, lactic acid 3.4, Ca+ 7.0 Pt s/p guillotine L food amputation 08/03 Assessment Assessment: Pt currently at nutritional risk r/t being NPO for x4 days. Pt currently no code DNR status after episode of asystole and CPR. Per MD, pts clinical exam consistent w/ being brain . Wt noted, CBW = 80.5kg. Labs reviewed. RD to follow as needed. Recommendations: 1. Pt currently no code DNR status after episode of asystole and CPR, pt consistent to being brain per MD 2. RD to follow as needed Dietitian to Monitor: Medical course
--- NOTE | 2018-08-06 10:56 | P.PNPAL ---
Reason for Visit Reason for visit: a. To assist with evaluation and management of symptoms including:pain, dyspnea b. To assist medical decision maker(s) with: better understanding of current medical conditions; weighing benefits/burdens of medical treatment options; making medical treatment decisions. Subjective Subjective/Interval History: This is a 57-year-old male who was brought to [facility] on 08/02[place]18 after being found by friends with altered mental status. Per medical records, patient recently left [facility] 07/10/18 AMA, he was being followed by [facility] hospice until 08/02/18 when he was admitted to the hospital. He has a long history of substance abuse. He has had visits/ admissions to [facility] in the past for similar issues including DKA, substance abuse, and wounds, and At time of arrival this admission, he was not following commands, was only opening his eyes and grunting to pain. ED staff was able to contact [facility] who confirmed patient left AMA 07/10/18. He has a long history of substance abuse, stage IV lung cancer, DM, neuropathy. Patient initially presented to the emergency with a DNR that was signed in February. However, staff received written order from [facility] revoking DNR status, making him a full code. Patient was admitted to the medical ICU with altered mental status and sepsis. Upon arrival to the emergency room: * He was found to be hypothermic with a temperature of 79 F, * WBCs 47, bands 34, hemoglobin 9.4, platelets 143, INR 1.5 * Blood sugar was 900. Anion gap 27, sodium 129, BUN/CT 105/3.13, AST/ALT 348/ 124, alkaline phosphatase 199, albumin 1.6, CPK 3200 * Original CT of the brain in the ED was negative for any acute findings. CXR was negative for any acute findings. 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 * Additional History * 08/03/18 patient was intubated for airway protection secondary to altered mental status and worsening sepsis. He was started on Levophed and vasopressin drips for blood pressure support. He was seen and evaluated by podiatry who after evaluation and I&D, is strongly recommending a guillotine amputation, Dr Berumen was then consulted. This morning patient was found by nurse with a blown pupil, no cough no gag reflex, he was sent for MRI which revealed bilateral cerebellar edema with upward and downward herniation, early hydrocephalus, and was hypothermic. On * 08/04/18 patient went into cardiac arrest, underwent CPR. Status was discussed with patient's son Rogerio, was advised he is likely brain , patient was made DNR. MRA showed no evidence of intracranial blood flow concerning for brain . 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 Per nursing, negative vestibular occipital/ cold caloric testing. Chest x-ray this morning showed small left pleural effusion. Patient remains in the ICU mechanically ventilated and requiring extremely high doses of pressors for BP support. Per architectural engineer, patient is brain . Daughter has been contacted and planned for meeting this morning. Family/Friend Interactions: Met with daughter Yovany Cuello (brother), and multiple other family members. Update provided. Advised of brain and legal process, allowing visitation as courtesy but will need to remove artificial life support in the coming hours, anticipatory guidance provided. Objective Vital Signs: Vital Signs 08/05/18 11:00 08/05/18 12:00 08/05/18 13:00 Temperature 98.9 F 98.7 F 98.8 F Pulse Rate 98 H 98 H 99 H Respiratory Rate 20 20 20 Blood Pressure 107/54 L Pulse Oximetry 99 98 97 08/05/18 14:00 08/05/18 15:00 08/05/18 15:30 Temperature 98.4 F 98.2 F 98.1 F Pulse Rate 114 H 112 H 110 H Respiratory Rate 20 20 20 Blood Pressure 118/71 Pulse Oximetry 96 96 96 08/05/18 15:44 08/05/18 15:45 08/05/18 16:00 Temperature 98.1 F 97.9 F Pulse Rate 109 H 109 H 109 H Respiratory Rate 20 20 20 Blood Pressure 117/72 135/78 Pulse Oximetry 96 96 08/05/18 16:15 08/05/18 16:30 08/05/18 16:45 Temperature 97.9 F 97.7 F 97.7 F Pulse Rate 107 H 107 H 105 H Respiratory Rate 20 20 20 Blood Pressure 121/74 123/76 123/78 Pulse Oximetry 96 96 96 08/05/18 17:00 08/05/18 17:15 08/05/18 17:30 Temperature 97.7 F 97.5 F L 97.5 F L Pulse Rate 105 H 105 H 104 H Respiratory Rate 20 20 20 Blood Pressure 124/74 125/80 137/86 Pulse Oximetry 96 96 96 08/05/18 17:45 08/05/18 18:00 08/05/18 18:15 Temperature 97.3 F L 97.2 F L 97.2 F L Pulse Rate 104 H 102 H 102 H Respiratory Rate 20 20 20 Blood Pressure 134/83 132/84 128/82 Pulse Oximetry 95 95 95 08/05/18 18:27 08/05/18 18:30 08/05/18 18:45 Temperature 97.0 F L 96.8 F L Pulse Rate 111 H 110 H 113 H Respiratory Rate 21 20 20 Blood Pressure 161/85 H 149/84 H Pulse Oximetry 95 95 08/05/18 19:00 08/05/18 19:15 08/05/18 19:30 Temperature 96.6 F L 96.6 F L 96.4 F L Pulse Rate 109 H 111 H 110 H Respiratory Rate 20 20 20 Blood Pressure 106/69 142/82 H 140/86 Pulse Oximetry 95 95 95 08/05/18 19:45 08/05/18 19:59 08/05/18 20:00 Temperature 96.4 F L 96.4 F L Pulse Rate 110 H 109 H Respiratory Rate 20 20 20 Blood Pressure 135/83 135/85 Pulse Oximetry 95 95 95 08/05/18 20:15 08/05/18 20:30 08/05/18 20:45 Temperature 96.3 F L 96.3 F L 96.3 F L Pulse Rate 107 H 107 H 107 H Respiratory Rate 20 20 20 Blood Pressure 138/90 136/91 H 151/90 H Pulse Oximetry 96 95 95 08/05/18 21:00 08/05/18 21:15 08/05/18 21:30 Temperature 96.3 F L 93.4 F L 95.9 F L Pulse Rate 107 H 107 H 107 H Respiratory Rate 20 20 20 Blood Pressure 152/88 H 154/88 H 138/81 Pulse Oximetry 95 96 96 08/05/18 21:45 08/05/18 22:00 08/05/18 22:15 Temperature 96.1 F L 96.3 F L 96.4 F L Pulse Rate 108 H 108 H 107 H Respiratory Rate 20 20 20 Blood Pressure 132/87 129/85 129/86 Pulse Oximetry 96 95 95 08/05/18 22:30 08/05/18 22:45 08/05/18 23:00 Temperature 96.6 F L 97.0 F L 97.2 F L Pulse Rate 107 H 107 H 106 H Respiratory Rate 20 20 20 Blood Pressure 124/81 124/83 123/82 Pulse Oximetry 95 95 95 08/05/18 23:07 08/05/18 23:15 08/05/18 23:30 Temperature 97.3 F L 97.7 F Pulse Rate 106 H 106 H 106 H Respiratory Rate 20 20 20 Blood Pressure 124/82 119/78 Pulse Oximetry 95 95 08/05/18 23:45 08/06/18 00:00 08/06/18 00:15 Temperature 97.9 F 98.1 F 98.2 F Pulse Rate 109 H 111 H 113 H Respiratory Rate 20 20 20 Blood Pressure 117/79 122/76 106/71 Pulse Oximetry 95 95 95 08/06/18 00:30 08/06/18 00:36 08/06/18 00:45 Temperature 98.4 F 98.4 F Pulse Rate 113 H 113 H Respiratory Rate 20 20 20 Blood Pressure 105/73 117/67 Pulse Oximetry 95 95 95 08/06/18 01:00 08/06/18 01:15 08/06/18 01:30 Temperature 98.8 F 98.6 F 98.6 F Pulse Rate 121 H 126 H 124 H Respiratory Rate 20 20 20 Blood Pressure 161/88 H 155/90 H 138/75 Pulse Oximetry 97 95 95 08/06/18 01:45 08/06/18 02:00 08/06/18 02:15 Temperature 98.6 F 98.6 F 98.6 F Pulse Rate 120 H 119 H 118 H Respiratory Rate 20 20 20 Blood Pressure 124/75 113/68 110/64 Pulse Oximetry 95 96 97 08/06/18 02:30 08/06/18 02:45 08/06/18 03:00 Temperature 98.6 F 98.8 F 98.8 F Pulse Rate 118 H 116 H 116 H Respiratory Rate 20 20 20 Blood Pressure 118/74 122/82 116/76 Pulse Oximetry 97 97 97 08/06/18 03:15 08/06/18 03:30 11/30/18 03:45 Temperature 98.8 F 98.8 F 98.8 F Pulse Rate 114 H 114 H 114 H Respiratory Rate 20 20 20 Blood Pressure 113/78 118/73 129/71 Pulse Oximetry 97 97 97 08/06/18 03:46 08/06/18 04:00 08/06/18 04:15 Temperature 98.8 F 99.0 F Pulse Rate 114 H 115 H 115 H Respiratory Rate 20 20 20 Blood Pressure 130/76 123/67 Pulse Oximetry 97 97 97 08/06/18 04:30 08/06/18 04:45 08/06/18 04:49 Temperature 99.0 F 99.0 F Pulse Rate 115 H 115 H 115 H Respiratory Rate 20 20 Blood Pressure 127/67 122/76 122/76 Pulse Oximetry 97 99 08/06/18 05:00 08/06/18 05:15 08/06/18 05:30 Temperature 99.0 F 99.0 F 99.0 F Pulse Rate 115 H 115 H 115 H Respiratory Rate 20 20 20 Blood Pressure 125/76 124/72 119/75 Pulse Oximetry 98 98 98 08/06/18 05:45 08/06/18 06:00 08/06/18 06:15 Temperature 99.0 F 99.1 F 99.1 F Pulse Rate 115 H 115 H 117 H Respiratory Rate 20 20 Blood Pressure 105/67 114/71 113/71 Pulse Oximetry 98 98 96 08/06/18 08:00 Temperature Pulse Rate Respiratory Rate 15 Blood Pressure Pulse Oximetry 100 Intake & Output 08/05/18 08/06/18 08/06/18 18:59 06:59 18:59 Intake Total 1154 / 1154 350 / 350 Output Total 925 / 925 1010 / 1010 Balance 1065.5 / 1065.5 144 / 144 350 / 350 Weight 80.5 kg Intake: IV 1154 / 1154 350 / 350 Levophed Inj 16 MG In NS Inj 500 / 500 750 / 750 250 / 250 234 ML @ 2 MCG/MIN 1.87 mls/hr IV.CONT TITRATE PRN Rx#: [id number] Protonix Inj 80 MG In NS Inj 100 / 100 100 / 100 100 ML @ 10 mls/hr IV.CONT Q10H [facility] Rx#:[id number] Pitressin Inj 40 UNIT In D5W 100 / 100 Inj 98 ML @ 0.04 UNITS/MIN 6 mls/hr IV.CONT CONT [facility] Rx#: [id number] Sodium Chloride 3% Inj 500 ML @ 500 / 500 20 mls/hr IV.SIG CONT [facility] Rx#: [id number] Calcium Chloride Inj 1 GM In NS 220 / 220 Inj 100 ML @ 110 mls/hr IV.SIG ONCE ONE Rx#:[id number] Cleocin Inj 600 MG In NS Inj 208 / 208 104 / 104 100 ML @ 208 mls/hr IV.SIG Q8H [facility] Rx#:[id number] Diflucan 200 mg Premix Bag 100 100 / 100 100 / 100 ML @ 100 mls/hr IV.SIG Q24H [facility] Rx#:[id number] Zosyn 2.25 GM Premix 50 ML @ 100 / 100 100 / 100 100 mls/hr IV.SIG Q6H [facility] Rx#: [id number] Vancomycin Inj 1,250 MG In NS 262.5 / 262.5 Inj 250 ML @ 250 mls/hr IV.SIG ONCE ONE Rx#:[id number] Output: Urine Amount (Catheter) 875 / 875 1010 / 1010 Indwelling Temp Sensing 875 / 875 1010 / 1010 Catheter Wound Vac Amount 50 / 50 Left Foot 50 / 50 Other: Mode Setting Left Foot Continuous Continuous Date of Last Bowel Movement 08/03/18 08/03/18 # Bowel Movements 0 Physical Exam: CONSTITUTIONAL/GENERAL: This is an adequately nourished patient, in no apparent distress. TUBES/LINES/DRAINS: ET tube, right radial A-line, left lower extremity wound VAC , triple-lumen catheter, Tang SKIN: Left foot amputation, wound VAC in place draining small amount of gerard red blood. Right foot with multiple blisters, necrotic skin on tips of toes. Skin is hot and dry to touch. EYES: Left pupil 6 mm, right pupil 7mm both irregular shaped. No reaction noted bilaterally. Scleral edema bilaterally. +icterus CARDIOVASCULAR: Regular rate and rhythm without murmurs. Patient on 70 mcg of levo fed and vasopressin to maintain blood pressure. Unable to palpate right pedal pulse. RESPIRATORY/CHEST: Orally intubated mechanically ventilated. Coarse rhonchi throughout. GASTROINTESTINAL: Abdomen soft and quiet. GENITOURINARY: +bladder distension. Tang catheter in place scant urine MUSCULOSKELETAL: Left foot amputation with wound VAC dressing in place. Vascular changes to right foot, multiple blisters noted, necrotic skin on tips of toes. Extremities flaccid x4. NEUROLOGICAL: Unresponsive PSYCHIATRIC: No obvious anxiety/depression. no apparent hallucinations or other psychotic thought process. Diagnostic Tests Laboratory: Laboratory Results - last 72 hr 08/02/18 08/03/18 08/03/18 10:55 01:29 01:48 WBC RBC Hgb Hct MCV MCH MCHC RDW Plt Count MPV Prelim Diff (Auto) Neut % (Auto) Lymph % (Auto) Dolores % (Auto) Eos % (Auto) Baso % (Auto) Neut # (Auto) Lymph # (Auto) Dolores # (Auto) Eos # (Auto) Baso # (Auto) WBC Differential Seg Neuts % (Manual) Band Neuts % (Manual) Lymphocytes % (Manual) Monocytes % (Manual) Metamyelocytes % (Man) Myelocytes % (Man) Abs Neuts (Manual) Nucleated RBCs/100 WBC Differential Comment Toxic Granulation Toxic Vacuolation Dohle Bodies Platelet Estimate Platelet Morphology Pappenheimer Bodies Ovalocytes [place] Cells Acanthocytes (Spur) Keratocytes PT INR APTT Fibrinogen Puncture Site Patient Temperature O2 Saturation ABG pH ABG pCO2 ABG pO2 ABG HCO3 ABG O2 Content ABG Base Excess ABG Methemoglobin Jordy Test Hemoglobin Carboxyhemoglobin O2 Delivery Device Vent Setting Inspired O2 Critical Value Sodium Potassium Chloride Carbon Dioxide Anion Gap BUN Creatinine Estimated GFR POC Glucose Random Glucose Osmolality Lactic Acid Calcium Calcium Adj for Albumin Phosphorus Magnesium Total Bilirubin AST ALT Alkaline Phosphatase Ammonia Total Creatine Kinase CK-MB (CK-2) CK-MB (CK-2) % Troponin I Total Protein Albumin Lipase Beta-Hydroxybutyric Acd Urine Color Yellow Urine Clarity Cloudy H Urine pH 5.0 Ur Specific [place] 1.015 Urine Protein Negative Urine Glucose (UA) 500 or greater Urine Ketones 20 Urine Occult Blood Moderate H Urine Nitrate Negative Urine Bilirubin Negative Urine Urobilinogen Less than 2 Ur Leukocyte Esterase Large H Urine RBC 13 H Urine WBC 114 H Urine WBC Clumps Few H Amorphous Sediment Few H Urine Bacteria Few H Hyaline Casts 10 Urine Mucus Few H Micro UA Comment Cath-culture ind Urine Culture Comments Cath-cult indicated Stl C.difficile DNA Amp St C. diff Tox Epid 027 Random Vancomycin MTS Gel Crossmatch See Detail See Detail 08/03/18 08/03/18 08/03/18 08:30 09:49 10:44 WBC RBC Hgb Hct MCV MCH MCHC RDW Plt Count MPV Prelim Diff (Auto) Neut % (Auto) Lymph % (Auto) Dolores % (Auto) Eos % (Auto) Baso % (Auto) Neut # (Auto) Lymph # (Auto) [place] # (Auto) Eos # (Auto) Baso # (Auto) WBC Differential Seg Neuts % (Manual) Band Neuts % (Manual) Lymphocytes % (Manual) Monocytes % (Manual) Metamyelocytes % (Man) Myelocytes % (Man) Abs Neuts (Manual) Nucleated RBCs/100 WBC Differential Comment Toxic Granulation Toxic Vacuolation Dohle Bodies Platelet Estimate Platelet Morphology Pappenheimer Bodies Ovalocytes [place] Cells Acanthocytes (Spur) Keratocytes PT INR APTT Fibrinogen Puncture Site Art line Patient Temperature 98.6 O2 Saturation 96 ABG pH 7.30 L ABG pCO2 25 L ABG pO2 226 H ABG HCO3 12 L* ABG O2 Content 13.2 ABG Base Excess -13.5 L ABG Methemoglobin 2.1 H Jordy Test Present Hemoglobin 9.4 L Carboxyhemoglobin 0.6 O2 Delivery Device Ventilator Vent Setting Prvc/ac Inspired O2 40 Critical Value Yes Sodium Potassium Chloride Carbon Dioxide Anion Gap BUN Creatinine Estimated GFR POC Glucose Random Glucose Osmolality Lactic Acid Calcium Calcium Adj for Albumin Phosphorus Magnesium Total Bilirubin AST ALT Alkaline Phosphatase Ammonia Total Creatine Kinase CK-MB (CK-2) CK-MB (CK-2) % Troponin I 0.33 H Total Protein Albumin Lipase 7136 H Beta-Hydroxybutyric Acd Urine Color Urine Clarity Urine pH Ur Specific [place] Urine Protein Urine Glucose (UA) Urine Ketones Urine Occult Blood Urine Nitrate Urine Bilirubin Urine Urobilinogen Ur Leukocyte Esterase Urine RBC Urine WBC Urine WBC Clumps Amorphous Sediment Urine Bacteria Hyaline Casts Urine Mucus Micro UA Comment Urine Culture Comments Stl C.difficile DNA Amp Negative St C. diff Tox Epid 027 Negative Random Vancomycin MTS Gel Crossmatch 08/03/18 08/03/18 08/03/18 10:58 12:01 12:24 WBC RBC Hgb Hct MCV MCH MCHC RDW Plt Count MPV Prelim Diff (Auto) Neut % (Auto) Lymph % (Auto) [place] % (Auto) Eos % (Auto) Baso % (Auto) Neut # (Auto) Lymph # (Auto) [place] # (Auto) Eos # (Auto) Baso # (Auto) WBC Differential Seg Neuts % (Manual) Band Neuts % (Manual) Lymphocytes % (Manual) Monocytes % (Manual) Metamyelocytes % (Man) Myelocytes % (Man) Abs Neuts (Manual) Nucleated RBCs/100 WBC Differential Comment Toxic Granulation Toxic Vacuolation Dohle Bodies Platelet Estimate Platelet Morphology Pappenheimer Bodies Ovalocytes [place] Cells Acanthocytes (Spur) Keratocytes PT INR APTT Fibrinogen Puncture Site Patient Temperature O2 Saturation ABG pH ABG pCO2 ABG pO2 ABG HCO3 ABG O2 Content ABG Base Excess ABG Methemoglobin Jordy Test Hemoglobin Carboxyhemoglobin O2 Delivery Device Vent Setting Inspired O2 Critical Value Sodium Potassium Chloride Carbon Dioxide Anion Gap BUN Creatinine Estimated GFR POC Glucose 154 H 140 H 137 H Random Glucose Osmolality Lactic Acid Calcium Calcium Adj for Albumin Phosphorus Magnesium Total Bilirubin AST ALT Alkaline Phosphatase Ammonia Total Creatine Kinase CK-MB (CK-2) CK-MB (CK-2) % Troponin I Total Protein Albumin Lipase Beta-Hydroxybutyric Acd Urine Color Urine Clarity Urine pH Ur Specific [place] Urine Protein Urine Glucose (UA) Urine Ketones Urine Occult Blood Urine Nitrate Urine Bilirubin Urine Urobilinogen Ur Leukocyte Esterase Urine RBC Urine WBC Urine WBC Clumps Amorphous Sediment Urine Bacteria Hyaline Casts Urine Mucus Micro UA Comment Urine Culture Comments Stl C.difficile DNA Amp St C. diff Tox Epid 027 Random Vancomycin MTS Gel Crossmatch 08/03/18 08/03/18 08/03/18 12:59 13:50 13:54 WBC RBC Hgb Hct MCV MCH MCHC RDW Plt Count MPV Prelim Diff (Auto) Neut % (Auto) Lymph % (Auto) [place] % (Auto) Eos % (Auto) Baso % (Auto) Neut # (Auto) Lymph # (Auto) [place] # (Auto) Eos # (Auto) Baso # (Auto) WBC Differential Seg Neuts % (Manual) Band Neuts % (Manual) Lymphocytes % (Manual) Monocytes % (Manual) Metamyelocytes % (Man) Myelocytes % (Man) Abs Neuts (Manual) Nucleated RBCs/100 WBC Differential Comment Toxic Granulation Toxic Vacuolation Dohle Bodies Platelet Estimate Platelet Morphology Pappenheimer Bodies Ovalocytes [place] Cells Acanthocytes (Spur) Keratocytes PT INR APTT Fibrinogen Puncture Site Patient Temperature O2 Saturation ABG pH ABG pCO2 ABG pO2 ABG HCO3 ABG O2 Content ABG Base Excess ABG Methemoglobin Jordy Test Hemoglobin Carboxyhemoglobin O2 Delivery Device Vent Setting Inspired O2 Critical Value Sodium 143 Potassium 4.0 Chloride 118 H Carbon Dioxide 13.6 L Anion Gap 11 BUN 86 H Creatinine 2.37 H Estimated GFR 34 L POC Glucose 156 H 177 H Random Glucose 151 H Osmolality Lactic Acid Calcium 5.8 L* Calcium Adj for Albumin 7.6 L Phosphorus Magnesium Total Bilirubin AST ALT Alkaline Phosphatase Ammonia Total Creatine Kinase CK-MB (CK-2) CK-MB (CK-2) % Troponin I Total Protein Albumin 1.7 L Lipase Beta-Hydroxybutyric Acd 0.09 Urine Color Urine Clarity Urine pH Ur Specific [place] Urine Protein Urine Glucose (UA) Urine Ketones Urine Occult Blood Urine Nitrate Urine Bilirubin Urine Urobilinogen Ur Leukocyte Esterase Urine RBC Urine WBC Urine WBC Clumps Amorphous Sediment Urine Bacteria Hyaline Casts Urine Mucus Micro UA Comment Urine Culture Comments Stl C.difficile DNA Amp St C. diff Tox Epid 027 Random Vancomycin MTS Gel Crossmatch 08/03/18 08/03/18 08/03/18 14:47 15:42 16:49 WBC RBC Hgb Hct MCV MCH MCHC RDW Plt Count MPV Prelim Diff (Auto) Neut % (Auto) Lymph % (Auto) [place] % (Auto) Eos % (Auto) Baso % (Auto) Neut # (Auto) Lymph # (Auto) [place] # (Auto) Eos # (Auto) Baso # (Auto) WBC Differential Seg Neuts % (Manual) Band Neuts % (Manual) Lymphocytes % (Manual) Monocytes % (Manual) Metamyelocytes % (Man) Myelocytes % (Man) Abs Neuts (Manual) Nucleated RBCs/100 WBC Differential Comment Toxic Granulation Toxic Vacuolation Dohle Bodies Platelet Estimate Platelet Morphology Pappenheimer Bodies Ovalocytes [place] Cells Acanthocytes (Spur) Keratocytes PT INR APTT Fibrinogen Puncture Site Patient Temperature O2 Saturation ABG pH ABG pCO2 ABG pO2 ABG HCO3 ABG O2 Content ABG Base Excess ABG Methemoglobin Jordy Test Hemoglobin Carboxyhemoglobin O2 Delivery Device Vent Setting Inspired O2 Critical Value Sodium Potassium Chloride Carbon Dioxide Anion Gap BUN Creatinine Estimated GFR POC Glucose 158 H 171 H 172 H Random Glucose Osmolality Lactic Acid Calcium Calcium Adj for Albumin Phosphorus Magnesium Total Bilirubin AST ALT Alkaline Phosphatase Ammonia Total Creatine Kinase CK-MB (CK-2) CK-MB (CK-2) % Troponin I Total Protein Albumin Lipase Beta-Hydroxybutyric Acd Urine Color Urine Clarity Urine pH Ur Specific [place] Urine Protein Urine Glucose (UA) Urine Ketones Urine Occult Blood Urine Nitrate Urine Bilirubin Urine Urobilinogen Ur Leukocyte Esterase Urine RBC Urine WBC Urine WBC Clumps Amorphous Sediment Urine Bacteria Hyaline Casts Urine Mucus Micro UA Comment Urine Culture Comments Stl C.difficile DNA Amp St C. diff Tox Epid 027 Random Vancomycin MTS Gel Crossmatch 08/03/18 08/03/18 08/03/18 17:15 17:15 17:15 WBC RBC Hgb 9.1 L Hct MCV MCH MCHC RDW Plt Count MPV Prelim Diff (Auto) Neut % (Auto) Lymph % (Auto) [place] % (Auto) Eos % (Auto) Baso % (Auto) Neut # (Auto) Lymph # (Auto) [place] # (Auto) Eos # (Auto) Baso # (Auto) WBC Differential Seg Neuts % (Manual) Band Neuts % (Manual) Lymphocytes % (Manual) Monocytes % (Manual) Metamyelocytes % (Man) Myelocytes % (Man) Abs Neuts (Manual) Nucleated RBCs/100 WBC Differential Comment Toxic Granulation Toxic Vacuolation Dohle Bodies Platelet Estimate Platelet Morphology Pappenheimer Bodies Ovalocytes [place] Cells Acanthocytes (Spur) Keratocytes PT INR APTT Fibrinogen Puncture Site Patient Temperature O2 Saturation ABG pH ABG pCO2 ABG pO2 ABG HCO3 ABG O2 Content ABG Base Excess ABG Methemoglobin Jordy Test Hemoglobin Carboxyhemoglobin O2 Delivery Device Vent Setting Inspired O2 Critical Value Sodium Potassium Chloride Carbon Dioxide Anion Gap BUN Creatinine Estimated GFR POC Glucose Random Glucose Osmolality Lactic Acid 3.6 H Calcium Calcium Adj for Albumin Phosphorus Magnesium 1.9 Total Bilirubin AST ALT Alkaline Phosphatase Ammonia Total Creatine Kinase CK-MB (CK-2) CK-MB (CK-2) % Troponin I Total Protein Albumin Lipase Beta-Hydroxybutyric Acd Urine Color Urine Clarity Urine pH Ur Specific [place] Urine Protein Urine Glucose (UA) Urine Ketones Urine Occult Blood Urine Nitrate Urine Bilirubin Urine Urobilinogen Ur Leukocyte Esterase Urine RBC Urine WBC Urine WBC Clumps Amorphous Sediment Urine Bacteria Hyaline Casts Urine Mucus Micro UA Comment Urine Culture Comments Stl C.difficile DNA Amp St C. diff Tox Epid 027 Random Vancomycin MTS Gel Crossmatch 08/03/18 08/03/18 08/03/18 17:33 18:05 18:49 WBC RBC Hgb Hct MCV MCH MCHC RDW Plt Count MPV Prelim Diff (Auto) Neut % (Auto) Lymph % (Auto) [place] % (Auto) Eos % (Auto) Baso % (Auto) Neut # (Auto) Lymph # (Auto) [place] # (Auto) Eos # (Auto) Baso # (Auto) WBC Differential Seg Neuts % (Manual) Band Neuts % (Manual) Lymphocytes % (Manual) Monocytes % (Manual) Metamyelocytes % (Man) Myelocytes % (Man) Abs Neuts (Manual) Nucleated RBCs/100 WBC Differential Comment Toxic Granulation Toxic Vacuolation Dohle Bodies Platelet Estimate Platelet Morphology Pappenheimer Bodies Ovalocytes [place] Cells Acanthocytes (Spur) Keratocytes PT INR APTT Fibrinogen Puncture Site Art line Patient Temperature 98.6 O2 Saturation 96 ABG pH 7.32 L ABG pCO2 25 L ABG pO2 209 H ABG HCO3 12 L* ABG O2 Content 12.9 ABG Base Excess -12.6 L ABG Methemoglobin 2.1 H Jordy Test Present Hemoglobin 9.2 L Carboxyhemoglobin 0.6 O2 Delivery Device Ventilator Vent Setting Prvc/ac Inspired O2 40 Critical Value No Sodium Potassium Chloride Carbon Dioxide Anion Gap BUN Creatinine Estimated GFR POC Glucose 184 H 132 H Random Glucose Osmolality Lactic Acid Calcium Calcium Adj for Albumin Phosphorus Magnesium Total Bilirubin AST ALT Alkaline Phosphatase Ammonia Total Creatine Kinase CK-MB (CK-2) CK-MB (CK-2) % Troponin I Total Protein Albumin Lipase Beta-Hydroxybutyric Acd Urine Color Urine Clarity Urine pH Ur Specific [place] Urine Protein Urine Glucose (UA) Urine Ketones Urine Occult Blood Urine Nitrate Urine Bilirubin Urine Urobilinogen Ur Leukocyte Esterase Urine RBC Urine WBC Urine WBC Clumps Amorphous Sediment Urine Bacteria Hyaline Casts Urine Mucus Micro UA Comment Urine Culture Comments Stl C.difficile DNA Amp St C. diff Tox Epid 027 Random Vancomycin MTS Gel Crossmatch 08/03/18 08/03/18 08/03/18 21:00 21:20 22:08 WBC RBC Hgb Hct MCV MCH MCHC RDW Plt Count MPV Prelim Diff (Auto) Neut % (Auto) Lymph % (Auto) [place] % (Auto) Eos % (Auto) Baso % (Auto) Neut # (Auto) Lymph # (Auto) [place] # (Auto) Eos # (Auto) Baso # (Auto) WBC Differential Seg Neuts % (Manual) Band Neuts % (Manual) Lymphocytes % (Manual) Monocytes % (Manual) Metamyelocytes % (Man) Myelocytes % (Man) Abs Neuts (Manual) Nucleated RBCs/100 WBC Differential Comment Toxic Granulation Toxic Vacuolation Dohle Bodies Platelet Estimate Platelet Morphology Pappenheimer Bodies Ovalocytes [place] Cells Acanthocytes (Spur) Keratocytes PT INR APTT Fibrinogen Puncture Site Patient Temperature O2 Saturation ABG pH ABG pCO2 ABG pO2 ABG HCO3 ABG O2 Content ABG Base Excess ABG Methemoglobin Jordy Test Hemoglobin Carboxyhemoglobin O2 Delivery Device Vent Setting Inspired O2 Critical Value Sodium Potassium Chloride Carbon Dioxide Anion Gap BUN Creatinine Estimated GFR POC Glucose 188 H 228 H Random Glucose Osmolality Lactic Acid 2.3 H Calcium Calcium Adj for Albumin Phosphorus Magnesium Total Bilirubin AST ALT Alkaline Phosphatase Ammonia Total Creatine Kinase CK-MB (CK-2) CK-MB (CK-2) % Troponin I Total Protein Albumin Lipase Beta-Hydroxybutyric Acd Urine Color Urine Clarity Urine pH Ur Specific [place] Urine Protein Urine Glucose (UA) Urine Ketones Urine Occult Blood Urine Nitrate Urine Bilirubin Urine Urobilinogen Ur Leukocyte Esterase Urine RBC Urine WBC Urine WBC Clumps Amorphous Sediment Urine Bacteria Hyaline Casts Urine Mucus Micro UA Comment Urine Culture Comments Stl C.difficile DNA Amp St C. diff Tox Epid 027 Random Vancomycin MTS Gel Crossmatch 08/03/18 08/03/18 08/03/18 22:59 23:40 23:40 WBC 32.2 H RBC 3.12 L Hgb 9.4 L Hct 27.4 L MCV 87.9 MCH 30.1 MCHC 34.2 RDW 16.7 Plt Count 69 L D MPV 8.0 Prelim Diff (Auto) Slide review pending Neut % (Auto) 96.6 H Lymph % (Auto) 2.3 L [place] % (Auto) 1.0 Eos % (Auto) 0.0 Baso % (Auto) 0.1 Neut # (Auto) 31.1 H Lymph # (Auto) 0.7 L [place] # (Auto) 0.3 Eos # (Auto) 0.0 Baso # (Auto) 0.0 WBC Differential Manual diff final Seg Neuts % (Manual) 69 Band Neuts % (Manual) 26 H Lymphocytes % (Manual) Monocytes % (Manual) 2 Metamyelocytes % (Man) 3 H Myelocytes % (Man) Abs Neuts (Manual) 31.6 H Nucleated RBCs/100 WBC 2 H Differential Comment . Toxic Granulation Toxic Vacuolation Present H Dohle Bodies Platelet Estimate Low L Platelet Morphology Normal Pappenheimer Bodies Ovalocytes [place] Cells 1+ H Acanthocytes (Spur) Occ H Keratocytes Occ H PT 15.6 H INR 1.5 APTT 48.0 H D Fibrinogen 198 L Puncture Site Patient Temperature O2 Saturation ABG pH ABG pCO2 ABG pO2 ABG HCO3 ABG O2 Content ABG Base Excess ABG Methemoglobin Jordy Test Hemoglobin Carboxyhemoglobin O2 Delivery Device Vent Setting Inspired O2 Critical Value Sodium Potassium Chloride Carbon Dioxide Anion Gap BUN Creatinine Estimated GFR POC Glucose 212 H Random Glucose Osmolality Lactic Acid Calcium Calcium Adj for Albumin Phosphorus Magnesium Total Bilirubin AST ALT Alkaline Phosphatase Ammonia Total Creatine Kinase CK-MB (CK-2) CK-MB (CK-2) % Troponin I Total Protein Albumin Lipase Beta-Hydroxybutyric Acd Urine Color Urine Clarity Urine pH Ur Specific [place] Urine Protein Urine Glucose (UA) Urine Ketones Urine Occult Blood Urine Nitrate Urine Bilirubin Urine Urobilinogen Ur Leukocyte Esterase Urine RBC Urine WBC Urine WBC Clumps Amorphous Sediment Urine Bacteria Hyaline Casts Urine Mucus Micro UA Comment Urine Culture Comments Stl C.difficile DNA Amp St C. diff Tox Epid 027 Random Vancomycin MTS Gel Crossmatch 08/03/18 08/03/18 08/03/18 23:40 23:40 23:40 WBC RBC Hgb Hct MCV MCH MCHC RDW Plt Count MPV Prelim Diff (Auto) Neut % (Auto) Lymph % (Auto) [place] % (Auto) Eos % (Auto) Baso % (Auto) Neut # (Auto) Lymph # (Auto) [place] # (Auto) Eos # (Auto) Baso # (Auto) WBC Differential Seg Neuts % (Manual) Band Neuts % (Manual) Lymphocytes % (Manual) Monocytes % (Manual) Metamyelocytes % (Man) Myelocytes % (Man) Abs Neuts (Manual) Nucleated RBCs/100 WBC Differential Comment Toxic Granulation Toxic Vacuolation Dohle Bodies Platelet Estimate Platelet Morphology Pappenheimer Bodies Ovalocytes [place] Cells Acanthocytes (Spur) Keratocytes PT INR APTT Fibrinogen Puncture Site Patient Temperature O2 Saturation ABG pH ABG pCO2 ABG pO2 ABG HCO3 ABG O2 Content ABG Base Excess ABG Methemoglobin Jordy Test Hemoglobin Carboxyhemoglobin O2 Delivery Device Vent Setting Inspired O2 Critical Value Sodium 141 Potassium 4.2 Chloride 116 H Carbon Dioxide 15.8 L Anion Gap 9 BUN 78 H Creatinine 2.55 H Estimated GFR 32 L POC Glucose Random Glucose 190 H Osmolality Lactic Acid 3.5 H Calcium 5.7 L* Calcium Adj for Albumin 7.0 L* Phosphorus 1.8 L D Magnesium 1.8 Total Bilirubin 0.4 AST 3969 H ALT 1337 H Alkaline Phosphatase 124 H Ammonia 36 H Total Creatine Kinase 4926 H CK-MB (CK-2) 50.3 H CK-MB (CK-2) % 1.0 Troponin I Total Protein 4.3 L D Albumin 1.4 L Lipase Beta-Hydroxybutyric Acd Urine Color Urine Clarity Urine pH Ur Specific [place] Urine Protein Urine Glucose (UA) Urine Ketones Urine Occult Blood Urine Nitrate Urine Bilirubin Urine Urobilinogen Ur Leukocyte Esterase Urine RBC Urine WBC Urine WBC Clumps Amorphous Sediment Urine Bacteria Hyaline Casts Urine Mucus Micro UA Comment Urine Culture Comments Stl C.difficile DNA Amp St C. diff Tox Epid 027 Random Vancomycin 8.6 MTS Gel Crossmatch 08/04/18 08/04/18 08/04/18 00:04 01:03 01:58 WBC RBC Hgb Hct MCV MCH MCHC RDW Plt Count MPV Prelim Diff (Auto) Neut % (Auto) Lymph % (Auto) [place] % (Auto) Eos % (Auto) Baso % (Auto) Neut # (Auto) Lymph # (Auto) [place] # (Auto) Eos # (Auto) Baso # (Auto) WBC Differential Seg Neuts % (Manual) Band Neuts % (Manual) Lymphocytes % (Manual) Monocytes % (Manual) Metamyelocytes % (Man) Myelocytes % (Man) Abs Neuts (Manual) Nucleated RBCs/100 WBC Differential Comment Toxic Granulation Toxic Vacuolation Dohle Bodies Platelet Estimate Platelet Morphology Pappenheimer Bodies Ovalocytes [place] Cells Acanthocytes (Spur) Keratocytes PT INR APTT Fibrinogen Puncture Site Patient Temperature O2 Saturation ABG pH ABG pCO2 ABG pO2 ABG HCO3 ABG O2 Content ABG Base Excess ABG Methemoglobin Jordy Test Hemoglobin Carboxyhemoglobin O2 Delivery Device Vent Setting Inspired O2 Critical Value Sodium Potassium Chloride Carbon Dioxide Anion Gap BUN Creatinine Estimated GFR POC Glucose 188 H 205 H 192 H Random Glucose Osmolality Lactic Acid Calcium Calcium Adj for Albumin Phosphorus Magnesium Total Bilirubin AST ALT Alkaline Phosphatase Ammonia Total Creatine Kinase CK-MB (CK-2) CK-MB (CK-2) % Troponin I Total Protein Albumin Lipase Beta-Hydroxybutyric Acd Urine Color Urine Clarity Urine pH Ur Specific [place] Urine Protein Urine Glucose (UA) Urine Ketones Urine Occult Blood Urine Nitrate Urine Bilirubin Urine Urobilinogen Ur Leukocyte Esterase Urine RBC Urine WBC Urine WBC Clumps Amorphous Sediment Urine Bacteria Hyaline Casts Urine Mucus Micro UA Comment Urine Culture Comments Stl C.difficile DNA Amp St C. diff Tox Epid 027 Random Vancomycin MTS Gel Crossmatch 08/04/18 08/04/18 08/04/18 02:58 03:00 04:02 WBC RBC Hgb Hct MCV MCH MCHC RDW Plt Count MPV Prelim Diff (Auto) Neut % (Auto) Lymph % (Auto) [place] % (Auto) Eos % (Auto) Baso % (Auto) Neut # (Auto) Lymph # (Auto) [place] # (Auto) Eos # (Auto) Baso # (Auto) WBC Differential Seg Neuts % (Manual) Band Neuts % (Manual) Lymphocytes % (Manual) Monocytes % (Manual) Metamyelocytes % (Man) Myelocytes % (Man) Abs Neuts (Manual) Nucleated RBCs/100 WBC Differential Comment Toxic Granulation Toxic Vacuolation Dohle Bodies Platelet Estimate Platelet Morphology Pappenheimer Bodies Ovalocytes [place] Cells Acanthocytes (Spur) Keratocytes PT INR APTT Fibrinogen Puncture Site Patient Temperature O2 Saturation ABG pH ABG pCO2 ABG pO2 ABG HCO3 ABG O2 Content ABG Base Excess ABG Methemoglobin Jordy Test Hemoglobin Carboxyhemoglobin O2 Delivery Device Vent Setting Inspired O2 Critical Value Sodium Potassium Chloride Carbon Dioxide Anion Gap BUN Creatinine Estimated GFR POC Glucose 195 H 220 H Random Glucose Osmolality Lactic Acid 3.7 H Calcium Calcium Adj for Albumin Phosphorus Magnesium Total Bilirubin AST ALT Alkaline Phosphatase Ammonia Total Creatine Kinase CK-MB (CK-2) CK-MB (CK-2) % Troponin I Total Protein Albumin Lipase Beta-Hydroxybutyric Acd Urine Color Urine Clarity Urine pH Ur Specific [place] Urine Protein Urine Glucose (UA) Urine Ketones Urine Occult Blood Urine Nitrate Urine Bilirubin Urine Urobilinogen Ur Leukocyte Esterase Urine RBC Urine WBC Urine WBC Clumps Amorphous Sediment Urine Bacteria Hyaline Casts Urine Mucus Micro UA Comment Urine Culture Comments Stl C.difficile DNA Amp St C. diff Tox Epid 027 Random Vancomycin MTS Gel Crossmatch 08/04/18 08/04/18 08/04/18 05:01 05:52 06:54 WBC RBC Hgb Hct MCV MCH MCHC RDW Plt Count MPV Prelim Diff (Auto) Neut % (Auto) Lymph % (Auto) [place] % (Auto) Eos % (Auto) Baso % (Auto) Neut # (Auto) Lymph # (Auto) [place] # (Auto) Eos # (Auto) Baso # (Auto) WBC Differential Seg Neuts % (Manual) Band Neuts % (Manual) Lymphocytes % (Manual) Monocytes % (Manual) Metamyelocytes % (Man) Myelocytes % (Man) Abs Neuts (Manual) Nucleated RBCs/100 WBC Differential Comment Toxic Granulation Toxic Vacuolation Dohle Bodies Platelet Estimate Platelet Morphology Pappenheimer Bodies Ovalocytes [place] Cells Acanthocytes (Spur) Keratocytes PT INR APTT Fibrinogen Puncture Site Patient Temperature O2 Saturation ABG pH ABG pCO2 ABG pO2 ABG HCO3 ABG O2 Content ABG Base Excess ABG Methemoglobin Jordy Test Hemoglobin Carboxyhemoglobin O2 Delivery Device Vent Setting Inspired O2 Critical Value Sodium Potassium Chloride Carbon Dioxide Anion Gap BUN Creatinine Estimated GFR POC Glucose 209 H 204 H 211 H Random Glucose Osmolality Lactic Acid Calcium Calcium Adj for Albumin Phosphorus Magnesium Total Bilirubin AST ALT Alkaline Phosphatase Ammonia Total Creatine Kinase CK-MB (CK-2) CK-MB (CK-2) % Troponin I Total Protein Albumin Lipase Beta-Hydroxybutyric Acd Urine Color Urine Clarity Urine pH Ur Specific [place] Urine Protein Urine Glucose (UA) Urine Ketones Urine Occult Blood Urine Nitrate Urine Bilirubin Urine Urobilinogen Ur Leukocyte Esterase Urine RBC Urine WBC Urine WBC Clumps Amorphous Sediment Urine Bacteria Hyaline Casts Urine Mucus Micro UA Comment Urine Culture Comments Stl C.difficile DNA Amp St C. diff Tox Epid 027 Random Vancomycin MTS Gel Crossmatch 08/04/18 08/04/18 08/04/18 07:43 07:43 07:43 WBC 38.1 H RBC 3.08 L Hgb 9.5 L Hct 27.1 L MCV 88.0 MCH 30.8 MCHC 35.0 RDW 16.6 Plt Count 63 L MPV 8.4 Prelim Diff (Auto) Slide review pending Neut % (Auto) 96.7 H Lymph % (Auto) 2.3 L [place] % (Auto) 0.7 Eos % (Auto) 0.1 Baso % (Auto) 0.2 Neut # (Auto) 36.9 H Lymph # (Auto) 0.9 L [place] # (Auto) 0.3 Eos # (Auto) 0.0 Baso # (Auto) 0.1 WBC Differential Manual diff final Seg Neuts % (Manual) 47 Band Neuts % (Manual) 51 H Lymphocytes % (Manual) 2 L Monocytes % (Manual) Metamyelocytes % (Man) Myelocytes % (Man) Abs Neuts (Manual) 37.3 H Nucleated RBCs/100 WBC Differential Comment . Toxic Granulation 1+ H Toxic Vacuolation Dohle Bodies Platelet Estimate Low L Platelet Morphology Normal Pappenheimer Bodies Ovalocytes [place] Cells 1+ H Acanthocytes (Spur) Occ H Keratocytes PT 15.2 H INR 1.5 APTT 46.5 H Fibrinogen 241 Puncture Site Patient Temperature O2 Saturation ABG pH ABG pCO2 ABG pO2 ABG HCO3 ABG O2 Content ABG Base Excess ABG Methemoglobin Jordy Test Hemoglobin Carboxyhemoglobin O2 Delivery Device Vent Setting Inspired O2 Critical Value Sodium Potassium Chloride Carbon Dioxide Anion Gap BUN Creatinine Estimated GFR POC Glucose Random Glucose Osmolality Lactic Acid 3.7 H Calcium Calcium Adj for Albumin Phosphorus Magnesium Total Bilirubin AST ALT Alkaline Phosphatase Ammonia Total Creatine Kinase CK-MB (CK-2) CK-MB (CK-2) % Troponin I Total Protein Albumin Lipase Beta-Hydroxybutyric Acd Urine Color Urine Clarity Urine pH Ur Specific [place] Urine Protein Urine Glucose (UA) Urine Ketones Urine Occult Blood Urine Nitrate Urine Bilirubin Urine Urobilinogen Ur Leukocyte Esterase Urine RBC Urine WBC Urine WBC Clumps Amorphous Sediment Urine Bacteria Hyaline Casts Urine Mucus Micro UA Comment Urine Culture Comments Stl C.difficile DNA Amp St C. diff Tox Epid 027 Random Vancomycin MTS Gel Crossmatch 08/04/18 08/04/18 08/04/18 07:43 08:36 08:46 WBC RBC Hgb Hct MCV MCH MCHC RDW Plt Count MPV Prelim Diff (Auto) Neut % (Auto) Lymph % (Auto) [place] % (Auto) Eos % (Auto) Baso % (Auto) Neut # (Auto) Lymph # (Auto) [place] # (Auto) Eos # (Auto) Baso # (Auto) WBC Differential Seg Neuts % (Manual) Band Neuts % (Manual) Lymphocytes % (Manual) Monocytes % (Manual) Metamyelocytes % (Man) Myelocytes % (Man) Abs Neuts (Manual) Nucleated RBCs/100 WBC Differential Comment Toxic Granulation Toxic Vacuolation Dohle Bodies Platelet Estimate Platelet Morphology Pappenheimer Bodies Ovalocytes [place] Cells Acanthocytes (Spur) Keratocytes PT INR APTT Fibrinogen Puncture Site Megan Patient Temperature 98.6 O2 Saturation 96 ABG pH 7.38 ABG pCO2 23 L* ABG pO2 167 H ABG HCO3 13 L* ABG O2 Content 13.5 ABG Base Excess -11.0 L ABG Methemoglobin 2.1 H Jordy Test Hemoglobin 9.7 L Carboxyhemoglobin 0.5 O2 Delivery Device Ventilator Vent Setting See comments Inspired O2 35 Critical Value Yes Sodium 140 Potassium 4.4 Chloride 115 H Carbon Dioxide 13.2 L Anion Gap 12 BUN 75 H Creatinine 2.80 H Estimated GFR 28 L POC Glucose 205 H Random Glucose 198 H Osmolality Lactic Acid Calcium 5.7 L* Calcium Adj for Albumin 7.0 L* Phosphorus 1.7 L Magnesium 1.9 Total Bilirubin 0.4 AST 3067 H ALT 1158 H Alkaline Phosphatase 128 H Ammonia Total Creatine Kinase 4932 H CK-MB (CK-2) 41.1 H CK-MB (CK-2) % 0.8 Troponin I 0.23 H Total Protein 4.2 L Albumin 1.3 L Lipase 1559 H Beta-Hydroxybutyric Acd Urine Color Urine Clarity Urine pH Ur Specific [place] Urine Protein Urine Glucose (UA) Urine Ketones Urine Occult Blood Urine Nitrate Urine Bilirubin Urine Urobilinogen Ur Leukocyte Esterase Urine RBC Urine WBC Urine WBC Clumps Amorphous Sediment Urine Bacteria Hyaline Casts Urine Mucus Micro UA Comment Urine Culture Comments Stl C.difficile DNA Amp St C. diff Tox Epid 027 Random Vancomycin MTS Gel Crossmatch 08/04/18 08/04/18 08/04/18 09:50 11:17 11:42 WBC RBC Hgb Hct MCV MCH MCHC RDW Plt Count MPV Prelim Diff (Auto) Neut % (Auto) Lymph % (Auto) [place] % (Auto) Eos % (Auto) Baso % (Auto) Neut # (Auto) Lymph # (Auto) [place] # (Auto) Eos # (Auto) Baso # (Auto) WBC Differential Seg Neuts % (Manual) Band Neuts % (Manual) Lymphocytes % (Manual) Monocytes % (Manual) Metamyelocytes % (Man) Myelocytes % (Man) Abs Neuts (Manual) Nucleated RBCs/100 WBC Differential Comment Toxic Granulation Toxic Vacuolation Dohle Bodies Platelet Estimate Platelet Morphology Pappenheimer Bodies Ovalocytes [place] Cells Acanthocytes (Spur) Keratocytes PT INR APTT Fibrinogen Puncture Site Patient Temperature O2 Saturation ABG pH ABG pCO2 ABG pO2 ABG HCO3 ABG O2 Content ABG Base Excess ABG Methemoglobin Jordy Test Hemoglobin Carboxyhemoglobin O2 Delivery Device Vent Setting Inspired O2 Critical Value Sodium 141 Potassium Chloride Carbon Dioxide Anion Gap BUN Creatinine Estimated GFR POC Glucose 175 H 204 H Random Glucose Osmolality 307 H Lactic Acid Calcium Calcium Adj for Albumin Phosphorus Magnesium Total Bilirubin AST ALT Alkaline Phosphatase Ammonia Total Creatine Kinase CK-MB (CK-2) CK-MB (CK-2) % Troponin I Total Protein Albumin Lipase Beta-Hydroxybutyric Acd Urine Color Urine Clarity Urine pH Ur Specific [place] Urine Protein Urine Glucose (UA) Urine Ketones Urine Occult Blood Urine Nitrate Urine Bilirubin Urine Urobilinogen Ur Leukocyte Esterase Urine RBC Urine WBC Urine WBC Clumps Amorphous Sediment Urine Bacteria Hyaline Casts Urine Mucus Micro UA Comment Urine Culture Comments Stl C.difficile DNA Amp St C. diff Tox Epid 027 Random Vancomycin MTS Gel Crossmatch 08/04/18 08/04/18 08/04/18 15:25 15:25 15:25 WBC 44.8 H RBC 3.48 L Hgb 10.5 L Hct 30.6 L MCV 87.7 MCH 30.1 MCHC 34.3 RDW 16.3 Plt Count 72 L MPV 8.6 Prelim Diff (Auto) Slide review pending Neut % (Auto) 97.3 H Lymph % (Auto) 1.7 L [place] % (Auto) 0.9 Eos % (Auto) 0.0 Baso % (Auto) 0.1 Neut # (Auto) 43.5 H Lymph # (Auto) 0.8 L [place] # (Auto) 0.4 Eos # (Auto) 0.0 Baso # (Auto) 0.0 WBC Differential Manual diff final Seg Neuts % (Manual) 50 Band Neuts % (Manual) 46 H Lymphocytes % (Manual) 1 L Monocytes % (Manual) 1 Metamyelocytes % (Man) 2 H Myelocytes % (Man) Abs Neuts (Manual) 43.9 H Nucleated RBCs/100 WBC Differential Comment . Toxic Granulation Toxic Vacuolation Dohle Bodies Platelet Estimate Low L Platelet Morphology Normal Pappenheimer Bodies Ovalocytes 1+ H [place] Cells 1+ H Acanthocytes (Spur) Keratocytes PT INR APTT Fibrinogen Puncture Site Patient Temperature O2 Saturation ABG pH ABG pCO2 ABG pO2 ABG HCO3 ABG O2 Content ABG Base Excess ABG Methemoglobin Jordy Test Hemoglobin Carboxyhemoglobin O2 Delivery Device Vent Setting Inspired O2 Critical Value Sodium 141 Potassium 4.9 Chloride 115 H Carbon Dioxide 14.9 L Anion Gap 11 BUN 75 H Creatinine 2.85 H Estimated GFR 28 L POC Glucose Random Glucose 131 H Osmolality 310 H Lactic Acid 3.2 H Calcium 6.5 L* D Calcium Adj for Albumin 8.7 D Phosphorus 3.4 D Magnesium 1.8 Total Bilirubin AST ALT Alkaline Phosphatase Ammonia Total Creatine Kinase CK-MB (CK-2) CK-MB (CK-2) % Troponin I Total Protein Albumin 1.3 L Lipase Beta-Hydroxybutyric Acd Urine Color Urine Clarity Urine pH Ur Specific [place] Urine Protein Urine Glucose (UA) Urine Ketones Urine Occult Blood Urine Nitrate Urine Bilirubin Urine Urobilinogen Ur Leukocyte Esterase Urine RBC Urine WBC Urine WBC Clumps Amorphous Sediment Urine Bacteria Hyaline Casts Urine Mucus Micro UA Comment Urine Culture Comments Stl C.difficile DNA Amp St C. diff Tox Epid 027 Random Vancomycin MTS Gel Crossmatch 08/04/18 08/04/18 08/04/18 18:17 18:17 18:17 WBC 48.3 H RBC 3.49 L Hgb 10.6 L Hct 30.6 L MCV 87.7 MCH 30.4 MCHC 34.6 RDW 16.8 Plt Count 72 L MPV 8.8 Prelim Diff (Auto) Slide review pending Neut % (Auto) 96.9 H Lymph % (Auto) 1.8 L [place] % (Auto) 1.2 Eos % (Auto) 0.0 Baso % (Auto) 0.1 Neut # (Auto) 46.8 H Lymph # (Auto) 0.9 L [place] # (Auto) 0.6 Eos # (Auto) 0.0 Baso # (Auto) 0.1 WBC Differential Manual diff final Seg Neuts % (Manual) 69 Band Neuts % (Manual) 26 H Lymphocytes % (Manual) 1 L Monocytes % (Manual) Metamyelocytes % (Man) 3 H Myelocytes % (Man) 1 H Abs Neuts (Manual) 47.8 H Nucleated RBCs/100 WBC Differential Comment . Toxic Granulation Toxic Vacuolation Dohle Bodies Platelet Estimate Low L Platelet Morphology Normal Pappenheimer Bodies Ovalocytes 1+ H [place] Cells 1+ H Acanthocytes (Spur) Occ H Keratocytes PT INR APTT Fibrinogen Puncture Site Patient Temperature O2 Saturation ABG pH ABG pCO2 ABG pO2 ABG HCO3 ABG O2 Content ABG Base Excess ABG Methemoglobin Jordy Test Hemoglobin Carboxyhemoglobin O2 Delivery Device Vent Setting Inspired O2 Critical Value Sodium 141 Potassium 5.2 H Chloride 117 H Carbon Dioxide 15.0 L Anion Gap 9 BUN 74 H Creatinine 2.92 H Estimated GFR 27 L POC Glucose Random Glucose 126 H Osmolality Lactic Acid Calcium 6.3 L* Calcium Adj for Albumin 8.5 Phosphorus 4.1 Magnesium 1.8 Total Bilirubin AST ALT Alkaline Phosphatase Ammonia 37 H Total Creatine Kinase 3854 H CK-MB (CK-2) 36.2 H CK-MB (CK-2) % 0.9 Troponin I Total Protein Albumin 1.3 L Lipase Beta-Hydroxybutyric Acd Urine Color Urine Clarity Urine pH Ur Specific [place] Urine Protein Urine Glucose (UA) Urine Ketones Urine Occult Blood Urine Nitrate Urine Bilirubin Urine Urobilinogen Ur Leukocyte Esterase Urine RBC Urine WBC Urine WBC Clumps Amorphous Sediment Urine Bacteria Hyaline Casts Urine Mucus Micro UA Comment Urine Culture Comments Stl C.difficile DNA Amp St C. diff Tox Epid 027 Random Vancomycin MTS Gel Crossmatch 08/04/18 08/04/18 08/04/18 21:14 23:05 23:05 WBC 54.8 H RBC 3.71 L Hgb 11.1 L Hct 32.1 L MCV 86.7 MCH 29.8 MCHC 34.4 RDW 16.7 Plt Count 79 L MPV 9.2 Prelim Diff (Auto) Slide review pending Neut % (Auto) 97.8 H Lymph % (Auto) 1.3 L [place] % (Auto) 0.8 Eos % (Auto) 0.0 Baso % (Auto) 0.1 Neut # (Auto) 53.6 H Lymph # (Auto) 0.7 L [place] # (Auto) 0.4 Eos # (Auto) 0.0 Baso # (Auto) 0.0 WBC Differential Manual diff final Seg Neuts % (Manual) 38 Band Neuts % (Manual) 61 H Lymphocytes % (Manual) 1 L Monocytes % (Manual) Metamyelocytes % (Man) Myelocytes % (Man) Abs Neuts (Manual) 54.3 H Nucleated RBCs/100 WBC Differential Comment . Toxic Granulation 1+ H Toxic Vacuolation Dohle Bodies Platelet Estimate Low L Platelet Morphology Enlarged H Pappenheimer Bodies Present H Ovalocytes [place] Cells 1+ H Acanthocytes (Spur) Occ H Keratocytes PT INR APTT Fibrinogen Puncture Site Patient Temperature O2 Saturation ABG pH ABG pCO2 ABG pO2 ABG HCO3 ABG O2 Content ABG Base Excess ABG Methemoglobin Jordy Test Hemoglobin Carboxyhemoglobin O2 Delivery Device Vent Setting Inspired O2 Critical Value Sodium Potassium Chloride Carbon Dioxide Anion Gap BUN Creatinine Estimated GFR POC Glucose 139 H Random Glucose Osmolality Lactic Acid 3.7 H Calcium Calcium Adj for Albumin Phosphorus Magnesium Total Bilirubin AST ALT Alkaline Phosphatase Ammonia Total Creatine Kinase CK-MB (CK-2) CK-MB (CK-2) % Troponin I Total Protein Albumin Lipase Beta-Hydroxybutyric Acd Urine Color Urine Clarity Urine pH Ur Specific [place] Urine Protein Urine Glucose (UA) Urine Ketones Urine Occult Blood Urine Nitrate Urine Bilirubin Urine Urobilinogen Ur Leukocyte Esterase Urine RBC Urine WBC Urine WBC Clumps Amorphous Sediment Urine Bacteria Hyaline Casts Urine Mucus Micro UA Comment Urine Culture Comments Stl C.difficile DNA Amp St C. diff Tox Epid 027 Random Vancomycin MTS Gel Crossmatch 08/04/18 08/04/18 08/04/18 23:05 23:05 23:05 WBC RBC Hgb Hct MCV MCH MCHC RDW Plt Count MPV Prelim Diff (Auto) Neut % (Auto) Lymph % (Auto) [place] % (Auto) Eos % (Auto) Baso % (Auto) Neut # (Auto) Lymph # (Auto) [place] # (Auto) Eos # (Auto) Baso # (Auto) WBC Differential Seg Neuts % (Manual) Band Neuts % (Manual) Lymphocytes % (Manual) Monocytes % (Manual) Metamyelocytes % (Man) Myelocytes % (Man) Abs Neuts (Manual) Nucleated RBCs/100 WBC Differential Comment Toxic Granulation Toxic Vacuolation Dohle Bodies Platelet Estimate Platelet Morphology Pappenheimer Bodies Ovalocytes [place] Cells Acanthocytes (Spur) Keratocytes PT 13.3 H INR 1.3 APTT 44.0 H Fibrinogen 356 Puncture Site Patient Temperature O2 Saturation ABG pH ABG pCO2 ABG pO2 ABG HCO3 ABG O2 Content ABG Base Excess ABG Methemoglobin Jordy Test Hemoglobin Carboxyhemoglobin O2 Delivery Device Vent Setting Inspired O2 Critical Value Sodium 143 Potassium 5.7 H Chloride 116 H Carbon Dioxide 12.5 L Anion Gap 15 BUN 73 H Creatinine 3.16 H Estimated GFR 25 L POC Glucose Random Glucose 121 H Osmolality 318 H Lactic Acid Calcium 6.4 L* Calcium Adj for Albumin 7.4 L* Phosphorus 4.4 Magnesium 1.9 Total Bilirubin 0.7 AST 2140 H ALT 1065 H Alkaline Phosphatase 249 H Ammonia 23 Total Creatine Kinase 3304 H CK-MB (CK-2) 32.8 H CK-MB (CK-2) % 1.0 Troponin I Total Protein 5.0 L D Albumin 1.3 L Lipase Beta-Hydroxybutyric Acd Urine Color Urine Clarity Urine pH Ur Specific [place] Urine Protein Urine Glucose (UA) Urine Ketones Urine Occult Blood Urine Nitrate Urine Bilirubin Urine Urobilinogen Ur Leukocyte Esterase Urine RBC Urine WBC Urine WBC Clumps Amorphous Sediment Urine Bacteria Hyaline Casts Urine Mucus Micro UA Comment Urine Culture Comments Stl C.difficile DNA Amp St C. diff Tox Epid 027 Random Vancomycin MTS Gel Crossmatch 08/04/18 08/05/18 08/05/18 23:05 03:35 03:39 WBC RBC Hgb Hct MCV MCH MCHC RDW Plt Count MPV Prelim Diff (Auto) Neut % (Auto) Lymph % (Auto) [place] % (Auto) Eos % (Auto) Baso % (Auto) Neut # (Auto) Lymph # (Auto) [place] # (Auto) Eos # (Auto) Baso # (Auto) WBC Differential Seg Neuts % (Manual) Band Neuts % (Manual) Lymphocytes % (Manual) Monocytes % (Manual) Metamyelocytes % (Man) Myelocytes % (Man) Abs Neuts (Manual) Nucleated RBCs/100 WBC Differential Comment Toxic Granulation Toxic Vacuolation Dohle Bodies Platelet Estimate Platelet Morphology Pappenheimer Bodies Ovalocytes Indigo Cells Acanthocytes (Spur) Keratocytes PT INR APTT Fibrinogen Cancelled Puncture Site Patient Temperature O2 Saturation ABG pH ABG pCO2 ABG pO2 ABG HCO3 ABG O2 Content ABG Base Excess ABG Methemoglobin Jordy Test Hemoglobin Carboxyhemoglobin O2 Delivery Device Vent Setting Inspired O2 Critical Value Sodium Potassium Chloride Carbon Dioxide Anion Gap BUN Creatinine Estimated GFR POC Glucose 153 H Random Glucose Osmolality Lactic Acid 3.4 H Calcium Calcium Adj for Albumin Phosphorus Magnesium Total Bilirubin AST ALT Alkaline Phosphatase Ammonia Total Creatine Kinase CK-MB (CK-2) CK-MB (CK-2) % Troponin I Total Protein Albumin Lipase Beta-Hydroxybutyric Acd Urine Color Urine Clarity Urine pH Ur Specific [place] Urine Protein Urine Glucose (UA) Urine Ketones Urine Occult Blood Urine Nitrate Urine Bilirubin Urine Urobilinogen Ur Leukocyte Esterase Urine RBC Urine WBC Urine WBC Clumps Amorphous Sediment Urine Bacteria Hyaline Casts Urine Mucus Micro UA Comment Urine Culture Comments Stl C.difficile DNA Amp St C. diff Tox Epid 027 Random Vancomycin MTS Gel Crossmatch 08/05/18 08/05/18 08/05/18 05:30 06:45 06:45 WBC 44.8 H RBC 3.31 L Hgb 10.1 L Hct 29.3 L MCV 88.7 MCH 30.4 MCHC 34.3 RDW 16.8 Plt Count 64 L MPV 9.4 Prelim Diff (Auto) Slide review pending Neut % (Auto) 96.5 H Lymph % (Auto) 1.9 L [place] % (Auto) 1.3 Eos % (Auto) 0.1 Baso % (Auto) 0.2 Neut # (Auto) 43.3 H Lymph # (Auto) 0.9 L [place] # (Auto) 0.6 Eos # (Auto) 0.0 Baso # (Auto) 0.1 WBC Differential Manual diff final Seg Neuts % (Manual) 76 H Band Neuts % (Manual) 19 H Lymphocytes % (Manual) 3 L Monocytes % (Manual) 2 Metamyelocytes % (Man) Myelocytes % (Man) Abs Neuts (Manual) 42.6 H Nucleated RBCs/100 WBC Differential Comment . Toxic Granulation 1+ H Toxic Vacuolation Dohle Bodies Platelet Estimate Low L Platelet Morphology Enlarged H Pappenheimer Bodies Ovalocytes 1+ H [place] Cells 1+ H Acanthocytes (Spur) Keratocytes PT INR APTT Fibrinogen Puncture Site Patient Temperature O2 Saturation ABG pH ABG pCO2 ABG pO2 ABG HCO3 ABG O2 Content ABG Base Excess ABG Methemoglobin Jordy Test Hemoglobin Carboxyhemoglobin O2 Delivery Device Vent Setting Inspired O2 Critical Value Sodium 144 144 Potassium 6.1 H Chloride 119 H Carbon Dioxide 11.8 L Anion Gap 13 BUN 76 H Creatinine 3.41 H Estimated GFR 23 L POC Glucose Random Glucose 148 H Osmolality 318 H Lactic Acid Calcium 7.0 L* Calcium Adj for Albumin 9.3 D Phosphorus 4.4 Magnesium 1.9 Total Bilirubin AST ALT Alkaline Phosphatase Ammonia Total Creatine Kinase CK-MB (CK-2) CK-MB (CK-2) % Troponin I Total Protein Albumin 1.1 L Lipase Beta-Hydroxybutyric Acd Urine Color Urine Clarity Urine pH Ur Specific [place] Urine Protein Urine Glucose (UA) Urine Ketones Urine Occult Blood Urine Nitrate Urine Bilirubin Urine Urobilinogen Ur Leukocyte Esterase Urine RBC Urine WBC Urine WBC Clumps Amorphous Sediment Urine Bacteria Hyaline Casts Urine Mucus Micro UA Comment Urine Culture Comments Stl C.difficile DNA Amp St C. diff Tox Epid 027 Random Vancomycin 21.9 MTS Gel Crossmatch 08/05/18 08/05/18 08/05/18 09:15 10:30 10:30 WBC RBC Hgb Hct MCV MCH MCHC RDW Plt Count MPV Prelim Diff (Auto) Neut % (Auto) Lymph % (Auto) [place] % (Auto) Eos % (Auto) Baso % (Auto) Neut # (Auto) Lymph # (Auto) [place] # (Auto) Eos # (Auto) Baso # (Auto) WBC Differential Seg Neuts % (Manual) Band Neuts % (Manual) Lymphocytes % (Manual) Monocytes % (Manual) Metamyelocytes % (Man) Myelocytes % (Man) Abs Neuts (Manual) Nucleated RBCs/100 WBC Differential Comment Toxic Granulation Toxic Vacuolation Dohle Bodies Platelet Estimate Platelet Morphology Pappenheimer Bodies Ovalocytes [place]igo Cells Acanthocytes (Spur) Keratocytes PT INR APTT Fibrinogen Puncture Site Patient Temperature O2 Saturation ABG pH ABG pCO2 ABG pO2 ABG HCO3 ABG O2 Content ABG Base Excess ABG Methemoglobin Jordy Test Hemoglobin Carboxyhemoglobin O2 Delivery Device Vent Setting Inspired O2 Critical Value Sodium 146 H Potassium 6.0 H Chloride Carbon Dioxide Anion Gap BUN Creatinine Estimated GFR POC Glucose Random Glucose Osmolality 323 H Lactic Acid 4.9 H* Calcium Calcium Adj for Albumin Phosphorus Magnesium Total Bilirubin AST ALT Alkaline Phosphatase Ammonia Total Creatine Kinase CK-MB (CK-2) CK-MB (CK-2) % Troponin I Total Protein Albumin Lipase Beta-Hydroxybutyric Acd Urine Color Urine Clarity Urine pH Ur Specific [place] Urine Protein Urine Glucose (UA) Urine Ketones Urine Occult Blood Urine Nitrate Urine Bilirubin Urine Urobilinogen Ur Leukocyte Esterase Urine RBC Urine WBC Urine WBC Clumps Amorphous Sediment Urine Bacteria Hyaline Casts Urine Mucus Micro UA Comment Urine Culture Comments Stl C.difficile DNA Amp St C. diff Tox Epid 027 Random Vancomycin MTS Gel Crossmatch 08/05/18 08/05/18 08/05/18 11:44 15:05 15:38 WBC RBC Hgb Hct MCV MCH MCHC RDW Plt Count MPV Prelim Diff (Auto) Neut % (Auto) Lymph % (Auto) [place] % (Auto) Eos % (Auto) Baso % (Auto) Neut # (Auto) Lymph # (Auto) [place] # (Auto) Eos # (Auto) Baso # (Auto) WBC Differential Seg Neuts % (Manual) Band Neuts % (Manual) Lymphocytes % (Manual) Monocytes % (Manual) Metamyelocytes % (Man) Myelocytes % (Man) Abs Neuts (Manual) Nucleated RBCs/100 WBC Differential Comment Toxic Granulation Toxic Vacuolation Dohle Bodies Platelet Estimate Platelet Morphology Pappenheimer Bodies Ovalocytes [place] Cells Acanthocytes (Spur) Keratocytes PT INR APTT Fibrinogen Puncture Site Patient Temperature O2 Saturation ABG pH ABG pCO2 ABG pO2 ABG HCO3 ABG O2 Content ABG Base Excess ABG Methemoglobin Jordy Test Hemoglobin Carboxyhemoglobin O2 Delivery Device Vent Setting Inspired O2 Critical Value Sodium Potassium Chloride Carbon Dioxide Anion Gap BUN Creatinine Estimated GFR POC Glucose 159 H 184 H Random Glucose Osmolality Lactic Acid 5.2 H* Calcium Calcium Adj for Albumin Phosphorus Magnesium Total Bilirubin AST ALT Alkaline Phosphatase Ammonia Total Creatine Kinase CK-MB (CK-2) CK-MB (CK-2) % Troponin I Total Protein Albumin Lipase Beta-Hydroxybutyric Acd Urine Color Urine Clarity Urine pH Ur Specific [place] Urine Protein Urine Glucose (UA) Urine Ketones Urine Occult Blood Urine Nitrate Urine Bilirubin Urine Urobilinogen Ur Leukocyte Esterase Urine RBC Urine WBC Urine WBC Clumps Amorphous Sediment Urine Bacteria Hyaline Casts Urine Mucus Micro UA Comment Urine Culture Comments Stl C.difficile DNA Amp St C. diff Tox Epid 027 Random Vancomycin MTS Gel Crossmatch 08/05/18 08/05/18 08/05/18 17:11 17:11 20:19 WBC RBC Hgb Hct MCV MCH MCHC RDW Plt Count MPV Prelim Diff (Auto) Neut % (Auto) Lymph % (Auto) [place] % (Auto) Eos % (Auto) Baso % (Auto) Neut # (Auto) Lymph # (Auto) [place] # (Auto) Eos # (Auto) Baso # (Auto) WBC Differential Seg Neuts % (Manual) Band Neuts % (Manual) Lymphocytes % (Manual) Monocytes % (Manual) Metamyelocytes % (Man) Myelocytes % (Man) Abs Neuts (Manual) Nucleated RBCs/100 WBC Differential Comment Toxic Granulation Toxic Vacuolation Dohle Bodies Platelet Estimate Platelet Morphology Pappenheimer Bodies Ovalocytes [place]igo Cells Acanthocytes (Spur) Keratocytes PT INR APTT Fibrinogen Puncture Site Patient Temperature O2 Saturation ABG pH ABG pCO2 ABG pO2 ABG HCO3 ABG O2 Content ABG Base Excess ABG Methemoglobin Jordy Test Hemoglobin Carboxyhemoglobin O2 Delivery Device Vent Setting Inspired O2 Critical Value Sodium 149 H Potassium 5.7 H Chloride Carbon Dioxide Anion Gap BUN Creatinine Estimated GFR POC Glucose 171 H Random Glucose Osmolality Lactic Acid Calcium Calcium Adj for Albumin Phosphorus Magnesium Total Bilirubin AST ALT Alkaline Phosphatase Ammonia Total Creatine Kinase CK-MB (CK-2) CK-MB (CK-2) % Troponin I Total Protein Albumin Lipase Beta-Hydroxybutyric Acd Urine Color Urine Clarity Urine pH Ur Specific [place] Urine Protein Urine Glucose (UA) Urine Ketones Urine Occult Blood Urine Nitrate Urine Bilirubin Urine Urobilinogen Ur Leukocyte Esterase Urine RBC Urine WBC Urine WBC Clumps Amorphous Sediment Urine Bacteria Hyaline Casts Urine Mucus Micro UA Comment Urine Culture Comments Stl C.difficile DNA Amp St C. diff Tox Epid 027 Random Vancomycin MTS Gel Crossmatch 08/05/18 08/05/18 08/05/18 20:50 23:35 23:35 WBC 44.1 H RBC 3.23 L Hgb 9.5 L Hct 28.6 L MCV 88.5 MCH 29.4 MCHC 33.2 RDW 17.1 Plt Count 65 L MPV 10.1 Prelim Diff (Auto) Slide review pending Neut % (Auto) 96.0 H Lymph % (Auto) 2.8 L [place] % (Auto) 1.1 Eos % (Auto) 0.0 Baso % (Auto) 0.1 Neut # (Auto) 42.3 H Lymph # (Auto) 1.2 [place] # (Auto) 0.5 Eos # (Auto) 0.0 Baso # (Auto) 0.0 WBC Differential Manual diff final Seg Neuts % (Manual) 81 H Band Neuts % (Manual) 15 H Lymphocytes % (Manual) 3 L Monocytes % (Manual) 1 Metamyelocytes % (Man) Myelocytes % (Man) Abs Neuts (Manual) 42.3 H Nucleated RBCs/100 WBC Differential Comment . Toxic Granulation 1+ H Toxic Vacuolation Present H Dohle Bodies Present H Platelet Estimate Low L Platelet Morphology Normal Pappenheimer Bodies Ovalocytes [place] Cells 1+ H Acanthocytes (Spur) Occ H Keratocytes Occ H PT INR APTT Fibrinogen Puncture Site Patient Temperature O2 Saturation ABG pH ABG pCO2 ABG pO2 ABG HCO3 ABG O2 Content ABG Base Excess ABG Methemoglobin Jordy Test Hemoglobin Carboxyhemoglobin O2 Delivery Device Vent Setting Inspired O2 Critical Value Sodium 151 H Potassium 5.8 H Chloride Carbon Dioxide Anion Gap BUN Creatinine Estimated GFR POC Glucose Random Glucose Osmolality 330 H Lactic Acid 4.9 H* Calcium Calcium Adj for Albumin Phosphorus Magnesium Total Bilirubin AST ALT Alkaline Phosphatase Ammonia Total Creatine Kinase CK-MB (CK-2) CK-MB (CK-2) % Troponin I Total Protein Albumin Lipase Beta-Hydroxybutyric Acd Urine Color Urine Clarity Urine pH Ur Specific [place] Urine Protein Urine Glucose (UA) Urine Ketones Urine Occult Blood Urine Nitrate Urine Bilirubin Urine Urobilinogen Ur Leukocyte Esterase Urine RBC Urine WBC Urine WBC Clumps Amorphous Sediment Urine Bacteria Hyaline Casts Urine Mucus Micro UA Comment Urine Culture Comments Stl C.difficile DNA Amp St C. diff Tox Epid 027 Random Vancomycin MTS Gel Crossmatch 08/05/18 08/06/18 08/06/18 23:38 03:05 03:05 WBC RBC Hgb Hct MCV MCH MCHC RDW Plt Count MPV Prelim Diff (Auto) Neut % (Auto) Lymph % (Auto) [place] % (Auto) Eos % (Auto) Baso % (Auto) Neut # (Auto) Lymph # (Auto) [place] # (Auto) Eos # (Auto) Baso # (Auto) WBC Differential Seg Neuts % (Manual) Band Neuts % (Manual) Lymphocytes % (Manual) Monocytes % (Manual) Metamyelocytes % (Man) Myelocytes % (Man) Abs Neuts (Manual) Nucleated RBCs/100 WBC Differential Comment Toxic Granulation Toxic Vacuolation Dohle Bodies Platelet Estimate Platelet Morphology Pappenheimer Bodies Ovalocytes [place] Cells Acanthocytes (Spur) Keratocytes PT INR APTT Fibrinogen Puncture Site Patient Temperature O2 Saturation ABG pH ABG pCO2 ABG pO2 ABG HCO3 ABG O2 Content ABG Base Excess ABG Methemoglobin Jordy Test Hemoglobin Carboxyhemoglobin O2 Delivery Device Vent Setting Inspired O2 Critical Value Sodium 151 H Potassium 5.7 H Chloride 122 H Carbon Dioxide 16.1 L Anion Gap 13 BUN 76 H Creatinine 3.84 H Estimated GFR 20 L POC Glucose 139 H Random Glucose 147 H Osmolality 338 H Lactic Acid 5.7 H* Calcium 6.9 L* Calcium Adj for Albumin 8.4 L D Phosphorus 5.4 H D Magnesium 1.7 Total Bilirubin 0.5 AST 744 H ALT 566 H Alkaline Phosphatase 321 H Ammonia Total Creatine Kinase CK-MB (CK-2) CK-MB (CK-2) % Troponin I Total Protein 4.3 L D Albumin 0.9 L Lipase Beta-Hydroxybutyric Acd Urine Color Urine Clarity Urine pH Ur Specific [place] Urine Protein Urine Glucose (UA) Urine Ketones Urine Occult Blood Urine Nitrate Urine Bilirubin Urine Urobilinogen Ur Leukocyte Esterase Urine RBC Urine WBC Urine WBC Clumps Amorphous Sediment Urine Bacteria Hyaline Casts Urine Mucus Micro UA Comment Urine Culture Comments Stl C.difficile DNA Amp St C. diff Tox Epid 027 Random Vancomycin MTS Gel Crossmatch 08/06/18 08/06/18 08:08 09:26 WBC RBC Hgb Hct MCV MCH MCHC RDW Plt Count MPV Prelim Diff (Auto) Neut % (Auto) Lymph % (Auto) [place] % (Auto) Eos % (Auto) Baso % (Auto) Neut # (Auto) Lymph # (Auto) [place] # (Auto) Eos # (Auto) Baso # (Auto) WBC Differential Seg Neuts % (Manual) Band Neuts % (Manual) Lymphocytes % (Manual) Monocytes % (Manual) Metamyelocytes % (Man) Myelocytes % (Man) Abs Neuts (Manual) Nucleated RBCs/100 WBC Differential Comment Toxic Granulation Toxic Vacuolation Dohle Bodies Platelet Estimate Platelet Morphology Pappenheimer Bodies Ovalocytes [place] Cells Acanthocytes (Spur) Keratocytes PT INR APTT Fibrinogen Puncture Site Art line Megan Patient Temperature 98.6 98.6 O2 Saturation 97 97 ABG pH 7.33 L 7.24 L* ABG pCO2 28 L 42 ABG pO2 380 H 307 H ABG HCO3 15 L* 17 L ABG O2 Content 14.8 16.5 ABG Base Excess -10.2 L -8.8 L ABG Methemoglobin 2.3 H 2.2 H Jordy Test Hemoglobin 10.1 L 11.6 L Carboxyhemoglobin 0.4 0.1 O2 Delivery Device Ventilator Vent Vent Setting 600/20/1.0/+5 Prvc/15/500/5/100 Inspired O2 100 100 Critical Value Yes Yes Sodium Potassium Chloride Carbon Dioxide Anion Gap BUN Creatinine Estimated GFR POC Glucose Random Glucose Osmolality Lactic Acid Calcium Calcium Adj for Albumin Phosphorus Magnesium Total Bilirubin AST ALT Alkaline Phosphatase Ammonia Total Creatine Kinase CK-MB (CK-2) CK-MB (CK-2) % Troponin I Total Protein Albumin Lipase Beta-Hydroxybutyric Acd Urine Color Urine Clarity Urine pH Ur Specific [place] Urine Protein Urine Glucose (UA) Urine Ketones Urine Occult Blood Urine Nitrate Urine Bilirubin Urine Urobilinogen Ur Leukocyte Esterase Urine RBC Urine WBC Urine WBC Clumps Amorphous Sediment Urine Bacteria Hyaline Casts Urine Mucus Micro UA Comment Urine Culture Comments Stl C.difficile DNA Amp St C. diff Tox Epid 027 Random Vancomycin MTS Gel Crossmatch Result Diagrams: 08/05/18 23:35 08/06/18 03:05 Microbiology: Microbiology 08/03/18 09:04 Gram Stain - Final Sputum - Endotracheal Sputum Culture - Preliminary Escherichia coli Staphylococcus aureus 08/02/18 10:49 Aerobic Blood Culture - Preliminary Blood - Peripheral No growth in 3 days Anaerobic Blood Culture - Preliminary No growth in 3 days 08/02/18 10:49 Aerobic Blood Culture - Preliminary Blood - Peripheral No growth in 3 days Anaerobic Blood Culture - Preliminary No growth in 3 days 08/03/18 14:36 Genital Culture - Preliminary Genital - Penis 08/02/18 10:55 Urine Culture - Final Catheterized Urine Staphylococcus aureus 08/03/18 09:49 Stool Occult Blood (FOREIGN) - Final Stool Hemoccult positive Imaging: Impressions Brain Flow Nuclear Medicine 08/05/18 00:00 CONCLUSION: 1. No blood flow identified to the brain parenchyma on the flow imaging suggesting brain . Chest X-Ray 08/06/18 06:00 CONCLUSION: Left sided opacity is stable to slightly increased and represents pleural effusion with associated volume loss and/or airspace consolidation. Procedures: 08/02/18: I&D left foot, S/P amputation left foot 08/03/18: Intubated, TLC placed 08/04/18 Cardiac arrest, CPR Assessment and Plan - Symptom Scale (1) Pain 0-10 Scale: Unable to quantify (2) Dyspnea 0-10 Scale: Unable to quantify Pertinent Non-Medical Issues: Psychosocial: Patient recently left [facility] AMA. He has a long history of substance abuse issues. He has a son, daughter, and multiple other family members who live locally. Daughter was located and participated in family meeting. Spiritual: Offered district manager in training services, family declined. Legal: Patient is incapacitated to make his own decisions. Per [place] statutes , healthcare decision making would default to his son and daughter. Call was placed to [facility] to attempt to locate HCP paperwork as sister Pat reported completing such, they are unable to locate any such document. Call was placed to , spoke with medical records and DON who state patient did not have HCP or HCS paperwork on file with them. Son Mando Griffin and daughter Andrew have accepted responsibility. Ethical issues impacting care: none Important Contacts: Daughter Andrew: [phone] (DO NOT SHARE) [address] [address] Son Mando Danielle Sister Pat: [phone] Prognosis: Neurological evaluations and brain flow studies suggestive of brain . Code Status: No Code DNR Plan: Legal decision maker: Patient is incapacitated make his own decisions. He has a son and a sister who are local. Per [place] statutes, healthcare decision making would default to his son and daughter. Sister Pat reports she is HCS but is unable to produce documentation. * Call placed to [facility] to attempt to locate HCP paperwork as sister Pat reported completing such, they are unable to locate any such document. * Call placed to , spoke with medical records and DON who state patient did not have HCP or HCS paperwork on file with them. * [employer] report has been requested Daughter was located and willing to participate in discussions. Goals: Patient is legally brain , met with additional family members to update on status. As a courtesy, family will visits in the coming hours before removing all lines and tubes. CODE STATUS: Patient was originally DNR. Was later found that he had revoked this while at [facility]. He was coded in the ICU, family has elected DNR status now. Brain flow study has revealed brain . Family is aware and he will be withdrawn from life support later today. SYMPTOMS: --Pain: Patient had recent amputation of left foot. Now has blistering dry skin on the right lower extremity likely secondary to vasoconstriction due to pressors. Patient also had chest compressions which would likely contribute to pain. Does not appear painful at this time. Given he is brain , it is unlikely he is able to feel pain at this time. --Dyspnea: Patient is now intubated and mechanically ventilated. No Spontaneous breathing, not expected to be weaned from ventilator. Palliative care will continue to follow during hospital course as condition evolves, to assist patient/decision-maker with understanding of medical conditions, weighing benefits/burdens of treatment options, for clarification of goals of treatment. Additionally will assist with any symptoms of palliative concern Attestation Attestation: To help prompt me to consider important information that might be impacting today's encounter and assessment, information from prior notes written by myself or my colleagues may have been "brought forward" into today's note. My signature on this note, however, is an attestation that I personally performed the exam, history, and/or decision-making noted today, and, unless otherwise indicated, the interactions with patient, family, and staff as well as the review of records all occurred today. I also attest that the listed assessment and stated plan reflect my best clinical judgment today based on the combination of historical information, prior notes, and today's exam/ interactions. When time spent is documented, it refers only to time spent today by the signer, or if indicated, combined time spent today by collaborating physician/nurse practitioner.
[2018-08-06] MEDS: Chlorhexidine 0.12% Oral Kit 15 ML UDC OROPHARYNG SCH (12:33)
[2018-08-06] MEDS: Senna/Docusate Sodium 8.6/50 MG Tablet PO SCH (12:33)
[2018-08-06 14:48] VITALS: BP 58/37; PULSE 0; RESP 0; TEMP 100.6
--- NOTE | 2018-08-06 15:02 | P.DN ---
- Provider Primary care physician: UNKNOWN Consults: 08/02/18 13:52 Consult to Infectious Diseases Routine Consulting Provider: Marietta Felton Reason for Consultation: L foot gangrene Notified:: Service Spoke with:: KIP Date Notified:: 08/02/18 Time Notified:: 14:08 Ordering Provider: SKIP 08/02/18 14:29 Consult to Podiatry Routine Consulting Provider: Power Horn Reason for Consultation: Left foot gangrene. Attempting to call from the ED currently. Notified:: Office Spoke with:: terry Date Notified:: 08/02/18 Time Notified:: 16:11 Ordering Provider: SKIP 08/02/18 17:07 Consult to Vascular Surgery Stat Consulting Provider: Call Back For STAT consult, spoke directly to:: Dr Berumen via telephone, wants patient to remain NPO Preferred Electroplater Helper:: Alan Berumen Reason for Consultation: left foot gas gangrene Ordering Provider: MANDA 08/02/18 17:09 Consult to Vascular Surgery Stat Consulting Provider: Alan Berumen For STAT consult, spoke directly to:: Ata Preferred Electroplater Helper:: Alan Berumen Reason for Consultation: gas gangrene left foot, patient will remain NPO for guillotine amputation left Notified:: Physician Spoke with:: Dr Adams Notified:: 08/02/18 Time Notified:: 17:14 Ordering Provider: MANDA 08/03/18 01:50 Consult to Gastroenterology Routine Consulting Provider: Srikanth Carpenter Reason for Consultation: GI bleed, melena Notified:: Service Spoke with:: duane Date Notified:: 08/03/18 Time Notified:: 04:08 Ordering Provider: ONEIL 08/04/18 11:01 Consult to Neurology Routine Consulting Provider: Yovany Guy Reason for Consultation: Bilateral cerebellar CVA. Notified:: Service Spoke with:: CRISTIAN Date Notified:: 08/04/18 Time Notified:: 11:17 Ordering Provider: SKIP 08/05/18 06:16 Consult to Palliative Care Routine Consulting Provider: Jimy Wen Reason for Consultation: Pt admitted with severe sepsis, DKA, L foot gangrene and hypothermia - cerebeelar CVA. likely brain . Family support Notified:: Service Spoke with:: Duane Date Notified:: 08/05/18 Time Notified:: 06:43 Ordering Provider: SKIP - Admitting Diagnosis (1) Sepsis (2) Hypothermia (3) Diabetic foot infection (4) Acute renal failure (5) Leukocytosis (6) Hypermagnesemia (7) Hyponatremia (8) Rhabdomyolysis (9) Macrocytic anemia (10) Thrombocytopenia (11) Hypoalbuminemia (12) Hyperkalemia (13) Elevated transaminase level (14) Gas gangrene (15) Gastrointestinal hemorrhage with melena - Diagnosis at Time of (1) Brain Diagnosis: Principal (2) Anoxic encephalopathy Diagnosis: Principal (3) Acute hypoxemic respiratory failure Diagnosis: Principal (4) Severe sepsis Diagnosis: Principal (5) DKA (diabetic ketoacidosis) Diagnosis: Principal (6) Acute renal failure Diagnosis: Principal (7) Gangrene of left foot Diagnosis: Principal (8) Diabetic foot infection Diagnosis: Principal (9) Rhabdomyolysis Diagnosis: Principal (10) Thrombocytopenia Diagnosis: Principal (11) Elevated transaminase level Diagnosis: Principal (12) Gas gangrene Diagnosis: Principal - Date and Time Date of admission: 08/02/18 13:15 Date of : 08/06/18 Time of : 12:45 - Summary Details: SEE SUMMARY Procedures: 08/02/2018 central line 08/03/2018 endotracheal intubation 08/04/2018 CPR Brief History: This is a 49-year-old male. Date of admission 08/02/2008. Past medical history includes diabetes mellitus, hypertension, peripheral neuropathy and narcotic use. Patient was recently DNR under [facility] hospice. Patient left [facility] 07/10/2018 according to records. Patient was found today by friends altered mental status. Patient was transferred according to [facility] for evaluation treatment. Upon arrival, patient was hypothermic with a temperature of 79 F. Workup included sodium 1.8, potassium 5.5 and creatinine 3.17. Blood sugar was 900. Lipid cell count is 47,000 with 34 bands. Hemoglobin is 9.4 and platelets 143. INR is 1.5. Albumin is 1.63 CPK is 3200. Transaminases are elevated. Patient received 5 L normal saline in the ED of warm saline and started on insulin drip per DKA protocol. Anion gap was 27. Lactic and beta hydroxybutyrate currently pending. CT brain revealed no acute intracranial findings. Foot x-ray revealed gas gangrene left foot. Attempted to consult podiatry at the present time. Patient was started on vancomycin and piperacillin/tazobactam. I added clindamycin A central line was placed due to multiple lab draws/kilogram of hypotension Result Diagrams: 08/05/18 23:35 08/06/18 03:05 Significant Findings: Abnormal Lab Results 08/05/18 08/05/18 08/05/18 15:05 15:38 17:11 WBC RBC Hgb Hct MCV MCH MCHC RDW Plt Count MPV Prelim Diff (Auto) Neut % (Auto) Lymph % (Auto) [place] % (Auto) Eos % (Auto) Baso % (Auto) Neut # (Auto) Lymph # (Auto) [place] # (Auto) Eos # (Auto) Baso # (Auto) WBC Differential Seg Neuts % (Manual) Band Neuts % (Manual) Lymphocytes % (Manual) Monocytes % (Manual) Abs Neuts (Manual) Differential Comment Toxic Granulation Toxic Vacuolation Dohle Bodies Platelet Estimate Platelet Morphology Indigo Cells Acanthocytes (Spur) Keratocytes Puncture Site Patient Temperature O2 Saturation ABG pH ABG pCO2 ABG pO2 ABG HCO3 ABG O2 Content ABG Base Excess ABG Methemoglobin Hemoglobin Carboxyhemoglobin O2 Delivery Device Vent Setting Inspired O2 Critical Value Sodium 149 H Potassium Chloride Carbon Dioxide Anion Gap BUN Creatinine Estimated GFR POC Glucose 184 H Random Glucose Osmolality Lactic Acid 5.2 H* Calcium Calcium Adj for Albumin Phosphorus Magnesium Total Bilirubin AST ALT Alkaline Phosphatase Total Protein Albumin 08/05/18 08/05/18 08/05/18 17:11 20:19 20:50 WBC RBC Hgb Hct MCV MCH MCHC RDW Plt Count MPV Prelim Diff (Auto) Neut % (Auto) Lymph % (Auto) [place] % (Auto) Eos % (Auto) Baso % (Auto) Neut # (Auto) Lymph # (Auto) [place] # (Auto) Eos # (Auto) Baso # (Auto) WBC Differential Seg Neuts % (Manual) Band Neuts % (Manual) Lymphocytes % (Manual) Monocytes % (Manual) Abs Neuts (Manual) Differential Comment Toxic Granulation Toxic Vacuolation Dohle Bodies Platelet Estimate Platelet Morphology [place] Cells Acanthocytes (Spur) Keratocytes Puncture Site Patient Temperature O2 Saturation ABG pH ABG pCO2 ABG pO2 ABG HCO3 ABG O2 Content ABG Base Excess ABG Methemoglobin Hemoglobin Carboxyhemoglobin O2 Delivery Device Vent Setting Inspired O2 Critical Value Sodium Potassium 5.7 H Chloride Carbon Dioxide Anion Gap BUN Creatinine Estimated GFR POC Glucose 171 H Random Glucose Osmolality Lactic Acid 4.9 H* Calcium Calcium Adj for Albumin Phosphorus Magnesium Total Bilirubin AST ALT Alkaline Phosphatase Total Protein Albumin 08/05/18 08/05/18 08/05/18 23:35 23:35 23:38 WBC 44.1 H RBC 3.23 L Hgb 9.5 L Hct 28.6 L MCV 88.5 MCH 29.4 MCHC 33.2 RDW 17.1 Plt Count 65 L MPV 10.1 Prelim Diff (Auto) Slide review pending Neut % (Auto) 96.0 H Lymph % (Auto) 2.8 L [place] % (Auto) 1.1 Eos % (Auto) 0.0 Baso % (Auto) 0.1 Neut # (Auto) 42.3 H Lymph # (Auto) 1.2 [place] # (Auto) 0.5 Eos # (Auto) 0.0 Baso # (Auto) 0.0 WBC Differential Manual diff final Seg Neuts % (Manual) 81 H Band Neuts % (Manual) 15 H Lymphocytes % (Manual) 3 L Monocytes % (Manual) 1 Abs Neuts (Manual) 42.3 H Differential Comment . Toxic Granulation 1+ H Toxic Vacuolation Present H Dohle Bodies Present H Platelet Estimate Low L Platelet Morphology Normal Indigo Cells 1+ H Acanthocytes (Spur) Occ H Keratocytes Occ H Puncture Site Patient Temperature O2 Saturation ABG pH ABG pCO2 ABG pO2 ABG HCO3 ABG O2 Content ABG Base Excess ABG Methemoglobin Hemoglobin Carboxyhemoglobin O2 Delivery Device Vent Setting Inspired O2 Critical Value Sodium 151 H Potassium 5.8 H Chloride Carbon Dioxide Anion Gap BUN Creatinine Estimated GFR POC Glucose 139 H Random Glucose Osmolality 330 H Lactic Acid Calcium Calcium Adj for Albumin Phosphorus Magnesium Total Bilirubin AST ALT Alkaline Phosphatase Total Protein Albumin 08/06/18 08/06/18 08/06/18 03:05 03:05 08:08 WBC RBC Hgb Hct MCV MCH MCHC RDW Plt Count MPV Prelim Diff (Auto) Neut % (Auto) Lymph % (Auto) [place] % (Auto) Eos % (Auto) Baso % (Auto) Neut # (Auto) Lymph # (Auto) [place] # (Auto) Eos # (Auto) Baso # (Auto) WBC Differential Seg Neuts % (Manual) Band Neuts % (Manual) Lymphocytes % (Manual) Monocytes % (Manual) Abs Neuts (Manual) Differential Comment Toxic Granulation Toxic Vacuolation Dohle Bodies Platelet Estimate Platelet Morphology Indigo Cells Acanthocytes (Spur) Keratocytes Puncture Site Art line Patient Temperature 98.6 O2 Saturation 97 ABG pH 7.33 L ABG pCO2 28 L ABG pO2 380 H ABG HCO3 15 L* ABG O2 Content 14.8 ABG Base Excess -10.2 L ABG Methemoglobin 2.3 H Hemoglobin 10.1 L Carboxyhemoglobin 0.4 O2 Delivery Device Ventilator Vent Setting 600/20/1.0/+5 Inspired O2 100 Critical Value Yes Sodium 151 H Potassium 5.7 H Chloride 122 H Carbon Dioxide 16.1 L Anion Gap 13 BUN 76 H Creatinine 3.84 H Estimated GFR 20 L POC Glucose Random Glucose 147 H Osmolality 338 H Lactic Acid 5.7 H* Calcium 6.9 L* Calcium Adj for Albumin 8.4 L D Phosphorus 5.4 H D Magnesium 1.7 Total Bilirubin 0.5 AST 744 H ALT 566 H Alkaline Phosphatase 321 H Total Protein 4.3 L D Albumin 0.9 L 08/06/18 09:26 WBC RBC Hgb Hct MCV MCH MCHC RDW Plt Count MPV Prelim Diff (Auto) Neut % (Auto) Lymph % (Auto) [place] % (Auto) Eos % (Auto) Baso % (Auto) Neut # (Auto) Lymph # (Auto) [place] # (Auto) Eos # (Auto) Baso # (Auto) WBC Differential Seg Neuts % (Manual) Band Neuts % (Manual) Lymphocytes % (Manual) Monocytes % (Manual) Abs Neuts (Manual) Differential Comment Toxic Granulation Toxic Vacuolation Dohle Bodies Platelet Estimate Platelet Morphology Indigo Cells Acanthocytes (Spur) Keratocytes Puncture Site [place] Patient Temperature 98.6 O2 Saturation 97 ABG pH 7.24 L* ABG pCO2 42 ABG pO2 307 H ABG HCO3 17 L ABG O2 Content 16.5 ABG Base Excess -8.8 L ABG Methemoglobin 2.2 H Hemoglobin 11.6 L Carboxyhemoglobin 0.1 O2 Delivery Device Vent Vent Setting Prvc/15/500/5/100 Inspired O2 100 Critical Value Yes Sodium Potassium Chloride Carbon Dioxide Anion Gap BUN Creatinine Estimated GFR POC Glucose Random Glucose Osmolality Lactic Acid Calcium Calcium Adj for Albumin Phosphorus Magnesium Total Bilirubin AST ALT Alkaline Phosphatase Total Protein Albumin Hospital Course: This is a 49-year-old male. Date of admission 08/02/2008. Past medical history includes diabetes mellitus, hypertension, peripheral neuropathy and narcotic use. Patient was recently DNR under fluoroscopy hospice. Patient left [facility] 07/10/2018 according to records. Patient was found today by friends altered mental status. Patient was transferred according to [facility] for evaluation treatment. Upon arrival, patient was hypothermic with a temperature of 79 F. Workup included sodium 1.8, potassium 5.5 and creatinine 3.17. Blood sugar was 900. Lipid cell count is 47,000 with 34 bands. Hemoglobin is 9.4 and platelets 143. INR is 1.5. Albumin is 1.63 CPK is 3200. Transaminases are elevated. Patient received 5 L normal saline in the ED of warm saline and started on insulin drip per DKA protocol. Anion gap was 27. Lactic and beta hydroxybutyrate currently pending. CT brain revealed no acute intracranial findings. Foot x-ray revealed gas gangrene left foot. Attempted to consult podiatry at the present time. Patient was started on vancomycin and piperacillin/tazobactam. I added clindamycin A central line was placed due to multiple lab draws/ of hypotension 08/03 -intubated overnight due to altered mental status. Worsening sepsis. Debrided left foot yesterday. Vascular surgery did evaluate. Currently on norepinephrine and vasopressin drips. Transfused 3 units PRBCs and fresh frozen plasma overnight. 08/04: This morning, noted no corneal reflex/no gag or cough. Pupils appeared fixed. Negative oculocephalic reflex. MRI brain revealed bilateral cerebellar edema with upward and downward herniation. Early hydrocephalus. Remains hypothermic. Son Mando Danielle notified. SUBJECTIVE: 08/05: Brain flow scan revealed no flow. Sagittal sinus likely external circulation. By examination appears brain . No corneals, gag, cough, oculocephalic or vestibular reflexes. Hypothermic in on multiple vasopressors unable to do apnea test. 08/06: Clinical exam exam consistent with brain as well as cerebral blood flow study and EEG. No brainstem reflexes. Discussed with Dr. Guy.unable to do apnea testing as the patient was hemodynamically too unstable and hypoxic. Patient did meet criteria for brain without apnea testing, declared brain at 12:45 AM which is time of . Ventilator removed after family had time to visit, asystole within 10 minutes
== END 2018-08-06 14:23 | disposition expired ==
LOC: NEPC 09:50 → NEDH 13:15 → HIMC 16:45
PROVIDERS: ADMIT Internal Medicine Critical Care Medicine; ATTEND Internal Medicine Critical Care Medicine